=== PATIENT | male | born 1945 | race Two or more races ===

== ENCOUNTER 2024-10-05 16:01 | Inpatient (IN) | payer OTHER, MEDICARE, SELFPAY ==
[2024-10-05] VITALS (8 sets, daily range): BP systolic 101–111; BP diastolic 73–78; PULSE 9–90; RESP 15–97; TEMP 36.4–36.7; O2SAT 95–99; BMI 23.6; BMI 32.3; BMI 30.7
--- NOTE | 2024-10-05 16:42 | EKG_ITS ---
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
--- NOTE | 2024-10-05 16:42 | XR_ITS ---
Examination: AP chest single view Technique: AP portable semiupright chest single view Exam date and time: October 05, 2024 at 1658 hrs. Comparison: September 01, 2024 Indications: Shortness of breath chest pain today Findings: Moderate enlargement cardiac contour Mild vascular congestion Unipolar ventricular lead satisfactory position No pulmonary edema or pneumonia Impression: Mild vascular congestion
--- NOTE | 2024-10-05 16:43 | PD.EDWEAK ---
ED Weakness RME/HPI General Chief complaint: Weakness Stated complaint: FOOT PAIN Time Seen by Provider: 10/05/24 16:36 Arrival date/time: 10/05/24 16:01 RME / HPI RME / HPI Narrative: 79-year-old male patient with significant history of congestive heart failure, DVT, chronic A-fib was brought in by EMS for evaluation regarding generalized body weakness. According to the patient, he had physical therapy today, and the therapist noted that his blood pressure was low. They continue doing the physical therapy, and patient noted to be getting worse. Also complained of chronic left lower leg pain. And swelling. Currently on Eliquis for DVT bilateral lower extremity. Denies any chest pain. Denies any headache. Denies any vomiting denies any fever denies any other complaints. Patient is on Bumex 2 mg twice daily and spironolactone 25 mg twice daily for congestive heart failure. Related Data Home Medications ?Medication ?Instructions ?Recorded ?Confirmed potassium chloride 10 mEq 10 meq PO QDAY 04/04/20 09/01/24 tablet,extended release Previous Rx's ?Medication ?Instructions ?Recorded apixaban 5 mg tablet (Eliquis) 5 mg PO BID #46 tabs 09/06/24 bumetanide 2 mg tablet 2 mg PO BID #60 tabs 09/06/24 carvedilol 6.25 mg tablet (Coreg) 6.25 mg PO BID 1 month #60 tabs 09/06/24 spironolactone 25 mg tablet 25 mg PO BID #14 tabs 09/07/24 Allergies Allergy/AdvReac Type Severity Reaction Status Date / Time No Known Allergies Allergy Verified 03/31/24 17:43 Review of Systems Review of Systems Narrative Review of Systems: Review of system reviewed and within normal limits except mentioned in HPI ED Exam Narrative Physical exam: VITAL SIGNS: Reviewed. GENERAL APPEARANCE: Alert and interactive, follows commands, no acute distress, HEAD AND FACE: Non-traumatic. ENT: PERRL, pink conjunctivitis, eyelid no trauma, Mucous membrane moist. NECK: Supple, nontender, no nuchal rigidity. CHEST: No tenderness, no crepitus, no paradoxical movement, no retractions. LUNGS: Clear, well ventilated, symmetric, no rales, no wheezing, no ronchi, no stridor, good breath sounds bilaterally. HEART: Regular rate, regular rhythm, no murmur, no gallops. ABDOMEN: Soft, positive bowel sounds, nondistended, no guarding, nontender, no rebound, no masses, RECTAL: Deferred. GENITAL: Deferred. NEUROLOGICAL: Gross motor function intact sensory function intact, Appropriate for age. MUSCULOSKELETAL: low back nontender, full range of motion. EXTREMITIES: Bilateral lower extremity swelling +1, no cyanosis, dorsalis pedis and posterior tibialis pulses +1 bilateral, nontender, full range of motion. SKIN: Color pink, dry, no rash, no lacerations, no abrasions, no contusions. LYMPHATICS: Deferred. Course Quality Measures none Orders Category Date Time Status COVID-19 Screening Questionnaire NOW Care 10/05/24 19:45 Active Decision to Admit X1 Care 10/05/24 19:45 Active EKG (ED ONLY) *Do not use* NOW Care 10/05/24 16:42 Completed Consult to Nephrology Stat Cons 10/05/24 19:02 Ordered EKG (ED Only) Stat Exams 10/05/24 16:42 Draft XR chest 1V Stat Exams 10/05/24 16:42 Completed B-Type Natriuretic Peptide Stat Lab 10/05/24 17:18 Completed CBC Stat Lab 10/05/24 17:18 Completed Comprehensive Metabolic Panel Stat Lab 10/05/24 17:18 Completed Partial Thromboplastin Time Stat Lab 10/05/24 17:18 Completed Prothrombin Time with INR Stat Lab 10/05/24 17:18 Completed Troponin I Stat Lab 10/05/24 17:18 Completed Urinalysis, C/S if Indicated Stat Lab 10/05/24 17:29 Completed Sodium Chloride 0.9% 1000 ml [Ns] 1,000 ml Med 10/05/24 19:03 Active IV 999 mls/hr Vital Signs Vital signs: Vital Signs Temperature 97.6 F 10/05/24 16:18 Pulse Rate 78 10/05/24 16:18 Respiratory Rate 18 10/05/24 16:18 Blood Pressure 111/78 10/05/24 16:18 Pulse Oximetry (%) 95 10/05/24 16:18 Oxygen Delivery Method Room Air 10/05/24 16:18 Weakness MDM Narrative MDM Narrative:: 79-year-old male patient with significant history of congestive heart failure, DVT, chronic A-fib was brought in by EMS for evaluation regarding generalized body weakness. According to the patient, he had physical therapy today, and the therapist noted that his blood pressure was low. They continue doing the physical therapy, and patient noted to be getting worse. Also complained of chronic left lower leg pain. And swelling. Currently on Eliquis for DVT bilateral lower extremity. Denies any chest pain. Denies any headache. Denies any vomiting denies any fever denies any other complaints. Patient is on Bumex 2 mg twice daily and spironolactone 25 mg twice daily for congestive heart failure. Laboratory workup is significant for creatinine of 2.2 BUN of 46, patient's previous creatinine was noted to be 1.0 that was 3 weeks ago. BNP was noted to be 2117. Spoke with Dr. Torres, electrical instrument repairer on-call, told me to give patient 1 L of IV fluids hold Bumex and spironolactone, admit the patient Patient data External records reviewed:: None Clinical information provided by:: none Social determinants that could affect healthcare access:: none Patient has the following chronic illnesses:: Congestive heart failure history of DVT bilateral lower extremity How is presenting disease/condition affected by chronic disease/condition?: exacerbated by Evaluation data The following diagnostics were reviewed and interpreted by me:: lab results, radiology exam(s) and EKG tracing(s) Lab and/or radiology exams considered but not ordered:: None Interpretation Summary: Laboratory workup is significant for creatinine of 2.2 BUN of 46, patient's previous creatinine was noted to be 1.0 that was 3 weeks ago. BNP was noted to be 2117. EKG showed atrial fibrillation, ventricular rate of 84 bpm, QRS duration 136 MS, no ST segment elevation or depression noted. Medications / Prescriptions Medications or Prescriptions considered but not ordered:: None Medication administrations:: Medication Administration History Sodium Chloride (Ns) 1,000 mls @ 999 mls/hr IV .Q1H1M ONE Stop: 10/05/24 20:03 IV fluids for hydration Consultations Consultation(s) initiated? (list below): Yes Consultation #1 (Physician, Specialty, Details): Dr. Torres electrical instrument repairer, told me to admit the patient give a liter of fluid and stop Bumex and spironolactone for now Diagnosis Weakness Differential Diagnosis: anemia, dehydration and other (Acute kidney injury) Most likely diagnosis given after review of the tests above:: Acute kidney injury, history of congestive heart failure, history of chronic A-fib, Admission Indicated Admission indicated?: indicated Explain why admission is indicated or not indicated:: Patient is to be admitted for further management. Admission Request Was there a request for admission?: Yes Admission Attestation Admission request attestation: Discussed case with [Dr. Tate] from Hospitalist service regarding admission. Discussed patients ED course, exam findings, labs, and radiology results. The Hospitalist [agrees,] to accept the patient for admission. Disposition Plan Disposition Plan: Admit Discharge Plan Plan Patient Disposition: Admit Acute Care w/in Hospital Disposition Comment: Stable Prescriptions/Referrals Prescriptions/Med Rec: No Action potassium chloride 10 mEq Tablet Extended Release 10 meq PO QDAY Hold Instructions: Hold until seen by PCP and have done CMP. Eliquis 5 mg tablet 5 mg PO BID Qty: 46 0RF bumetanide 2 mg tablet 2 mg PO BID Qty: 60 0RF carvedilol [Coreg] 6.25 mg tablet 6.25 mg PO BID 30 Days Qty: 60 0RF Rx Instructions: must administer with a meal/food spironolactone 25 mg tablet 25 mg PO BID Qty: 14 0RF Referrals: Karen Wiley PA-C [Primary Care Provider] - In 1 week Problem List Clinical Impression: Acute kidney injury, Congestive heart failure Patient/Caregiver Discharge Instructions Print Language: Citizen Of [place] Stand Alone Forms: Valeria Award Info., Patient Portal Info Letter
[2024-10-05 17:31] LABS: Basophils # (Auto) 0.1 Thou/mm3 (0.0-0.2); Basophils % (Auto) 1 % (0-2.5); Eosinophils # (Auto) 0.2 Thou/mm3 (0.0-0.5); Eosinophils % (Auto) 3 % (0-10); Hematocrit 38.8 % (41.0-53.0); Hemoglobin 12.1 g/dL (13.5-16.0); Immature Granulocytes % (Auto) 0 % (0-0); Immature Granulocytes Auto 0.03 Thou/mm3 (0.00-0.00); Lymphocytes # (Auto) 1.9 Thou/mm3 (1.0-4.8); Lymphocytes % (Auto) 26 % (10-50); Mean Corpuscular HGB Conc 31.2 g/dl (31.0-37.0); Mean Corpuscular Hemoglobin 29.1 pg (25.0-35.0); Mean Corpuscular Volume 93 fL (80-100); Monocytes % (Auto) 14 % (0-12); Neutrophils # (Auto) 4.1 Thou/mm3 (1.8-7.7); Neutrophils % (Auto) 56 % (37-80); Nucleated Red Blood Cell # 0.07 Thou/mm3 (0.00-0.00); Nucleated Red Blood Cell % 1 /100 WBC (0); Platelet Count 180 Thou/mm3 (140-440); RDW Standard Deviation 51.3 fL (35.1-43.9); Red Blood Count 4.16 Miln/mm3 (4.50-5.90); White Blood Count 7.3 Thou/mm3 (3.8-10.6)
[2024-10-05 17:47] LABS: Collection Type, Urine Clean Catch
[2024-10-05 17:49] LABS: INR 1.6 (0.9-1.3); Partial Thromboplastin Time 37.3 Seconds (22.0-36.0); Prothrombin Time 17.2 Seconds (9.0-12.2)
[2024-10-05 17:52] LABS: Bilirubin,Urine Negative (Negative); Blood,Urine Negative (Negative); Clarity,Urine Clear (Clear/Hazy); Color,Urine Yellow (Lt Yel-Yel); Culture Indicated,Urine Not Indicated; Glucose, Urine Negative (Negative); Hyaline Casts,Urine 2 /hpf (0-1); Ketones,Urine Negative (Negative); Leukocyte Esterase,Urine Negative (Negative); Nitrite,Urine Negative (Negative); PH,Urine 5.5 (5.0-7.0); Protein,Urine Trace (Neg - Trace); RBC,Urine 2 /hpf (0-3); Specific Gravity,Urine 1.016 (1.001-1.035); Squamous Epithelial Cell,Urine < 1 /hpf (0-5); WBC,Urine 1 /hpf (0-5)
[2024-10-05 18:08] LABS: Alanine Aminotransferase 70 U/L (10-49); Albumin/Globulin Ratio 1.4 (1.2-2.2); Alkaline Phosphatase 106 U/L (46-116); Anion Gap 8 (7-16); Aspartate Amino Transferase 86 U/L (0-34); BUN/Creatinine Ratio 21 Ratio (12-20); Bilirubin,Total 1.6 mg/dL (0.3-1.2); Blood Urea Nitrogen 46 mg/dL (9-23); Calcium 9.4 mg/dL (8.3-10.6); Calcium (Corrected) 9.4 mg/dL (8.5-10.1); Carbon Dioxide 28.1 mMol/L (20.0-31.0); Chloride 97 mMol/L (98-107); Creatinine (Component) 2.2 mg/dL (0.6-1.3); Estimated Creatinine Clearance 26.3 mL/min (>60); Globulin 2.8 gm/dL (2.3-3.5); Glucose 111 mg/dL (74-106); Osmolality,Calculated 279 (275-295); Potassium 4.4 mMol/L (3.4-5.1); Sodium 133 mMol/L (136-145); Total Protein 6.8 gm/dL (5.7-8.2); Troponin I 0.026 ng/mL (0.0-0.045); eGFR 30 See Note
[2024-10-05 18:12] LABS: B-Type Natriuretic Peptide 2117 pg/mL (0-100)
--- NOTE | 2024-10-05 20:54 | ESHP_ITS ---
Documentation for date of: 10/05/24 HPI History of Present Illness History of present illness: 79-year-old male patient with significant medical history of HFrEF (35-40% on March 2024), s/p AICD, chronic Afib (rate controlled), DVT (on Eliquis), HTN, HLD and DM2 was broght to ED by EMS for generalized weakness and hypotension. Patient was recently admitted to [facility] on 09/01/24 where he was found to have DVT with CHF exacerbation and was discharged on Eliquis, Bumix and sprionolactone. Patient was to follow up with cardiology post hospital discharge but he never followed through due to transportation issues. While undergoing physical therapy at home this morning, patient was found to have BP in 80's / 40's on multiple readings thus patient was brought to ED. Patient denied chest pain / pressure, SOB, chills, fever, NVD or other associated symptoms. Patient states that for the last few days he has had decreased p.o. intake. ED labs were significant for Hgb 12.1, MCV 93, PT 17.2, INR 1.6, aPTT 37.3, BUN 46, Felt Finishing Supervisor 2.2 (baseline 1), eGFR 30, T. bili 1.6, AST 86, ALT 70, BNP 2117. Machine Biller Dr. Torres was consulted, and it was recommended to give patient bolous IVF and admit for further ERLIN management. Medical Hx: HFrEF, Afib, DVT, HTN, HLD, DM2 Surgical Hx: s/p AICD, anal fistula, knee arthroscopies Medications (need reconciliation): Eliquis, spironolactone, Bumix, Carvedilol, KCL, Lisinopril, Fluoxetine Social Hx: Former alcohol drinker, denied smoking or using other illicit drugs Allergies: NKDA Code Status: Full Code Review of Systems Review of Systems Systems Reviewed: All systems reviewed, normal except as documented Exam Vital Signs Temp Pulse Resp BP Pulse Ox O2 Del Method 98.0 F 85 18 102/78 96 Room Air 10/05/24 20:31 10/05/24 20:31 10/05/24 20:31 10/05/24 20:31 10/05/24 20:31 10/05/24 20:31 Narrative Exam Constitutional: well-developed, well-nourished, in no acute distress, lying in bed HEENT: NCAT, EOMI, reactive round pupils b/l, patent nares b/l, moist mucous membranes Lung: CTAB, no wheezing, no rhonchi Heart: Regular S1S2, no murmurs, gallops, or rubs Abdomen: Soft, non-distended, non-tender, bowel sounds present throughout Extremities: No cyanosis, clubbing, trace edema of LE, pulses of LE present b/l Neurologic: No focal sensory or motor deficits noted, AOx3, appropriate affect Skin: Warm, dry, no lesions or rashes noted Results: Labs 10/05/24 17:18 10/05/24 17:18 Labs: Short CBC 10/05/24 Range/Units 17:18 WBC 7.3 (3.8-10.6) Thou/mm3 Hgb 12.1 L (13.5-16.0) g/dL Hct 38.8 L (41.0-53.0) % Plt Count 180 (140-440) Thou/mm3 BMP 10/05/24 17:18 Sodium 133 L Potassium 4.4 Chloride 97 L Carbon Dioxide 28.1 BUN 46 H Creatinine 2.2 H Glucose 111 H Calcium 9.4 Cardiac Enzymes 10/05/24 Range/Units 17:18 Troponin I 0.026 (0.0-0.045) ng/mL Liver Function 10/05/24 Range/Units 17:18 Total Bilirubin 1.6 H (0.3-1.2) mg/dL AST 86 H (0-34) U/L ALT 70 H (10-49) U/L Alkaline Phosphatase 106 (46-116) U/L Albumin 4.0 (3.4-4.8) gm/dL Urine 10/05/24 Range/Units 17:29 Urine Color Yellow (Lt Yel-Yel) Urine Clarity Clear (Clear/Hazy) Urine pH 5.5 (5.0-7.0) Ur Specific [place] 1.016 (1.001-1.035) Urine Protein Trace (Neg - Trace) Urine Glucose (UA) Negative (Negative) Quality Measures Quality Measures none Advance care planning discussed with:: patient Medications Home Medications and Allergies Home Medications ?Medication ?Instructions ?Recorded ?Confirmed ?Type carvedilol 12.5 mg tablet 12.5 mg PO Q12H 10/06/24 10/06/24 History fluoxetine 20 mg capsule 20 mg PO QDAY 10/06/24 10/06/24 History Allergies Allergy/AdvReac Type Severity Reaction Status Date / Time No Known Allergies Allergy Verified 03/31/24 17:43 Visit Medications Acetaminophen (Acetaminophen 325 Mg Tablet) 650 mg PO Q6H PRN PRN Reason: Fever >101.5 Stop: 11/04/24 20:49 Heparin Sodium (Porcine) (Heparin Sod Inj 5000 Unit/Ml Vial) 5,000 unit SC Q8HR YASSINE Stop: 10/19/24 21:59 Ondansetron HCl (Ondansetron Inj 2 Mg/Ml Inj 2 Ml) 4 mg IV Q6H PRN; Protocol PRN Reason: NAUSEA OR VOMITING Stop: 11/04/24 20:49 Pantoprazole Sodium (Pantoprazole 40 Mg Tablet) 40 mg PO QDAY YASSINE Stop: 11/05/24 08:59 Discontinued Medications Sodium Chloride (Ns) 1,000 mls @ 999 mls/hr IV .Q1H1M ONE Stop: 10/05/24 20:03 Assessment & Plan Plan 79-year-old male patient with significant medical history of HFrEF (35-40% on March 2024), s/p AICD, chronic Afib (rate controlled), DVT (on Eliquis), HTN, HLD and DM2 was broght to ED by EMS for generalized weakness and hypotension. Patient was recently admitted to [facility] on 09/01/24 where he was found to have DVT with CHF exacerbation and was discharged on Eliquis, Bumix and sprionolactone. Today patient found to have ERLIN, Machine Biller Dr. Torres was consulted. #ERLIN most likely prerenal in setting of hypovolemia #Elevated BNP On admission patient with creatinine 2.2 (baseline 1) Patient recently discharged on Bumex and spironolactone Patient did not follow-up with shuttleless loom weaver post-discharge on August 2024 Patient with decreased p.o. intake for the last few days Plan: ? Admit to med telemetry ? Machine Biller Dr. Bingham consulted, recommendations are greatly appreciated ? Patient received 1 L of NS bolus ? Withhold Bumex and spironolactone ? Avoid nephrotoxins ? Renally dose medications ? Follow-up renal panel #Transaminitis #Elevated T bili Admission T bili 1.6, AST 86, ALT 70 Secondary to hypotention in setting of hypovolemia Plan: - Treat underlying illness - Trend liver panel #HFrEF (35 to 40%) #s/p AICD #Hypotension Patient recently discharged on spironolactone and Bumex Patient did not follow-up with cardiology secondary to transportation issues Per patient, decreased p.o. intake and generalized weakness Patient with BP 80's / 40's Patient received 1L bolous IVF per nephro recommendation Plan: ? Currently not in exacerbation ? Withhold home meds in setting of hypotension and ERLIN ? Consider consulting cardiology #DVT #A-fib rate controlled Patient recently admitted for b/l DVT Physical exam significant for mild edema of LE, L > R Plan: ? Restart Eliquis 5 mg twice daily #DM2 Most recent A1c of 5 Plan: - SSI + accuchecks Health Maintenance Dispo: Patient admitted for ERLIN, nephrology consulted Diet: cardiac diet DVT/PPx: Eliquis GI ppx: Protonix Lines: PIV Code Status: Full Code This patient care was discussed with my attending Dr. Vianney Sheth MD PGY-2 Disclaimer: Minor errors in bean picker may be present since this note was dictated by speech recognition software. Attending Provider Attestation/Addendum I reviewed labs, imaging, EKG, home medications and prior available records. Face to face evaluation was performed by me. I have personally examined the patient and discussed assessment and plan with the IM team. I reviewed the resident note and agree with the plan with exceptions as below. 79-year-old male with history of heart failure with reduced EF, atrial fibrillation, hypertension, and hyperlipidemia, who was recently admitted for CHF exacerbation and was discharged on oral diuretics, who presented with a chief complaint of generalized weakness and hypotension. Was found to have dehydration picture and ERLIN. ERLIN: Likely in the setting of diuretic use. Possibly on top of not eating and drinking well. Nephrology was contacted in the ED Dr. Bingham: Recommended to hold diuretics and give IV fluids. Monitor I's and O's. Avoid nephrotoxins. Renally dosed medications. Acute hypotension: Improved with IV fluids. Management as above. Monitor BP. CHF without exacerbation: In the setting of history of heart failure with reduced EF. Holding diuretics. Consult cardiology for further recommendations.
[2024-10-05] MEDS: SODIUM CHLORIDE 0.9% 1000 ML 1,000 ML 999 ML IV (21:17)
[2024-10-05] MEDS: APIXABAN 2.5 MG TABLET 5 MG PO (22:06)
--- NOTE | 2024-10-05 22:41 | PC.NURSE ---
Report called to OLIVERIO Navas. pt taken to onm monitor by OLIVERIO. Jose MAY.
[2024-10-06] VITALS (8 sets, daily range): BP systolic 98–110; BP diastolic 61–73; PULSE 75–90; RESP 16–95; TEMP 36.1–36.4; O2SAT 92–98
[2024-10-06 05:44] LABS: Basophils % (Auto) 1 % (0-2.5); Eosinophils # (Auto) 0.2 Thou/mm3 (0.0-0.5); Eosinophils % (Auto) 4 % (0-10); Hematocrit 36.8 % (41.0-53.0); Hemoglobin 11.7 g/dL (13.5-16.0); Immature Granulocytes % (Auto) 1 % (0-0); Immature Granulocytes Auto 0.03 Thou/mm3 (0.00-0.00); Lymphocytes # (Auto) 1.5 Thou/mm3 (1.0-4.8); Lymphocytes % (Auto) 23 % (10-50); Mean Corpuscular HGB Conc 31.8 g/dl (31.0-37.0); Mean Corpuscular Hemoglobin 29.6 pg (25.0-35.0); Mean Corpuscular Volume 93 fL (80-100); Monocytes # (Auto) 0.9 Thou/mm3 (0.0-0.8); Monocytes % (Auto) 14 % (0-12); Neutrophils # (Auto) 3.8 Thou/mm3 (1.8-7.7); Neutrophils % (Auto) 58 % (37-80); Nucleated Red Blood Cell # 0.04 Thou/mm3 (0.00-0.00); Nucleated Red Blood Cell % 1 /100 WBC (0); Platelet Count 162 Thou/mm3 (140-440); RDW Standard Deviation 51.4 fL (35.1-43.9); Red Blood Count 3.95 Miln/mm3 (4.50-5.90); White Blood Count 6.6 Thou/mm3 (3.8-10.6)
[2024-10-06 07:06] LABS: Alanine Aminotransferase 78 U/L (10-49); Albumin, Serum 3.5 gm/dL (3.4-4.8); Albumin/Globulin Ratio 1.3 (1.2-2.2); Alkaline Phosphatase 121 U/L (46-116); Aspartate Amino Transferase 90 U/L (0-34); BUN/Creatinine Ratio 22 Ratio (12-20); Blood Urea Nitrogen 43 mg/dL (9-23); Calcium 9.3 mg/dL (8.3-10.6); Calcium (Corrected) 9.7 mg/dL (8.5-10.1); Carbon Dioxide 23.3 mMol/L (20.0-31.0); Globulin 2.6 gm/dL (2.3-3.5); Glucose 88 mg/dL (74-106); Magnesium 2.4 mg/dL (1.6-2.6); Phosphorous 4.3 mg/dL (2.4-5.1); Total Protein 6.1 gm/dL (5.7-8.2); eGFR 33 See Note
[2024-10-06 07:34] LABS: Chloride 101 mMol/L (98-107); Sodium 134 mMol/L (136-145)
[2024-10-06 07:41] LABS: Anion Gap 10 (7-16); Osmolality,Calculated 278 (275-295)
[2024-10-06] MEDS: PANTOPRAZOLE 40 MG TABLET PO (08:06)
[2024-10-06] MEDS: APIXABAN 2.5 MG TABLET 5 MG PO ×2 (08:06→20:33)
--- NOTE | 2024-10-06 10:50 | PC.CM ---
Home health initiated in [facility], need referrals sent.
[2024-10-06 11:20] LABS: Bilirubin,Total 1.6 mg/dL (0.3-1.2)
--- NOTE | 2024-10-06 12:42 | XR_ITS ---
Examination: Duplex scan of the lower extremity, unilateral left complete Date and time of exam: October 06, 2024 1515 hrs. Indications: Left leg swelling beginning 2 days ago, positive for DVT September 01, 2024 study Technique: Duplex scan of the extremity veins using B-mode/grayscale imaging and Doppler spectral analysis and color flow Attention is directed to internal echogenicity, compression and augmentation involving these veins, color flow assessment, spectral analysis Findings: Positive for nonocclusive deep vein thrombus involving the distal left superficial femoral vein Remaining venous system is open Impression: Positive for nonocclusive acute deep vein thrombus in the distal left superficial femoral vein
--- NOTE | 2024-10-06 13:14 | ESPR_ITS ---
<Statement entered by Ruel Child DO - 10/06/24 15:44> Senior attestation: Patient was examined and case was reviewed with team including attending physician. Note reviewed, I agree with most of its contents and agree with the patient's care. LLE ultrasound ordered for DVT assessment, however patient already on therapeutic eliquis dose. Student Activities Director Dr. Torres consulted, pending recommendations. Stopped insulin sliding scale today due to controlled glucose levels, will reduce home spironolactone and bumex dose tomorrow. Anticipate discharge in 24-48 hours, pending nephrology recs. Ruel Child DO PGY-3 Documentation for date of: 10/06/24 Subjective Subjective Interval history: Patient seen at bedside Saturating well at room air. Renal function improved compared to yesterday. Holding diuretics as patient does not have signs of fluid overload Will obtain venous Doppler left leg has left leg is more swollen compared to right. Will continue to monitor patient Exam Vital Signs Temp Pulse Resp BP Pulse Ox O2 Del Method 97.3 F 84 16 103/67 92 L Room Air 10/06/24 08:00 10/06/24 08:30 10/06/24 08:30 10/06/24 08:00 10/06/24 08:00 10/06/24 08:00 Narrative Exam Constitutional: well-developed, well-nourished, in no acute distress, lying in bed HEENT: NCAT, EOMI, reactive round pupils b/l, patent nares b/l, moist mucous membranes Lung: CTAB, no wheezing, no rhonchi Heart: Regular S1S2, no murmurs, gallops, or rubs Abdomen: Soft, non-distended, non-tender, bowel sounds present throughout Extremities: No cyanosis, clubbing, trace edema of LE left more swollen than right, pulses of LE present b/l Neurologic: No focal sensory or motor deficits noted, AOx3, appropriate affect Skin: Warm, dry, no lesions or rashes noted Objective Labs 10/07/24 04:43 10/07/24 04:43 Labs: Laboratory Results - last 24 hr 10/05/24 10/05/24 10/06/24 17:18 17:29 04:43 WBC 7.3 6.6 RBC 4.16 L 3.95 L Hgb 12.1 L 11.7 L Hct 38.8 L 36.8 L MCV 93 93 MCH 29.1 29.6 MCHC 31.2 31.8 RDW Std Deviation 51.3 H 51.4 H Plt Count 180 162 Neut % (Auto) 56 58 Lymph % (Auto) 26 23 [place] % (Auto) 14 H 14 H Eos % (Auto) 3 4 Baso % (Auto) 1 1 Neut # (Auto) 4.1 3.8 Lymph # (Auto) 1.9 1.5 [place] # (Auto) 1.0 H 0.9 H Eos # (Auto) 0.2 0.2 Baso # (Auto) 0.1 0.0 Immature Gran # (Auto) 0.03 H 0.03 H Absolute Nucleated RBC 0.07 H 0.04 H Immature Gran % 0 1 H Nucleated RBC % 1 H 1 H PT 17.2 H D INR 1.6 H APTT 37.3 H Sodium 133 L 134 L Potassium 4.4 4.0 Chloride 97 L 101 Carbon Dioxide 28.1 23.3 Anion Gap 8 10 BUN 46 H 43 H Creatinine 2.2 H 2.0 H Estim Creat Clear Calc 26.3 L 35.0 L eGFR 30 L 33 L BUN/Creatinine Ratio 21 H 22 H Glucose 111 H 88 Calculated Osmolality 279 278 Calcium 9.4 9.3 Corrected Calcium 9.4 9.7 Phosphorus 4.3 Magnesium 2.4 Total Bilirubin 1.6 H 1.6 H AST 86 H 90 H ALT 70 H 78 H Alkaline Phosphatase 106 121 H Troponin I 0.026 B-Natriuretic Peptide 2117 H* Total Protein 6.8 6.1 Albumin 4.0 3.5 D Globulin 2.8 2.6 Albumin/Globulin Ratio 1.4 1.3 Ur Collection Type Clean Catch Urine Color Yellow Urine Clarity Clear Urine pH 5.5 Ur Specific [place] 1.016 Urine Protein Trace Urine Glucose (UA) Negative Urine Ketones Negative Urine Blood Negative Urine Nitrite Negative Urine Bilirubin Negative Urine Urobilinogen (Auto) 2.0 Ur Leukocyte Esterase Negative Urine RBC 2 Urine WBC 1 Ur Squamous Epith Cells < 1 Urine Bacteria None Hyaline Casts 2 H Ur Culture Indicated? Not Indicated Quality Measures Quality Measures none Advance care planning discussed with:: patient Assessment & Plan Assessment Current Active Medications: Generic Name Dose Route Start Last Admin Trade Name Freq PRN Reason Stop Dose Admin Acetaminophen 650 mg 10/05/24 20:50 Acetaminophen 325 Mg Tablet PO 12/22/24 20:49 Q6H PRN Fever >101.5 Apixaban 5 mg 10/05/24 21:15 10/06/24 08:06 Apixaban 2.5 Mg Tablet PO 10/26/24 21:14 5 mg BID YASSINE Administration Ondansetron HCl 4 mg 10/05/24 20:50 Ondansetron Inj 2 Mg/Ml Inj 2 Ml IV 11/04/24 20:49 Q6H PRN NAUSEA OR VOMITING Protocol Pantoprazole Sodium 40 mg 10/06/24 09:00 10/06/24 08:06 Pantoprazole 40 Mg Tablet PO 11/05/24 08:59 40 mg QDAY YASSINE Administration Plan Assessment and Plan: Summary: Mr. Rai is a 79-year-old male patient with significant medical history of HFrEF (35-40% on March 2024), s/p AICD, chronic Afib (rate controlled), DVT (on Eliquis), HTN, HLD and DM2 was broght to ED by EMS for generalized weakness and hypotension. Patient was recently admitted to [facility] on 09/01/24 where he was found to have DVT with CHF exacerbation and was discharged on Eliquis, Bumix and sprionolactone. Patient was admitted with ERLIN likely in setting of hypovolemia #ERLIN most likely prerenal in setting of hypovolemia #Elevated BNP On admission patient with creatinine 2.2 (baseline 1) Patient recently discharged on Bumex and spironolactone Patient did not follow-up with web production assistant post-discharge on August 2024 Patient with decreased p.o. intake for the last few days Patient was given 1 L bolus NS in ED Plan: ? Admit to [facility] telemetry - Started on normal saline 1 L at 80 cc/h ? Student Activities Director Dr. Torres consulted, recommendations are greatly appreciated - Hold Bumex and spironolactone ? Avoid nephrotoxic agents ? Renally dose medications ? Follow-up renal panel #Transaminitis #Elevated T bili Admission T bili 1.6, AST 86, ALT 70 Secondary to hypotention in setting of hypovolemia Plan: - Treat underlying illness -Monitor CMP in a.m. #HFrEF (35 to 40%) #s/p AICD #Hypotension Patient recently discharged on spironolactone twice daily and Bumex twice daily Patient did not follow-up with cardiology postdischarge secondary to transportation issues Per patient, decreased p.o. intake and generalized weakness Patient with BP 80's / 40's on admission Patient received 1L bolous IVF per nephro recommendation Plan: ? Currently not in exacerbation ? Withhold home meds in setting of hypotension and ERLIN ? Consider consulting cardiology # Bilateral deep venous thrombosis # Atrial fibrillation rate controlled Patient recently admitted for b/l DVT Physical exam significant for mild edema of LE, L > R Plan: ? Continue Eliquis 5 mg twice daily -Patient on Coreg 12.5 mg p.o. twice daily at home, holding as blood pressure is soft # Diabetes mellitus type 2 Most recent A1c of 5.0 in August Discontinued sliding scale insulin Monitor blood glucose level and CMP daily Health Maintenance Dispo: Patient admitted for ERLIN, nephrology consulted Diet: Cardiac diet, carb consistent low DVT/PPx: Eliquis GI ppx: Protonix Lines: PIV Code Status: Full Code Case discussed with Attending Dr. Bonilla and Dr. Child PGY3. Jordan Ahn PGY1 Attending Provider Attestation/Addendum Face to face evaluation was performed by me. I have personally seen and examined the patient. I discussed the assessment and plan with the entire medicine team. I reviewed available medical records, imaging studies, laboratory results. I agree with the above subjective data, objective findings, assessment and plan except as corrected by me or noted below ERLIN, suspect prerenal etiology due to heart failure, cannot rule out cardio renal syndrome. Obesity Nonischemic cardiomyopathy status post AICD placement bilateral DVT lower extremity history of atrial fibrillation, on Eliquis already -Continue to hold Lasix and spironolactone for now, plan to initiate with lower dose/frequency may be due to milligram Bumex daily instead of twice daily and 25 mg spironolactone daily instead of twice daily. He had echo done March 2024. Dr. Alexandra saw him during his previous admissions as well and also is his regular outpatient web production assistant. -No more IV fluids monitor heart rate, vitals, labs, clinical course closely -Therapy DVT prophylaxis with apixaban
[2024-10-06] MEDS: SODIUM CHLORIDE 0.9% 1000 ML 1,000 ML 80 ML IV (16:48)
[2024-10-07] VITALS (9 sets, daily range): BP systolic 103–124; BP diastolic 66–78; PULSE 76–92; RESP 16–95; TEMP 36.2–36.6; O2SAT 92–97
[2024-10-07] MEDS: ACETAMINOPHEN 325 MG TABLET 650 MG PO (02:01)
[2024-10-07 05:50] LABS: Basophils % (Auto) 1 % (0-2.5); Eosinophils # (Auto) 0.3 Thou/mm3 (0.0-0.5); Eosinophils % (Auto) 4 % (0-10); Hemoglobin 11.2 g/dL (13.5-16.0); Immature Granulocytes % (Auto) 0 % (0-0); Immature Granulocytes Auto 0.03 Thou/mm3 (0.00-0.00); Lymphocytes # (Auto) 1.6 Thou/mm3 (1.0-4.8); Lymphocytes % (Auto) 24 % (10-50); Mean Corpuscular HGB Conc 31.1 g/dl (31.0-37.0); Mean Corpuscular Hemoglobin 28.7 pg (25.0-35.0); Mean Corpuscular Volume 92 fL (80-100); Monocytes # (Auto) 0.9 Thou/mm3 (0.0-0.8); Monocytes % (Auto) 13 % (0-12); Neutrophils # (Auto) 3.9 Thou/mm3 (1.8-7.7); Neutrophils % (Auto) 58 % (37-80); Nucleated Red Blood Cell # 0.05 Thou/mm3 (0.00-0.00); Nucleated Red Blood Cell % 1 /100 WBC (0); Platelet Count 151 Thou/mm3 (140-440); RDW Standard Deviation 51.7 fL (35.1-43.9); White Blood Count 6.7 Thou/mm3 (3.8-10.6)
[2024-10-07] MEDS: SIMETHICONE 80 MG CHEW PO (06:14)
[2024-10-07 06:16] LABS: Alanine Aminotransferase 96 U/L (10-49); Albumin, Serum 3.5 gm/dL (3.4-4.8); Albumin/Globulin Ratio 1.5 (1.2-2.2); Alkaline Phosphatase 107 U/L (46-116); Anion Gap 9 (7-16); Aspartate Amino Transferase 99 U/L (0-34); BUN/Creatinine Ratio 21 Ratio (12-20); Bilirubin,Total 1.7 mg/dL (0.3-1.2); Blood Urea Nitrogen 41 mg/dL (9-23); Calcium (Corrected) 9.4 mg/dL (8.5-10.1); Carbon Dioxide 24.6 mMol/L (20.0-31.0); Chloride 100 mMol/L (98-107); Globulin 2.4 gm/dL (2.3-3.5); Glucose 97 mg/dL (74-106); Osmolality,Calculated 278 (275-295); Sodium 134 mMol/L (136-145); Total Protein 5.9 gm/dL (5.7-8.2); eGFR 33 See Note
[2024-10-07] MEDS: APIXABAN 2.5 MG TABLET 5 MG PO ×2 (09:50→20:19)
[2024-10-07] MEDS: PANTOPRAZOLE 40 MG TABLET PO (09:50)
--- NOTE | 2024-10-07 10:05 | CHAP ---
Patient was visited by the Spiritual Care Volunteer who prayed for them. (Volunteer was in the hospital from 09:24-10:05)
--- NOTE | 2024-10-07 12:42 | ESPR_ITS ---
<Statement entered by Ruel Child DO - 10/07/24 15:16> Senior attestation: Patient was examined and case was reviewed with team including attending physician. Note reviewed, I agree with most of its contents and agree with the patient's care. Discharge was initially planned today however patient preferred for SNF placement, will need an additional night for placement/insurance authorization purposes, will order PT evaluation. Spironolactone will be held upon discharge for 1 week with repeat BMP advised, bumex has been reduced to 2mg qday for discharge preparation. Ruel Child DO PGY-3 Documentation for date of: 10/07/24 Subjective Subjective Interval history: Patient seen at bedside. Renal function improving Patient stable from nephrology point of view Resumed Bumex 2 mg daily Will hold spironolactone until patient follows up with primary care physician. Pending physical therapy evaluation, patient requesting placement to custodial facility. Anticipate discharge in a.m. after physical therapy evaluation. Exam Vital Signs Temp Pulse Resp BP Pulse Ox O2 Del Method 97.8 F 85 20 124/72 96 Room Air 10/07/24 12:00 10/07/24 12:00 10/07/24 12:00 10/07/24 12:00 10/07/24 12:00 10/07/24 12:00 Narrative Exam Constitutional: well-developed, well-nourished, in no acute distress, lying in bed HEENT: NCAT, EOMI, reactive round pupils b/l, patent nares b/l, moist mucous membranes Lung: CTAB, no wheezing, no rhonchi Heart: Regular S1S2, no murmurs, gallops, or rubs Abdomen: Soft, non-distended, non-tender, bowel sounds present throughout Extremities: No cyanosis, clubbing, trace edema of LE left more swollen than right, pulses of LE present b/l Neurologic: No focal sensory or motor deficits noted, AOx3, appropriate affect Skin: Warm, dry, no lesions or rashes noted Objective Labs 10/07/24 04:43 10/07/24 04:43 Labs: Laboratory Results - last 24 hr 10/07/24 04:43 WBC 6.7 RBC 3.90 L Hgb 11.2 L Hct 36.0 L MCV 92 MCH 28.7 MCHC 31.1 RDW Std Deviation 51.7 H Plt Count 151 Neut % (Auto) 58 Lymph % (Auto) 24 [place] % (Auto) 13 H Eos % (Auto) 4 Baso % (Auto) 1 Neut # (Auto) 3.9 Lymph # (Auto) 1.6 [place] # (Auto) 0.9 H Eos # (Auto) 0.3 Baso # (Auto) 0.0 Immature Gran # (Auto) 0.03 H Absolute Nucleated RBC 0.05 H Immature Gran % 0 Nucleated RBC % 1 H Sodium 134 L Potassium 4.0 Chloride 100 Carbon Dioxide 24.6 Anion Gap 9 BUN 41 H Creatinine 2.0 H Estim Creat Clear Calc 35.0 L eGFR 33 L BUN/Creatinine Ratio 21 H Glucose 97 Calculated Osmolality 278 Calcium 9.0 Corrected Calcium 9.4 Total Bilirubin 1.7 H AST 99 H ALT 96 H Alkaline Phosphatase 107 Total Protein 5.9 Albumin 3.5 Globulin 2.4 Albumin/Globulin Ratio 1.5 Quality Measures Quality Measures none Advance care planning discussed with:: patient Assessment & Plan Assessment Current Active Medications: Generic Name Dose Route Start Last Admin Trade Name Freq PRN Reason Stop Dose Admin Acetaminophen 650 mg 10/05/24 20:50 10/07/24 02:01 Acetaminophen 325 Mg Tablet PO 11/04/24 20:49 650 mg Q6H PRN Administration Fever >101.5 Apixaban 5 mg 10/05/24 21:15 10/07/24 09:50 Apixaban 2.5 Mg Tablet PO 10/26/24 21:14 5 mg BID YASSINE Administration Ondansetron HCl 4 mg 10/05/24 20:50 Ondansetron Inj 2 Mg/Ml Inj 2 Ml IV 11/04/24 20:49 Q6H PRN NAUSEA OR VOMITING Protocol Pantoprazole Sodium 40 mg 10/06/24 09:00 10/07/24 09:50 Pantoprazole 40 Mg Tablet PO 11/05/24 08:59 40 mg QDAY YASSINE Administration Plan Assessment and Plan: Summary: Mr. Rai is a 79-year-old male patient with significant medical history of HFrEF (35-40% on March 2024), s/p AICD, chronic Afib (rate controlled), DVT (on Eliquis), HTN, HLD and DM2 was broght to ED by EMS for generalized weakness and hypotension. Patient was recently admitted to [facility] on 09/01/24 where he was found to have DVT with CHF exacerbation and was discharged on Eliquis, Bumix and sprionolactone. Patient was admitted with ERLIN likely in setting of hypovolemia #ERLIN most likely prerenal in setting of hypovolemia #Elevated BNP On admission patient with creatinine 2.2 (baseline 1) Patient recently discharged on Bumex and spironolactone Patient did not follow-up with head grease maker post-discharge on August 2024 Patient with decreased p.o. intake for the last few days Patient was given 1 L bolus NS in ED. Patient received 2 L of NS total throughout his hospitalization Plan: ? Admit to med telemetry - Resumed Bumex 2 mg daily -Pending physical therapy evaluation ? Parts Department Supervisor Dr. Torres consulted, recommendations are greatly appreciated - Hold spironolactone ? Avoid nephrotoxic agents ? Renally dose medications ? Follow-up renal panel #Transaminitis #Elevated T bili Admission T bili 1.6, AST 86, ALT 70 Secondary to hypotention in setting of hypovolemia Plan: - Treat underlying illness -Patient denies any right upper quadrant tenderness, asymptomatic. -Monitor CMP in a.m. #HFrEF (35 to 40%) #s/p AICD #Hypotension Patient recently discharged on spironolactone twice daily and Bumex twice daily Patient did not follow-up with cardiology postdischarge secondary to transportation issues Per patient, decreased p.o. intake and generalized weakness Patient with BP 80's / 40's on admission Patient received 1L bolous IVF per nephro recommendation Plan: ? Currently not in exacerbation -Resumed Bumex 2 mg, will consider starting patient on carvedilol in a.m. ? Will hold spironolactone until patient follows up with primary care physician ? Consider consulting cardiology # Bilateral deep venous thrombosis # Atrial fibrillation rate controlled Patient recently admitted for b/l DVT Physical exam significant for mild edema of LE, L > R Plan: ? Continue Eliquis 5 mg twice daily -Patient on Coreg 12.5 mg p.o. twice daily at home, holding as blood pressure is soft, will consider resuming in a.m. # Diabetes mellitus type 2 Most recent A1c of 5.0 in August Discontinued sliding scale insulin Monitor blood glucose level and CMP daily Health Maintenance Dispo: Patient admitted for ERLIN, nephrology consulted Diet: Cardiac diet, carb consistent low DVT/PPx: Eliquis GI ppx: Protonix Lines: PIV Code Status: Full Code Case discussed with Attending Dr. Bonilla and Dr. Child PGY3. Jordan Ahn PGY1
[2024-10-07] MEDS: BUMETANIDE 0.5 MG TABLET 2 MG PO (13:04)
--- NOTE | 2024-10-07 13:30 | PD.ADDPROG ---
Addendum Progress Note Addendum Date of report being addended: 10/07/24 Narrative: Face to face evaluation was performed by me. I have personally seen and examined the patient. I discussed the assessment and plan with the entire medicine team. I reviewed available medical records, imaging studies, laboratory results. I agree with the above subjective data, objective findings, assessment and plan except as corrected by me or noted below ERLIN, suspect prerenal etiology due to heart failure, cannot rule out cardio renal syndrome. Obesity Nonischemic cardiomyopathy status post AICD placement bilateral DVT lower extremity history of atrial fibrillation, on Eliquis already - plan to initiate Bumex 2 mg daily, hold spironolactone for now, if creatinine improving can be initiated daily dosage instead of twice daily. Continue apixaban. Can repeat echo, patient already has AICD. Patient-wanted to go to rehabilitation if possible, dialysis social worker informed us, pending physical therapy evaluation -Monitor labs and vitals replace electrolytes as needed avoid nephrotoxic agents -Therapy DVT prophylaxis with apixaban
--- NOTE | 2024-10-07 15:32 | PC.SS ---
This is 79-year-old, , male who presented to the ED due to suffering from weakness. Patient appeared alert and oriented to self, place and situation. Patient reported that he resides at home with his , Rosy. Patient reported that at this time, he is using a wheelchair for ambulation. Patient reported he has fallen at home 4 times. Patient assigned his son, Emil as his medical decision maker. Patient follows up with Karen Wiley. Patient is pending PT to determine a safe discharge plan. Patient is willing to go to SNF, if approved by [employer] and recommended by PT.
[2024-10-07] MEDS: FLUoxetine HCL 10 MG CAPSULE 20 MG PO (21:42)
[2024-10-08] VITALS (11 sets, daily range): BP systolic 103–128; BP diastolic 67–87; PULSE 59–96; RESP 18–99; TEMP 36.1–36.8; O2SAT 92–99; BMI 30.7; BMI 12.0
[2024-10-08] MEDS: ACETAMINOPHEN 325 MG TABLET 650 MG PO ×2 (02:07→19:32)
[2024-10-08 06:04] LABS: Basophils % (Auto) 1 % (0-2.5); Eosinophils # (Auto) 0.3 Thou/mm3 (0.0-0.5); Eosinophils % (Auto) 4 % (0-10); Hematocrit 37.2 % (41.0-53.0); Hemoglobin 11.7 g/dL (13.5-16.0); Immature Granulocytes % (Auto) 0 % (0-0); Immature Granulocytes Auto 0.03 Thou/mm3 (0.00-0.00); Lymphocytes # (Auto) 1.7 Thou/mm3 (1.0-4.8); Lymphocytes % (Auto) 22 % (10-50); Mean Corpuscular HGB Conc 31.5 g/dl (31.0-37.0); Mean Corpuscular Hemoglobin 29.3 pg (25.0-35.0); Mean Corpuscular Volume 93 fL (80-100); Monocytes % (Auto) 12 % (0-12); Neutrophils # (Auto) 4.8 Thou/mm3 (1.8-7.7); Neutrophils % (Auto) 61 % (37-80); Nucleated Red Blood Cell # 0.08 Thou/mm3 (0.00-0.00); Nucleated Red Blood Cell % 1 /100 WBC (0); Platelet Count 156 Thou/mm3 (140-440); RDW Standard Deviation 51.9 fL (35.1-43.9); Red Blood Count 3.99 Miln/mm3 (4.50-5.90); White Blood Count 7.9 Thou/mm3 (3.8-10.6)
[2024-10-08 06:47] LABS: Alanine Aminotransferase 125 U/L (10-49); Albumin, Serum 3.5 gm/dL (3.4-4.8); Albumin/Globulin Ratio 1.3 (1.2-2.2); Alkaline Phosphatase 113 U/L (46-116); Anion Gap 11 (7-16); Aspartate Amino Transferase 121 U/L (0-34); BUN/Creatinine Ratio 22 Ratio (12-20); Bilirubin,Total 2.2 mg/dL (0.3-1.2); Blood Urea Nitrogen 44 mg/dL (9-23); Calcium 9.1 mg/dL (8.3-10.6); Calcium (Corrected) 9.5 mg/dL (8.5-10.1); Carbon Dioxide 22.4 mMol/L (20.0-31.0); Chloride 99 mMol/L (98-107); Globulin 2.6 gm/dL (2.3-3.5); Glucose 92 mg/dL (74-106); Magnesium 2.2 mg/dL (1.6-2.6); Osmolality,Calculated 275 (275-295); Potassium 4.1 mMol/L (3.4-5.1); Sodium 132 mMol/L (136-145); Total Protein 6.1 gm/dL (5.7-8.2); eGFR 33 See Note
[2024-10-08] MEDS: BUMETANIDE 0.5 MG TABLET 2 MG PO (08:16)
[2024-10-08] MEDS: FLUoxetine HCL 10 MG CAPSULE 20 MG PO (08:17)
[2024-10-08] MEDS: PANTOPRAZOLE 40 MG TABLET PO (08:17)
--- NOTE | 2024-10-08 09:17 | PC.SS ---
Follow up note: Pt is possible dc if he is not having abdominal issues. PT recommendations are pending.
[2024-10-08] MEDS: APIXABAN 2.5 MG TABLET 5 MG PO ×2 (09:47→20:44)
--- NOTE | 2024-10-08 09:48 | XR_ITS ---
Examination: Abdomen sonogram, Limited Date and time of exam: October 08, 2024 1502 hours INDICATIONS: Generalized abdominal pain this week, elevated liver function tests including total bilirubin October 08, 2024 Technique: Real-time crane scale transabdominal sonographic images of the upper abdomen obtained. Findings: Normal gallbladder Normal common bile duct 0.2 cm Pancreas obscured by bowel gas Liver 18.3 cm no focal liver lesions Normal hepatopedal portal venous oh Patent IVC IMPRESSION: Normal gallbladder Normal common bile duct Mild hepatomegaly no focal liver lesions
--- NOTE | 2024-10-08 10:35 | PC.SS ---
SS met with pt who is agreeable to SNF. PASRR assessment Level II Mental Health Evaluation referral is required.
[2024-10-08] MEDS: SIMETHICONE 80 MG CHEW PO (11:54)
--- NOTE | 2024-10-08 12:21 | PD.NEPHCONS ---
History of Present Illness Data of Consult Requesting Physician: Gilmar Curran MD Primary Care Provider: Karen Wiley PA-C Consult Narrative History of present illness: 79-year-old male patient with significant medical history of HFrEF (35-40% on March 2024), s/p AICD, chronic Afib (rate controlled), DVT (on Eliquis), HTN, HLD and DM2 was broght to ED by EMS for generalized weakness and hypotension. Patient was recently admitted to [facility] on 09/01/24 where he was found to have DVT with CHF exacerbation and was discharged on Eliquis, Bumix and sprionolactone. Nephrology is consulted for ERLIN. Pt has poor oral intake. Pt denies any nausea or vomiting. Pt denies any diarrhea. cc:: cc: Gilmar Curran MD Review of Systems Review of Systems Systems Reviewed: All systems reviewed, normal except as documented Meds Home Medications and Allergies Home Medications ?Medication ?Instructions ?Recorded ?Confirmed ?Type carvedilol 12.5 mg tablet 12.5 mg PO Q12H 10/06/24 10/06/24 History fluoxetine 20 mg capsule 20 mg PO QDAY 10/06/24 10/06/24 History Allergies Allergy/AdvReac Type Severity Reaction Status Date / Time No Known Allergies Allergy Verified 03/31/24 17:43 Exam Vital Signs Temp Pulse Resp BP Pulse Ox O2 Del Method O2 Flow Rate 97.0 F 59 L 18 111/73 92 L Room Air 2 10/08/24 12:00 10/08/24 12:00 10/08/24 12:00 10/08/24 12:00 10/08/24 12:00 10/08/24 12:00 10/08/24 07:32 Narrative Exam No acute distress Heart s1,s2 chest bi basal crackles ext plus 1 edema Results Labs 10/10/24 04:05 10/10/24 04:05 Labs: Short CBC 10/08/24 Range/Units 04:15 WBC 7.9 (3.8-10.6) Thou/mm3 Hgb 11.7 L (13.5-16.0) g/dL Hct 37.2 L (41.0-53.0) % Plt Count 156 (140-440) Thou/mm3 BMP 10/08/24 04:15 Sodium 132 L Potassium 4.1 Chloride 99 Carbon Dioxide 22.4 BUN 44 H Creatinine 2.0 H Glucose 92 Calcium 9.1 Liver Function 10/08/24 Range/Units 04:15 Total Bilirubin 2.2 H D (0.3-1.2) mg/dL AST 121 H (0-34) U/L ALT 125 H (10-49) U/L Alkaline Phosphatase 113 (46-116) U/L Albumin 3.5 (3.4-4.8) gm/dL Assessment & Plan Assessment and plan (1) Acute kidney injury: Status: Acute Assessment and plan: Creat is stable decrease Bumex to 1 mg po bid avoid nephrotoxic medication need close out pt follow up (2) Congestive heart failure: Status: Acute
--- NOTE | 2024-10-08 14:20 | PC.NURSE ---
Pt. complaining of feeling anxious Dr. Child been updated . Per MD he will come and talk to pt.
--- NOTE | 2024-10-08 15:37 | PC.SS ---
Addendum entered by Maude Martinez 10/08/24 16:14: Blanca Randall pt has co pay of $100 starting on day 21. [place] from [facility]-pt will have co pay of $200 on day 21. SS has informed pt and [facility]. Co pay amount is still pending from [facility]. Original Note: SS has sent inquiry to the local SNF using [facility].
--- NOTE | 2024-10-08 15:46 | ESPR_ITS ---
Documentation for date of: 10/08/24 Subjective Subjective Interval history: Overnight events, lab/imaging results, and notes reviewed. Patient examined bedside, reports feeling abdominal discomfort generalized across epigastric region in the morning, continues to report weakness and wanting to work with physical therapy, states he prefers SNF placement but is concerned about the ability to pay. T bili noted to uptrend today to 2.2 from 1.7, will order RUQ ultrasound. Nephrology team following, recommendations pending. Physical therapy has been ordered, will follow up with PT recommendations. Exam Vital Signs Temp Pulse Resp BP Pulse Ox O2 Del Method O2 Flow Rate 97.0 F 59 L 18 111/73 92 L Room Air 2 10/08/24 12:00 10/08/24 12:00 10/08/24 12:00 10/08/24 12:00 10/08/24 12:00 10/08/24 12:00 10/08/24 07:32 Narrative Exam General: AOx3, cooperative, in no acute distress HEENT: Atraumatic/normocephalic, CHRISTIAN Heart: RRR, S1 and S2 without clicks or murmurs Lungs: Clear on auscultation bilaterally Abdomen: Soft, generalized tenderness in RUQ and epigastric region. Bowel sounds present Skin: Intact, no cyanosis or edema noted. Neuro: No focal neurological deficits noted Objective Labs 10/08/24 04:15 10/08/24 04:15 Labs: Laboratory Results - last 24 hr 10/08/24 04:15 WBC 7.9 RBC 3.99 L Hgb 11.7 L Hct 37.2 L MCV 93 MCH 29.3 MCHC 31.5 RDW Std Deviation 51.9 H Plt Count 156 Neut % (Auto) 61 Lymph % (Auto) 22 [place] % (Auto) 12 Eos % (Auto) 4 Baso % (Auto) 1 Neut # (Auto) 4.8 Lymph # (Auto) 1.7 [place] # (Auto) 1.0 H Eos # (Auto) 0.3 Baso # (Auto) 0.0 Immature Gran # (Auto) 0.03 H Absolute Nucleated RBC 0.08 H Immature Gran % 0 Nucleated RBC % 1 H Sodium 132 L Potassium 4.1 Chloride 99 Carbon Dioxide 22.4 Anion Gap 11 BUN 44 H Creatinine 2.0 H Estim Creat Clear Calc 35.0 L eGFR 33 L BUN/Creatinine Ratio 22 H Glucose 92 Calculated Osmolality 275 Calcium 9.1 Corrected Calcium 9.5 Magnesium 2.2 Total Bilirubin 2.2 H D AST 121 H ALT 125 H Alkaline Phosphatase 113 Total Protein 6.1 Albumin 3.5 Globulin 2.6 Albumin/Globulin Ratio 1.3 Quality Measures Quality Measures VTE prophylaxis (Eliquis) Advance care planning discussed with:: patient Assessment & Plan Assessment Current Active Medications: Generic Name Dose Route Start Last Admin Trade Name Freq PRN Reason Stop Dose Admin Acetaminophen 650 mg 10/05/24 20:50 10/08/24 02:07 Acetaminophen 325 Mg Tablet PO 11/04/24 20:49 650 mg Q6H PRN Administration Fever >101.5 Apixaban 5 mg 10/05/24 21:15 10/08/24 09:47 Apixaban 2.5 Mg Tablet PO 10/26/24 21:14 5 mg BID YASSINE Administration Bumetanide 2 mg 10/07/24 12:45 10/08/24 08:16 Bumetanide 0.5 Mg Tablet PO 11/06/24 12:44 2 mg QDAY YASSINE Administration Fluoxetine HCl 20 mg 10/07/24 21:35 10/08/24 08:17 Fluoxetine Hcl 10 Mg Capsule PO 11/06/24 21:34 20 mg QDAY YASSINE Administration Ondansetron HCl 4 mg 10/05/24 20:50 Ondansetron Inj 2 Mg/Ml Inj 2 Ml IV 11/04/24 20:49 Q6H PRN NAUSEA OR VOMITING Protocol Pantoprazole Sodium 40 mg 10/06/24 09:00 10/08/24 08:17 Pantoprazole 40 Mg Tablet PO 11/05/24 08:59 40 mg QDAY YASSINE Administration Simethicone 80 mg 10/08/24 11:36 10/08/24 11:54 Simethicone 80 Mg Chew PO 11/07/24 20:59 80 mg BID PRN Administration Gas Plan Mr. Rai is a 79-year-old male patient with significant medical history of HFrEF (35-40% on March 2024), s/p AICD, chronic Afib (rate controlled), DVT (on Eliquis), HTN, HLD and DM2 was broght to ED by EMS for generalized weakness and hypotension. Patient was recently admitted to [facility] on 09/01/24 where he was found to have DVT with CHF exacerbation and was discharged on Eliquis, Bumix and sprionolactone. Patient was admitted with ERLIN likely in setting of hypovolemia #ERLIN most likely prerenal in setting of hypovolemia #Elevated BNP On admission patient with creatinine 2.2 (baseline 1) Patient recently discharged on Bumex and spironolactone Patient did not follow-up with spanish medical interpreter post-discharge on August 2024 Patient with decreased p.o. intake for the last few days Patient was given 1 L bolus NS in ED. Patient received 2 L of NS total throughout his hospitalization Plan: ? Admit to med telemetry - Resumed Bumex 2 mg daily - Pending physical therapy evaluation ? Band Instrument Maker Dr. Torres consulted, recommendations are greatly appreciated - Hold spironolactone ? Avoid nephrotoxic agents ? Renally dose medications ? Follow-up renal panel #Transaminitis #Elevated T bili Admission T bili 1.6, AST 86, ALT 70 Secondary to hypotention in setting of hypovolemia Plan: - Treat underlying illness - T bili noted to uptrend to 2.2 - Will order RUQ ultrasound to investigate biliary obstruction or pathology #HFrEF (35 to 40%) #s/p AICD #Hypotension Patient recently discharged on spironolactone twice daily and Bumex twice daily Patient did not follow-up with cardiology postdischarge secondary to transportation issues Per patient, decreased p.o. intake and generalized weakness Patient with BP 80's / 40's on admission Patient received 1L bolus IVF per nephro recommendation Plan: ? Currently not in exacerbation -Resumed Bumex 2 mg, will consider starting patient on carvedilol in a.m. ? Will hold spironolactone until patient follows up with primary care physician # Bilateral deep venous thrombosis # Atrial fibrillation rate controlled Patient recently admitted for b/l DVT Physical exam significant for mild edema of LE, L > R Plan: ? Continue Eliquis 5 mg twice daily -Patient on Coreg 12.5 mg p.o. twice daily at home, holding as blood pressure is soft, will consider resuming in a.m. # History of Diabetes mellitus type 2 Most recent A1c of 5.0 in August Discontinued sliding scale insulin Monitor blood glucose level and CMP daily Health Maintenance Dispo: Nephrology and PT recommendations pending, possible SNF vs home health with PT Diet: Cardiac diet, carb consistent low DVT/PPx: Eliquis GI ppx: Protonix Lines: PIV Code Status: Full Code Patient case discussed with attending physician Dr. Win Child DO PGY-3 Attending Provider Attestation/Addendum I have discussed and was present for the essential components of the history, physical examination, diagnosis, and treatment plan with the resident. I agree with the patient's care as documented by the resident and amended herein by me. Armando Walden DO. Patient seen and evaluated this AM. Vital signs stable, patient afebrile overnight, I/oh 1500/250. Creatinine stable at 2. Will continue Bumex at 2 mg daily, Eliquis, Coreg and spironolactone, both of which been held secondary to low blood pressure, will restart as appropriate. I did notice that the patient was not on full GDMT, there is no BRIAN, ARB or Entresto however patient can restart 1 of those agents on an outpatient per cardiology recommendations. A right upper quadrant ultrasound has been ordered for uptrending T. bili ISO some right upper quadrant pain. Will continue to monitor closely while he is here Although this document has been carefully reviewed, there may still be some phonetic and other typographical errors. These errors are purely grammatical due to imperfections in the software program and should not be construed in any way to compromise the substance of the patient's medical care during this visit.
[2024-10-09] VITALS (9 sets, daily range): BP systolic 102–120; BP diastolic 74–84; PULSE 73–100; RESP 17–96; TEMP 36.1–36.7; O2SAT 94–98
--- NOTE | 2024-10-09 00:30 | PC.NURSE ---
Pt complaints of muscle spasm on his mid back, MD Khanh Durham made aware, new order made and will carried out.
[2024-10-09] MEDS: DIAZEPAM 2 MG TABLET PO (00:42)
[2024-10-09] MEDS: ACETAMINOPHEN 325 MG TABLET 650 MG PO ×2 (02:06→19:49)
[2024-10-09 05:39] LABS: Basophils # (Auto) 0.1 Thou/mm3 (0.0-0.2); Basophils % (Auto) 1 % (0-2.5); Eosinophils # (Auto) 0.3 Thou/mm3 (0.0-0.5); Eosinophils % (Auto) 4 % (0-10); Hematocrit 37.2 % (41.0-53.0); Hemoglobin 11.4 g/dL (13.5-16.0); Immature Granulocytes % (Auto) 0 % (0-0); Immature Granulocytes Auto 0.03 Thou/mm3 (0.00-0.00); Lymphocytes # (Auto) 1.7 Thou/mm3 (1.0-4.8); Lymphocytes % (Auto) 21 % (10-50); Mean Corpuscular HGB Conc 30.6 g/dl (31.0-37.0); Mean Corpuscular Hemoglobin 28.5 pg (25.0-35.0); Mean Corpuscular Volume 93 fL (80-100); Monocytes % (Auto) 13 % (0-12); Neutrophils # (Auto) 4.9 Thou/mm3 (1.8-7.7); Neutrophils % (Auto) 62 % (37-80); Nucleated Red Blood Cell % 1 /100 WBC (0); Platelet Count 141 Thou/mm3 (140-440); RDW Standard Deviation 52.1 fL (35.1-43.9); White Blood Count 7.9 Thou/mm3 (3.8-10.6)
[2024-10-09 06:21] LABS: Anion Gap 12 (7-16); BUN/Creatinine Ratio 22 Ratio (12-20); Blood Urea Nitrogen 50 mg/dL (9-23); Calcium 9.1 mg/dL (8.3-10.6); Chloride 96 mMol/L (98-107); Creatinine (Component) 2.3 mg/dL (0.6-1.3); Estimated Creatinine Clearance 30.4 mL/min (>60); Glucose 83 mg/dL (74-106); Osmolality,Calculated 273 (275-295); Potassium 4.6 mMol/L (3.4-5.1); Sodium 130 mMol/L (136-145); eGFR 28 See Note
--- NOTE | 2024-10-09 07:13 | XR_ITS ---
Examination: Retroperitoneal ultrasound, complete Technique: Multiple high resolution grayscale images of the retroperitoneum obtained, including kidneys and bladder. Exam date and time:October 09, 2024 1549 hours INDICATIONS: Acute renal insufficiency on laboratory examination today FINDINGS: Right kidney 9.8 x 5.3 x 5.3 cm cortex 1.4 cm Left kidney 10.4 x 5.9 x 5.3 cm cortex 1.7 cm Mild bilateral renal parenchymal scar formation No hydronephrosis Contracted urinary bladder 39 cc IMPRESSION: Bilateral renal cortical thinning Mild bilateral renal parenchymal scar formation
[2024-10-09] MEDS: APIXABAN 2.5 MG TABLET 5 MG PO ×2 (08:09→20:15)
[2024-10-09] MEDS: PANTOPRAZOLE 40 MG TABLET PO (08:09)
[2024-10-09] MEDS: FLUoxetine HCL 10 MG CAPSULE 20 MG PO (08:09)
[2024-10-09] MEDS: BUMETANIDE 0.5 MG TABLET 2 MG PO (08:10)
[2024-10-09] MEDS: ONDANSETRON INJ 2 MG/ML INJ 2 ML 4 MG IV (09:23)
--- NOTE | 2024-10-09 10:38 | CHAP ---
Visited briefly with patient and had prayer.
--- NOTE | 2024-10-09 10:49 | PC.SS ---
Addendum entered by Slime Nicholas 10/09/24 11:35: Per Dr. Brooks, patient will not discharge today. SW notified [employer] [facility]ee, and [facility]-Admission Coordinator, Liset. Original Note: C4 Planner (ISAAC) Slime met with patient [id number] to discuss discharge plan. Patient appeared alert and oriented to self. Patient reported that he decided for [facility]. ISAAC explained that [facility] covers 100% of SNF days until day 21. Patient is agreeable with information. ISAAC contacted [facility] Call Person-Vee. SW notified of patient's choice for SNF. SW notified Admission Coordinator, Liset. SW is pending discharge orders.
[2024-10-09] MEDS: HYDROcodone/APAP 5/325 TABLET 1 TAB PO (11:20)
[2024-10-09 11:45] LABS: Alanine Aminotransferase 267 U/L (10-49); Albumin, Serum 3.7 gm/dL (3.4-4.8); Albumin/Globulin Ratio 1.4 (1.2-2.2); Alkaline Phosphatase 106 U/L (46-116); Anion Gap 11 (7-16); Aspartate Amino Transferase 315 U/L (0-34); BUN/Creatinine Ratio 21 Ratio (12-20); Bilirubin,Total 3.3 mg/dL (0.3-1.2); Blood Urea Nitrogen 51 mg/dL (9-23); Calcium 9.2 mg/dL (8.3-10.6); Calcium (Corrected) 9.4 mg/dL (8.5-10.1); Carbon Dioxide 22.3 mMol/L (20.0-31.0); Chloride 96 mMol/L (98-107); Creatinine (Component) 2.4 mg/dL (0.6-1.3); Estimated Creatinine Clearance 29.2 mL/min (>60); Globulin 2.6 gm/dL (2.3-3.5); Glucose 99 mg/dL (74-106); Osmolality,Calculated 272 (275-295); Potassium 4.4 mMol/L (3.4-5.1); Sodium 129 mMol/L (136-145); Total Protein 6.3 gm/dL (5.7-8.2); eGFR 27 See Note
--- NOTE | 2024-10-09 12:29 | PD.RESDS ---
Planned Discharge Date 10/09/24 DS: Providers Provider Date of admission: 10/05/24 20:50 Primary care physician: Karen Wiley PA-C Admitting Provider: Mert Faith MD Attending Provider on Admission: Gigi Brooks MD Consults: 10/05/24 19:02 Consult to Nephrology Stat Comment: Acute kidney injury Consulting Provider: Kushal Torres 10/05/24 23:44 Referral [place] Routine Comment: Referral Physical Therapy Routine Comment: Physician Instructions: Referral Respiratory Therapy Routine Comment: [facility] Referral - Transportation Routine Comment: Positive screening for transportation needs. Attending Provider on DC: Laura Rome MD Discharging Provider: Laura Rome MD Hospital Course Hospital Course Hospital course: Overnight events, lab/imaging results, and notes reviewed. Patient examined bedside, reports feeling abdominal discomfort generalized across epigastric region in the morning, continues to report weakness and wanting to work with physical therapy, states he prefers SNF placement but is concerned about the ability to pay. T bili noted to uptrend today to 2.2 from 1.7, will order RUQ ultrasound. Nephrology team following, recommendations pending. Physical therapy has been ordered, will follow up with PT recommendations. Time Spent with Patient Time attestation: Total time spent providing and/or coordinating discharge services: Exam Vital Signs Temp Pulse Resp BP Pulse Ox O2 Del Method O2 Flow Rate 96.9 F 85 17 119/84 97 Room Air 2 10/09/24 11:50 10/09/24 12:00 10/09/24 11:50 10/09/24 11:50 10/09/24 11:50 10/09/24 11:50 10/09/24 08:00 Discharge Plan Plan Patient Disposition: Home w/HOME HEALTH Disposition Comment: Stable Prescriptions/Referrals Prescriptions/Med Rec: New bumetanide 2 mg tablet 2 mg PO QDAY 14 Days Qty: 14 0RF Continued Eliquis 5 mg tablet 5 mg PO BID Qty: 46 0RF carvedilol 12.5 mg tablet 12.5 mg PO Q12H Rx Instructions: must administer with a meal or food fluoxetine 20 mg capsule 20 mg PO QDAY Patient Comments: TAKE 1 CAPSULE BY MOUTH ONCE DAILY Discontinued bumetanide 2 mg tablet 2 mg PO BID Qty: 60 0RF spironolactone 25 mg tablet 25 mg PO BID Qty: 14 0RF Referrals: Karen Wiley PA-C [Primary Care Provider] - Patient/Caregiver Discharge Instructions Other Discharge Activity Instructions:: Follow up with PCP within 1 week Hold spironolactone, follow up with PCP with BMP labs in 1 week, may resume spironolactone with PCP consultation at that time Bumex dose reduced to 2mg QD, if swelling occurs can increase to 2mg BID Home Health Physical Therapy ordered Return to ED for any new or worsening symptoms Education Materials: Acute Kidney Failure Dc Print Language: Eritrean Stand Alone Forms: Valeria Award Info., Patient Portal Info Letter
--- NOTE | 2024-10-09 12:31 | ESPR_ITS ---
<Statement entered by Ruel Child DO - 10/09/24 19:50> Senior attestation: Patient was examined and case was reviewed with team including attending physician. Note reviewed, I agree with most of its contents and agree with the patient's care. Transaminases noted to uptrend today, RUQ ultrasound yesterday was unremarkable. Will continue trending transaminases, nephrology team following and advises fluid restriction and IV albumin. Ruel Child DO PGY-3 Documentation for date of: 10/09/24 Subjective Subjective Interval history: No known overnight events. Labs reviewed. Patient examined at bedside. He endorses nausea/vomiting that started overnight. Patient denies headache, fever, chills, chest pain, palpitation, shortness of breath. AST up trended significantly. Liver ultrasound resulted negative. Nephrology team recommends 1500cc fluid restriction and IV albumin. Exam Vital Signs Temp Pulse Resp BP Pulse Ox O2 Del Method O2 Flow Rate 96.9 F 85 17 119/84 97 Room Air 2 10/09/24 11:50 10/09/24 12:00 10/09/24 11:50 10/09/24 11:50 10/09/24 11:50 10/09/24 11:50 10/09/24 08:00 Narrative Exam General:ccooperative, in no acute distress HEENT: Atraumatic/normocephalic, CHRISTIAN Heart: RRR, S1 and S2 without clicks or murmurs Lungs: Clear on auscultation bilaterally; saturating 97% room air. Abdomen: Soft, tender RUQ. ++Bowel sounds. Skin: Intact, no cyanosis or edema noted. Neuro: No focal neurological deficits noted Objective Labs 10/14/24 04:48 10/14/24 04:48 Labs: Laboratory Results - last 24 hr 10/09/24 10/09/24 04:30 10:49 WBC 7.9 RBC 4.00 L Hgb 11.4 L Hct 37.2 L MCV 93 MCH 28.5 MCHC 30.6 L RDW Std Deviation 52.1 H Plt Count 141 Neut % (Auto) 62 Lymph % (Auto) 21 [place] % (Auto) 13 H Eos % (Auto) 4 Baso % (Auto) 1 Neut # (Auto) 4.9 Lymph # (Auto) 1.7 [place] # (Auto) 1.0 H Eos # (Auto) 0.3 Baso # (Auto) 0.1 Immature Gran # (Auto) 0.03 H Absolute Nucleated RBC 0.10 H Immature Gran % 0 Nucleated RBC % 1 H Sodium 130 L 129 L Potassium 4.6 D 4.4 Chloride 96 L 96 L Carbon Dioxide 22.0 22.3 Anion Gap 12 11 BUN 50 H 51 H Creatinine 2.3 H 2.4 H Estim Creat Clear Calc 30.4 L 29.2 L eGFR 28 L 27 L BUN/Creatinine Ratio 22 H 21 H Glucose 83 99 Calculated Osmolality 273 L 272 L Calcium 9.1 9.2 Corrected Calcium 9.4 Total Bilirubin 3.3 H D AST 315 H ALT 267 H Alkaline Phosphatase 106 Total Protein 6.3 Albumin 3.7 Globulin 2.6 Albumin/Globulin Ratio 1.4 Quality Measures Quality Measures VTE prophylaxis (Eliquis) Advance care planning discussed with:: patient Assessment & Plan Assessment Current Active Medications: Generic Name Dose Route Start Last Admin Trade Name Freq PRN Reason Stop Dose Admin Acetaminophen 650 mg 10/05/24 20:50 10/09/24 02:06 Acetaminophen 325 Mg Tablet PO 11/04/24 20:49 650 mg Q6H PRN Administration Fever >101.5 Apixaban 5 mg 10/05/24 21:15 10/09/24 08:09 Apixaban 2.5 Mg Tablet PO 10/26/24 21:14 5 mg BID YASSINE Administration Bumetanide 2 mg 10/07/24 12:45 10/09/24 08:10 Bumetanide 0.5 Mg Tablet PO 11/06/24 12:44 2 mg QDAY YASSINE Administration Fluoxetine HCl 20 mg 10/07/24 21:35 10/09/24 08:09 Fluoxetine Hcl 10 Mg Capsule PO 11/06/24 21:34 20 mg QDAY YASSINE Administration Ondansetron HCl 4 mg 10/05/24 20:50 10/09/24 09:23 Ondansetron Inj 2 Mg/Ml Inj 2 Ml IV 11/04/24 20:49 4 mg Q6H PRN Administration NAUSEA OR VOMITING Protocol Pantoprazole Sodium 40 mg 10/06/24 09:00 10/09/24 08:09 Pantoprazole 40 Mg Tablet PO 11/05/24 08:59 40 mg QDAY YASSINE Administration Simethicone 80 mg 10/08/24 11:36 10/08/24 11:54 Simethicone 80 Mg Chew PO 11/07/24 20:59 80 mg BID PRN Administration Gas Plan A 79-year-old male patient with significant medical history of HFrEF (35-40% on March 2024), s/p AICD, chronic Afib (rate controlled), DVT (on Eliquis), HTN, HLD and DM2 was broght to ED by EMS for generalized weakness and hypotension. Patient was recently admitted to [facility] on 09/01/24 where he was found to have DVT with CHF exacerbation and was discharged on Eliquis, Bumix and sprionolactone. BNP elevated, cr at 2.2 (Baseline 1.0). Patient was given 1 L bolus NS in ED. Patient was admitted with ERLIN secondary to hypovolemia. #ERLIN most likely #prerenal in setting of hypovolemia On admission patient was dehydrated with creatinine 2.2 (baseline 1). Patient recently discharged on Bumex and spironolactone with instructions to follow-up with [facility] [place] post-discharge on August 2024. Patient with decreased p.o. intake for the last few days. Per physical therapy, patient will need rehab for skilled therapy services to be able to maximize his rehab potential and maximize functional mobility. Creatinine uptrended from 2.3 to 2.4. Patient appears clinically compensated with renal function worsening. Plan: ? Professor Of Counseling Dr. Torres consulted, recommendations are greatly appreciated ? Hold spironolactone ? will consider Bumex 2gm twice daily ? Bumex 2 mg daily ? Avoid nephrotoxic agents ? Renally dose medications ? Follow-up renal panel #Transaminitis #Elevated T bili Secondary to hypotention in setting of hypovolemia Admission T bili 1.6, AST 86, ALT 70. - Will order RUQ ultrasound to investigate biliary obstruction or pathology T bili noted to uptrend to 2.2AST >100. Plan: - Treat underlying illness ? CMP stat #HFrEF (35 to 40%) #s/p AICD #Hypotension Patient recently discharged on spironolactone twice daily and Bumex twice daily, and endorses compliance on medication. He presented hypotensive at 80/40s. He had to follow-up with cardiology but failed as he does not have transportation. Patient endorses decreased oral intake and general body weakness. Patient received 1L bolus IVF as nephro recommended. He appears clinically euvolemic with compensated HFrEF Plan: -Bumex 2 mg -consider starting patient on carvedilol in a.m. -hold spironolactone as it may worsen patient's presenation. # Bilateral deep venous thrombosis # Atrial fibrillation rate controlled Patient recently admitted for b/l DVT Physical exam significant for mild edema of LE, L > R Plan: ? Continue Eliquis 5 mg twice daily -Patient on Coreg 12.5 mg p.o. twice daily at home, holding as blood pressure is soft, will consider resuming in a.m. #Diabetes mellitus type 2 (A1c of 5.0 in August 2024) Patient has a history of diabetes mellitus, however is no longer diabetic. A1c is within nondiabetic range. Plan: Monitor blood glucose level and CMP daily Health Maintenance Dispo: Nephrology recommendation; rehab for skilled therapy placement recommended. Diet: Cardiac diet, carb consistent low DVT/PPx: Eliquis GI ppx: Protonix Lines: PIV Code Status: Full Code Discussed case with my attending Dr. Brooks and senior Mateusz, PGY-3. Thank you, Laura Rome, PGY-2 Attending Provider Attestation/Addendum 79-year-old male with multiple comorbidities including hypertension, hyperlipidemia, type 2 diabetes mellitus with subsequent nonischemic cardiomyopathy status post ICD implantation with EF 35-40% A-fib and DVT on Eliquis who presented to the ER on 10/05/2024 with chief complaint of shortness of breath and found to have acute kidney injury and transaminitis with no evidence of any gallbladder etiology and thus admitted pending nephrology input. In addition, patient also noted to have acute CHF exacerbation but is likely contributing to the ERLIN and transaminitis and plan to continue IV diuretic therapy. Appreciate cardiology input. I reviewed above note and agree with findings and plans. I have also personally examined the patient with medicine team and went over assessment and plan with medical team including geotechnical intern and resident physician.
[2024-10-10] VITALS (12 sets, daily range): BP systolic 99–119; BP diastolic 71–76; PULSE 63–96; RESP 17–22; TEMP 35.8–36.3; O2SAT 97–99; BMI 12.0
[2024-10-10] MEDS: DIAZEPAM 2 MG TABLET PO (00:39)
[2024-10-10] MEDS: ACETAMINOPHEN 325 MG TABLET 650 MG PO ×2 (01:48→22:12)
[2024-10-10 05:47] LABS: Basophils % (Auto) 0 % (0-2.5); Eosinophils # (Auto) 0.4 Thou/mm3 (0.0-0.5); Eosinophils % (Auto) 6 % (0-10); Hematocrit 38.3 % (41.0-53.0); Hemoglobin 11.7 g/dL (13.5-16.0); Immature Granulocytes % (Auto) 0 % (0-0); Immature Granulocytes Auto 0.03 Thou/mm3 (0.00-0.00); Lymphocytes # (Auto) 1.6 Thou/mm3 (1.0-4.8); Lymphocytes % (Auto) 21 % (10-50); Mean Corpuscular HGB Conc 30.5 g/dl (31.0-37.0); Mean Corpuscular Hemoglobin 28.7 pg (25.0-35.0); Mean Corpuscular Volume 94 fL (80-100); Monocytes % (Auto) 13 % (0-12); Neutrophils # (Auto) 4.5 Thou/mm3 (1.8-7.7); Neutrophils % (Auto) 60 % (37-80); Nucleated Red Blood Cell % 1 /100 WBC (0); Platelet Count 153 Thou/mm3 (140-440); RDW Standard Deviation 52.4 fL (35.1-43.9); Red Blood Count 4.07 Miln/mm3 (4.50-5.90); White Blood Count 7.6 Thou/mm3 (3.8-10.6)
[2024-10-10 06:22] LABS: Anion Gap 9 (7-16); BUN/Creatinine Ratio 21 Ratio (12-20); Blood Urea Nitrogen 54 mg/dL (9-23); Carbon Dioxide 23.7 mMol/L (20.0-31.0); Chloride 96 mMol/L (98-107); Creatinine (Component) 2.6 mg/dL (0.6-1.3); Estimated Creatinine Clearance 26.9 mL/min (>60); Glucose 100 mg/dL (74-106); Osmolality,Calculated 273 (275-295); Potassium 4.4 mMol/L (3.4-5.1); Sodium 129 mMol/L (136-145); eGFR 24 See Note
[2024-10-10 07:45] LABS: Hepatitis A Antibody IgM Non Reactive (Non React); Hepatitis B Core Antibody IgM Non Reactive (Non React); Hepatitis B Surface Antigen Non Reactive (Non React); Hepatitis C Antibody Non Reactive (Non React)
[2024-10-10] MEDS: APIXABAN 2.5 MG TABLET 5 MG PO ×2 (09:45→20:04)
[2024-10-10] MEDS: BUMETANIDE 0.5 MG TABLET 2 MG PO (09:46)
[2024-10-10] MEDS: FLUoxetine HCL 10 MG CAPSULE 20 MG PO (09:47)
[2024-10-10] MEDS: PANTOPRAZOLE 40 MG TABLET PO (09:48)
[2024-10-10 10:01] LABS: Alanine Aminotransferase 285 U/L (10-49); Albumin, Serum 3.5 gm/dL (3.4-4.8); Alkaline Phosphatase 101 U/L (46-116); Aspartate Amino Transferase 274 U/L (0-34); Bilirubin,Direct 1.2 mg/dL (0.0-0.3); Bilirubin,Total 2.8 mg/dL (0.3-1.2); Total Protein 5.9 gm/dL (5.7-8.2)
--- NOTE | 2024-10-10 15:41 | PC.SS ---
Rounding note: pending nephrology and liver enzyme.
--- NOTE | 2024-10-10 15:48 | ESPR_ITS ---
Documentation for date of: 10/10/24 Subjective Subjective Interval history: 79-year-old male patient with significant medical history of HFrEF (35-40% on March 2024), s/p AICD, chronic Afib (rate controlled), DVT (on Eliquis), HTN, HLD and DM2 was broght to ED by EMS for generalized weakness and hypotension. Patient was recently admitted to [facility] on 09/01/24 where he was found to have DVT with CHF exacerbation and was discharged on Eliquis, Bumix and sprionolactone. Nephrology is consulted for ERLIN. Pt has poor oral intake. Pt denies any nausea or vomiting. Pt denies any diarrhea. Exam Vital Signs Temp Pulse Resp BP Pulse Ox O2 Del Method O2 Flow Rate 96.4 F L 87 22 H 119/71 99 Nasal Cannula 2 10/10/24 11:41 10/10/24 12:08 10/10/24 11:41 10/10/24 11:41 10/10/24 11:41 10/10/24 11:41 10/10/24 04:00 Narrative Exam Heart s1, s2 chest bilateral crackles ext plus edema Objective Labs 10/14/24 04:48 10/14/24 17:11 Labs: Laboratory Results - last 24 hr 10/10/24 10/10/24 04:05 09:15 WBC 7.6 RBC 4.07 L Hgb 11.7 L Hct 38.3 L MCV 94 MCH 28.7 MCHC 30.5 L RDW Std Deviation 52.4 H Plt Count 153 Neut % (Auto) 60 Lymph % (Auto) 21 [place] % (Auto) 13 H Eos % (Auto) 6 Baso % (Auto) 0 Neut # (Auto) 4.5 Lymph # (Auto) 1.6 [place] # (Auto) 1.0 H Eos # (Auto) 0.4 Baso # (Auto) 0.0 Immature Gran # (Auto) 0.03 H Absolute Nucleated RBC 0.10 H Immature Gran % 0 Nucleated RBC % 1 H Sodium 129 L Potassium 4.4 Chloride 96 L Carbon Dioxide 23.7 Anion Gap 9 BUN 54 H Creatinine 2.6 H Estim Creat Clear Calc 26.9 L eGFR 24 L BUN/Creatinine Ratio 21 H Glucose 100 Calculated Osmolality 273 L Calcium 9.0 Total Bilirubin Cancelled 2.8 H D Direct Bilirubin Cancelled 1.2 H AST Cancelled 274 H ALT Cancelled 285 H Alkaline Phosphatase Cancelled 101 Total Protein Cancelled 5.9 Albumin Cancelled 3.5 Hepatitis A IgM Ab Non Reactive Hep Bs Antigen Non Reactive Hep B Core IgM Ab Non Reactive Hepatitis C Antibody Non Reactive Assessment & Plan Assessment and plan (1) Acute kidney injury: Status: Acute Assessment and plan: Creat is stable c/w supportive care avoid nephrotoxic meds (2) Congestive heart failure: Status: Acute
--- NOTE | 2024-10-10 15:57 | ESPR_ITS ---
<Statement entered by Ruel Child DO - 10/10/24 19:41> Senior attestation: Patient was examined and case was reviewed with team including attending physician. Note reviewed, I agree with most of its contents and agree with the patient's care. Creatinine noted to worsen today to 2.6, nephrology team following. Patient appears clinically dehydrated given dry mucosal membranes, will hold bumex today and begin gentle fluid hydration with 1L NS at 50 cc/hr, will re-evalate hydration status and kidney function in the AM. Patient's inspector wreath Dr. Alexandra has been consulted, we appreciate recommendations. Ruel Child DO PGY-3 Documentation for date of: 10/10/24 Subjective Subjective Interval history: No acute overnight events. Patient seen laying in bed and examined. Labs reviewed. Patient has poor oral intake and endorses dry heaving. He states that he also felt nauseous. However, denies diarrhea or vomiting. Minimal abdominal pain. Endorses spasms in his lower back. 1 L NS given to patient for worsening renal function. Exam Vital Signs Temp Pulse Resp BP Pulse Ox O2 Del Method O2 Flow Rate 96.4 F L 87 22 H 119/71 99 Nasal Cannula 2 10/10/24 11:41 10/10/24 12:08 10/10/24 11:41 10/10/24 11:41 10/10/24 11:41 10/10/24 11:41 10/10/24 04:00 Narrative Exam General: Conversational, cooperative, in no acute distress laying in bed. HEENT: Atraumatic/normocephalic, CHRISTIAN, dry mucous membranes. Heart: RRR, S1 and S2 without clicks or murmurs Lungs: Clear on auscultation bilaterally; saturating 99% on 2 L nasal cannula. Abdomen: Soft, nontender. ++Bowel sounds. Skin: Intact, no cyanosis or edema noted. Neuro: No focal neurological deficits noted, AAO x 3 Objective Labs 10/14/24 04:48 10/14/24 04:48 Labs: Laboratory Results - last 24 hr 10/10/24 10/10/24 04:05 09:15 WBC 7.6 RBC 4.07 L Hgb 11.7 L Hct 38.3 L MCV 94 MCH 28.7 MCHC 30.5 L RDW Std Deviation 52.4 H Plt Count 153 Neut % (Auto) 60 Lymph % (Auto) 21 [place] % (Auto) 13 H Eos % (Auto) 6 Baso % (Auto) 0 Neut # (Auto) 4.5 Lymph # (Auto) 1.6 [place] # (Auto) 1.0 H Eos # (Auto) 0.4 Baso # (Auto) 0.0 Immature Gran # (Auto) 0.03 H Absolute Nucleated RBC 0.10 H Immature Gran % 0 Nucleated RBC % 1 H Sodium 129 L Potassium 4.4 Chloride 96 L Carbon Dioxide 23.7 Anion Gap 9 BUN 54 H Creatinine 2.6 H Estim Creat Clear Calc 26.9 L eGFR 24 L BUN/Creatinine Ratio 21 H Glucose 100 Calculated Osmolality 273 L Calcium 9.0 Total Bilirubin Cancelled 2.8 H D Direct Bilirubin Cancelled 1.2 H AST Cancelled 274 H ALT Cancelled 285 H Alkaline Phosphatase Cancelled 101 Total Protein Cancelled 5.9 Albumin Cancelled 3.5 Hepatitis A IgM Ab Non Reactive Hep Bs Antigen Non Reactive Hep B Core IgM Ab Non Reactive Hepatitis C Antibody Non Reactive Quality Measures Quality Measures VTE prophylaxis (Eliquis) Advance care planning discussed with:: patient Assessment & Plan Assessment Current Active Medications: Generic Name Dose Route Start Last Admin Trade Name Freq PRN Reason Stop Dose Admin Acetaminophen 650 mg 10/05/24 20:50 10/10/24 01:48 Acetaminophen 325 Mg Tablet PO 11/04/24 20:49 650 mg Q6H PRN Administration Fever >101.5 Apixaban 5 mg 10/05/24 21:15 10/10/24 09:45 Apixaban 2.5 Mg Tablet PO 10/26/24 21:14 5 mg BID YASSINE Administration Bumetanide 1 mg 10/10/24 21:00 Bumetanide 0.5 Mg Tablet PO 11/09/24 20:59 BID YASSINE Fluoxetine HCl 20 mg 10/07/24 21:35 10/10/24 09:47 Fluoxetine Hcl 10 Mg Capsule PO 11/06/24 21:34 20 mg QDAY YASSINE Administration Ondansetron HCl 4 mg 10/05/24 20:50 10/09/24 09:23 Ondansetron Inj 2 Mg/Ml Inj 2 Ml IV 11/04/24 20:49 4 mg Q6H PRN Administration NAUSEA OR VOMITING Protocol Pantoprazole Sodium 40 mg 10/06/24 09:00 10/10/24 09:48 Pantoprazole 40 Mg Tablet PO 11/05/24 08:59 40 mg QDAY YASSINE Administration Simethicone 80 mg 10/08/24 11:36 10/08/24 11:54 Simethicone 80 Mg Chew PO 11/07/24 20:59 80 mg BID PRN Administration Gas Plan A 79-year-old male patient with significant medical history of HFrEF (35-40% on March 2024), s/p AICD, chronic Afib (rate controlled), DVT (on Eliquis), HTN, HLD and DM2 was broght to ED by EMS for generalized weakness and hypotension. Patient was recently admitted to [facility] on 09/01/24 where he was found to have DVT with CHF exacerbation and was discharged on Eliquis, Bumix and sprionolactone. BNP elevated, creatinine at 2.2 (Baseline 1.0). Patient was given 1 L bolus NS in ED. Patient was admitted with ERLIN secondary to hypovolemia. Patient has poor oral intake and endorses dry heaving. #ERLIN most likely #prerenal in setting of hypovolemia On admission patient was dehydrated with creatinine 2.2 (baseline 1). Patient recently discharged on Bumex and spironolactone with instructions to follow-up with inspector [employer] post-discharge on August 2024, but patient does not have transportation to see inspector wreath. Patient with decreased p.o. intake, noted to be lethargic and dehydrated with dry mucous membranes. No crackles heard on auscultation of bilateral lung lobes. 1+ edema lower extremities. Per physical therapy, patient will need rehab for skilled therapy services to be able to maximize his rehab potential and maximize functional mobility. Creatinine uptrended from 2.3 to 2.4 to 2.6 indicative of renal function worsening. Plan: ? Cardiac Surgeon Dr. Torres consulted, recommends Bumex 1mg po 2 times daily. ?Bumex 2gm on hold in setting of poor oral intake/dehydration -encourage increased oral fluid intake -1 L NS given to patient; nephrology agreed with this recommendation. ? Hold spironolactone ? Avoid nephrotoxic agents ? Renally dose medications ? Follow-up renal panel #Transaminitis #Elevated T bili Likely secondary to #Fluid overloaded state, improving Secondary to hypotention in setting of hypovolemia Possible component of fluid overload leading to elevated liver enzymes,though patient appears clinically dry at this moment. Patient denies IV drug use, but endorses daily tylenol intake once daily that may contribute to the high liver enzymes. However, considering the acute nature of elevated LFT's, tylenol use is less likely the underlying cause. Cannot rule out bud chiari considering patient's recent hypercoagulabilty seen with DVT. Admission T bili 1.6, AST 86, ALT 70. AST peaked at 315, now 274. ALT uptrended to 285. Liver ultrasound negative except for hepatosplenomegdaly. T bili noted to uptrend to 2.8. Hepatitis negative. Plan: -identify the etiology and treat underlying illness -strict I & O -F/up liver enzymes -CMP in am #HFrEF (35 to 40%), improving #s/p AICD #Hypotension Patient recently discharged on spironolactone twice daily and Bumex twice daily, and endorses compliance on medication. He presented severly hypotensive in the ED. He had to follow-up with cardiology but failed as he does not have transportation. Patient endorses decreased oral intake and general body weakness. He received 1L bolus IVF as nephro recommended. Heart failure improved with bumex during this visit. Plan: -Bumex on hold -hold spironolactone as it may worsen patient's presentation. # Bilateral deep venous thrombosis # Atrial fibrillation rate controlled Patient recently admitted for b/l DVT on eliquis. Physical exam significant for mild edema of LE, L > R Plan: -Continue Eliquis 5 mg twice daily -Patient on Coreg 12.5 mg p.o. twice daily at home, holding as blood pressure is soft -continue to monitor closely #Diabetes mellitus type 2 (A1c of 5.0 in August 2024) Patient has a history of diabetes mellitus, however is no longer diabetic. A1c is within nondiabetic range. Plan: Monitor blood glucose level and CMP daily Health Maintenance Dispo: Nephrology recommendation; rehab for skilled therapy placement recommended. Diet: Cardiac diet, carb consistent low DVT/PPx: Eliquis GI ppx: Protonix Lines: PIV Code Status: Full Code Discussed case with my attending Dr. Brooks and senior Mateuzs, PGY-3. Thank you, Laura Rome, PGY-2 Attending Provider Attestation/Addendum 79-year-old male with multiple comorbidities including hypertension, hyperlipidemia, type 2 diabetes mellitus with subsequent nonischemic cardiomyopathy status post ICD implantation with EF 35-40% A-fib and DVT on Eliquis who presented to the ER on 10/05/2024 with chief complaint of shortness of breath and found to have acute kidney injury and transaminitis with no evidence of any gallbladder etiology and thus admitted pending nephrology input. In addition, patient also noted to have acute CHF exacerbation but is likely contributing to the ERLIN and transaminitis and initially thought was due to CHF subsequently started on IV diuretic therapy. However, patient appears to be dry and dehydrated for which we will start gentle IV hydration. Appreciate nephrology and cardiology input. I reviewed above note and agree with findings and plans. I have also personally examined the patient with medicine team and went over assessment and plan with medical team including technology intern and resident physician.
[2024-10-10] MEDS: SODIUM CHLORIDE 0.9% 1000 ML 1,000 ML 50 ML IV (16:19)
[2024-10-10] MEDS: BUMETANIDE 0.5 MG TABLET 1 MG PO (20:02)
[2024-10-10] MEDS: SIMETHICONE 80 MG CHEW PO (21:13)
[2024-10-11] VITALS (14 sets, daily range): BP systolic 91–120; BP diastolic 64–80; PULSE 72–101; RESP 9–99; TEMP 36.1–36.6; O2SAT 93–98; BMI 12.0
[2024-10-11 05:52] LABS: Basophils % (Auto) 0 % (0-2.5); Eosinophils # (Auto) 0.4 Thou/mm3 (0.0-0.5); Eosinophils % (Auto) 5 % (0-10); Hematocrit 38.1 % (41.0-53.0); Hemoglobin 11.6 g/dL (13.5-16.0); Immature Granulocytes % (Auto) 0 % (0-0); Immature Granulocytes Auto 0.03 Thou/mm3 (0.00-0.00); Lymphocytes # (Auto) 1.6 Thou/mm3 (1.0-4.8); Lymphocytes % (Auto) 20 % (10-50); Mean Corpuscular HGB Conc 30.4 g/dl (31.0-37.0); Mean Corpuscular Hemoglobin 28.7 pg (25.0-35.0); Mean Corpuscular Volume 94 fL (80-100); Monocytes # (Auto) 1.1 Thou/mm3 (0.0-0.8); Monocytes % (Auto) 14 % (0-12); Neutrophils # (Auto) 4.8 Thou/mm3 (1.8-7.7); Neutrophils % (Auto) 60 % (37-80); Nucleated Red Blood Cell # 0.16 Thou/mm3 (0.00-0.00); Nucleated Red Blood Cell % 2 /100 WBC (0); Platelet Count 160 Thou/mm3 (140-440); RDW Standard Deviation 52.2 fL (35.1-43.9); Red Blood Count 4.04 Miln/mm3 (4.50-5.90); White Blood Count 7.9 Thou/mm3 (3.8-10.6)
[2024-10-11 06:55] LABS: Alanine Aminotransferase 374 U/L (10-49); Albumin, Serum 3.6 gm/dL (3.4-4.8); Albumin/Globulin Ratio 1.3 (1.2-2.2); Alkaline Phosphatase 97 U/L (46-116); Anion Gap 10 (7-16); Aspartate Amino Transferase 402 U/L (0-34); BUN/Creatinine Ratio 21 Ratio (12-20); Blood Urea Nitrogen 54 mg/dL (9-23); Calcium 8.9 mg/dL (8.3-10.6); Calcium (Corrected) 9.2 mg/dL (8.5-10.1); Carbon Dioxide 22.4 mMol/L (20.0-31.0); Chloride 96 mMol/L (98-107); Creatinine (Component) 2.6 mg/dL (0.6-1.3); Estimated Creatinine Clearance 26.9 mL/min (>60); Globulin 2.7 gm/dL (2.3-3.5); Glucose 101 mg/dL (74-106); Osmolality,Calculated 271 (275-295); Potassium 4.6 mMol/L (3.4-5.1); Sodium 128 mMol/L (136-145); Total Protein 6.3 gm/dL (5.7-8.2); eGFR 24 See Note
[2024-10-11] MEDS: PANTOPRAZOLE 40 MG TABLET PO (08:38)
[2024-10-11] MEDS: APIXABAN 2.5 MG TABLET 5 MG PO ×2 (08:38→21:06)
[2024-10-11] MEDS: FLUoxetine HCL 10 MG CAPSULE 20 MG PO (08:38)
--- NOTE | 2024-10-11 09:48 | EKG_ITS ---
[facility] Test Date: 2024-10-11 Pat Name: ANGELES JOHNSON [facility] Gender[facility] Male Proposal Development Manager: MARY : 1945 Requested By: Jordan Ahn Order Number: [id number] Reading MD: Jordan Ahn Measurements Intervals [place] Rate: 91 P: AK: QRS: -50 QRSD: 138 T: 125 QT: 388 QTc: 480 Interpretive Statements ATRIAL FIBRILLATION MARKED LEFT AXIS DEVIATION [QRS AXIS < -30] LEFT BUNDLE BRANCH BLOCK [120+ ms QRS DURATION, 80+ ms Q/S IN V1/V2, 85+ ms R IN I/aVL/V5/V6] Compared to ECG 10/05/2024 17:29:21 No significant changes /store/S0/[id number].pdf
--- NOTE | 2024-10-11 11:11 | ESPR_ITS ---
<Statement entered by Ruel Child DO - 10/11/24 14:28> Senior attestation: Patient was examined and case was reviewed with team including attending physician. Note reviewed, I agree with most of its contents and agree with the patient's care. Bumex held today, will increase rate of maintenance fluids to 75 cc/hr. Will order ultrasound to assess for Budd-Chiari syndrome. Ruel Child DO PGY-3 Documentation for date of: 10/11/24 Subjective Subjective Interval history: Patient seen at bedside. No acute overnight events. Patient got Bumex 1 mg p.o. yesterday evening. Renal function still not at baseline Started maintenance fluid normal saline 75 cc/h. Will continue to monitor patient. Exam Vital Signs Temp Pulse Resp BP Pulse Ox O2 Del Method O2 Flow Rate 96.9 F 89 29 H 110/76 96 Room Air 2 10/11/24 08:00 10/11/24 11:03 10/11/24 08:25 10/11/24 08:00 10/11/24 08:00 10/11/24 08:00 10/11/24 08:25 Narrative Exam Constitutional: well-developed, well-nourished, in no acute distress, lying in bed HEENT: NCAT, EOMI, reactive round pupils b/l, patent nares b/l, moist mucous membranes Lung: CTAB, no wheezing, no rhonchi Heart: Regular S1S2, no murmurs, gallops, or rubs Abdomen: Soft, non-distended, non-tender, bowel sounds present throughout Extremities: No cyanosis, clubbing, trace edema of LE left more swollen than right, pulses of LE present b/l Neurologic: No focal sensory or motor deficits noted, AOx3, appropriate affect Skin: Warm, dry, no lesions or rashes noted Objective Labs 10/14/24 04:48 10/14/24 04:48 Labs: Laboratory Results - last 24 hr 10/11/24 10/11/24 04:40 05:00 WBC 7.9 RBC 4.04 L Hgb 11.6 L Hct 38.1 L MCV 94 MCH 28.7 MCHC 30.4 L RDW Std Deviation 52.2 H Plt Count 160 Neut % (Auto) 60 Lymph % (Auto) 20 [place] % (Auto) 14 H Eos % (Auto) 5 Baso % (Auto) 0 Neut # (Auto) 4.8 Lymph # (Auto) 1.6 [place] # (Auto) 1.1 H Eos # (Auto) 0.4 Baso # (Auto) 0.0 Immature Gran # (Auto) 0.03 H Absolute Nucleated RBC 0.16 H Immature Gran % 0 Nucleated RBC % 2 H Sodium 128 L Potassium 4.6 Chloride 96 L Carbon Dioxide 22.4 Anion Gap 10 BUN 54 H Creatinine 2.6 H Estim Creat Clear Calc 26.9 L eGFR 24 L BUN/Creatinine Ratio 21 H Glucose 101 Calculated Osmolality 271 L Calcium 8.9 Corrected Calcium 9.2 Total Bilirubin 3.0 H AST 402 H ALT 374 H Alkaline Phosphatase 97 Total Protein 6.3 Albumin 3.6 Globulin 2.7 Albumin/Globulin Ratio 1.3 Quality Measures Quality Measures VTE prophylaxis (Eliquis) Advance care planning discussed with:: patient Assessment & Plan Assessment Current Active Medications: Generic Name Dose Route Start Last Admin Trade Name Freq PRN Reason Stop Dose Admin Acetaminophen 650 mg 10/05/24 20:50 10/10/24 22:12 Acetaminophen 325 Mg Tablet PO 11/04/24 20:49 650 mg Q6H PRN Administration Fever >101.5 Apixaban 5 mg 10/05/24 21:15 10/11/24 08:38 Apixaban 2.5 Mg Tablet PO 10/26/24 21:14 5 mg BID YASSINE Administration Bumetanide 1 mg 10/10/24 21:00 10/10/24 20:02 Bumetanide 0.5 Mg Tablet PO 11/09/24 20:59 1 mg BID YASSINE Administration Carvedilol 12.5 mg 10/11/24 10:00 Carvedilol 12.5 Mg Tablet PO 11/10/24 09:59 Q12H YASSINE Fluoxetine HCl 20 mg 10/07/24 21:35 10/11/24 08:38 Fluoxetine Hcl 10 Mg Capsule PO 11/06/24 21:34 20 mg QDAY YASSINE Administration Ondansetron HCl 4 mg 10/05/24 20:50 10/09/24 09:23 Ondansetron Inj 2 Mg/Ml Inj 2 Ml IV 11/04/24 20:49 4 mg Q6H PRN Administration NAUSEA OR VOMITING Protocol Pantoprazole Sodium 40 mg 10/06/24 09:00 10/11/24 08:38 Pantoprazole 40 Mg Tablet PO 11/05/24 08:59 40 mg QDAY YASSINE Administration Simethicone 80 mg 10/08/24 11:36 10/10/24 21:13 Simethicone 80 Mg Chew PO 11/07/24 20:59 80 mg BID PRN Administration Gas Plan A 79-year-old male patient with significant medical history of HFrEF (35-40% on March 2024), s/p AICD, chronic Afib (rate controlled), DVT (on Eliquis), HTN, HLD and DM2 was broght to ED by EMS for generalized weakness and hypotension. Patient was recently admitted to [facility] on 09/01/24 where he was found to have DVT with CHF exacerbation and was discharged on Eliquis, Bumix and sprionolactone. BNP elevated, creatinine at 2.2 (Baseline 1.0). Patient was given 1 L bolus NS in ED. Patient was admitted with ERLIN secondary to hypovolemia. Patient has poor oral intake and endorses dry heaving. #ERLIN most likely #prerenal in setting of hypovolemia On admission patient was dehydrated with creatinine 2.2 (baseline 1). Patient recently discharged on Bumex and spironolactone with instructions to follow-up with [facility] post-discharge on August 2024, but patient does not have transportation to see [facility]. Patient with decreased p.o. intake, noted to be lethargic and dehydrated with dry mucous membranes. No crackles heard on auscultation of bilateral lung lobes. 1+ edema lower extremities. Per physical therapy, patient will need rehab for skilled therapy services to be able to maximize his rehab potential and maximize functional mobility. Creatinine uptrended from 2.3 to 2.4 to 2.6 indicative of renal function worsening. Plan: ?Started on NS maintenance fluids 75 cc/h -Encourage increased oral fluid intake -Hold Bumex ?Hold spironolactone ?Avoid nephrotoxic agents ?Renally dose medications ?Follow-up renal panel #Transaminitis #Elevated T bili Possibly secondary to hypotention in setting of hypovolemia Patient denies IV drug use, but endorses daily tylenol intake once daily that may contribute to the high liver enzymes. However, considering the acute nature of elevated LFT's, tylenol use is less likely the underlying cause. Cannot rule out bud chiari considering patient's recent hypercoagulabilty seen with DVT. Admission T bili 1.6, AST 86, ALT 70. Hepatitis panel negative Liver ultrasound previously negative except for hepatosplenomegaly Reports direct & indirect bilirubin elevated Plan: -Ordered ultrasound liver, will rule out Budd-Chiari Syndrome. -Monitor CMP in a.m. # HFrEF (35 to 40%), stable # s/p AICD # Hypotension Patient recently discharged on spironolactone twice daily and Bumex twice daily, and endorses compliance on medication. He presented severly hypotensive in the ED. He had to follow-up with cardiology but failed as he does not have transportation. Patient endorses decreased oral intake and general body weakness. He received 1L bolus IVF as nephro recommended. Heart failure improved with bumex during this visit. Plan: -Bumex on hold -hold spironolactone as it may worsen patient's presentation. -Monitor intake and output -Will monitor for signs of fluid overload -Consulted cardiology, appreciate recommendations # Bilateral deep venous thrombosis # Atrial fibrillation rate controlled Patient recently admitted for b/l DVT on eliquis. Physical exam significant for mild edema of LE, L > R Plan: -Continue Eliquis 5 mg twice daily -Resumed Coreg home dose 12.5 twice daily -continue to monitor closely -Consulted cardiology, appreciate recommendations # Diabetes mellitus type 2 (A1c of 5.0 in August 2024) Patient has a history of diabetes mellitus, however is no longer diabetic. A1c is within non-diabetic range. Plan: Monitor blood glucose level and CMP daily DVT prophylaxis: Eliquis GI prophylaxis: Protonix Diet: Cardiac diet Lines: Peripheral IV Code status: Full code Physical therapy: PT evaluation complete, recommended assisted facility. Case discussed with Attending Dr. Brooks and Dr. Child PGY3. Jordan Ahn PGY1 Attending Provider Attestation/Addendum 79-year-old male with multiple comorbidities including hypertension, hyperlipidemia, type 2 diabetes mellitus with subsequent nonischemic cardiomyopathy status post ICD implantation with EF 35-40% A-fib and DVT on Eliquis who presented to the ER on 10/05/2024 with chief complaint of shortness of breath and found to have acute kidney injury and transaminitis with no evidence of any gallbladder etiology and thus admitted pending nephrology input. In addition, patient also noted to have acute CHF exacerbation but is likely contributing to the ERLIN and transaminitis and initially thought was due to CHF subsequently started on IV diuretic therapy. However, patient appears to be dry and dehydrated for which we will start gentle IV hydration. Appreciate nephrology and cardiology input. I reviewed above note and agree with findings and plans. I have also personally examined the patient with medicine team and went over assessment and plan with medical team including hr intern and resident physician.
[2024-10-11] MEDS: carVEDILOL 12.5 MG TABLET PO ×2 (11:29→21:06)
[2024-10-11] MEDS: SODIUM CHLORIDE 0.9% 1000 ML 1,000 ML 75 ML IV (12:28)
--- NOTE | 2024-10-11 12:34 | XR_ITS ---
Examination: Abdomen sonogram, Limited Date and time of exam: October 03, 2024 1356 hrs. 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 Findings: Negative for gallstones Gallbladder wall 0.3 cm with free fluid adjacent to the gallbladder Common bile duct 0.3 cm no stones Pancreatic head 3.0 cm Liver 17.5 cm irregular contour fatty infiltration Minimal flow in right middle and left hepatic veins demonstrated Portal venous flow is noted no thrombus patent IVC Impression: No convincing evidence of thrombus in the portal vein or hepatic veins Negative for cholelithiasis There is fluid adjacent to the gallbladder, which may be ascitic fluid, clinical correlation advised
[2024-10-11] MEDS: ACETAMINOPHEN 325 MG TABLET 650 MG PO (19:58)
--- NOTE | 2024-10-11 20:33 | ESCONSULT_ITS ---
ELIZABETHALEYDAANGELES : 1945 DATE OF CONSULTATION: 10/10/2024 CONSULTING PHYSICIANS: Hospitalist. REASON FOR CONSULTATION: Evaluation of patient with acute kidney injury, renal insufficiency. HISTORY OF PRESENT ILLNESS: The patient is very well known to me. He is a 79-year-old male who has a longstanding history of nonischemic cardiomyopathy, chronic atrial fibrillation, obesity, type 2 diabetes mellitus, history of DVT, baseline ejection fraction of 25%, status post ICD implantation. He was recently discharged in August when he had an episode of DVT, massive swelling of both lower extremities, aggressively diuresed with good weight loss and fluid loss. He came to the hospital with generalized weakness, not hydrating himself well. He has been taking Bumex and spironolactone and generalized weakness and tiredness with low output symptoms as well as shortness of breath, but leg swelling completely improved, but renal function panel was abnormal, showed that the patient developed acute kidney injury with known history of congestive heart failure. His baseline creatinine is usually around 1.0, but on 10/05/2024, he presented to the hospital with a creatinine of 2.2. The creatinine continued to worsen up to 2.6 now and creatinine clearance also dropped to 26. Baseline BUN, he normally runs around 30, but went up to 46, 54, now around 54. The patient still complains of general weakness and fatigue. He does not have any chest pain or shortness of breath. Leg swelling completely improved. MEDICATIONS AT HOME: The patient is on carvedilol 12.5 mg twice daily, bumetanide 2 mg daily and fluoxetine 20 mg daily. He is also on Eliquis 5 mg twice daily because of DVT and atrial fibrillation. PAST MEDICAL HISTORY: Chronic systolic heart failure, nonischemic cardiomyopathy, type 2 diabetes mellitus, hypertension, atrial fibrillation, chronic, status post ICD implantation for prevention of sudden cardiac . REVIEW OF SYSTEMS: CARDIOVASCULAR: No chest pain. No orthopnea or PND. Mild shortness of breath on exertion. GASTROINTESTINAL: No nausea or vomiting. GENITOURINARY: No history of frequency or dysuria. CORE DRILLER: No neurological symptoms. PHYSICAL EXAMINATION: GENERAL: Well nourished, chronically ill, acutely ill male, alert and awake, not in any acute distress. VITAL SIGNS: Blood pressure is 110/68. Pulse rate is 80. Respirations 16. Temperature is normal. Saturating _97__ % on room air. HEENT: Atraumatic and normocephalic. Eyes normal. ENT normal. NECK: Supple, no JVD. Carotid pulses felt with no bruit. CHEST: Symmetrical. LUNGS: . No rales or rhonchi. HEART: S1, S2 regular. No gallop. ABDOMEN: Thin and soft. Slightly distant. EXTREMITIES: No edema. Complete resolved. /RECTAL: Not performed. CORE DRILLER: Normal. DIAGNOSTIC DATA: Electrocardiogram shows evidence of atrial fibrillation, underlying rhythm and nonspecific IVCD, left axis deviation. LABORATORY DATA: Showed elevated BUN and creatinine. ASSESSMENT: 1. Acute kidney injury, acute renal failure, possibly worsened by diuretics as well as dehydration. 2. Chronic systolic heart failure based on ejection fraction of 25% to 30%, HFrEF, well compensated. 3. Chronic atrial fibrillation, rate controlled. 4. Status post ICD implantation. 5. Diabetes mellitus. 6. Obesity. RECOMMENDATIONS: I agree with the hydration carefully _ fluids as well as lower the dose of diuretic. Continue carvedilol 12.5 twice daily, apixaban 5 mg twice daily because of history of DVT. We will continue to monitor the status closely and carefully hydrate. Watch for any volume overload. I would like to thank for referring this patient for cardiovascular evaluation. We will be glad to follow the patient. DT: 17:41:26 TT: 20:22:00 Ref: [id number] - TID: [id number] MTD
--- NOTE | 2024-10-11 20:50 | ESPR_ITS ---
RE: ANGELES JOHNSON : 1945 DATE OF SERVICE: 10/11/2024 SUBJECTIVE: The patient is a 79-year-old with history of nonischemic cardiomyopathy, chronic systolic heart failure, was admitted to the hospital with acute kidney injury and renal failure, dehydration, clinically he is not with heart failure or volume overload. Tolerating the IV fluids well so far. Diuretics are held, which is okay since he does not have any edema. OBJECTIVE: General: He is alert, awake, in no acute distress. Vital Signs: His blood pressure 110/76, pulse rate is 89, respirations 29, temperature normal at 98.9, pulse ox 96% on room air. Neck: Supple. No significant JVD. Chest: Symmetrical. Lungs: Mostly clear. No rales. No wheezes. Heart: S1, S2 distant. Irregular. Abdomen: Obese. Soft. Extremities: No edema. Genitourinary: Not performed. Rectal: Not performed. LABORATORY DATA: Showed the BUN and creatinine is still elevated, BUN is 54, creatinine 2.6, creatinine clearance 26.9. IMPRESSION: 1. Acute kidney injury due to dehydration. 2. Chronic systolic heart failure, well compensated on the dry side. 3. Status post ICD implantation. 4. Atrial fibrillation. 5. Deep venous thrombosis, recent diagnosis. RECOMMENDATIONS: Continue Eliquis and diuretics to be held for a while. Continue careful hydration. Watch for signs of volume overload. DT: 17:50:57 TT: 20:18:00 Ref: [id number] - TID: [id number]
[2024-10-12] VITALS (14 sets, daily range): BP systolic 100–140; BP diastolic 62–77; PULSE 45–844; RESP 17–98; TEMP 36.4–36.6; O2SAT 94–98; BMI 12.0; BMI 30.6
[2024-10-12] MEDS: SODIUM CHLORIDE 0.9% 1000 ML 1,000 ML 75 ML IV (01:58)
[2024-10-12] MEDS: ACETAMINOPHEN 325 MG TABLET 650 MG PO (05:02)
[2024-10-12 05:59] LABS: Basophils % (Auto) 0 % (0-2.5); Eosinophils # (Auto) 0.2 Thou/mm3 (0.0-0.5); Eosinophils % (Auto) 3 % (0-10); Hematocrit 36.9 % (41.0-53.0); Hemoglobin 11.2 g/dL (13.5-16.0); Immature Granulocytes % (Auto) 0 % (0-0); Immature Granulocytes Auto 0.02 Thou/mm3 (0.00-0.00); Lymphocytes # (Auto) 1.2 Thou/mm3 (1.0-4.8); Lymphocytes % (Auto) 16 % (10-50); Mean Corpuscular HGB Conc 30.4 g/dl (31.0-37.0); Mean Corpuscular Hemoglobin 28.6 pg (25.0-35.0); Mean Corpuscular Volume 94 fL (80-100); Monocytes # (Auto) 0.9 Thou/mm3 (0.0-0.8); Monocytes % (Auto) 12 % (0-12); Neutrophils # (Auto) 4.8 Thou/mm3 (1.8-7.7); Neutrophils % (Auto) 67 % (37-80); Nucleated Red Blood Cell # 0.08 Thou/mm3 (0.00-0.00); Nucleated Red Blood Cell % 1 /100 WBC (0); Platelet Count 116 Thou/mm3 (140-440); RDW Standard Deviation 52.6 fL (35.1-43.9); Red Blood Count 3.92 Miln/mm3 (4.50-5.90); White Blood Count 7.1 Thou/mm3 (3.8-10.6)
[2024-10-12 06:40] LABS: Alanine Aminotransferase 389 U/L (10-49); Albumin, Serum 3.5 gm/dL (3.4-4.8); Albumin/Globulin Ratio 1.5 (1.2-2.2); Alkaline Phosphatase 92 U/L (46-116); Anion Gap 10 (7-16); Aspartate Amino Transferase 376 U/L (0-34); BUN/Creatinine Ratio 22 Ratio (12-20); Blood Urea Nitrogen 53 mg/dL (9-23); Calcium 8.9 mg/dL (8.3-10.6); Calcium (Corrected) 9.3 mg/dL (8.5-10.1); Carbon Dioxide 22.4 mMol/L (20.0-31.0); Chloride 98 mMol/L (98-107); Creatinine (Component) 2.4 mg/dL (0.6-1.3); Estimated Creatinine Clearance 29.2 mL/min (>60); Globulin 2.4 gm/dL (2.3-3.5); Glucose 93 mg/dL (74-106); Osmolality,Calculated 275 (275-295); Potassium 4.6 mMol/L (3.4-5.1); Sodium 130 mMol/L (136-145); Total Protein 5.9 gm/dL (5.7-8.2); eGFR 27 See Note
[2024-10-12] MEDS: PANTOPRAZOLE 40 MG TABLET PO (09:15)
[2024-10-12] MEDS: APIXABAN 2.5 MG TABLET 5 MG PO ×2 (09:15→20:59)
[2024-10-12] MEDS: FLUoxetine HCL 10 MG CAPSULE 20 MG PO (09:15)
--- NOTE | 2024-10-12 11:00 | PC.SS ---
Follow up note: Liver enzymes are high. Pt will go to [facility] upon dc.
--- NOTE | 2024-10-12 11:29 | ESPR_ITS ---
<Statement entered by Ruel Child DO - 10/12/24 16:45> Senior attestation: Patient was examined and case was reviewed with team including attending physician. Note reviewed, I agree with most of its contents and agree with the patient's care. Holding acetaminophen due to transaminitis concern, creatinine slowly improving. Will hold coreg in setting of bradycardia. Ruel Child DO PGY-3 Documentation for date of: 10/12/24 Subjective Subjective Interval history: Patient seen at bedside. No acute overnight events. Patient endorses lethargic. He appears with eyes closed laying in bed. Lungs clear on auscultation bilaterally. Left lower extremity 1+ edema. No edema on right lower extremity. Continue to hold Bumex in the setting of dehydration. Renal function still not at baseline, creatinine improved from 2.6 to 2.4. Will continue to monitor patient, anticipate improvement in ERLIN with maintenance fluid normal saline 75 cc/h. Exam Vital Signs Temp Pulse Resp BP Pulse Ox O2 Del Method O2 Flow Rate 97.8 F 45 L 17 106/77 95 Room Air 2 10/12/24 07:34 10/12/24 10:05 10/12/24 07:34 10/12/24 09:16 10/12/24 07:34 10/12/24 07:34 10/12/24 07:10 Narrative Exam Constitutional: Obese, well-developed, in no acute distress, lying in bed HEENT: NCAT, EOMI, reactive round pupils b/l, patent nares b/l, dry mucous membranes Lung: CTAB, no wheezing, no rhonchi. Diminished breath sounds in lower lung lobes per obese body habitus. Heart: Regular S1S2, no murmurs, gallops, or rubs Abdomen: Soft, non-distended, non-tender. Extremities: No cyanosis, clubbing, trace edema of LE left more swollen than right, 1 dorsalis pulses present b/l Neurologic: No focal sensory or motor deficits noted. Generally alert and oriented to person and place. Skin: Warm, dry, no lesions or rashes noted Objective Labs 10/14/24 04:48 10/14/24 04:48 Labs: Laboratory Results - last 24 hr 10/12/24 04:35 WBC 7.1 RBC 3.92 L Hgb 11.2 L Hct 36.9 L MCV 94 MCH 28.6 MCHC 30.4 L RDW Std Deviation 52.6 H Plt Count 116 L D Neut % (Auto) 67 Lymph % (Auto) 16 [place] % (Auto) 12 Eos % (Auto) 3 Baso % (Auto) 0 Neut # (Auto) 4.8 Lymph # (Auto) 1.2 [place] # (Auto) 0.9 H Eos # (Auto) 0.2 Baso # (Auto) 0.0 Immature Gran # (Auto) 0.02 H Absolute Nucleated RBC 0.08 H Immature Gran % 0 Nucleated RBC % 1 H Sodium 130 L Potassium 4.6 Chloride 98 Carbon Dioxide 22.4 Anion Gap 10 BUN 53 H Creatinine 2.4 H Estim Creat Clear Calc 29.2 L eGFR 27 L BUN/Creatinine Ratio 22 H Glucose 93 Calculated Osmolality 275 Calcium 8.9 Corrected Calcium 9.3 Total Bilirubin 3.0 H AST 376 H ALT 389 H Alkaline Phosphatase 92 Total Protein 5.9 Albumin 3.5 Globulin 2.4 Albumin/Globulin Ratio 1.5 Quality Measures Quality Measures VTE prophylaxis (Eliquis) Advance care planning discussed with:: patient Assessment & Plan Assessment Current Active Medications: Generic Name Dose Route Start Last Admin Trade Name Freq PRN Reason Stop Dose Admin Apixaban 5 mg 10/05/24 21:15 10/12/24 09:15 Apixaban 2.5 Mg Tablet PO 10/26/24 21:14 5 mg BID YASSINE Administration Bumetanide 1 mg 10/10/24 21:00 10/10/24 20:02 Bumetanide 0.5 Mg Tablet PO 11/09/24 20:59 1 mg BID YASSINE Administration Fluoxetine HCl 20 mg 10/07/24 21:35 10/12/24 09:15 Fluoxetine Hcl 10 Mg Capsule PO 11/06/24 21:34 20 mg QDAY YASSINE Administration Sodium Chloride 1,000 mls @ 75 mls/hr 10/11/24 12:00 10/12/24 01:58 Ns IV 10/12/24 11:59 75 mls/hr .[id number] YASSINE Administration Ondansetron HCl 4 mg 10/05/24 20:50 10/09/24 09:23 Ondansetron Inj 2 Mg/Ml Inj 2 Ml IV 11/04/24 20:49 4 mg Q6H PRN Administration NAUSEA OR VOMITING Protocol Pantoprazole Sodium 40 mg 10/06/24 09:00 10/12/24 09:15 Pantoprazole 40 Mg Tablet PO 11/05/24 08:59 40 mg QDAY YASSINE Administration Simethicone 80 mg 10/08/24 11:36 10/10/24 21:13 Simethicone 80 Mg Chew PO 11/07/24 20:59 80 mg BID PRN Administration Gas Plan A 79-year-old male patient with significant medical history of HFrEF (35-40% on March 2024), s/p AICD, chronic Afib (rate controlled), DVT (on Eliquis), HTN, HLD and DM2 was broght to ED by EMS for generalized weakness and hypotension. Patient was recently admitted to [facility] on 09/01/24 where he was found to have DVT with CHF exacerbation and was discharged on Eliquis, Bumix and sprionolactone. BNP elevated, creatinine at 2.2 (Baseline 1.0). Patient was given 1 L bolus NS in ED. Patient was admitted with ERLIN secondary to hypovolemia. Patient has poor oral intake and is on IVF. #ERLIN most likely #prerenal in setting of hypovolemia-improving On admission patient was dehydrated with creatinine 2.2 (baseline 1). Patient recently discharged on Bumex and spironolactone with instructions to follow-up with [facility] post-discharge on August 2024, but patient does not have transportation to see [facility]. Patient with decreased p.o. intake, noted to be lethargic and dehydrated with dry mucous membranes. No crackles heard on auscultation of bilateral lung lobes. 1+ edema lower extremities. Per physical therapy, patient will need rehab for skilled therapy services to be able to maximize his rehab potential and maximize functional mobility. Creatinine is downtrending from 2.6 to 2.4. Plan: ?NS maintenance fluids 75 cc/h -Encourage increased oral fluid intake -Hold Bumex ?Hold spironolactone ?Avoid nephrotoxic agents ?Renally dose medications ?Follow-up renal panel #Transaminitis #Elevated T bili #[place] chiari ruled out Possibly secondary to hypotention in setting of hypovolemia Patient has taken a few times a day of Tylenol during this admission that may contribute to the high liver enzymes. Patient denies IV drug use. Liver ultrasound did not show any thrombus in the portal vein or hepatic vein; f luid adjacent to the gallbladder, which may be ascitic fluid, clinical correlation advised. Liver ultrasound previously negative except for hepatosplenomegaly Admission T bili 1.6, AST 86, ALT 70. Hepatitis panel negative. AST and ALT>300. Total bilirubin elevated AST's resolved more quickly than bilirubin. Considering this, we anticipate AST is to improve and exacerbate the bilirubin. Must consider acute liver injury causing patient's transaminitis, likely from overuse of Tylenol. Anticipate improvement upon discontinuation to tylenol. Plan: -Discontinued Tylenol -lidocaine patch x 1 -Monitor CMP in a.m. #Bradycardia Likely secondary to medication induced bradycardia Patient takes Coreg regularly. Patient's blood pressure has been treated with Coreg during hospital course. Plan: -Stop Coreg home dose -Consider restarting Coreg tomorrow if blood pressure increases greater than 140/80 and she becomes tachycardic. # HFrEF (35 to 40%), stable # s/p AICD # Hypotension Patient recently discharged on spironolactone twice daily and Bumex twice daily, and endorses compliance on medication. He presented severly hypotensive in the ED. He had to follow-up with cardiology but failed as he does not have transportation. Patient endorses decreased oral intake and general body weakness. He received 1L bolus IVF as nephro recommended. Heart failure improved with bumex during this visit. Currently patient appears clinically dry, he appears to be compensated. Plan: -Bumex on hold -hold spironolactone as it may worsen patient's presentation. -Monitor intake and output -Will monitor for signs of fluid overload -Consulted cardiology, appreciate recommendations # Bilateral deep venous thrombosis # Atrial fibrillation rate controlled Patient recently admitted for b/l DVT on eliquis. Physical exam significant for mild edema of LE, L > R Plan: -Continue Eliquis 5 mg twice daily -Discoontinued Coreg home dose 12.5 twice daily -continue to monitor closely -Consulted cardiology, appreciate recommendations # Diabetes mellitus type 2 (A1c of 5.0 in August 2024) Patient has a history of diabetes mellitus, however is no longer diabetic. A1c is within non-diabetic range. Plan: -Monitor blood glucose level and CMP daily DVT prophylaxis: Eliquis GI prophylaxis: Protonix Diet: Cardiac diet Lines: Peripheral IV Code status: Full code Physical therapy: PT evaluation complete, recommended assisted facility. Dispo: Pending improvement in erlin. Case discussed with Attending Dr. Brooks and Dr. Child PGY3. Laura Rome, PGY-2 Attending Provider Attestation/Addendum 79-year-old male with multiple comorbidities including hypertension, hyperlipidemia, type 2 diabetes mellitus with subsequent nonischemic cardiomyopathy status post ICD implantation with EF 35-40% A-fib and DVT on Eliquis who presented to the ER on 10/05/2024 with chief complaint of shortness of breath and found to have acute kidney injury and transaminitis with no evidence of any gallbladder etiology and thus admitted pending nephrology input. In addition, patient also noted to have acute CHF exacerbation but is likely contributing to the ERLIN and transaminitis and initially thought was due to CHF subsequently started on IV diuretic therapy. However, patient appears to be dry and dehydrated for which we will start gentle IV hydration. Appreciate nephrology and cardiology input. Overnight, slight improvement in transaminitis and ERLIN with IV fluid resuscitation however starting to develop lower extremity edema. Will continue to monitor closely. I reviewed above note and agree with findings and plans. I have also personally examined the patient with medicine team and went over assessment and plan with medical team including product marketing intern and resident physician.
[2024-10-12] MEDS: LIDOCAINE 5% 1 PATCH TOP (12:34)
--- NOTE | 2024-10-12 16:40 | PC.NURSE ---
IV insertion attempted by 3 RN's, George PEARL PELLER called for possible ultrasound IV insertion.
--- NOTE | 2024-10-12 20:00 | PD.IMPROG ---
Documentation for date of: 10/12/24 Subjective Subjective Interval history: Covering for Dr. Robert Alexandra Patient seen and examined at the bedside. During my examination patient appears to be significantly volume overloaded and is at least 1+ peripheral edema along with sacral edema. Reviewed the labs from admission and the BUN continues to increase from 40 -56 and the creatinine continued to stay stable between 2.0 and 2.6. Patient did receive significant IV fluids for possible prerenal ERLIN. Patient LFTs continue to worsen with AST increasing from 70-389 and ALT from 86-315. Bilirubin also increased from 1.6 to a peak of 3.0 today alk phos Admission BNP is 2117 which was elevated from his previous BNP of total of 46. All his previous BNP's earlier in the year are less than thousand. Both Bumex as well as spironolactone were stopped on admission and then patient was started only on 1 mg p.o. twice daily of Bumex with a max dose of 2 mg in a day. Patient was then started on IV fluids. Reviewed the previous echo from March 2024 which showed dilated cardiomyopathy. LV is mild to moderately dilated, moderate RV enlargement, there is severely dilated LA and RA. LV function is moderate to severely reduced with an EF of around 35% - 40%. Diastolic dysfunction present but cannot be assessed because of the paced rhythm RV function normal. RV systolic pressure is 56 mmHg, including RAP of 15mmHg. At least moderate PAH There is moderate MR which is eccentric and could be underestimated and could be moderate to severe. Moderate TR with pacer wire noted on the right side. Dilated IVC As the patient has not been improving since admission, cardiorenal syndrome should be considered along with hepatic congestion secondary to volume overload given the presentation. Recommend to stop IV fluids completely and start the patient on trial of Bumex 2 mg IV every 8 hours. Goal diuresis to be net negative at 1.5 to 2 L/day. Strict input output, daily weights and 2 g within diet. Fluid restriction to 1500 mL/day. Continue to monitor renal function as well as hepatic function closely. No spironolactone or other blood pressure medications at the present point of time. Depression greater than 4 in addition greater than 2.0 at all times to avoid any arrhythmias. Exam Vital Signs Temp Pulse Resp BP Pulse Ox O2 Del Method O2 Flow Rate 98.1 F 67 17 112/68 95 Room Air 1 10/13/24 07:36 10/13/24 07:36 10/13/24 07:36 10/13/24 07:36 10/13/24 07:36 10/13/24 07:36 10/13/24 06:44 Narrative Exam General: Alert and oriented x3. In mild respiratory distress but overall doing well Eyes: Pupils are equal and reactive to light bilaterally. HEENT: Atraumatic, normocephalic. Difficult to assess mucosa moist. Cardiovascular: Normal S1 and S2. Normal rate and regular rhythm. 3/6 systolic murmur heard at the apex, 1+ peripheral pitting edema noted. Significant sacral edema noted Respiratory: Lungs appear clear to auscultation with no wheezing or crackles heard. Abdomen: Soft, nontender, nondistended. Skin: No rash. Warm to touch. Musculoskeletal: No gross injuries. Able to move all 4 extremities. Neuro: Alert and oriented x3. No focal neuro deficits. Psych: Normal affect and mood Objective Labs 10/13/24 04:43 10/13/24 04:43 Labs: Laboratory Results - last 24 hr 10/13/24 04:43 WBC 6.0 RBC 3.91 L Hgb 11.3 L Hct 36.5 L MCV 93 MCH 28.9 MCHC 31.0 RDW Std Deviation 52.9 H Plt Count 122 L Neut % (Auto) 69 Lymph % (Auto) 15 [place] % (Auto) 11 Eos % (Auto) 5 Baso % (Auto) 0 Neut # (Auto) 4.2 Lymph # (Auto) 0.9 L [place] # (Auto) 0.7 Eos # (Auto) 0.3 Baso # (Auto) 0.0 Immature Gran # (Auto) 0.02 H Absolute Nucleated RBC 0.12 H Immature Gran % 0 Nucleated RBC % 2 H Sodium 132 L Potassium 4.5 Chloride 99 Carbon Dioxide 23.7 Anion Gap 9 BUN 54 H Creatinine 2.1 H Estim Creat Clear Calc 33.3 L eGFR 31 L BUN/Creatinine Ratio 26 H Glucose 96 Calculated Osmolality 279 Calcium 8.8 Corrected Calcium 9.2 Total Bilirubin 2.6 H AST 249 H ALT 329 H Alkaline Phosphatase 95 Total Protein 5.9 Albumin 3.5 Globulin 2.4 Albumin/Globulin Ratio 1.5 Assessment & Plan A&P Narrative A 79-year-old male with a past medical history of nonischemic cardiomyopathy status post ICD implantation with a baseline ejection fraction of 25%, last echocardiogram in March 2024 showed an EF of around 35% - 40%, chronic atrial fibrillation, type 2 diabetes mellitus, recent acute DVT on Eliquis, essential hypertension, hyperlipidemia, obesity, presented to the emergency department for further evaluation of generalized weakness and hypotension. Patient was noted to have acute kidney injury on admission. Review of the chart shows that the patient was discharged in August 2024 after an episode of acute on chronic systolic CHF exacerbation along with a DVT. Patient was discharged on Bumex Eliquis and spironolactone at that point of time. Patient did have massive swelling of both lower extremity and was diuresed adequately. Patient complained of only generalized weakness but denies there is cardiac in place. Patient baseline creatinine is around 1.0 but was elevated 2.6 during this admission. Cardiology was consulted for further evaluation of the same. 1. Acute kidney injury 2. Acute on chronic systolic congestive heart failure with a baseline EF of around 25 and 35% with possible cardiorenal syndrome 3. Abnormal and worsening LFTs-etiology unclear 4. Chronic atrial fibrillation-rate controlled and paced rhythm now 5. Status post reimplantation given nonischemic cardiomyopathy 6. Recent acute bilateral lower leg DVT on Eliquis 7. Diabetes mellitus type 2 8. Essential hypertension 9. Hyperlipidemia 10. Obesity During my examination patient appears to be significantly volume overloaded and is at least 1+ peripheral edema along with sacral edema. Reviewed the labs from admission and the BUN continues to increase from 40 -56 and the creatinine continued to stay stable between 2.0 and 2.6. Patient did receive significant IV fluids for possible prerenal ERLIN. Patient LFTs continue to worsen with AST increasing from 70-389 and ALT from 86-315. Bilirubin also increased from 1.6 to a peak of 3.0 today alk phos Admission BNP is 2117 which was elevated from his previous BNP of total of 46. All his previous BNP's earlier in the year are less than thousand. Both Bumex as well as spironolactone were stopped on admission and then patient was started only on 1 mg p.o. twice daily of Bumex with a max dose of 2 mg in a day. Patient was then started on IV fluids. Reviewed the previous echo from March 2024 which showed dilated cardiomyopathy. LV is mild to moderately dilated, moderate RV enlargement, there is severely dilated LA and RA. LV function is moderate to severely reduced with an EF of around 35% - 40%. Diastolic dysfunction present but cannot be assessed because of the paced rhythm RV function normal. RV systolic pressure is 56 mmHg, including RAP of 15mmHg. At least moderate PAH There is moderate MR which is eccentric and could be underestimated and could be moderate to severe. Moderate TR with pacer wire noted on the right side. Dilated IVC\ As the patient has not been improving since admission, cardiorenal syndrome should be considered along with hepatic congestion secondary to volume overload given the presentation. Recommend to stop IV fluids completely and start the patient on trial of Bumex 2 mg IV every 8 hours. Goal diuresis to be net negative at 1.5 to 2 L/day. Strict input output, daily weights and 2 g within diet. Fluid restriction to 1500 mL/day. Continue to monitor renal function as well as hepatic function closely. No spironolactone or other blood pressure medications at the present point of time. Depression greater than 4 in addition greater than 2.0 at all times to avoid any arrhythmias. Management of rest of the medical conditions as per primary team and other consultants. Thank you for the consult and allowing me to participate in the care of the patient. Cardiology will continue to follow. Markos De Paz M.D. Interventional Cardiology Time Spent With Patient Time: Total time spent is greater than 50% in coordination of care (as documented) at patient's floor/unit and/or counseling patient:
[2024-10-13] VITALS (9 sets, daily range): BP systolic 89–120; BP diastolic 54–73; PULSE 50–106; RESP 16–23; TEMP 36.1–36.9; O2SAT 95–99
[2024-10-13] MEDS: SODIUM CHLORIDE 0.9% 1000 ML 1,000 ML 75 ML IV ×2 (01:48→08:26)
[2024-10-13] MEDS: SENNA TABLET 1 TAB PO (02:17)
[2024-10-13 06:51] LABS: Alanine Aminotransferase 329 U/L (10-49); Albumin, Serum 3.5 gm/dL (3.4-4.8); Albumin/Globulin Ratio 1.5 (1.2-2.2); Alkaline Phosphatase 95 U/L (46-116); Anion Gap 9 (7-16); Aspartate Amino Transferase 249 U/L (0-34); BUN/Creatinine Ratio 26 Ratio (12-20); Bilirubin,Total 2.6 mg/dL (0.3-1.2); Blood Urea Nitrogen 54 mg/dL (9-23); Calcium 8.8 mg/dL (8.3-10.6); Calcium (Corrected) 9.2 mg/dL (8.5-10.1); Carbon Dioxide 23.7 mMol/L (20.0-31.0); Chloride 99 mMol/L (98-107); Creatinine (Component) 2.1 mg/dL (0.6-1.3); Estimated Creatinine Clearance 33.3 mL/min (>60); Globulin 2.4 gm/dL (2.3-3.5); Glucose 96 mg/dL (74-106); Osmolality,Calculated 279 (275-295); Potassium 4.5 mMol/L (3.4-5.1); Sodium 132 mMol/L (136-145); Total Protein 5.9 gm/dL (5.7-8.2); eGFR 31 See Note
[2024-10-13] MEDS: PANTOPRAZOLE 40 MG TABLET PO (08:18)
[2024-10-13] MEDS: APIXABAN 2.5 MG TABLET 5 MG PO ×2 (08:18→21:06)
[2024-10-13] MEDS: FLUoxetine HCL 10 MG CAPSULE 20 MG PO (08:19)
[2024-10-13] MEDS: POLYETHYLENE GLYCOL 17 GM PACKET PO (08:19)
[2024-10-13 08:24] LABS: Basophils % (Auto) 0 % (0-2.5); Eosinophils # (Auto) 0.3 Thou/mm3 (0.0-0.5); Eosinophils % (Auto) 5 % (0-10); Hematocrit 36.5 % (41.0-53.0); Hemoglobin 11.3 g/dL (13.5-16.0); Immature Granulocytes % (Auto) 0 % (0-0); Immature Granulocytes Auto 0.02 Thou/mm3 (0.00-0.00); Lymphocytes # (Auto) 0.9 Thou/mm3 (1.0-4.8); Lymphocytes % (Auto) 15 % (10-50); Mean Corpuscular Hemoglobin 28.9 pg (25.0-35.0); Mean Corpuscular Volume 93 fL (80-100); Monocytes # (Auto) 0.7 Thou/mm3 (0.0-0.8); Monocytes % (Auto) 11 % (0-12); Neutrophils # (Auto) 4.2 Thou/mm3 (1.8-7.7); Neutrophils % (Auto) 69 % (37-80); Nucleated Red Blood Cell # 0.12 Thou/mm3 (0.00-0.00); Nucleated Red Blood Cell % 2 /100 WBC (0); Platelet Count 122 Thou/mm3 (140-440); RDW Standard Deviation 52.9 fL (35.1-43.9); Red Blood Count 3.91 Miln/mm3 (4.50-5.90)
--- NOTE | 2024-10-13 09:19 | ESPR_ITS ---
<Statement entered by Ruel Child DO - 10/13/24 20:52> Senior attestation: Patient was examined and case was reviewed with team including attending physician. Note reviewed, I agree with most of its contents and agree with the patient's care. Transaminitis showing mild improvement today, may have been due to acetaminophen and/or congestive hepatopathy. Cardiology team advises diuresis with bumex 2mg q8hr with goal of net balance - 1.5-2.0 L daily. Creatinine function slowly improving from 2.4 to 2.1 today, has been on gentle IV fluid hydration, fluids stopped today. Anticipate discharge to SNF once creatinine function and transaminitis improves. Ruel Child DO PGY-3 Documentation for date of: 10/13/24 Subjective Subjective Interval history: Absence of acute overnight events. Patient seen at bedside. Labs reviewed. Patient complains of lower back pain, improving with lidocaine patch. Lungs with mild crackles on auscultation bilaterally. Lower extremity 2+ edema bilaterally. Will evaluate the role of Bumex in the setting of clinical fluid overloaded state and renal worsening. Renal function still not at baseline, creatinine improved from 2.4 to 2.1. Will continue to monitor patient, discontinued IVFs. Consulted nephrology for further recommendations. Exam Vital Signs Temp Pulse Resp BP Pulse Ox O2 Del Method O2 Flow Rate 98.1 F 67 17 112/68 95 Room Air 1 10/13/24 07:36 10/13/24 07:36 10/13/24 07:36 10/13/24 07:36 10/13/24 07:36 10/13/24 07:36 10/13/24 06:44 Narrative Exam Constitutional: Obese, well-developed, in no acute distress, lying in bed HEENT: NCAT, EOMI, reactive round pupils b/l, moist mucous membranes Lung: CTAB, no wheezing, no rhonchi. Diminished breath sounds in lower lung lobes per obese body habitus. Heart: Regular S1S2, no murmurs. Abdomen: Soft, non-distended, non-tender. Extremities: No cyanosis, clubbing, 2+ lower extremity edema bilateral. Neurologic: No motor deficits noted. Generally alert and oriented to person and place. Skin: Warm, dry, no lesions or rashes noted Objective Labs 10/14/24 04:48 10/14/24 04:48 Labs: Laboratory Results - last 24 hr 10/13/24 04:43 WBC 6.0 RBC 3.91 L Hgb 11.3 L Hct 36.5 L MCV 93 MCH 28.9 MCHC 31.0 RDW Std Deviation 52.9 H Plt Count 122 L Neut % (Auto) 69 Lymph % (Auto) 15 [place] % (Auto) 11 Eos % (Auto) 5 Baso % (Auto) 0 Neut # (Auto) 4.2 Lymph # (Auto) 0.9 L [place] # (Auto) 0.7 Eos # (Auto) 0.3 Baso # (Auto) 0.0 Immature Gran # (Auto) 0.02 H Absolute Nucleated RBC 0.12 H Immature Gran % 0 Nucleated RBC % 2 H Sodium 132 L Potassium 4.5 Chloride 99 Carbon Dioxide 23.7 Anion Gap 9 BUN 54 H Creatinine 2.1 H Estim Creat Clear Calc 33.3 L eGFR 31 L BUN/Creatinine Ratio 26 H Glucose 96 Calculated Osmolality 279 Calcium 8.8 Corrected Calcium 9.2 Total Bilirubin 2.6 H AST 249 H ALT 329 H Alkaline Phosphatase 95 Total Protein 5.9 Albumin 3.5 Globulin 2.4 Albumin/Globulin Ratio 1.5 Quality Measures Quality Measures VTE prophylaxis (Eliquis) Advance care planning discussed with:: patient Assessment & Plan Assessment Current Active Medications: Generic Name Dose Route Start Last Admin Trade Name Dwainq PRN Reason Stop Dose Admin Apixaban 5 mg 10/05/24 21:15 10/13/24 08:18 Apixaban 2.5 Mg Tablet PO 10/26/24 21:14 5 mg BID YASSINE Administration Bumetanide 1 mg 10/10/24 21:00 10/10/24 20:02 Bumetanide 0.5 Mg Tablet PO 11/09/24 20:59 1 mg BID YASSINE Administration Fluoxetine HCl 20 mg 10/07/24 21:35 10/13/24 08:19 Fluoxetine Hcl 10 Mg Capsule PO 11/06/24 21:34 20 mg QDAY YASSINE Administration Sodium Chloride 1,000 mls @ 75 mls/hr 10/13/24 08:15 10/13/24 08:26 Ns IV 10/14/24 08:14 75 mls/hr .[id number] YASSINE Administration Ondansetron HCl 4 mg 10/05/24 20:50 10/09/24 09:23 Ondansetron Inj 2 Mg/Ml Inj 2 Ml IV 11/04/24 20:49 4 mg Q6H PRN Administration NAUSEA OR VOMITING Protocol Pantoprazole Sodium 40 mg 10/06/24 09:00 10/13/24 08:18 Pantoprazole 40 Mg Tablet PO 11/05/24 08:59 40 mg QDAY YASSINE Administration Polyethylene Glycol 17 gm 10/13/24 09:00 10/13/24 08:19 Polyethylene Glycol 17 Gm Packet PO 11/12/24 08:59 17 gm QDAY YSASINE Administration Sennosides 1 tab 10/13/24 02:00 10/13/24 02:17 Senna Tablet PO 11/12/24 01:59 1 tab QDAY PRN Administration CONSTIPATION Protocol Simethicone 80 mg 10/08/24 11:36 10/10/24 21:13 Simethicone 80 Mg Chew PO 11/07/24 20:59 80 mg BID PRN Administration Gas Plan A 79-year-old male patient with significant medical history of HFrEF (35-40% on March 2024), s/p AICD, chronic Afib (rate controlled), DVT (on Eliquis), HTN, HLD and DM2 was broght to ED by EMS for generalized weakness and hypotension. Patient was recently admitted to [facility] on 09/01/24 where he was found to have DVT with CHF exacerbation and was discharged on Eliquis, Bumix and sprionolactone but unable to follow up due to transportation issues. BNP elevated, creatinine at 2.2 (Baseline 1.0). Patient was given 1 L bolus NS in ED. Patient was admitted with ERLIN secondary to hypovolemia. #ERLIN, improving most likely #prerenal ERLIN Patient initially with decreased p.o. intake, noted to be lethargic and dehydrated with dry mucous membranes. No crackles heard on auscultation of bilateral lung lobes. 1+ edema lower extremities. Creatinine is downtrending from 2.4 to 2.1, (baseline 1). Plan: ?Discontinued NS maintenance fluids -Hold Bumex; will evluate whether patient needs Bumex to be resumed ?Hold spironolactone ?Avoid nephrotoxic agents ?Renally dose medications ?Follow-up renal panel #Transaminitis, improving #Elevated T bili, improving #[place] chiari ruled out Secondary to Tylenol use during this hospitalization. Patient has taken a few times a day of Tylenol during this admission, which upon discontinuation resulted in decresed liver enzymes and T. bili Patient denies IV drug use. Hepatitis negative. Liver ultrasound did not show any thrombus in the portal vein or hepatic vein; f luid adjacent to the gallbladder, which may be ascitic fluid, clinical correlation advised. Hepatosplenomegaly on imaging. Admission T bili 1.6, AST 86, ALT 70. AST downtrended from 376 to 249.and ALT decreased from 389 to 329.. Plan: -Avoid Tylenol -Monitor CMP in a.m. # HFrEF (35 to 40%), stable # s/p AICD # Hypotension, resolved Patient initially endorsed decreased oral intake and general body weakness. Heart failure improved with bumex during this visit. Currently patient appears clinically mildly fluid overloaded. On exam, 2+ lower extremity edema bilaterally. Mild crackles lower lung lobes bilaterally. Plan: -Bumex on hold for the moment; will reevaluate the role of Bumex in this acute fluid overload setting. -hold spironolactone as it may worsen patient's presentation. -Monitor intake and output -strict I & O's -Consulted cardiology, recommends start Bumex 1 mg every 8 hours. # Bilateral deep venous thrombosis # Atrial fibrillation rate controlled Patient recently admitted for b/l DVT on eliquis. Physical exam significant for mild edema of loweer extremities. Plan: -Continue Eliquis 5 mg twice daily -continue to monitor closely -Consulted cardiology, appreciate recommendations # Diabetes mellitus type 2 (A1c of 5.0 in August 2024) Patient has a history of diabetes mellitus, however is no longer diabetic. A1c is within non-diabetic range. Plan: -Monitor blood glucose level and CMP daily -goal range inpatient glc : 140-180 #Bradycardia, resolved Resolved upon discontinuation of coreg on 10/12/24. DVT prophylaxis: Eliquis GI prophylaxis: Protonix Diet: Cardiac diet Lines: Peripheral IV Code status: Full code Physical therapy: PT evaluation complete, recommended [facility] facility. Dispo: Pending improvement in erlin. Case discussed with Attending Dr. Brooks and Dr. Child PGY3. Laura Rome, PGY-2 Attending Provider Attestation/Addendum 79-year-old male with multiple comorbidities including hypertension, hyperlipidemia, type 2 diabetes mellitus with subsequent nonischemic cardiomyopathy status post ICD implantation with EF 35-40% A-fib and DVT on Eliquis who presented to the ER on 10/05/2024 with chief complaint of shortness of breath and found to have acute kidney injury and transaminitis with no evidence of any gallbladder etiology and thus admitted pending nephrology input. In addition, patient also noted to have acute CHF exacerbation but is likely contributing to the ERLIN and transaminitis and initially thought was due to CHF subsequently started on IV diuretic therapy. However, patient appears to be dry and dehydrated for which we will start gentle IV hydration. Appreciate nephrology and cardiology input. Overnight, patient lower extremity edema appears to be getting worse for which plan to initiate Bumex 2 mg every 8 hours. Will continue to monitor the patient closely. I reviewed above note and agree with findings and plans. I have also personally examined the patient with medicine team and went over assessment and plan with medical team including sourcing internship and resident physician.
--- NOTE | 2024-10-13 11:16 | ESPR_ITS ---
Documentation for date of: 10/13/24 Subjective Subjective Interval history: 79-year-old male patient with significant medical history of HFrEF (35-40% on March 2024), s/p AICD, chronic Afib (rate controlled), DVT (on Eliquis), HTN, HLD and DM2 was broght to ED by EMS for generalized weakness and hypotension. Patient was recently admitted to [facility] on 09/01/24 where he was found to have DVT with CHF exacerbation and was discharged on Eliquis, Bumix and sprionolactone. Nephrology is consulted for ERLIN. Pt has poor oral intake. Pt denies any nausea or vomiting. Pt denies any diarrhea. Pt is seen and examined. pt c/o shortness of breath Exam Vital Signs Temp Pulse Resp BP Pulse Ox O2 Del Method O2 Flow Rate 98.1 F 67 17 112/68 95 Room Air 1 10/13/24 07:36 10/13/24 07:36 10/13/24 07:36 10/13/24 07:36 10/13/24 07:36 10/13/24 07:36 10/13/24 06:44 Narrative Exam Heart s1, s2 chest alexander basal crackles s1,s2 ext plus 2 edema Objective Labs 10/14/24 04:48 10/14/24 17:11 Labs: Laboratory Results - last 24 hr 10/13/24 04:43 WBC 6.0 RBC 3.91 L Hgb 11.3 L Hct 36.5 L MCV 93 MCH 28.9 MCHC 31.0 RDW Std Deviation 52.9 H Plt Count 122 L Neut % (Auto) 69 Lymph % (Auto) 15 [place] % (Auto) 11 Eos % (Auto) 5 Baso % (Auto) 0 Neut # (Auto) 4.2 Lymph # (Auto) 0.9 L [place] # (Auto) 0.7 Eos # (Auto) 0.3 Baso # (Auto) 0.0 Immature Gran # (Auto) 0.02 H Absolute Nucleated RBC 0.12 H Immature Gran % 0 Nucleated RBC % 2 H Sodium 132 L Potassium 4.5 Chloride 99 Carbon Dioxide 23.7 Anion Gap 9 BUN 54 H Creatinine 2.1 H Estim Creat Clear Calc 33.3 L eGFR 31 L BUN/Creatinine Ratio 26 H Glucose 96 Calculated Osmolality 279 Calcium 8.8 Corrected Calcium 9.2 Total Bilirubin 2.6 H AST 249 H ALT 329 H Alkaline Phosphatase 95 Total Protein 5.9 Albumin 3.5 Globulin 2.4 Albumin/Globulin Ratio 1.5 Assessment & Plan Assessment and plan (1) Acute kidney injury: Status: Acute Assessment and plan: Creat stable Pt has volume overload Agree with cardiology for diuresis monitor closely (2) Congestive heart failure: Status: Acute
--- NOTE | 2024-10-13 14:42 | PC.SS ---
Rounding: Monitor liver enzymes one more day
--- NOTE | 2024-10-13 16:05 | PC.NURSE ---
Notified Dr. Ahn BP of 89/59. Took blood pressure again while doctor was on the phone BP 110/65 will continue to monitor patient.
--- NOTE | 2024-10-13 18:09 | PC.NURSE ---
Notified Dr. Ahn patient has a swollen red upper arm and patient is in pain. Dr. Ahn is going to come and assess patient when he is available.
[2024-10-13] MEDS: HYDROcodone/APAP 5/325 TABLET 1 TAB PO (20:52)
[2024-10-13] MEDS: BUMETANIDE INJ 0.25 MG/ML VIAL 4 ML 2 MG IVP (21:05)
--- NOTE | 2024-10-13 21:05 | PC.NURSE ---
Pt. blood pressure was 89/54 with a pulse of 89 bpm at this time. The order for Bumetanide 2 mg IVP q8hr was reviewed, and Markos Zhang was notified of the patient?s current vital signs. approved the administration of the medication, will reassess vital signs and follow up with any abnormal findings.
[2024-10-13] MEDS: DOXYCYCLINE 100 MG TABLET PO (21:06)
--- NOTE | 2024-10-13 22:41 | ESPR_ITS ---
Documentation for date of: 10/13/24 Subjective Subjective Interval history: Covering for Dr. Robert Alexandra. Patient seen and examined at this bedside. Discussed with primary team regarding starting Bumex 2 mg IV every 8 hours trial for now considering the possibility cardiorenal syndrome with hepatic congestion given his presentation. Patient has not been started on any Bumex but IV fluids have been stopped. Kidney function shows BUN of 54 and creatinine of 2.1 with slight improvement with BUN of 53 and a creatinine of 2.4 yesterday. Liver functions improved slightly with bili decreasing from 3.0-2.6 and as well as the AST ALT decreased slightly at 249 and 329. Discussed with costume shop coordinator Dr. Torres and he agreed for the trial for the Bumex 2 mg IV every 8 hours for now. Will continue to monitor patient's kidney function closely over the next 1 to 2 days along with hepatic function Goal diuresis to be net negative at 1.5 to 2 L/day. Strict input output, daily weights and 2 g within diet. Recommended [place]/condom catheter for now Fluid restriction to 1500 mL/day. No spironolactone or other blood pressure medications at the present point of time. Keep potassium greater than 4 in addition greater than 2.0 at all times to avoid any arrhythmias. Exam Vital Signs Temp Pulse Resp BP Pulse Ox O2 Del Method O2 Flow Rate 97.6 F 89 20 89/54 L 96 Room Air 1 10/13/24 20:00 10/13/24 21:05 10/13/24 20:00 10/13/24 21:05 10/13/24 20:00 10/13/24 20:00 10/13/24 20:00 Narrative Exam General: Alert and oriented x3. In mild respiratory distress but overall doing well Eyes: Pupils are equal and reactive to light bilaterally. HEENT: Atraumatic, normocephalic. Difficult to assess mucosa moist. Cardiovascular: Normal S1 and S2. Normal rate and regular rhythm. 3/6 systolic murmur heard at the apex, 1+ peripheral pitting edema noted. Significant sacral edema noted Respiratory: Lungs appear clear to auscultation with no wheezing or crackles heard. Abdomen: Soft, nontender, nondistended. Skin: No rash. Warm to touch. Musculoskeletal: No gross injuries. Able to move all 4 extremities. Neuro: Alert and oriented x3. No focal neuro deficits. Psych: Normal affect and mood Objective Labs 10/13/24 04:43 10/13/24 04:43 Labs: Laboratory Results - last 24 hr 10/13/24 04:43 WBC 6.0 RBC 3.91 L Hgb 11.3 L Hct 36.5 L MCV 93 MCH 28.9 MCHC 31.0 RDW Std Deviation 52.9 H Plt Count 122 L Neut % (Auto) 69 Lymph % (Auto) 15 [place] % (Auto) 11 Eos % (Auto) 5 Baso % (Auto) 0 Neut # (Auto) 4.2 Lymph # (Auto) 0.9 L [place] # (Auto) 0.7 Eos # (Auto) 0.3 Baso # (Auto) 0.0 Immature Gran # (Auto) 0.02 H Absolute Nucleated RBC 0.12 H Immature Gran % 0 Nucleated RBC % 2 H Sodium 132 L Potassium 4.5 Chloride 99 Carbon Dioxide 23.7 Anion Gap 9 BUN 54 H Creatinine 2.1 H Estim Creat Clear Calc 33.3 L eGFR 31 L BUN/Creatinine Ratio 26 H Glucose 96 Calculated Osmolality 279 Calcium 8.8 Corrected Calcium 9.2 Total Bilirubin 2.6 H AST 249 H ALT 329 H Alkaline Phosphatase 95 Total Protein 5.9 Albumin 3.5 Globulin 2.4 Albumin/Globulin Ratio 1.5 Assessment & Plan A&P Narrative A 79-year-old male with a past medical history of nonischemic cardiomyopathy status post ICD implantation with a baseline ejection fraction of 25%, last echocardiogram in March 2024 showed an EF of around 35% - 40%, chronic atrial fibrillation, type 2 diabetes mellitus, recent acute DVT on Eliquis, essential hypertension, hyperlipidemia, obesity, presented to the emergency department for further evaluation of generalized weakness and hypotension. Patient was noted to have acute kidney injury on admission. Review of the chart shows that the patient was discharged in August 2024 after an episode of acute on chronic systolic CHF exacerbation along with a DVT. Patient was discharged on Bumex Eliquis and spironolactone at that point of time. Patient did have massive swelling of both lower extremity and was diuresed adequately. Patient complained of only generalized weakness but denies there is cardiac in place. Patient baseline creatinine is around 1.0 but was elevated 2.6 during this admission. Cardiology was consulted for further evaluation of the same. 1. Acute kidney injury 2. Acute on chronic systolic congestive heart failure with a baseline EF of around 25 and 35% with possible cardiorenal syndrome 3. Abnormal and worsening LFTs-etiology unclear 4. Chronic atrial fibrillation-rate controlled and paced rhythm now 5. Status post reimplantation given nonischemic cardiomyopathy 6. Recent acute bilateral lower leg DVT on Eliquis 7. Diabetes mellitus type 2 8. Essential hypertension 9. Hyperlipidemia 10. Obesity During my examination patient appears to be significantly volume overloaded and is at least 1+ peripheral edema along with sacral edema. Reviewed the labs from admission and the BUN continues to increase from 40 -56 and the creatinine continued to stay stable between 2.0 and 2.6. Patient did receive significant IV fluids for possible prerenal ERLIN. Patient LFTs continue to worsen with AST increasing from 70-389 and ALT from 86- 315. Bilirubin also increased from 1.6 to a peak of 3.0 today alk phos Admission BNP is 2117 which was elevated from his previous BNP of total of 46. All his previous BNP's earlier in the year are less than thousand. Both Bumex as well as spironolactone were stopped on admission and then patient was started only on 1 mg p.o. twice daily of Bumex with a max dose of 2 mg in a day. Patient was then started on IV fluids. Reviewed the previous echo from March 2024 which showed dilated cardiomyopathy. LV is mild to moderately dilated, moderate RV enlargement, there is severely dilated LA and RA. LV function is moderate to severely reduced with an EF of around 35% - 40%. Diastolic dysfunction present but cannot be assessed because of the paced rhythm RV function normal. RV systolic pressure is 56 mmHg, including RAP of 15mmHg. At least moderate PAH There is moderate MR which is eccentric and could be underestimated and could be moderate to severe. Moderate TR with pacer wire noted on the right side. Dilated IVC As the patient has not been improving since admission, cardiorenal syndrome could be considered along with hepatic congestion secondary to volume overload given the presentation. 10/13/2024: Discussed with primary team regarding starting Bumex 2 mg IV every 8 hours trial for now considering the possibility cardiorenal syndrome with hepatic congestion given his presentation. Patient has not been started on any Bumex but IV fluids have been stopped. Kidney function shows BUN of 54 and creatinine of 2.1 with slight improvement with BUN of 53 and a creatinine of 2.4 yesterday. Liver functions improved slightly with bili decreasing from 3.0-2.6 and as well as the AST ALT decreased slightly at 249 and 329. Discussed with costume shop coordinator Dr. Torres and agreed for the trial for the Bumex 2 mg IV every 8 hours for now. Will continue to monitor patient's kidney function closely over the next 1 to 2 days along with hepatic function. Goal diuresis to be net negative at 1.5 to 2 L/day. Strict input output, daily weights and 2 g within diet. Recommended [place]/condom catheter for now Fluid restriction to 1500 mL/day. No spironolactone or other blood pressure medications at the present point of time. Keep potassium greater than 4 in addition greater than 2.0 at all times to avoid any arrhythmias. Management of rest of the medical conditions as per primary team and other consultants. Thank you for the consult and allowing me to participate in the care of the patient. Cardiology will continue to follow. Markos De Paz M.D. Interventional Cardiology Time Spent With Patient Time: Total time spent is greater than 50% in coordination of care (as documented) at patient's floor/unit and/or counseling patient:
[2024-10-14] VITALS (13 sets, daily range): BP systolic 92–102; BP diastolic 60–64; PULSE 62–81; RESP 16–20; TEMP 36.1–36.6; O2SAT 95–99
--- NOTE | 2024-10-14 | XR_ITS ---
Examination: Duplex scan of the upper extremity, unilateral right complete Date and time of exam: October 13, 2024 1149 hrs. Indications: Right arm swelling and pain this week Technique: Duplex scan of the extremity veins using B-mode/grayscale imaging and Doppler spectral analysis and color flow Attention is directed to internal echogenicity, compression and augmentation involving these veins, color flow assessment, spectral analysis Findings: Major deep venous structures in the extremity demonstrate normal course and caliber. There is no evidence of deep vein thrombosis. Normal color flow and spectral analysis Impression: Negative for DVT..
--- NOTE | 2024-10-14 02:44 | PRELIM_ITS ---
Right upper extremity venous Doppler ultrasound. October 13, 2024 2349 hours Clinical history: Right Elbow Swelling, DVT r/o Technique: Duplex scan of the right arm performed utilizing, 2D grayscale im aging, Doppler spectral analysis and color flow Doppler with compression.Findings:The internal jugula r vein is patent and compressible. The brachiocephalic vein is patent. The subclavian vein is patent. The axillary and brachial veins are patent and demonstrate good compression and augmentation. The ce phalic, basilic, radial, ulnar veins are patent and demonstrate good compression. No evidence of thro mbosis.Impression:No evidence of venous thrombosis in the right upper extremity. Report Electronicall y Signed By: Gely Roldan 10/14/2024 2:44:36 AM [EST]
--- NOTE | 2024-10-14 03:35 | PC.NURSE ---
At 0334, the surveillance monitor notified this nurse of a six-beat run of ventricular tachycardia (VTach) on telemetry. The patient was immediately assessed and found to be asymptomatic, with stable vital signs, warm and dry skin, and no pain, chest discomfort, shortness of breath, or dizziness reported. The attending physician, [Name], was notified at 0340 and informed of the event. The patient remains under close telemetry monitoring, and any further arrhythmias or changes in condition will be reported to the physician as necessary.
--- NOTE | 2024-10-14 03:35 | PC.NURSE ---
At 033, the technical report writer notified this nurse of a six run of VTach. The patient was immediately assessed and found to be asymptomatic, with stable vital signs, warm and dry skin, and no pain, chest discomfort, shortness of breath, or dizziness reported. The Dr. Smith was notified at 334 and informed of the event. The patient remains under close tele box monitoring, and any further arrhythmias or changes in condition will be reported as needed.
[2024-10-14] MEDS: SENNA TABLET 1 TAB PO ×2 (03:45→13:43)
[2024-10-14] MEDS: HYDROcodone/APAP 5/325 TABLET 1 TAB PO (03:46)
[2024-10-14] MEDS: BUMETANIDE INJ 0.25 MG/ML VIAL 4 ML 2 MG IVP ×3 (05:02→21:14)
[2024-10-14 06:12] LABS: Basophils % (Auto) 0 % (0-2.5); Eosinophils # (Auto) 0.1 Thou/mm3 (0.0-0.5); Eosinophils % (Auto) 1 % (0-10); Hematocrit 34.8 % (41.0-53.0); Hemoglobin 10.7 g/dL (13.5-16.0); Immature Granulocytes % (Auto) 1 % (0-0); Immature Granulocytes Auto 0.05 Thou/mm3 (0.00-0.00); Lymphocytes % (Auto) 10 % (10-50); Mean Corpuscular HGB Conc 30.7 g/dl (31.0-37.0); Mean Corpuscular Hemoglobin 28.6 pg (25.0-35.0); Mean Corpuscular Volume 93 fL (80-100); Monocytes % (Auto) 10 % (0-12); Neutrophils # (Auto) 8.1 Thou/mm3 (1.8-7.7); Neutrophils % (Auto) 79 % (37-80); Nucleated Red Blood Cell # 0.23 Thou/mm3 (0.00-0.00); Nucleated Red Blood Cell % 2 /100 WBC (0); Platelet Count 110 Thou/mm3 (140-440); RDW Standard Deviation 53.1 fL (35.1-43.9); Red Blood Count 3.74 Miln/mm3 (4.50-5.90); White Blood Count 10.2 Thou/mm3 (3.8-10.6)
[2024-10-14 07:00] LABS: Alanine Aminotransferase 267 U/L (10-49); Albumin, Serum 3.4 gm/dL (3.4-4.8); Albumin/Globulin Ratio 1.5 (1.2-2.2); Alkaline Phosphatase 91 U/L (46-116); Anion Gap 8 (7-16); Aspartate Amino Transferase 157 U/L (0-34); BUN/Creatinine Ratio 24 Ratio (12-20); Bilirubin,Total 2.6 mg/dL (0.3-1.2); Blood Urea Nitrogen 58 mg/dL (9-23); Calcium 8.8 mg/dL (8.3-10.6); Calcium (Corrected) 9.3 mg/dL (8.5-10.1); Carbon Dioxide 24.1 mMol/L (20.0-31.0); Chloride 98 mMol/L (98-107); Creatinine (Component) 2.4 mg/dL (0.6-1.3); Estimated Creatinine Clearance 29.6 mL/min (>60); Globulin 2.3 gm/dL (2.3-3.5); Glucose 123 mg/dL (74-106); Magnesium 2.2 mg/dL (1.6-2.6); Osmolality,Calculated 278 (275-295); Potassium 4.6 mMol/L (3.4-5.1); Sodium 130 mMol/L (136-145); Total Protein 5.7 gm/dL (5.7-8.2); eGFR 27 See Note
[2024-10-14 07:34] LABS: B-Type Natriuretic Peptide 2377 pg/mL (0-100)
[2024-10-14] MEDS: POLYETHYLENE GLYCOL 17 GM PACKET PO (08:47)
[2024-10-14] MEDS: FLUoxetine HCL 10 MG CAPSULE 20 MG PO (08:47)
[2024-10-14] MEDS: PANTOPRAZOLE 40 MG TABLET PO (08:47)
[2024-10-14] MEDS: DOXYCYCLINE 100 MG TABLET PO ×2 (08:47→20:34)
[2024-10-14] MEDS: APIXABAN 2.5 MG TABLET 5 MG PO ×2 (08:47→20:34)
--- NOTE | 2024-10-14 13:08 | ESPR_ITS ---
Documentation for date of: 10/14/24 Subjective Subjective Interval history: Patient examined at bedside today. Reports that he is a little sleepy today otherwise no other complaints. He is complaining of right-sided elbow pain, denies having any trauma to it, and has never happened before. No other complaints at this time Exam Vital Signs Temp Pulse Resp BP Pulse Ox O2 Del Method O2 Flow Rate 97.3 F 72 16 99/62 98 Nasal Cannula 1 10/14/24 12:00 10/14/24 12:00 10/14/24 12:00 10/14/24 12:00 10/14/24 12:00 10/14/24 08:00 10/14/24 08:00 Narrative Exam General: AAOx3, in some distress, obese male HEENT: Conjunctiva clear, EOMI, PERRLA, Cardiovascular: S1, S2, radial pulses +2 bilat, RRR, possible murmur heard on LIZBET border Pulmonary: CTAB bilat no cough, no wheezing GI: No tenderness to light or deep palpitation, no guarding, rigidity, rebound tenderness or distension Extremities: +1 pitting edema in lower extremities bilaterally, dorsalis pedis pulses +2 bilaterally, R elbow TTP Skin: Some purpura through UE bilat Neuro: AAOx3, no focal motor or sensory deficits in the UE or LE bilat Psych: Good judgement, thought and behavior Objective Labs 10/14/24 04:48 10/14/24 04:48 Labs: Laboratory Results - last 24 hr 10/14/24 04:48 WBC 10.2 D RBC 3.74 L Hgb 10.7 L Hct 34.8 L MCV 93 MCH 28.6 MCHC 30.7 L RDW Std Deviation 53.1 H Plt Count 110 L Neut % (Auto) 79 Lymph % (Auto) 10 [place] % (Auto) 10 Eos % (Auto) 1 Baso % (Auto) 0 Neut # (Auto) 8.1 H Lymph # (Auto) 1.0 [place] # (Auto) 1.0 H Eos # (Auto) 0.1 Baso # (Auto) 0.0 Immature Gran # (Auto) 0.05 H Absolute Nucleated RBC 0.23 H Immature Gran % 1 H Nucleated RBC % 2 H Sodium 130 L Potassium 4.6 Chloride 98 Carbon Dioxide 24.1 Anion Gap 8 BUN 58 H Creatinine 2.4 H Estim Creat Clear Calc 29.6 L eGFR 27 L BUN/Creatinine Ratio 24 H Glucose 123 H Calculated Osmolality 278 Calcium 8.8 Corrected Calcium 9.3 Magnesium 2.2 Total Bilirubin 2.6 H AST 157 H ALT 267 H Alkaline Phosphatase 91 B-Natriuretic Peptide 2377 H* Total Protein 5.7 Albumin 3.4 Globulin 2.3 Albumin/Globulin Ratio 1.5 Quality Measures Quality Measures VTE prophylaxis (Eliquis) Advance care planning discussed with:: patient Assessment & Plan Assessment Current Active Medications: Generic Name Dose Route Start Last Admin Trade Name Freq PRN Reason Stop Dose Admin Hydrocodone Bitart/Acetaminophen 1 tab 10/13/24 19:54 10/14/24 03:46 Hydrocodone/Apap 5/325 Tablet PO 10/18/24 19:53 1 tab Q4HR PRN Administration Pain 4-10 Apixaban 5 mg 10/05/24 21:15 10/14/24 08:47 Apixaban 2.5 Mg Tablet PO 10/26/24 21:14 5 mg BID YASSINE Administration Bumetanide 2 mg 10/14/24 06:00 10/14/24 05:02 Bumetanide Inj 0.25 Mg/Ml Vial 4 Ml IVP 11/13/24 05:59 2 mg Q8HR YASSINE Administration Doxycycline Hyclate 100 mg 10/13/24 21:00 10/14/24 08:47 Doxycycline 100 Mg Tablet PO 10/20/24 20:59 100 mg BID YASSINE Administration Fluoxetine HCl 20 mg 10/07/24 21:35 10/14/24 08:47 Fluoxetine Hcl 10 Mg Capsule PO 11/06/24 21:34 20 mg QDAY YASSINE Administration Ondansetron HCl 4 mg 10/05/24 20:50 10/09/24 09:23 Ondansetron Inj 2 Mg/Ml Inj 2 Ml IV 11/04/24 20:49 4 mg Q6H PRN Administration NAUSEA OR VOMITING Protocol Pantoprazole Sodium 40 mg 10/06/24 09:00 10/14/24 08:47 Pantoprazole 40 Mg Tablet PO 11/05/24 08:59 40 mg QDAY YASSINE Administration Polyethylene Glycol 17 gm 10/13/24 09:00 10/14/24 08:47 Polyethylene Glycol 17 Gm Packet PO 11/12/24 08:59 17 gm QDAY YASSINE Administration Sennosides 1 tab 10/13/24 02:00 10/14/24 03:45 Senna Tablet PO 11/12/24 01:59 1 tab QDAY PRN Administration CONSTIPATION Protocol Simethicone 80 mg 10/08/24 11:36 10/10/24 21:13 Simethicone 80 Mg Chew PO 11/07/24 20:59 80 mg BID PRN Administration Gas Plan A 79-year-old male patient with significant medical history of HFrEF (35-40% on March 2024), s/p AICD, chronic Afib (rate controlled), DVT (on Eliquis), HTN, HLD and DM2 was broght to ED by EMS for generalized weakness and hypotension. Patient was recently admitted to [facility] on 09/01/24 where he was found to have DVT with CHF exacerbation and was discharged on Eliquis, Bumix and sprionolactone but unable to follow up due to transportation issues. BNP elevated, creatinine at 2.2 (Baseline 1.0). Patient was given 1 L bolus NS in ED. Patient was admitted with ERLIN secondary to hypovolemia. #Prerenal ERLIN, improving #Prerenal azotemia #? Cardiorenal syndrome Patient initially with decreased p.o. intake, noted to be lethargic and dehydrated with dry mucous membranes. No crackles heard on auscultation of bilateral lung lobes. Patient still has 1+ edema lower extremities. Creatinine 2.4 today We will continue to diurese patient, per recommendations of Dr. Torres, watch crystal grinder Repeat CMP, BNP, mag later this evening Plan: ?Discontinued NS maintenance fluids -Continue Bumex 2 mg every 8 hours ?Hold spironolactone ?Avoid nephrotoxic agents ?Renally dose medications ?Trend creatinine ?Strict LISA's ?[place] #Right elbow swelling Due to nature of being tender to palpation, and is not red or warm to touch, unlikely cellulitis Could be gout, patient is being diuresed with Bumex which can increase serum uric acid Will further workup Plan: ?*Ultrasound of right elbow #Transaminitis, improving #Elevated T bili, improving #[place] chiari ruled out Secondary to Tylenol use during this hospitalization. Patient has taken a few times a day of Tylenol during this admission, which upon discontinuation resulted in decresed liver enzymes and T. bili Patient denies IV drug use. Hepatitis negative. Liver ultrasound did not show any thrombus in the portal vein or hepatic vein; f luid adjacent to the gallbladder, which may be ascitic fluid, clinical correlation advised. Hepatosplenomegaly on imaging. Downtrending AST ALT T. bili staying the same AST ALT could be due to hepatic congestion Plan: -Avoid Tylenol -Monitor CMP in a.m. ?As above # HFrEF (35 to 40%), stable # s/p AICD # Hypotension, resolved Patient initially endorsed decreased oral intake and general body weakness. Heart failure improved with bumex during this visit. Currently patient appears clinically mildly fluid overloaded. On exam, +1 lower extremity edema bilaterally. Plan: -Bumex on hold for the moment; will reevaluate the role of Bumex in this acute fluid overload setting. -hold spironolactone as it may worsen patient's presentation. -Monitor intake and output -strict I & O's -Consulted cardiology, recommends start Bumex 1 mg every 8 hours. # Bilateral deep venous thrombosis # Atrial fibrillation rate controlled Patient recently admitted for b/l DVT on eliquis. Physical exam significant for mild edema of loweer extremities. Plan: -Continue Eliquis 5 mg twice daily -Continue to monitor closely -Consulted cardiology, appreciate recommendations # Diabetes mellitus type 2 (A1c of 5.0 in August 2024) Patient has a history of diabetes mellitus, however is no longer diabetic. A1c is within non-diabetic range. Plan: -Monitor blood glucose level and CMP daily -goal range inpatient glc : 140-180 #Bradycardia, resolved Resolved upon discontinuation of coreg on 10/12/24. #Health Maintenance Disposition: Med telemetry DVT prophylaxis: Eliquis GI prophylaxis: Protonix Diet: Dysphagia 2 CODE STATUS: Full Patient seen and care discussed with my senior resident, Dr. Lopez, and my attending physician, Dr. Cecilia Fay, PGY-1 Attending Provider Attestation/Addendum 79-year-old male with multiple comorbidities including hypertension, hyperlipidemia, type 2 diabetes mellitus with subsequent nonischemic cardiomyopathy status post ICD implantation with EF 35-40% A-fib and DVT on Eliquis who presented to the ER on 10/05/2024 with chief complaint of shortness of breath and found to have acute kidney injury and transaminitis with no evidence of any gallbladder etiology and thus admitted pending nephrology input. In addition, patient also noted to have acute CHF exacerbation but is likely contributing to the ERLIN and transaminitis and initially thought was due to CHF subsequently started on IV diuretic therapy. However, patient appears to be dry and dehydrated for which we will start gentle IV hydration. Appreciate nephrology and cardiology input. Overnight, patient lower extremity edema appears to be getting worse for which plan to initiate Bumex 2 mg every 8 hours. Will continue to monitor the patient closely. I reviewed above note and agree with findings and plans. I have also personally examined the patient with medicine team and went over assessment and plan with medical team including tax intern and resident physician.
--- NOTE | 2024-10-14 13:28 | XR_ITS ---
Examination: Ultrasound soft tissue extremity right elbow Technique: Multiple high resolution grayscale sonographic images soft tissue right elbow Exam date and time: October 14, 2024 1453 hrs. Indications: Elbow redness swelling and pain beginning one week ago Findings: Fluid likely in the olecranon bursa 4.6 x 1.2 x 4.4 cm Severe generalized edema Impression: Recommend MRI elbow without contrast follow-up to confirm olecranon bursitis versus abscess
--- NOTE | 2024-10-14 13:45 | PC.NURSE ---
Notified Dr. Lopez about patients BP 94/60 he is ok with bumex administration
--- NOTE | 2024-10-14 16:15 | PC.SS ---
Rounding: Liver enzymes still elevated, pending cardio clearance
[2024-10-14 18:01] LABS: B-Type Natriuretic Peptide 2174 pg/mL (0-100)
[2024-10-14 18:03] LABS: Alanine Aminotransferase 233 U/L (10-49); Albumin, Serum 3.3 gm/dL (3.4-4.8); Albumin/Globulin Ratio 1.4 (1.2-2.2); Alkaline Phosphatase 90 U/L (46-116); Anion Gap 8 (7-16); Aspartate Amino Transferase 118 U/L (0-34); BUN/Creatinine Ratio 20 Ratio (12-20); Bilirubin,Total 2.6 mg/dL (0.3-1.2); Blood Urea Nitrogen 51 mg/dL (9-23); Calcium 8.6 mg/dL (8.3-10.6); Calcium (Corrected) 9.2 mg/dL (8.5-10.1); Carbon Dioxide 21.7 mMol/L (20.0-31.0); Chloride 99 mMol/L (98-107); Creatinine (Component) 2.5 mg/dL (0.6-1.3); Estimated Creatinine Clearance 28.4 mL/min (>60); Globulin 2.4 gm/dL (2.3-3.5); Glucose 125 mg/dL (74-106); Magnesium 2.3 mg/dL (1.6-2.6); Osmolality,Calculated 273 (275-295); Potassium 4.7 mMol/L (3.4-5.1); Sodium 129 mMol/L (136-145); Total Protein 5.7 gm/dL (5.7-8.2); eGFR 25 See Note
[2024-10-14] MEDS: MIDODRINE 5 MG TABLET PO (21:13)
[2024-10-15] VITALS (14 sets, daily range): BP systolic 88–100; BP diastolic 59–70; PULSE 72–95; RESP 16–20; TEMP 36.2–36.7; O2SAT 94–99
--- NOTE | 2024-10-15 00:57 | ESPR_ITS ---
RE: ANGELES JOHNSON : 1945 DATE OF SERVICE: 10/14/2024 SUBJECTIVE: Angeles is a 79-year-old man admitted to the hospital with initially what appeared to be acute kidney injury, . The patient received IV fluid and appears to be developing a volume overload, but no renal function improvement. There also appears to have some abdominal wall edema and lower extremity edema, which is definitely worse. Creatinine clearance did not improve with hydration. Suggestion is that the patient may be still in heart failure, hence Dr. De Paz saw the patient and recommended _aggressive_ diuretic therapy, which I agree, 2 mg of Bumex every 8 hours was started. The patient probably had increased renal vein pressure, right heart failure causing worsening of renal function and also liver enzymes were elevated with hepatic congestion and BNP continued to be quite high more than 2000. OBJECTIVE: General: Shows acutely ill, chronically ill male, alert, awake, in no acute distress. Vital Signs: Blood pressure is 116/70, pulse 79, respirations 16, and temperature normal. HEENT: Head is atraumatic and normocephalic. Eyes normal. ENT normal. Neck: Supple. Mild JVD. Chest: Symmetrical. Lungs: Decreased breath sounds. Heart: S1 and S2 regular. No gallops. Abdomen: Obese and soft. There is evidence of abdominal wall edema. Extremities: Showed 2+ edema of both feet. Genitourinary and Rectal: Not performed. Neurologic: The patient is alert and oriented x3. LABORATORY DATA: Showed elevated creatinine 2.5 and creatinine clearance is still around 25. BNP is significantly elevated. Sodium 129. IMPRESSION: 1. Acute on chronic systolic heart failure. 2. Acute kidney injury, renal insufficiency, possibly worsened by cardiorenal syndrome and elevated renal vein pressure due to right heart failure, hence aggressive diuretic is pursued. 3. Chronic atrial fibrillation. 4. Status post ICD implant. RECOMMENDATIONS: We will aggressive diurese him to see if there is any clinical response. Renal function continues to deteriorate after _ 48 hours and might require dialysis, but currently I feel like patient may have improvement in renal function with aggressive diuretic strategy for now. DT: 22:08:36 TT: 23:55:00 Ref: [id number] - TID: [id number] [facility]
[2024-10-15] MEDS: MIDODRINE 5 MG TABLET PO ×3 (05:08→21:08)
[2024-10-15] MEDS: traMADol HCL 50 MG TABLET 25 MG PO ×2 (05:08→11:58)
[2024-10-15] MEDS: BUMETANIDE INJ 0.25 MG/ML VIAL 4 ML 2 MG IVP ×3 (05:10→21:09)
[2024-10-15 05:45] LABS: Basophils % (Auto) 0 % (0-2.5); Eosinophils # (Auto) 0.1 Thou/mm3 (0.0-0.5); Eosinophils % (Auto) 1 % (0-10); Hematocrit 37.5 % (41.0-53.0); Hemoglobin 11.3 g/dL (13.5-16.0); Immature Granulocytes % (Auto) 1 % (0-0); Immature Granulocytes Auto 0.06 Thou/mm3 (0.00-0.00); Lymphocytes # (Auto) 0.9 Thou/mm3 (1.0-4.8); Lymphocytes % (Auto) 10 % (10-50); Mean Corpuscular HGB Conc 30.1 g/dl (31.0-37.0); Mean Corpuscular Hemoglobin 28.3 pg (25.0-35.0); Mean Corpuscular Volume 94 fL (80-100); Monocytes # (Auto) 0.9 Thou/mm3 (0.0-0.8); Monocytes % (Auto) 11 % (0-12); Neutrophils # (Auto) 6.7 Thou/mm3 (1.8-7.7); Neutrophils % (Auto) 77 % (37-80); Nucleated Red Blood Cell # 0.29 Thou/mm3 (0.00-0.00); Nucleated Red Blood Cell % 3 /100 WBC (0); Platelet Count 110 Thou/mm3 (140-440); RDW Standard Deviation 53.6 fL (35.1-43.9); Red Blood Count 3.99 Miln/mm3 (4.50-5.90); White Blood Count 8.6 Thou/mm3 (3.8-10.6)
[2024-10-15 06:24] LABS: Alanine Aminotransferase 223 U/L (10-49); Albumin, Serum 3.6 gm/dL (3.4-4.8); Albumin/Globulin Ratio 1.4 (1.2-2.2); Alkaline Phosphatase 112 U/L (46-116); Anion Gap 9 (7-16); Aspartate Amino Transferase 101 U/L (0-34); BUN/Creatinine Ratio 24 Ratio (12-20); Bilirubin,Total 2.7 mg/dL (0.3-1.2); Blood Urea Nitrogen 59 mg/dL (9-23); C-Reactive Protein 11.9 mg/dL (0.0-0.9); Calcium (Corrected) 9.3 mg/dL (8.5-10.1); Carbon Dioxide 22.9 mMol/L (20.0-31.0); Chloride 98 mMol/L (98-107); Creatinine (Component) 2.5 mg/dL (0.6-1.3); Estimated Creatinine Clearance 28.1 mL/min (>60); Globulin 2.5 gm/dL (2.3-3.5); Glucose 115 mg/dL (74-106); Osmolality,Calculated 278 (275-295); Potassium 4.9 mMol/L (3.4-5.1); Sodium 130 mMol/L (136-145); Total Protein 6.1 gm/dL (5.7-8.2); eGFR 25 See Note
[2024-10-15 06:27] LABS: Sed Rate (ESR) 45 mm/hr (0-20)
--- NOTE | 2024-10-15 08:00 | ESPR_ITS ---
<Statement entered by Gigi Brooks MD - 10/21/24 12:43> I reviewed above note and agree with findings and plans. I have also personally examined the patient with medicine team and went over assessment and plan with medical team including electrical intern and resident physician. <Statement entered by Checo Lopez MD - 10/15/24 15:55> Patient was seen and examined at bedside. We noticed that his blood pressure still on the soft side for that reason we increase his midodrine to 10 mg 3 times daily, we also noticed that his AST and ALT downtrending however T. bili Da mildly uptrending to 2.7. His elbow swelling acute worsening today for that reason we added ceftriaxone to the doxycycline and he ordered for him an MRI as the ultrasound showed possible abscess accumulation at the bursal region. His urine output today is 900 mL over the past 24 hours, thick nephrology team recommended that we give the patient a single dose of metolazone 5 mg in addition to the Bumex. His BUN increased from 53-59, serum creatinine is at 2.5. Will keep monitoring. - Patient's plan and care discussed with my attending, Dr. Cecilia Lopez MD Internal Medicine PGY-2 Documentation for date of: 10/15/24 Subjective Subjective Interval history: Patient examined at bedside today. Says he is doing okay. He says he is a bit tired, his elbow still hurts, but no other complaints at this time. Exam Vital Signs Temp Pulse Resp BP Pulse Ox O2 Del Method O2 Flow Rate 98.1 F 75 18 92/59 L 98 Nasal Cannula 1 10/15/24 07:29 10/15/24 07:29 10/15/24 07:29 10/15/24 07:29 10/15/24 07:29 10/15/24 07:29 10/15/24 07:29 Narrative Exam General: AAOx3, in some distress, obese male HEENT: Conjunctiva clear, EOMI, PERRLA, Cardiovascular: S1, S2, radial pulses +2 bilat, RRR, possible murmur heard on LIZBET border Pulmonary: CTAB bilat no cough, no wheezing GI: No tenderness to light or deep palpitation, no guarding, rigidity, rebound tenderness or distension Extremities: +1 pitting edema in lower extremities bilaterally, dorsalis pedis pulses +2 bilaterally, R elbow TTP with presence of one bullae and weeping Skin: Some purpura through UE bilat Neuro: AAOx3, no focal motor or sensory deficits in the UE or LE bilat Psych: Good judgement, thought and behavior Objective Labs 10/15/24 04:29 10/15/24 04:29 Labs: Laboratory Results - last 24 hr 10/14/24 10/15/24 17:11 04:29 WBC 8.6 RBC 3.99 L Hgb 11.3 L Hct 37.5 L MCV 94 MCH 28.3 MCHC 30.1 L RDW Std Deviation 53.6 H Plt Count 110 L Neut % (Auto) 77 Lymph % (Auto) 10 [place] % (Auto) 11 Eos % (Auto) 1 Baso % (Auto) 0 Neut # (Auto) 6.7 Lymph # (Auto) 0.9 L [place] # (Auto) 0.9 H Eos # (Auto) 0.1 Baso # (Auto) 0.0 Immature Gran # (Auto) 0.06 H Absolute Nucleated RBC 0.29 H Immature Gran % 1 H Nucleated RBC % 3 H ESR 45 H Sodium 129 L 130 L Potassium 4.7 4.9 Chloride 99 98 Carbon Dioxide 21.7 22.9 Anion Gap 8 9 BUN 51 H 59 H Creatinine 2.5 H 2.5 H Estim Creat Clear Calc 28.4 L 28.1 L eGFR 25 L 25 L BUN/Creatinine Ratio 20 24 H Glucose 125 H 115 H Calculated Osmolality 273 L 278 Calcium 8.6 9.0 Corrected Calcium 9.2 9.3 Magnesium 2.3 Total Bilirubin 2.6 H 2.7 H AST 118 H 101 H ALT 233 H 223 H Alkaline Phosphatase 90 112 D C-Reactive Prot, Quant 11.9 H B-Natriuretic Peptide 2174 H* Total Protein 5.7 6.1 Albumin 3.3 L 3.6 Globulin 2.4 2.5 Albumin/Globulin Ratio 1.4 1.4 Quality Measures Quality Measures VTE prophylaxis (Eliquis) Advance care planning discussed with:: patient Assessment & Plan Assessment Current Active Medications: Generic Name Dose Route Start Last Admin Trade Name Freq PRN Reason Stop Dose Admin Apixaban 5 mg 10/05/24 21:15 10/14/24 20:34 Apixaban 2.5 Mg Tablet PO 10/26/24 21:14 5 mg BID YASSINE Administration Bumetanide 2 mg 10/14/24 06:00 10/15/24 05:10 Bumetanide Inj 0.25 Mg/Ml Vial 4 Ml IVP 11/13/24 05:59 2 mg Q8HR YASSINE Administration Doxycycline Hyclate 100 mg 10/13/24 21:00 10/14/24 20:34 Doxycycline 100 Mg Tablet PO 10/20/24 20:59 100 mg BID YASSINE Administration Fluoxetine HCl 20 mg 10/07/24 21:35 10/14/24 08:47 Fluoxetine Hcl 10 Mg Capsule PO 11/06/24 21:34 20 mg QDAY YASSINE Administration Midodrine 5 mg 10/14/24 22:00 10/15/24 05:08 Midodrine 5 Mg Tablet PO 11/13/24 21:59 5 mg TID YASSINE Administration Ondansetron HCl 4 mg 10/05/24 20:50 10/09/24 09:23 Ondansetron Inj 2 Mg/Ml Inj 2 Ml IV 11/04/24 20:49 4 mg Q6H PRN Administration NAUSEA OR VOMITING Protocol Pantoprazole Sodium 40 mg 10/06/24 09:00 10/14/24 08:47 Pantoprazole 40 Mg Tablet PO 11/05/24 08:59 40 mg QDAY YASSINE Administration Polyethylene Glycol 17 gm 10/13/24 09:00 10/14/24 08:47 Polyethylene Glycol 17 Gm Packet PO 11/12/24 08:59 17 gm QDAY YASSINE Administration Sennosides 1 tab 10/14/24 13:30 10/14/24 13:43 Senna Tablet PO 11/13/24 13:29 1 tab QDAY YASSINE Administration Protocol Simethicone 80 mg 10/08/24 11:36 10/10/24 21:13 Simethicone 80 Mg Chew PO 11/07/24 20:59 80 mg BID PRN Administration Gas Tramadol HCl 25 mg 10/14/24 13:36 10/15/24 05:08 Tramadol Hcl 50 Mg Tablet PO 10/19/24 13:35 25 mg Q6HR PRN Administration Pain 3-6 Plan A 79-year-old male patient with significant medical history of HFrEF (35-40% on March 2024), s/p AICD, chronic Afib (rate controlled), DVT (on Eliquis), HTN, HLD and DM2 was broght to ED by EMS for generalized weakness and hypotension. Patient was recently admitted to [facility] on 09/01/24 where he was found to have DVT with CHF exacerbation and was discharged on Eliquis, Bumix and sprionolactone but unable to follow up due to transportation issues. BNP elevated, creatinine at 2.2 (Baseline 1.0). Patient was given 1 L bolus NS in ED. Patient was admitted with ERLIN secondary to hypovolemia. #Prerenal ERLIN, improving #Prerenal azotemia #? Cardiorenal syndrome Patient initially with decreased p.o. intake, noted to be lethargic and dehydrated with dry mucous membranes. No crackles heard on auscultation of bilateral lung lobes. Patient still has 1+ edema lower extremities. Creatinine 2.5 today We will continue to diurese patient, per recommendations of Dr. Torres, track manager Continue to monitor kidney function, expect to improve tomorrow as creatinine has been hovering around 2.5 for the past couple days Plan: -Continue Bumex 2 mg every 8 hours ?*Metolazone 5 mg x 1 ?Avoid nephrotoxic agents ?Renally dose medications ?Trend creatinine ?Strict LISA's ?[place] # HFrEF (35 to 40%), stable # s/p AICD # Hypotension, resolved Patient initially endorsed decreased oral intake and general body weakness. Heart failure improved with bumex during this visit. Currently patient appears clinically mildly fluid overloaded. On exam, +3 lower extremity edema bilaterally. Plan: -Bumex 2 mg every 8 H ?Metolazone 5 mg x 1 ?As above -Monitor intake and output -strict I & O's #Right elbow swelling #Right elbow erythema DDx: Olcre[place] bursitis versus cellulitis versus abscess vs gout On physical exam tender to palpation, and is red Could be gout, patient is being diuresed with Bumex which can increase serum uric acid Ultrasound shows fluid in all draining bursa, 4.6 x 1.2 x 4.4, severe generalized edema, will olceranon bursitis versus abscess Will need to further workup with MRI Patient does have hardware, need to follow-up with cardiology to make sure patient is able to get MRI Plan: ?*MRI without contrast -Doxy (10/14-) and Rocephin (10/15-) #Transaminitis, improving #Elevated T bili, improving #[place] chiari ruled out Secondary to Tylenol use during this hospitalization. Patient has taken a few times a day of Tylenol during this admission, which upon discontinuation resulted in decresed liver enzymes and T. bili Patient denies IV drug use. Hepatitis negative. Liver ultrasound did not show any thrombus in the portal vein or hepatic vein; f luid adjacent to the gallbladder, which may be ascitic fluid, clinical correlation advised. Hepatosplenomegaly on imaging. Downtrending AST ALT T. bili staying the same AST ALT could be due to hepatic congestion Plan: -Avoid Tylenol -Monitor CMP in a.m. ?As above # Bilateral deep venous thrombosis # Atrial fibrillation rate controlled Patient recently admitted for b/l DVT on eliquis. Physical exam significant for mild edema of loweer extremities. Plan: -Continue Eliquis 5 mg twice daily -Continue to monitor closely -Consulted cardiology, appreciate recommendations # Diabetes mellitus type 2 (A1c of 5.0 in August 2024) Patient has a history of diabetes mellitus, however is no longer diabetic. A1c is within non-diabetic range. Plan: -Monitor blood glucose level and CMP daily -goal range inpatient glc : 140-180 #Bradycardia, resolved Resolved upon discontinuation of coreg on 10/12/24. #Health Maintenance Disposition: Med telemetry DVT prophylaxis: Eliquis GI prophylaxis: Protonix Diet: Dysphagia 2 CODE STATUS: Full Patient seen and care discussed with my senior resident, Dr. Lopez, and my attending physician, Dr. Cecilia Fay, PGY-1 Attending Provider Attestation/Addendum
[2024-10-15] MEDS: FLUoxetine HCL 10 MG CAPSULE 20 MG PO (08:22)
[2024-10-15] MEDS: APIXABAN 2.5 MG TABLET 5 MG PO ×2 (08:22→21:09)
[2024-10-15] MEDS: DOXYCYCLINE 100 MG TABLET PO ×2 (08:22→21:08)
[2024-10-15] MEDS: PANTOPRAZOLE 40 MG TABLET PO (08:22)
[2024-10-15] MEDS: POLYETHYLENE GLYCOL 17 GM PACKET PO (08:22)
[2024-10-15] MEDS: SENNA TABLET 1 TAB PO (08:23)
--- NOTE | 2024-10-15 08:33 | PC.NURSE ---
Notified Dr. Lopez about patient having a pacemaker. I asked the family who his chargeback specialist is and if they have the cards for the pacemaker. Dr. Lopez will come and talk to family. I will continue to monitor patient.
[2024-10-15 08:58] LABS: Magnesium 2.4 mg/dL (1.6-2.6); Phosphorous 3.7 mg/dL (2.4-5.1)
--- NOTE | 2024-10-15 10:23 | PD.RESPRO ---
Documentation for date of: 10/15/24 Subjective Subjective Interval history: Patient seen and examined. No acute events overnight. Patient complains of swollen legs. Exam Vital Signs Temp Pulse Resp BP Pulse Ox O2 Del Method O2 Flow Rate 98.1 F 75 18 92/59 L 98 Nasal Cannula 1 10/15/24 07:29 10/15/24 07:29 10/15/24 07:29 10/15/24 07:29 10/15/24 07:29 10/15/24 07:29 10/15/24 07:29 Narrative Exam General: AAOx3, in some distress, obese male HEENT: Conjunctiva clear, EOMI, PERRLA, Cardiovascular: S1, S2, radial pulses +2 bilat, RRR, possible murmur heard on LIZBET border Pulmonary: CTAB bilat no cough, no wheezing GI: No tenderness to light or deep palpitation, no guarding, rigidity, rebound tenderness or distension Extremities: +2 pitting edema in lower extremities bilaterally, dorsalis pedis pulses +2 bilaterally, R elbow TTP Skin: Some purpura through UE bilat Neuro: AAOx3, no focal motor or sensory deficits in the UE or LE bilat Psych: Good judgement, thought and behavior Objective Labs 10/17/24 04:43 10/17/24 04:43 Labs: Laboratory Results - last 24 hr 10/14/24 10/15/24 17:11 04:29 WBC 8.6 RBC 3.99 L Hgb 11.3 L Hct 37.5 L MCV 94 MCH 28.3 MCHC 30.1 L RDW Std Deviation 53.6 H Plt Count 110 L Neut % (Auto) 77 Lymph % (Auto) 10 [place] % (Auto) 11 Eos % (Auto) 1 Baso % (Auto) 0 Neut # (Auto) 6.7 Lymph # (Auto) 0.9 L [place]eller # (Auto) 0.9 H Eos # (Auto) 0.1 Baso # (Auto) 0.0 Immature Gran # (Auto) 0.06 H Absolute Nucleated RBC 0.29 H Immature Gran % 1 H Nucleated RBC % 3 H ESR 45 H Sodium 129 L 130 L Potassium 4.7 4.9 Chloride 99 98 Carbon Dioxide 21.7 22.9 Anion Gap 8 9 BUN 51 H 59 H Creatinine 2.5 H 2.5 H Estim Creat Clear Calc 28.4 L 28.1 L eGFR 25 L 25 L BUN/Creatinine Ratio 20 24 H Glucose 125 H 115 H Calculated Osmolality 273 L 278 Calcium 8.6 9.0 Corrected Calcium 9.2 9.3 Phosphorus 3.7 Magnesium 2.3 2.4 Total Bilirubin 2.6 H 2.7 H AST 118 H 101 H ALT 233 H 223 H Alkaline Phosphatase 90 112 D C-Reactive Prot, Quant 11.9 H B-Natriuretic Peptide 2174 H* Total Protein 5.7 6.1 Albumin 3.3 L 3.6 Globulin 2.4 2.5 Albumin/Globulin Ratio 1.4 1.4 Quality Measures Quality Measures VTE prophylaxis (Eliquis) Advance care planning discussed with:: other Assessment & Plan Assessment Current Active Medications: Generic Name Dose Route Start Last Admin Trade Name Freq PRN Reason Stop Dose Admin Apixaban 5 mg 10/05/24 21:15 10/15/24 08:22 Apixaban 2.5 Mg Tablet PO 10/26/24 21:14 5 mg BID YASSINE Administration Bumetanide 2 mg 10/14/24 06:00 10/15/24 05:10 Bumetanide Inj 0.25 Mg/Ml Vial 4 Ml IVP 11/13/24 05:59 2 mg Q8HR YASSINE Administration Doxycycline Hyclate 100 mg 10/13/24 21:00 10/15/24 08:22 Doxycycline 100 Mg Tablet PO 10/20/24 20:59 100 mg BID YASSINE Administration Fluoxetine HCl 20 mg 10/07/24 21:35 10/15/24 08:22 Fluoxetine Hcl 10 Mg Capsule PO 11/06/24 21:34 20 mg QDAY YASSINE Administration Midodrine 5 mg 10/14/24 22:00 10/15/24 05:08 Midodrine 5 Mg Tablet PO 11/13/24 21:59 5 mg TID YASSINE Administration Ondansetron HCl 4 mg 10/05/24 20:50 10/09/24 09:23 Ondansetron Inj 2 Mg/Ml Inj 2 Ml IV 11/04/24 20:49 4 mg Q6H PRN Administration NAUSEA OR VOMITING Protocol Pantoprazole Sodium 40 mg 10/06/24 09:00 10/15/24 08:22 Pantoprazole 40 Mg Tablet PO 11/05/24 08:59 40 mg QDAY YASSINE Administration Polyethylene Glycol 17 gm 10/13/24 09:00 10/15/24 08:22 Polyethylene Glycol 17 Gm Packet PO 11/12/24 08:59 17 gm QDAY YASSINE Administration Sennosides 1 tab 10/14/24 13:30 10/15/24 08:23 Senna Tablet PO 11/13/24 13:29 1 tab QDAY YASSINE Administration Protocol Simethicone 80 mg 10/08/24 11:36 10/10/24 21:13 Simethicone 80 Mg Chew PO 11/07/24 20:59 80 mg BID PRN Administration Gas Tramadol HCl 25 mg 10/14/24 13:36 10/15/24 05:08 Tramadol Hcl 50 Mg Tablet PO 10/19/24 13:35 25 mg Q6HR PRN Administration Pain 3-6 Plan #Acute kidney injury #?Cardiorenal syndrome type 1 #HFrEF, acute exacerbation Etiology dena likely 2/2 to worsening cardiac function in the setting of HFrEF causing decreased renal perfusion from increased venous congestion Cr has been stable around 2.5 UOP 0.3 cc/kg/hr in the last 24hrs -> oliguric range despite aggressive diuresis Plan: -cont diuresis with bumex 2mg IV TID -if refractory edema: consider additional diuretic agent (SGLT2i, thiazide) -monitor UOP - Patient's care was discussed with my attending physician, Dr. Brian Flores MD Internal Medicine PGY-3 Attending Provider Attestation/Addendum Agree with assessment and plan and findings. Seen and examined. labs reviewed. Plan discussed with resident. Kushal Torres MD
--- NOTE | 2024-10-15 12:04 | PC.NURSE ---
Notified Dr. Mcmahon I called Dr. Ibrahima jones and talked to [facility] office staff. They have a form from January that MRI had sent to them. They will take a copy and have Dr to the MRI clearance. Once he fills out the form he will fax it to me and I will make sure MRI receives the form. Will continue to monitor patient.
[2024-10-15] MEDS: cefTRIAXone/D5w 1gm IV premix 50 ML IV (12:40)
[2024-10-15] MEDS: metOLazone 2.5 MG TABLET 5 MG PO (13:28)
--- NOTE | 2024-10-15 14:30 | PC.SS ---
Rounding note: patient is pending MRI. Patient experiencing swelling and possible infection.
--- NOTE | 2024-10-15 17:24 | ESPR_ITS ---
<Statement entered by Zac Alexandra MD - 10/18/24 22:40> I personally evaluated the patient in telemetry patient continues to make slow but steady progress he still has a lot of swelling edema requiring high-dose diuretic therapy I evaluated the patient with Dr. Johnson all essential complaints are reviewed agree with the treatment plan recommendation continue diuretic therapy aggressively monitor renal function closely. Documentation for date of: 10/15/24 Subjective Subjective Interval history: 79-year-old male patient admitted to the hospital with initially what appeared to be acute kidney injury, . The patient received IV fluid and appears to be developing a volume overload, but no renal function improvement. There also appears to have some abdominal wall edema and lower extremity edema, which is definitely worse. Creatinine clearance did not improve with hydration. Suggestion is that the patient may be still in heart failure, hence Dr. De Paz saw the patient and recommended aggressive diuretic therapy, 2 mg of Bumex every 8 hours was started. The patient probably had increased renal vein pressure, right heart failure causing worsening of renal function and also liver enzymes were elevated with hepatic congestion and BNP continued to be quite high more than 2000. 10/15/24: Patient was seen and examined at bedside. Primary team increased midodrine to 10mg TID as he was found to have continued soft BP. AST and ALT downtrending, T bili continue to be elevated at 2.7. Right arm bursal region mildly erythematous, MRI ordered, patient on doxy and rocephin. Patient had close to 1L urine output over last 24 hrs. Patient continues to have 2+ pitting edema of LE, was given metolazone 5 mg p.o X1 in addition to Bumex 2mg Q8H. BUN 59 and creatinine mildly increased from 2.4 to 2.5. Exam Vital Signs Temp Pulse Resp BP Pulse Ox O2 Del Method O2 Flow Rate 97.8 F 78 19 92/65 98 Nasal Cannula 1 10/15/24 16:00 10/15/24 16:10/15/24 16:10/15/24 16:00 10/15/24 16:00 10/15/24 16:10/15/24 16:00 Narrative Exam Constitutional: well-developed, well-nourished, in no acute distress, lying in bed HEENT: NCAT, EOMI, reactive round pupils b/l, patent nares b/l, moist mucous membranes Lung: CTAB, no wheezing, no rhonchi Heart: Regular S1S2, no murmurs, gallops, or rubs Abdomen: Soft, non-distended, non-tender, bowel sounds present throughout Extremities: No cyanosis, no clubbing, +2 pitting edema of LE with L > R, LE pulses present b/l, Neurologic: No focal sensory or motor deficits noted, AOx3, appropriate affect Skin: Medial aspect of right upper arm erythematous with bursal weeping discharge Objective Labs 10/15/24 04:29 10/15/24 04:29 Labs: Laboratory Results - last 24 hr 10/14/24 10/15/24 17:11 04:29 WBC 8.6 RBC 3.99 L Hgb 11.3 L Hct 37.5 L MCV 94 MCH 28.3 MCHC 30.1 L RDW Std Deviation 53.6 H Plt Count 110 L Neut % (Auto) 77 Lymph % (Auto) 10 [place] % (Auto) 11 Eos % (Auto) 1 Baso % (Auto) 0 Neut # (Auto) 6.7 Lymph # (Auto) 0.9 L [place] # (Auto) 0.9 H Eos # (Auto) 0.1 Baso # (Auto) 0.0 Immature Gran # (Auto) 0.06 H Absolute Nucleated RBC 0.29 H Immature Gran % 1 H Nucleated RBC % 3 H ESR 45 H Sodium 129 L 130 L Potassium 4.7 4.9 Chloride 99 98 Carbon Dioxide 21.7 22.9 Anion Gap 8 9 BUN 51 H 59 H Creatinine 2.5 H 2.5 H Estim Creat Clear Calc 28.4 L 28.1 L eGFR 25 L 25 L BUN/Creatinine Ratio 20 24 H Glucose 125 H 115 H Calculated Osmolality 273 L 278 Calcium 8.6 9.0 Corrected Calcium 9.2 9.3 Phosphorus 3.7 Magnesium 2.3 2.4 Total Bilirubin 2.6 H 2.7 H AST 118 H 101 H ALT 233 H 223 H Alkaline Phosphatase 90 112 D C-Reactive Prot, Quant 11.9 H B-Natriuretic Peptide 2174 H* Total Protein 5.7 6.1 Albumin 3.3 L 3.6 Globulin 2.4 2.5 Albumin/Globulin Ratio 1.4 1.4 Quality Measures Quality Measures VTE prophylaxis (Eliquis) Advance care planning discussed with:: other Assessment & Plan Assessment Current Active Medications: Generic Name Dose Route Start Last Admin Trade Name Freq PRN Reason Stop Dose Admin Apixaban 5 mg 10/05/24 21:15 10/15/24 08:22 Apixaban 2.5 Mg Tablet PO 10/26/24 21:14 5 mg BID YASSINE Administration Bumetanide 2 mg 10/14/24 06:00 10/15/24 13:57 Bumetanide Inj 0.25 Mg/Ml Vial 4 Ml IVP 11/13/24 05:59 2 mg Q8HR YASSINE Administration Doxycycline Hyclate 100 mg 10/13/24 21:00 10/15/24 08:22 Doxycycline 100 Mg Tablet PO 10/20/24 20:59 100 mg BID YASSINE Administration Fluoxetine HCl 20 mg 10/07/24 21:35 10/15/24 08:22 Fluoxetine Hcl 10 Mg Capsule PO 11/06/24 21:34 20 mg QDAY YASSINE Administration Ceftriaxone Sodium/Dextrose 50 mls @ 100 mls/hr 10/15/24 12:17 10/15/24 12:40 Rocephin/D5w 1gm Iv Premix IV 10/22/24 12:16 100 mls/hr QDAY YASSINE Administration Midodrine 5 mg 10/14/24 22:00 10/15/24 13:57 Midodrine 5 Mg Tablet PO 11/13/24 21:59 5 mg TID YASSINE Administration Ondansetron HCl 4 mg 10/05/24 20:50 10/09/24 09:23 Ondansetron Inj 2 Mg/Ml Inj 2 Ml IV 11/04/24 20:49 4 mg Q6H PRN Administration NAUSEA OR VOMITING Protocol Pantoprazole Sodium 40 mg 10/06/24 09:00 10/15/24 08:22 Pantoprazole 40 Mg Tablet PO 11/05/24 08:59 40 mg QDAY YASSINE Administration Polyethylene Glycol 17 gm 10/13/24 09:00 10/15/24 08:22 Polyethylene Glycol 17 Gm Packet PO 11/12/24 08:59 17 gm QDAY YASSINE Administration Sennosides 1 tab 10/14/24 13:30 10/15/24 08:23 Senna Tablet PO 11/13/24 13:29 1 tab QDAY YASSINE Administration Protocol Simethicone 80 mg 10/08/24 11:36 10/10/24 21:13 Simethicone 80 Mg Chew PO 11/07/24 20:59 80 mg BID PRN Administration Gas Tramadol HCl 25 mg 10/14/24 13:36 10/15/24 11:58 Tramadol Hcl 50 Mg Tablet PO 10/19/24 13:35 25 mg Q6HR PRN Administration Pain 3-6 Plan 79-year-old male patient with significant medical history of HFrEF (35-40% on March 2024), s/p AICD, chronic Afib (rate controlled), DVT (on Eliquis), HTN, HLD and DM2 was broght to ED by EMS for generalized weakness and hypotension. Patient was recently admitted to [facility] on 09/01/24 where he was found to have DVT with CHF exacerbation and was discharged on Eliquis, Bumix and sprionolactone but unable to follow up due to transportation issues. BNP elevated, creatinine at 2.2 (Baseline 1.0). Patient was given 1 L bolus NS in ED. Patient was admitted with ERLIN secondary to hypovolemia. #Acute on chronic HFrEF (35-40%) #s/p AICD #Right heart failure Plan: -Continue Bumex 2 mg Q8H ?Metolazone 5 mg x 1 given today -Monitor intake and output -Strict I & O's #ERLIN, secondary to right side heart failure causing #Increased renal vein pressure Patient initially with decreased p.o. intake, noted to be lethargic and dehydrated with dry mucous membranes. Nephrology Dr. Torres onboard,recommendations are greatly appreciated BUN 59 and creatinine increased from 2.4 to 2.5 Plan: -Continue aggressive diuresis with Bumex 2 mg Q8H -Avoid nephrotoxic agents ?Renally dose medications ?Trend creatinine ?Strict I's & O's ?[place] #Hx of b/l DVT #Afib rate controlled Patient recently admitted for b/l DVT on eliquis. Physical exam significant for mild edema of loweer extremities. Plan: -Continue Eliquis p.o. 5 mg BID #Right elbow swelling #Right elbow erythema #Transaminitis #Elevated T bili # Diabetes mellitus type 2 -Management per primary team This patient care was discussed with my attending Dr. Ibrahima Sheth MD PGY-2 Disclaimer: Minor errors in bill of lading clerk may be present since this note was dictated by speech recognition software.
[2024-10-16] VITALS (14 sets, daily range): BP systolic 98–118; BP diastolic 65–79; PULSE 60–91; RESP 16–20; TEMP 36.1–36.8; O2SAT 97–99; BMI 12.0
--- NOTE | 2024-10-16 | XR_ITS ---
Examination: MRI right elbow, without contrast Date and time of exam: October 16, 2024 0900 hours Technique: Multiple axial sagittal and coronal images of the right elbow have been obtained with the Siemens high-resolution 1.5 [facility] [employer] MRI scanner. Images obtained include T2-weighted fat-suppressed sagittal sections, TR 3500, TE 46, T2 weighted coronal fat suppressed images, TR 3050, TE 84, T2-weighted transverse fat suppressed images, TR 3260, TE 63, proton density transverse images, TR 4720 TE 46, and T1 weighted coronal images, TR 560, TE 13. Findings: There is continual patient motion which severely degrades scan image quality There is diffuse edema surrounding the elbow There is no significant elbow detail The triceps tendon is intact The long head of the biceps insertion into the radial tuberosity is noted There is no diagnostic visualization of the lateral elbow ligaments No significant fluid in the olecranon bursa IMPRESSION: The entire study is severely degraded by patient motion Triceps tendon intact as well as biceps insertion into the radial tuberosity
[2024-10-16] MEDS: BUMETANIDE INJ 0.25 MG/ML VIAL 4 ML 2 MG IVP ×3 (05:18→21:01)
[2024-10-16] MEDS: MIDODRINE 5 MG TABLET PO (05:19)
[2024-10-16 06:11] LABS: Basophils % (Auto) 0 % (0-2.5); Eosinophils # (Auto) 0.2 Thou/mm3 (0.0-0.5); Eosinophils % (Auto) 3 % (0-10); Hemoglobin 11.5 g/dL (13.5-16.0); Immature Granulocytes % (Auto) 0 % (0-0); Immature Granulocytes Auto 0.02 Thou/mm3 (0.00-0.00); Lymphocytes # (Auto) 1.1 Thou/mm3 (1.0-4.8); Lymphocytes % (Auto) 15 % (10-50); Mean Corpuscular HGB Conc 31.1 g/dl (31.0-37.0); Mean Corpuscular Hemoglobin 28.5 pg (25.0-35.0); Mean Corpuscular Volume 92 fL (80-100); Monocytes # (Auto) 0.9 Thou/mm3 (0.0-0.8); Monocytes % (Auto) 13 % (0-12); Neutrophils % (Auto) 69 % (37-80); Nucleated Red Blood Cell # 0.46 Thou/mm3 (0.00-0.00); Nucleated Red Blood Cell % 6 /100 WBC (0); Platelet Count 121 Thou/mm3 (140-440); RDW Standard Deviation 52.4 fL (35.1-43.9); Red Blood Count 4.04 Miln/mm3 (4.50-5.90); White Blood Count 7.3 Thou/mm3 (3.8-10.6)
[2024-10-16 06:51] LABS: Alanine Aminotransferase 169 U/L (10-49); Albumin, Serum 3.5 gm/dL (3.4-4.8); Albumin/Globulin Ratio 1.3 (1.2-2.2); Alkaline Phosphatase 132 U/L (46-116); Anion Gap 8 (7-16); Aspartate Amino Transferase 65 U/L (0-34); BUN/Creatinine Ratio 28 Ratio (12-20); Bilirubin,Total 2.4 mg/dL (0.3-1.2); Blood Urea Nitrogen 61 mg/dL (9-23); Calcium 8.9 mg/dL (8.3-10.6); Calcium (Corrected) 9.3 mg/dL (8.5-10.1); Carbon Dioxide 26.9 mMol/L (20.0-31.0); Chloride 94 mMol/L (98-107); Creatinine (Component) 2.2 mg/dL (0.6-1.3); Globulin 2.6 gm/dL (2.3-3.5); Glucose 102 mg/dL (74-106); Osmolality,Calculated 276 (275-295); Potassium 4.3 mMol/L (3.4-5.1); Sodium 129 mMol/L (136-145); Total Protein 6.1 gm/dL (5.7-8.2); eGFR 30 See Note
--- NOTE | 2024-10-16 09:10 | PC.NURSE ---
Patient down in MRI, pacemaker was switched to MRI mode by Pacemaker rep Bill from [employer]. Patient is being monitored by this RN through out MRI study.
--- NOTE | 2024-10-16 10:16 | ESPR_ITS ---
Documentation for date of: 10/16/24 Subjective Subjective Interval history: Patient seen and examined. No acute events overnight. Patient complains of swollen legs and elbow pain. Just returned from MRI. Exam Vital Signs Temp Pulse Resp BP Pulse Ox O2 Del Method O2 Flow Rate 97.7 F 74 16 98/65 99 Nasal Cannula 1 10/16/24 08:00 10/16/24 08:00 10/16/24 08:00 10/16/24 08:00 10/16/24 08:00 10/16/24 08:00 10/16/24 08:00 Narrative Exam General: AAOx3, in some distress, obese male HEENT: Conjunctiva clear, EOMI, PERRLA, Cardiovascular: S1, S2, radial pulses +2 bilat, RRR, possible murmur heard on LIZBET border Pulmonary: CTAB bilat no cough, no wheezing GI: No tenderness to light or deep palpitation, no guarding, rigidity, rebound tenderness or distension Extremities: +2 pitting edema in lower extremities bilaterally, dorsalis pedis pulses +2 bilaterally, R elbow TTP Skin: Some purpura through UE bilat Neuro: AAOx3, no focal motor or sensory deficits in the UE or LE bilat Psych: Good judgement, thought and behavior Objective Labs 10/17/24 04:43 10/17/24 04:43 Labs: Laboratory Results - last 24 hr 10/16/24 04:55 WBC 7.3 RBC 4.04 L Hgb 11.5 L Hct 37.0 L MCV 92 MCH 28.5 MCHC 31.1 RDW Std Deviation 52.4 H Plt Count 121 L Neut % (Auto) 69 Lymph % (Auto) 15 Saline % (Auto) 13 H Eos % (Auto) 3 Baso % (Auto) 0 Neut # (Auto) 5.0 Lymph # (Auto) 1.1 Saline # (Auto) 0.9 H Eos # (Auto) 0.2 Baso # (Auto) 0.0 Immature Gran # (Auto) 0.02 H Absolute Nucleated RBC 0.46 H Immature Gran % 0 Nucleated RBC % 6 H Sodium 129 L Potassium 4.3 D Chloride 94 L Carbon Dioxide 26.9 Anion Gap 8 BUN 61 H Creatinine 2.2 H Estim Creat Clear Calc 32.0 L eGFR 30 L BUN/Creatinine Ratio 28 H Glucose 102 Calculated Osmolality 276 Calcium 8.9 Corrected Calcium 9.3 Total Bilirubin 2.4 H AST 65 H ALT 169 H Alkaline Phosphatase 132 H D Total Protein 6.1 Albumin 3.5 Globulin 2.6 Albumin/Globulin Ratio 1.3 Quality Measures Quality Measures VTE prophylaxis (Eliquis) Advance care planning discussed with:: patient Assessment & Plan Assessment Current Active Medications: Generic Name Dose Route Start Last Admin Trade Name Freq PRN Reason Stop Dose Admin Apixaban 5 mg 10/05/24 21:15 10/15/24 21:09 Apixaban 2.5 Mg Tablet PO 10/26/24 21:14 5 mg BID YASSINE Administration Bumetanide 2 mg 10/14/24 06:00 10/16/24 05:18 Bumetanide Inj 0.25 Mg/Ml Vial 4 Ml IVP 11/13/24 05:59 2 mg Q8HR YASSINE Administration Doxycycline Hyclate 100 mg 10/13/24 21:00 10/15/24 21:08 Doxycycline 100 Mg Tablet PO 10/20/24 20:59 100 mg BID YASSINE Administration Fluoxetine HCl 20 mg 10/07/24 21:35 10/15/24 08:22 Fluoxetine Hcl 10 Mg Capsule PO 11/06/24 21:34 20 mg QDAY YASSINE Administration Ceftriaxone Sodium/Dextrose 50 mls @ 100 mls/hr 10/15/24 12:17 10/15/24 12:40 Rocephin/D5w 1gm Iv Premix IV 10/22/24 12:16 100 mls/hr QDAY YASSINE Administration Midodrine 5 mg 10/14/24 22:00 10/16/24 05:19 Midodrine 5 Mg Tablet PO 11/13/24 21:59 5 mg TID YASSINE Administration Ondansetron HCl 4 mg 10/05/24 20:50 10/09/24 09:23 Ondansetron Inj 2 Mg/Ml Inj 2 Ml IV 11/04/24 20:49 4 mg Q6H PRN Administration NAUSEA OR VOMITING Protocol Pantoprazole Sodium 40 mg 10/06/24 09:00 10/15/24 08:22 Pantoprazole 40 Mg Tablet PO 11/05/24 08:59 40 mg QDAY YASSINE Administration Polyethylene Glycol 17 gm 10/13/24 09:00 10/15/24 08:22 Polyethylene Glycol 17 Gm Packet PO 11/12/24 08:59 17 gm QDAY YASSINE Administration Sennosides 1 tab 10/14/24 13:30 10/15/24 08:23 Senna Tablet PO 11/13/24 13:29 1 tab QDAY YASSINE Administration Protocol Simethicone 80 mg 10/08/24 11:36 10/10/24 21:13 Simethicone 80 Mg Chew PO 11/07/24 20:59 80 mg BID PRN Administration Gas Tramadol HCl 25 mg 10/14/24 13:36 10/15/24 11:58 Tramadol Hcl 50 Mg Tablet PO 10/19/24 13:35 25 mg Q6HR PRN Administration Pain 3-6 Plan #Acute kidney injury, improving #?Cardiorenal syndrome type 1 #HFrEF, acute exacerbation Etiology dena likely 2/2 to worsening cardiac function in the setting of HFrEF causing decreased renal perfusion from increased venous congestion Cr has been stable around 2.5 -> 2.2 UOP 1.6 cc/kg/hr in the last 24hrs improved Cr and urine output Plan: -cont diuresis with bumex 2mg IV TID -given metolazone 5mg x1 -monitor UOP - Patient's care was discussed with my attending physician, Dr. Brian Flores MD Internal Medicine PGY-3 Attending Provider Attestation/Addendum Agree with assessment and plan and findings. Seen and examined. labs reviewed. Plan discussed with resident. Kushal Torres MD
[2024-10-16] MEDS: cefTRIAXone/D5w 1gm IV premix 50 ML IV (10:20)
[2024-10-16] MEDS: PANTOPRAZOLE 40 MG TABLET PO (10:21)
[2024-10-16] MEDS: FLUoxetine HCL 10 MG CAPSULE 20 MG PO (10:21)
[2024-10-16] MEDS: POLYETHYLENE GLYCOL 17 GM PACKET PO (10:21)
[2024-10-16] MEDS: traMADol HCL 50 MG TABLET 25 MG PO (10:21)
[2024-10-16] MEDS: APIXABAN 2.5 MG TABLET 5 MG PO ×2 (10:22→21:01)
[2024-10-16] MEDS: DOXYCYCLINE 100 MG TABLET PO ×2 (10:22→21:01)
[2024-10-16] MEDS: SENNA TABLET 1 TAB PO (10:22)
[2024-10-16 10:37] LABS: Magnesium 2.3 mg/dL (1.6-2.6)
[2024-10-16] MEDS: MIDODRINE 5 MG TABLET 10 MG PO ×3 (10:38→21:01)
--- NOTE | 2024-10-16 11:35 | ESPR_ITS ---
<Statement entered by Gigi Brooks MD - 10/21/24 12:44> I reviewed above note and agree with findings and plans. I have also personally examined the patient with medicine team and went over assessment and plan with medical team including healthcare administration internship and resident physician. <Statement entered by Checo Lopez MD - 10/16/24 18:41> Patient was seen and examined at bedside. And agree on the assessment and plan of this patient. - Patient's plan and care discussed with my attending, Dr. Cecilia Lopez MD Internal Medicine PGY-2 Documentation for date of: 10/16/24 Subjective Subjective Interval history: Patient examined at bedside today. No acute overnight events. Patient reports he is doing well visible pain has improved, but still feels a little sore. Had a bowel movement. No other complaints at this time Exam Vital Signs Temp Pulse Resp BP Pulse Ox O2 Del Method O2 Flow Rate 97.7 F 84 16 98/65 99 Nasal Cannula 1 10/16/24 08:00 10/16/24 10:38 10/16/24 08:00 10/16/24 10:38 10/16/24 08:00 10/16/24 08:00 10/16/24 08:00 Narrative Exam General: AAOx3, in some distress, obese male HEENT: Conjunctiva clear, EOMI, PERRLA, Cardiovascular: S1, S2, radial pulses +2 bilat, RRR, possible murmur heard on LIZBET border Pulmonary: CTAB bilat no cough, no wheezing GI: No tenderness to light or deep palpitation, no guarding, rigidity, rebound tenderness or distension Extremities: +1 pitting edema in lower extremities bilaterally, dorsalis pedis pulses +2 bilaterally, R elbow TTP with presence, weeping, however, erythema improving with reduction in swelling Skin: Some purpura through UE bilat Neuro: AAOx3, no focal motor or sensory deficits in the UE or LE bilat Psych: Good judgement, thought and behavior Objective Labs 10/16/24 04:55 10/16/24 04:55 Labs: Laboratory Results - last 24 hr 10/16/24 04:55 WBC 7.3 RBC 4.04 L Hgb 11.5 L Hct 37.0 L MCV 92 MCH 28.5 MCHC 31.1 RDW Std Deviation 52.4 H Plt Count 121 L Neut % (Auto) 69 Lymph % (Auto) 15 [place] % (Auto) 13 H Eos % (Auto) 3 Baso % (Auto) 0 Neut # (Auto) 5.0 Lymph # (Auto) 1.1 [place] # (Auto) 0.9 H Eos # (Auto) 0.2 Baso # (Auto) 0.0 Immature Gran # (Auto) 0.02 H Absolute Nucleated RBC 0.46 H Immature Gran % 0 Nucleated RBC % 6 H Sodium 129 L Potassium 4.3 D Chloride 94 L Carbon Dioxide 26.9 Anion Gap 8 BUN 61 H Creatinine 2.2 H Estim Creat Clear Calc 32.0 L eGFR 30 L BUN/Creatinine Ratio 28 H Glucose 102 Calculated Osmolality 276 Calcium 8.9 Corrected Calcium 9.3 Magnesium 2.3 Total Bilirubin 2.4 H AST 65 H ALT 169 H Alkaline Phosphatase 132 H D Total Protein 6.1 Albumin 3.5 Globulin 2.6 Albumin/Globulin Ratio 1.3 Quality Measures Quality Measures VTE prophylaxis (Eliquis) Advance care planning discussed with:: patient Assessment & Plan Assessment Current Active Medications: Generic Name Dose Route Start Last Admin Trade Name Freq PRN Reason Stop Dose Admin Apixaban 5 mg 10/05/24 21:15 10/16/24 10:22 Apixaban 2.5 Mg Tablet PO 10/26/24 21:14 5 mg BID YASSINE Administration Bumetanide 2 mg 10/14/24 06:00 10/16/24 05:18 Bumetanide Inj 0.25 Mg/Ml Vial 4 Ml IVP 11/13/24 05:59 2 mg Q8HR YASSINE Administration Doxycycline Hyclate 100 mg 10/13/24 21:00 10/16/24 10:22 Doxycycline 100 Mg Tablet PO 10/20/24 20:59 100 mg BID YASSINE Administration Fluoxetine HCl 20 mg 10/07/24 21:35 10/16/24 10:21 Fluoxetine Hcl 10 Mg Capsule PO 11/06/24 21:34 20 mg QDAY YASSINE Administration Ceftriaxone Sodium/Dextrose 50 mls @ 100 mls/hr 10/15/24 12:17 10/16/24 10:20 Rocephin/D5w 1gm Iv Premix IV 10/22/24 12:16 100 mls/hr QDAY YASSINE Administration Midodrine 10 mg 10/16/24 10:30 10/16/24 10:38 Midodrine 5 Mg Tablet PO 11/15/24 10:29 10 mg TID YASSINE Administration Ondansetron HCl 4 mg 10/05/24 20:50 10/09/24 09:23 Ondansetron Inj 2 Mg/Ml Inj 2 Ml IV 11/04/24 20:49 4 mg Q6H PRN Administration NAUSEA OR VOMITING Protocol Pantoprazole Sodium 40 mg 10/06/24 09:00 10/16/24 10:21 Pantoprazole 40 Mg Tablet PO 11/05/24 08:59 40 mg QDAY YASSINE Administration Polyethylene Glycol 17 gm 10/13/24 09:00 10/16/24 10:21 Polyethylene Glycol 17 Gm Packet PO 11/12/24 08:59 17 gm QDAY YASSINE Administration Sennosides 1 tab 10/14/24 13:30 10/16/24 10:22 Senna Tablet PO 11/13/24 13:29 1 tab QDAY YASSINE Administration Protocol Simethicone 80 mg 10/08/24 11:36 10/10/24 21:13 Simethicone 80 Mg Chew PO 11/07/24 20:59 80 mg BID PRN Administration Gas Tramadol HCl 25 mg 10/14/24 13:36 10/16/24 10:21 Tramadol Hcl 50 Mg Tablet PO 10/19/24 13:35 25 mg Q6HR PRN Administration Pain 3-6 Plan A 79-year-old male patient with significant medical history of HFrEF (35-40% on March 2024), s/p AICD, chronic Afib (rate controlled), DVT (on Eliquis), HTN, HLD and DM2 was broght to ED by EMS for generalized weakness and hypotension. Patient was recently admitted to [facility] on 09/01/24 where he was found to have DVT with CHF exacerbation and was discharged on Eliquis, Bumix and sprionolactone but unable to follow up due to transportation issues. BNP elevated, creatinine at 2.2 (Baseline 1.0). Patient was given 1 L bolus NS in ED. Patient was admitted with ERLIN secondary to hypovolemia. #Prerenal ERLIN, improving #Prerenal azotemia #? Cardiorenal syndrome Patient initially with decreased p.o. intake, noted to be lethargic and dehydrated with dry mucous membranes. No crackles heard on auscultation of bilateral lung lobes. Patient still has 1+ edema lower extremities. Creatinine 2.2 today, from 2.5 yesterday Metolazone given yesterday improved with patient's output, 4 L in the past 24 hours Patient is still pitting with lower extremities, will continue to aggressively diurese Plan: -Continue Bumex 2 mg every 8 hours ?*Metolazone 5 mg x 1 to be given with Bumex ?Avoid nephrotoxic agents ?Renally dose medications ?Trend creatinine ?Strict LISA's ?[place] # HFrEF (35 to 40%), stable # s/p AICD # Hypotension, resolved Patient initially endorsed decreased oral intake and general body weakness. Heart failure improved with bumex during this visit. Currently patient appears clinically mildly fluid overloaded. On exam, +3 lower extremity edema bilaterally. Patient's output 4 L past 24 hours Plan: -Bumex 2 mg every 8 H ?*Metolazone 5 mg x 1 ?As above -Monitor intake and output -strict I & O's ?As above #Right elbow swelling #Right elbow erythema DDx: Olcre[place] bursitis versus cellulitis versus abscess vs gout On physical exam tender to palpation, and is red Ultrasound shows fluid in all draining bursa, 4.6 x 1.2 x 4.4, severe generalized edema, will olceranon bursitis versus abscess Patient's swelling has gone down and erythema is decreased, this occurred after an additional coverage Rocephin, most likely infectious cause at this point Patient had MRI done Plan: ?Follow-up with MRI read -Doxy (10/14-) and Rocephin (10/15-) #Transaminitis, improving #Elevated T bili, improving #Radisson chiari ruled out Secondary to Tylenol use during this hospitalization. Patient has taken a few times a day of Tylenol during this admission, which upon discontinuation resulted in decresed liver enzymes and T. bili Patient denies IV drug use. Hepatitis negative. Liver ultrasound did not show any thrombus in the portal vein or hepatic vein; f luid adjacent to the gallbladder, which may be ascitic fluid, clinical correlation advised. Hepatosplenomegaly on imaging. Downtrending AST ALT T. bili staying the same AST ALT could be due to hepatic congestion Plan: -Avoid Tylenol -Monitor CMP in a.m. ?As above # Bilateral deep venous thrombosis # Atrial fibrillation rate controlled Patient recently admitted for b/l DVT on eliquis. Physical exam significant for mild edema of loweer extremities. Plan: -Continue Eliquis 5 mg twice daily -Continue to monitor closely -Consulted cardiology, appreciate recommendations # Diabetes mellitus type 2 (A1c of 5.0 in August 2024) Patient has a history of diabetes mellitus, however is no longer diabetic. A1c is within non-diabetic range. Plan: -Monitor blood glucose level and CMP daily -goal range inpatient glc : 140-180 #Bradycardia, resolved Resolved upon discontinuation of coreg on 10/12/24. #Health Maintenance Disposition: Med telemetry DVT prophylaxis: Eliquis GI prophylaxis: Protonix Diet: Dysphagia 2 CODE STATUS: Full Patient seen and care discussed with my senior resident, Dr. Lopez, and my attending physician, Dr. Cecilia Fay, PGY-1 Attending Provider Attestation/Addendum
--- NOTE | 2024-10-16 13:28 | CHAP ---
09:30 AM Visited by spiritual care volunteer Provided prayer for Patient.
--- NOTE | 2024-10-16 13:56 | PC.SS ---
Addendum entered by CECI Candelaria 10/16/24 14:22: Spoke with Liset at [facility] to provide an update on patient's status. Spoke with Ilir from PT to inform, of request for PT note for the patient's insurance for SNF. Original Note: SS has sent updated inquiry to [facility] using [employer]. Nisha ORNELAS is aware.
[2024-10-16] MEDS: metOLazone 2.5 MG TABLET 5 MG PO (13:58)
--- NOTE | 2024-10-16 15:06 | PC.SS ---
SS has sent updated PT notes to [facility] using [employer].
--- NOTE | 2024-10-16 17:34 | ESPR_ITS ---
<Statement entered by Zac Alexandra MD - 10/18/24 22:37> I personally evaluated the patient again with PGY 2 Dr. Johnson patient making slow but steady progress creatinine is slowly improving though BUN is not responding clinically with diuresis aggressively 2 mg every 8 hours will continue this for now monitor renal function closely. Documentation for date of: 10/16/24 Subjective Subjective Interval history: 79-year-old male patient admitted to the hospital with initially what appeared to be acute kidney injury, . The patient received IV fluid and appears to be developing a volume overload, but no renal function improvement. There also appears to have some abdominal wall edema and lower extremity edema, which is definitely worse. Creatinine clearance did not improve with hydration. Suggestion is that the patient may be still in heart failure, hence Dr. De Paz saw the patient and recommended aggressive diuretic therapy, 2 mg of Bumex every 8 hours was started. The patient probably had increased renal vein pressure, right heart failure causing worsening of renal function and also liver enzymes were elevated with hepatic congestion and BNP continued to be quite high more than 2000. 10/15/24: Patient was seen and examined at bedside. Primary team increased midodrine to 10mg TID as he was found to have continued soft BP. AST and ALT downtrending, T bili continue to be elevated at 2.7. Right arm bursal region mildly erythematous, MRI ordered, patient on doxy and rocephin. Patient had close to 1L urine output over last 24 hrs. Patient continues to have 2+ pitting edema of LE, was given metolazone 5 mg p.o X1 in addition to Bumex 2mg Q8H. BUN 59 and creatinine mildly increased from 2.4 to 2.5. 10/16/24: Patient with 3.8L urine output over last 24 hours.While creatinine downtrended from 2.5 to 2.2, BUN went up from 59 to 61. We will continue Bumex 2g Q8H for another day. MRI of elbow was degraded by patient's motion, while it did indicate diffuse edema srurrounding the right elbow with no significant fluid in the olecranon bursa. Exam Vital Signs Temp Pulse Resp BP Pulse Ox O2 Del Method O2 Flow Rate 97.0 F 65 17 118/70 99 Nasal Cannula 1 10/16/24 12:00 10/16/24 15:00 10/16/24 12:00 10/16/24 15:00 10/16/24 12:00 10/16/24 12:00 10/16/24 12:00 Narrative Exam Constitutional: well-developed, well-nourished, in no acute distress, lying in bed HEENT: NCAT, EOMI, reactive round pupils b/l, patent nares b/l, moist mucous membranes Lung: CTAB, no wheezing, no rhonchi Heart: Regular S1S2, no murmurs, gallops, or rubs Abdomen: Soft, non-distended, non-tender, bowel sounds present throughout Extremities: No cyanosis, no clubbing, +2 pitting edema of LE with L > R, LE pulses present b/l, Neurologic: No focal sensory or motor deficits noted, AOx3, appropriate affect Skin: Medial aspect of right upper arm erythematous with bursal weeping discharge Objective Labs 10/17/24 04:43 10/17/24 04:43 Labs: Laboratory Results - last 24 hr 10/16/24 04:55 WBC 7.3 RBC 4.04 L Hgb 11.5 L Hct 37.0 L MCV 92 MCH 28.5 MCHC 31.1 RDW Std Deviation 52.4 H Plt Count 121 L Neut % (Auto) 69 Lymph % (Auto) 15 [place] % (Auto) 13 H Eos % (Auto) 3 Baso % (Auto) 0 Neut # (Auto) 5.0 Lymph # (Auto) 1.1 [place] # (Auto) 0.9 H Eos # (Auto) 0.2 Baso # (Auto) 0.0 Immature Gran # (Auto) 0.02 H Absolute Nucleated RBC 0.46 H Immature Gran % 0 Nucleated RBC % 6 H Sodium 129 L Potassium 4.3 D Chloride 94 L Carbon Dioxide 26.9 Anion Gap 8 BUN 61 H Creatinine 2.2 H Estim Creat Clear Calc 32.0 L eGFR 30 L BUN/Creatinine Ratio 28 H Glucose 102 Calculated Osmolality 276 Calcium 8.9 Corrected Calcium 9.3 Magnesium 2.3 Total Bilirubin 2.4 H AST 65 H ALT 169 H Alkaline Phosphatase 132 H D Total Protein 6.1 Albumin 3.5 Globulin 2.6 Albumin/Globulin Ratio 1.3 Quality Measures Quality Measures VTE prophylaxis (Eliquis) Advance care planning discussed with:: other Assessment & Plan Assessment Current Active Medications: Generic Name Dose Route Start Last Admin Trade Name Matt PRN Reason Stop Dose Admin Apixaban 5 mg 10/05/24 21:15 10/16/24 10:22 Apixaban 2.5 Mg Tablet PO 10/26/24 21:14 5 mg BID YASSINE Administration Bumetanide 2 mg 10/14/24 06:00 10/16/24 15:00 Bumetanide Inj 0.25 Mg/Ml Vial 4 Ml IVP 11/13/24 05:59 2 mg Q8HR YASSINE Administration Doxycycline Hyclate 100 mg 10/13/24 21:00 10/16/24 10:22 Doxycycline 100 Mg Tablet PO 10/20/24 20:59 100 mg BID YASSINE Administration Fluoxetine HCl 20 mg 10/07/24 21:35 10/16/24 10:21 Fluoxetine Hcl 10 Mg Capsule PO 11/06/24 21:34 20 mg QDAY YASSINE Administration Ceftriaxone Sodium/Dextrose 50 mls @ 100 mls/hr 10/15/24 12:17 10/16/24 10:20 Rocephin/D5w 1gm Iv Premix IV 10/22/24 12:16 100 mls/hr QDAY YASSINE Administration Midodrine 10 mg 10/16/24 10:30 10/16/24 14:01 Midodrine 5 Mg Tablet PO 11/15/24 10:29 10 mg TID YASSINE Administration Ondansetron HCl 4 mg 10/05/24 20:50 10/09/24 09:23 Ondansetron Inj 2 Mg/Ml Inj 2 Ml IV 11/04/24 20:49 4 mg Q6H PRN Administration NAUSEA OR VOMITING Protocol Pantoprazole Sodium 40 mg 10/06/24 09:00 10/16/24 10:21 Pantoprazole 40 Mg Tablet PO 11/05/24 08:59 40 mg QDAY YASSINE Administration Polyethylene Glycol 17 gm 10/13/24 09:00 10/16/24 10:21 Polyethylene Glycol 17 Gm Packet PO 11/12/24 08:59 17 gm QDAY YASSINE Administration Sennosides 1 tab 10/14/24 13:30 10/16/24 10:22 Senna Tablet PO 11/13/24 13:29 1 tab QDAY YASSINE Administration Protocol Simethicone 80 mg 10/08/24 11:36 10/10/24 21:13 Simethicone 80 Mg Chew PO 11/07/24 20:59 80 mg BID PRN Administration Gas Tramadol HCl 25 mg 10/14/24 13:36 10/16/24 10:21 Tramadol Hcl 50 Mg Tablet PO 10/19/24 13:35 25 mg Q6HR PRN Administration Pain 3-6 Plan 79-year-old male patient with significant medical history of HFrEF (35-40% on March 2024), s/p AICD, chronic Afib (rate controlled), DVT (on Eliquis), HTN, HLD and DM2 was broght to ED by EMS for generalized weakness and hypotension. Patient was recently admitted to [facility] on 09/01/24 where he was found to have DVT with CHF exacerbation and was discharged on Eliquis, Bumix and sprionolactone but unable to follow up due to transportation issues. BNP elevated, creatinine at 2.2 (Baseline 1.0). Patient was given 1 L bolus NS in ED. Patient was admitted with ERLIN secondary to hypovolemia. #Acute on chronic HFrEF (35-40%) #s/p AICD #Right heart failure Plan: -Continue Bumex 2 mg Q8H ?Metolazone 5 mg x 1 given today -Monitor intake and output -Strict I & O's #[place], secondary to right side heart failure causing, improving #Increased renal vein pressure Patient initially with decreased p.o. intake, noted to be lethargic and dehydrated with dry mucous membranes. Nephrology Dr. Torres onboard,recommendations are greatly appreciated BUN 61 and creatinine downtrended from 2.5 to 2.2 Plan: -Continue aggressive diuresis with Bumex 2 mg Q8H -Avoid nephrotoxic agents ?Renally dose medications ?Trend creatinine ?Strict I's & O's ?[place] #Hx of b/l DVT #Afib rate controlled Patient recently admitted for b/l DVT on eliquis. Physical exam significant for mild edema of loweer extremities. Plan: -Continue Eliquis p.o. 5 mg BID #Right elbow swelling #Right elbow erythema #Transaminitis #Elevated T bili # Diabetes mellitus type 2 -Management per primary team This patient care was discussed with my attending Dr. Ibrahima Sheth MD PGY-2 Disclaimer: Minor errors in animal treatment investigator may be present since this note was dictated by speech recognition software.
[2024-10-17] VITALS (16 sets, daily range): BP systolic 99–111; BP diastolic 59–80; PULSE 63–89; RESP 14–89; TEMP 35.6–36.8; O2SAT 90–100; BMI 31.1
[2024-10-17] MEDS: MIDODRINE 5 MG TABLET 10 MG PO ×3 (05:13→21:04)
[2024-10-17] MEDS: BUMETANIDE INJ 0.25 MG/ML VIAL 4 ML 2 MG IVP ×3 (05:13→20:56)
[2024-10-17 06:15] LABS: Basophils % (Auto) 1 % (0-2.5); Eosinophils # (Auto) 0.2 Thou/mm3 (0.0-0.5); Eosinophils % (Auto) 2 % (0-10); Hemoglobin 11.8 g/dL (13.5-16.0); Immature Granulocytes % (Auto) 1 % (0-0); Immature Granulocytes Auto 0.04 Thou/mm3 (0.00-0.00); Lymphocytes # (Auto) 1.9 Thou/mm3 (1.0-4.8); Lymphocytes % (Auto) 25 % (10-50); Mean Corpuscular HGB Conc 31.1 g/dl (31.0-37.0); Mean Corpuscular Volume 90 fL (80-100); Monocytes # (Auto) 0.8 Thou/mm3 (0.0-0.8); Monocytes % (Auto) 11 % (0-12); Neutrophils # (Auto) 4.6 Thou/mm3 (1.8-7.7); Neutrophils % (Auto) 61 % (37-80); Nucleated Red Blood Cell # 0.04 Thou/mm3 (0.00-0.00); Nucleated Red Blood Cell % 1 /100 WBC (0); Platelet Count 123 Thou/mm3 (140-440); RDW Standard Deviation 52.8 fL (35.1-43.9); Red Blood Count 4.21 Miln/mm3 (4.50-5.90); White Blood Count 7.6 Thou/mm3 (3.8-10.6)
[2024-10-17 06:58] LABS: Alanine Aminotransferase 129 U/L (10-49); Albumin, Serum 3.6 gm/dL (3.4-4.8); Albumin/Globulin Ratio 1.3 (1.2-2.2); Alkaline Phosphatase 143 U/L (46-116); Anion Gap 11 (7-16); Aspartate Amino Transferase 57 U/L (0-34); BUN/Creatinine Ratio 30 Ratio (12-20); Bilirubin,Total 2.9 mg/dL (0.3-1.2); Blood Urea Nitrogen 57 mg/dL (9-23); Calcium 9.3 mg/dL (8.3-10.6); Calcium (Corrected) 9.6 mg/dL (8.5-10.1); Carbon Dioxide 29.7 mMol/L (20.0-31.0); Chloride 90 mMol/L (98-107); Creatinine (Component) 1.9 mg/dL (0.6-1.3); Globulin 2.7 gm/dL (2.3-3.5); Glucose 97 mg/dL (74-106); Magnesium 2.2 mg/dL (1.6-2.6); Osmolality,Calculated 278 (275-295); Potassium 3.9 mMol/L (3.4-5.1); Sodium 131 mMol/L (136-145); Total Protein 6.3 gm/dL (5.7-8.2); eGFR 35 See Note
[2024-10-17] MEDS: FLUoxetine HCL 10 MG CAPSULE 20 MG PO (10:01)
[2024-10-17] MEDS: PANTOPRAZOLE 40 MG TABLET PO (10:01)
[2024-10-17] MEDS: DOXYCYCLINE 100 MG TABLET PO ×2 (10:01→20:57)
[2024-10-17] MEDS: POLYETHYLENE GLYCOL 17 GM PACKET PO (10:02)
[2024-10-17] MEDS: SENNA TABLET 1 TAB PO (10:02)
[2024-10-17] MEDS: APIXABAN 2.5 MG TABLET 5 MG PO ×2 (10:02→20:57)
[2024-10-17] MEDS: cefTRIAXone/D5w 1gm IV premix 50 ML IV (10:19)
--- NOTE | 2024-10-17 10:56 | ESPR_ITS ---
Documentation for date of: 10/17/24 Subjective Subjective Interval history: Patient seen and examined. No acute events overnight. Exam Vital Signs Temp Pulse Resp BP Pulse Ox O2 Del Method O2 Flow Rate 96.1 F L 90 14 111/70 1 L Nasal Cannula 1 10/17/24 08:00 10/17/24 08:00 10/17/24 08:00 10/17/24 08:00 10/17/24 08:00 10/17/24 08:00 10/17/24 06:12 Narrative Exam Constitutional: well-developed, well-nourished, in no acute distress, lying in bed HEENT: NCAT, EOMI, reactive round pupils b/l, patent nares b/l, moist mucous membranes Lung: CTAB, no wheezing, no rhonchi Heart: Regular S1S2, no murmurs, gallops, or rubs Abdomen: Soft, non-distended, non-tender, bowel sounds present throughout Extremities: No cyanosis, no clubbing, +1 pitting edema of LE with L > R, LE pulses present b/l, Neurologic: No focal sensory or motor deficits noted, AOx3, appropriate affect Skin: Medial aspect of right upper arm erythematous with bursal weeping discharge Objective Labs 10/17/24 04:43 10/17/24 04:43 Labs: Laboratory Results - last 24 hr 10/17/24 04:43 WBC 7.6 RBC 4.21 L Hgb 11.8 L Hct 38.0 L MCV 90 MCH 28.0 MCHC 31.1 RDW Std Deviation 52.8 H Plt Count 123 L Neut % (Auto) 61 Lymph % (Auto) 25 [place] % (Auto) 11 Eos % (Auto) 2 Baso % (Auto) 1 Neut # (Auto) 4.6 Lymph # (Auto) 1.9 [place] # (Auto) 0.8 Eos # (Auto) 0.2 Baso # (Auto) 0.0 Immature Gran # (Auto) 0.04 H Absolute Nucleated RBC 0.04 H Immature Gran % 1 H Nucleated RBC % 1 H Sodium 131 L Potassium 3.9 Chloride 90 L Carbon Dioxide 29.7 Anion Gap 11 BUN 57 H Creatinine 1.9 H Estim Creat Clear Calc 37.0 L eGFR 35 L BUN/Creatinine Ratio 30 H Glucose 97 Calculated Osmolality 278 Calcium 9.3 Corrected Calcium 9.6 Magnesium 2.2 Total Bilirubin 2.9 H D AST 57 H ALT 129 H Alkaline Phosphatase 143 H Total Protein 6.3 Albumin 3.6 Globulin 2.7 Albumin/Globulin Ratio 1.3 Quality Measures Quality Measures VTE prophylaxis (Eliquis) Advance care planning discussed with:: other Assessment & Plan Assessment Current Active Medications: Generic Name Dose Route Start Last Admin Trade Name Freq PRN Reason Stop Dose Admin Apixaban 5 mg 10/05/24 21:15 10/17/24 10:02 Apixaban 2.5 Mg Tablet PO 10/26/24 21:14 5 mg BID YASSINE Administration Bumetanide 2 mg 10/14/24 06:00 10/17/24 05:13 Bumetanide Inj 0.25 Mg/Ml Vial 4 Ml IVP 11/13/24 05:59 2 mg Q8HR YASSINE Administration Doxycycline Hyclate 100 mg 10/13/24 21:00 10/17/24 10:01 Doxycycline 100 Mg Tablet PO 10/20/24 20:59 100 mg BID YASSINE Administration Fluoxetine HCl 20 mg 10/07/24 21:35 10/17/24 10:01 Fluoxetine Hcl 10 Mg Capsule PO 11/06/24 21:34 20 mg QDAY YASSINE Administration Ceftriaxone Sodium/Dextrose 50 mls @ 100 mls/hr 10/15/24 12:17 10/17/24 10:19 Rocephin/D5w 1gm Iv Premix IV 10/22/24 12:16 100 mls/hr QDAY YASSINE Administration Midodrine 10 mg 10/16/24 10:30 10/17/24 05:13 Midodrine 5 Mg Tablet PO 11/15/24 10:29 10 mg TID YASSINE Administration Ondansetron HCl 4 mg 10/05/24 20:50 10/09/24 09:23 Ondansetron Inj 2 Mg/Ml Inj 2 Ml IV 11/04/24 20:49 4 mg Q6H PRN Administration NAUSEA OR VOMITING Protocol Pantoprazole Sodium 40 mg 10/06/24 09:00 10/17/24 10:01 Pantoprazole 40 Mg Tablet PO 11/05/24 08:59 40 mg QDAY YASSINE Administration Polyethylene Glycol 17 gm 10/13/24 09:00 10/17/24 10:02 Polyethylene Glycol 17 Gm Packet PO 11/12/24 08:59 17 gm QDAY YASSINE Administration Sennosides 1 tab 12/01/24 13:30 10/17/24 10:02 Senna Tablet PO 11/13/24 13:29 1 tab QDAY YASSINE Administration Protocol Simethicone 80 mg 10/08/24 11:36 10/10/24 21:13 Simethicone 80 Mg Chew PO 11/07/24 20:59 80 mg BID PRN Administration Gas Tramadol HCl 25 mg 10/14/24 13:36 10/16/24 10:21 Tramadol Hcl 50 Mg Tablet PO 10/19/24 13:35 25 mg Q6HR PRN Administration Pain 3-6 Plan #Acute kidney injury, improving #?Cardiorenal syndrome type 1 #HFrEF, acute exacerbation Etiology dena likely 2/2 to worsening cardiac function in the setting of HFrEF causing decreased renal perfusion from increased venous congestion Cr has been stable around 2.5 -> 2.2 -> 1.9 UOP net negative improved Cr and urine output Plan: -cont diuresis with bumex 2mg IV TID -monitor UOP - Patient's care was discussed with my attending physician, Dr. Brian Flores MD Internal Medicine PGY-3 Attending Provider Attestation/Addendum Agree with assessment and plan and findings. Seen and examined. labs reviewed. Plan discussed with resident. Kushal Torres MD
[2024-10-17] MEDS: metOLazone 2.5 MG TABLET 5 MG PO (14:10)
[2024-10-17] MEDS: SUCRALFATE SUSP 1 GM/10 ML UDC PO (14:10)
--- NOTE | 2024-10-17 15:02 | PC.SS ---
Rounding note: patient's kidneys are improving. Pending cardiology and nephrology recommendations.
--- NOTE | 2024-10-17 15:03 | ESPR_ITS ---
<Statement entered by Checo Lopez MD - 10/17/24 17:00> Patient is seen and examined at bedside. Denied any overnight incidents. Today he was found to have serum creatinine of 1.9 improving from 2.2 yesterday. His balance is -1011 mL over the past 24 hours. Potassium 3.9, blood pressures stable with midodrine at 108/80. His right elbow cellulitis has improved completely will continue on the same antibiotics. We are waiting for the cardiology and nephrology recommendations for discharge. Will continue same treatment. - Patient's plan and care discussed with my attending, Dr. Win Lopez MD Internal Medicine PGY-2 Documentation for date of: 10/17/24 Subjective Subjective Interval history: Patient examined at bedside today. No acute overnight events. He is doing well. His elbow pain has improved. No other complaints at this time. Wondering when he is going to go home Exam Vital Signs Temp Pulse Resp BP Pulse Ox O2 Del Method O2 Flow Rate 97 F 71 14 108/80 100 Nasal Cannula 1 10/17/24 11:39 10/17/24 14:10 10/17/24 11:39 10/17/24 14:10 10/17/24 11:39 10/17/24 11:39 10/17/24 11:39 Narrative Exam General: AAOx3, in some distress, obese male HEENT: Conjunctiva clear, EOMI, PERRLA, Cardiovascular: S1, S2, radial pulses +2 bilat, RRR, possible murmur heard on LIZBET border Pulmonary: CTAB bilat no cough, no wheezing GI: No tenderness to light or deep palpitation, no guarding, rigidity, rebound tenderness or distension Extremities: +3 pitting edema in lower extremities bilaterally, dorsalis pedis pulses +2 bilaterally, R elbow TTP with presence, weeping, however, erythema improving with reduction in swelling Skin: Some purpura through UE bilat Neuro: AAOx3, no focal motor or sensory deficits in the UE or LE bilat Psych: Good judgement, thought and behavior Objective Labs 10/18/24 04:30 10/18/24 14:10 Labs: Laboratory Results - last 24 hr 10/17/24 04:43 WBC 7.6 RBC 4.21 L Hgb 11.8 L Hct 38.0 L MCV 90 MCH 28.0 MCHC 31.1 RDW Std Deviation 52.8 H Plt Count 123 L Neut % (Auto) 61 Lymph % (Auto) 25 Wise % (Auto) 11 Eos % (Auto) 2 Baso % (Auto) 1 Neut # (Auto) 4.6 Lymph # (Auto) 1.9 Wise # (Auto) 0.8 Eos # (Auto) 0.2 Baso # (Auto) 0.0 Immature Gran # (Auto) 0.04 H Absolute Nucleated RBC 0.04 H Immature Gran % 1 H Nucleated RBC % 1 H Sodium 131 L Potassium 3.9 Chloride 90 L Carbon Dioxide 29.7 Anion Gap 11 BUN 57 H Creatinine 1.9 H Estim Creat Clear Calc 37.0 L eGFR 35 L BUN/Creatinine Ratio 30 H Glucose 97 Calculated Osmolality 278 Calcium 9.3 Corrected Calcium 9.6 Magnesium 2.2 Total Bilirubin 2.9 H D AST 57 H ALT 129 H Alkaline Phosphatase 143 H Total Protein 6.3 Albumin 3.6 Globulin 2.7 Albumin/Globulin Ratio 1.3 Quality Measures Quality Measures VTE prophylaxis (Eliquis) Advance care planning discussed with:: patient Assessment & Plan Assessment Current Active Medications: Generic Name Dose Route Start Last Admin Trade Name Freq PRN Reason Stop Dose Admin Apixaban 5 mg 10/05/24 21:15 10/17/24 10:02 Apixaban 2.5 Mg Tablet PO 10/26/24 21:14 5 mg BID YASSINE Administration Bumetanide 2 mg 10/14/24 06:00 10/17/24 05:13 Bumetanide Inj 0.25 Mg/Ml Vial 4 Ml IVP 11/13/24 05:59 2 mg Q8HR YASSINE Administration Doxycycline Hyclate 100 mg 10/13/24 21:00 10/17/24 10:01 Doxycycline 100 Mg Tablet PO 10/20/24 20:59 100 mg BID YASSINE Administration Fluoxetine HCl 20 mg 10/07/24 21:35 10/17/24 10:01 Fluoxetine Hcl 10 Mg Capsule PO 11/06/24 21:34 20 mg QDAY YASSINE Administration Ceftriaxone Sodium/Dextrose 50 mls @ 100 mls/hr 10/15/24 12:17 10/17/24 10:19 Rocephin/D5w 1gm Iv Premix IV 10/22/24 12:16 100 mls/hr QDAY YASSINE Administration Midodrine 10 mg 12/03/24 10:30 10/17/24 05:13 Midodrine 5 Mg Tablet PO 11/15/24 10:29 10 mg TID YASSINE Administration Ondansetron HCl 4 mg 10/05/24 20:50 10/09/24 09:23 Ondansetron Inj 2 Mg/Ml Inj 2 Ml IV 11/04/24 20:49 4 mg Q6H PRN Administration NAUSEA OR VOMITING Protocol Pantoprazole Sodium 40 mg 10/06/24 09:00 10/17/24 10:01 Pantoprazole 40 Mg Tablet PO 11/05/24 08:59 40 mg QDAY YASSINE Administration Polyethylene Glycol 17 gm 10/13/24 09:00 10/17/24 10:02 Polyethylene Glycol 17 Gm Packet PO 11/12/24 08:59 17 gm QDAY YASSINE Administration Sennosides 1 tab 10/14/24 13:30 10/17/24 10:02 Senna Tablet PO 11/13/24 13:29 1 tab QDAY YASSINE Administration Protocol Simethicone 80 mg 10/08/24 11:36 10/10/24 21:13 Simethicone 80 Mg Chew PO 11/07/24 20:59 80 mg BID PRN Administration Gas Tramadol HCl 25 mg 10/14/24 13:36 10/16/24 10:21 Tramadol Hcl 50 Mg Tablet PO 10/19/24 13:35 25 mg Q6HR PRN Administration Pain 3-6 Plan A 79-year-old male patient with significant medical history of HFrEF (35-40% on March 2024), s/p AICD, chronic Afib (rate controlled), DVT (on Eliquis), HTN, HLD and DM2 was broght to ED by EMS for generalized weakness and hypotension. Patient was recently admitted to [facility] on 09/01/24 where he was found to have DVT with CHF exacerbation and was discharged on Eliquis, Bumix and sprionolactone but unable to follow up due to transportation issues. BNP elevated, creatinine at 2.2 (Baseline 1.0). Patient was given 1 L bolus NS in ED. Patient was admitted with ERLIN secondary to hypovolemia. #Prerenal ERLIN, improving #Prerenal azotemia #? Cardiorenal syndrome Creatinine 1.9 today, from 2.2 yesterday Metolazone given yesterday improved with patient's output, 4 L in the past 24 hours Patient is still pitting +3 with lower extremities, will continue to aggressively diurese We will continue giving Metolazone some with Bumex ~2L Output past 24 hours Plan: -Continue Bumex 2 mg every 8 hours ?*Metolazone 5 mg x 1 to be given with Bumex ?Avoid nephrotoxic agents ?Renally dose medications ?Trend creatinine ?Strict LISA's ?[place] # HFrEF (35 to 40%), stable # s/p AICD # Hypotension, resolved Patient initially endorsed decreased oral intake and general body weakness. Heart failure improved with bumex during this visit. Currently patient appears clinically mildly fluid overloaded. On exam, +3 lower extremity edema bilaterally. Patient's output 4 L past 24 hours Plan: -Bumex 2 mg every 8 H ?*Metolazone 5 mg x 1 ?As above -Monitor intake and output -strict I & O's ?As above ?Cardiology on consult, appreciate recs #Right elbow swelling #Right elbow erythema DDx: [place] bursitis versus cellulitis versus abscess vs gout On physical exam tender to palpation, and is red Ultrasound shows fluid in all draining bursa, 4.6 x 1.2 x 4.4, severe generalized edema, will olceranon bursitis versus abscess Patient's swelling has gone down and erythema is decreased, this occurred after an additional coverage Rocephin, most likely infectious cause at this point Patient had MRI done MRI reading affected by patient moving arm during MRI Considering patient's elbow has improving swelling and tenderness with antibiotics especially Rocephin, ideology is most likely infectious, will continue to treat with antibiotics Plan: -Doxy (10/14-) and Rocephin (10/15-) #Transaminitis, improving #Elevated T bili, improving #[place] chiari ruled out Secondary to Tylenol use during this hospitalization. Patient has taken a few times a day of Tylenol during this admission, which upon discontinuation resulted in decresed liver enzymes and T. bili Patient denies IV drug use. Hepatitis negative. Liver ultrasound did not show any thrombus in the portal vein or hepatic vein; f luid adjacent to the gallbladder, which may be ascitic fluid, clinical correlation advised. Hepatosplenomegaly on imaging. Downtrending AST ALT AST ALT could be due to hepatic congestion Plan: -Avoid Tylenol -Monitor CMP in a.m. ?As above # Bilateral deep venous thrombosis # Atrial fibrillation rate controlled Patient recently admitted for b/l DVT on eliquis. Physical exam significant for mild edema of loweer extremities. Plan: -Continue Eliquis 5 mg twice daily -Continue to monitor closely -Consulted cardiology, appreciate recommendations # Diabetes mellitus type 2 (A1c of 5.0 in August 2024) Patient has a history of diabetes mellitus, however is no longer diabetic. A1c is within non-diabetic range. Plan: -Monitor blood glucose level and CMP daily -goal range inpatient glc : 140-180 #Bradycardia, resolved Resolved upon discontinuation of coreg on 10/12/24. #Health Maintenance Disposition: Med telemetry DVT prophylaxis: Eliquis GI prophylaxis: Protonix Diet: Dysphagia 2 CODE STATUS: Full Patient seen and care discussed with my senior resident, Dr. Lopez, and my attending physician, Dr. Win Fay, PGY-1 Attending Provider Attestation/Addendum I have discussed and was present for the essential components of the history, physical examination, diagnosis, and treatment plan with the resident. I agree with the patient's care as documented by the resident and amended herein by me. Armando Walden DO. Although this document has been carefully reviewed, there may still be some phonetic and other typographical errors. These errors are purely grammatical due to imperfections in the software program and should not be construed in any way to compromise the substance of the patient's medical care during this visit.
--- NOTE | 2024-10-17 17:57 | ESPR_ITS ---
<Statement entered by Zac Alexandra MD - 10/18/24 22:30> I personally examined the patient in the telemetry MedSurg floor continues to improve renal function continues to slowly improve we will reduce her Bumex down to 2 mg twice daily I evaluated the patient with PGY 2 Dr. Johnson agree with the treatment plan recommendation as documented patient making slow but steady progress will continue to monitor electrolytes and correct hypokalemia if it develops. Documentation for date of: 10/17/24 Subjective Subjective Interval history: 79-year-old male patient admitted to the hospital with initially what appeared to be acute kidney injury, . The patient received IV fluid and appears to be developing a volume overload, but no renal function improvement. There also appears to have some abdominal wall edema and lower extremity edema, which is definitely worse. Creatinine clearance did not improve with hydration. Suggestion is that the patient may be still in heart failure, hence Dr. De Paz saw the patient and recommended aggressive diuretic therapy, 2 mg of Bumex every 8 hours was started. The patient probably had increased renal vein pressure, right heart failure causing worsening of renal function and also liver enzymes were elevated with hepatic congestion and BNP continued to be quite high more than 2000. 10/15/24: Patient was seen and examined at bedside. Primary team increased midodrine to 10mg TID as he was found to have continued soft BP. AST and ALT downtrending, T bili continue to be elevated at 2.7. Right arm bursal region mildly erythematous, MRI ordered, patient on doxy and rocephin. Patient had close to 1L urine output over last 24 hrs. Patient continues to have 2+ pitting edema of LE, was given metolazone 5 mg p.o X1 in addition to Bumex 2mg Q8H. BUN 59 and creatinine mildly increased from 2.4 to 2.5. 10/16/24: Patient with 3.8L urine output over last 24 hours.While creatinine downtrended from 2.5 to 2.2, BUN went up from 59 to 61. We will continue Bumex 2g Q8H for another day. MRI of elbow was degraded by patient's motion, while it did indicate diffuse edema surrounding the right elbow with no significant fluid in the olecranon bursa. 10/17/24: No significant overnight events. Although patient is hemodynamically stable, he does seem more lethargic today. Patient had 2.1 L urine output. BUN and Service Coordinator improving. We recommend discontinuing metolazone and decrease Bumex to BID. Exam Vital Signs Temp Pulse Resp BP Pulse Ox O2 Del Method O2 Flow Rate 97.6 F 81 16 103/75 96 Room Air 1 10/17/24 16:00 10/17/24 16:00 10/17/24 16:00 10/17/24 16:00 10/17/24 16:00 10/17/24 16:00 10/17/24 11:39 Narrative Exam Constitutional: well-developed, well-nourished, in mild distress, lying in bed, more lethargic than yesterday HEENT: NCAT, EOMI, reactive round pupils b/l, patent nares b/l, moist mucous membranes Lung: CTAB, no wheezing, no rhonchi Heart: Regular S1S2, no murmurs, gallops, or rubs Abdomen: Soft, non-distended, non-tender, bowel sounds present throughout Extremities: No cyanosis, no clubbing, +2 pitting edema of LE with L > R, LE pulses present b/l, Neurologic: No focal sensory or motor deficits noted, AOx3, appropriate affect Skin: Medial aspect of right upper arm erythematous with bursal weeping discharge (much improved from previous day) Objective Labs 10/17/24 04:43 10/17/24 04:43 Labs: Laboratory Results - last 24 hr 10/17/24 04:43 WBC 7.6 RBC 4.21 L Hgb 11.8 L Hct 38.0 L MCV 90 MCH 28.0 MCHC 31.1 RDW Std Deviation 52.8 H Plt Count 123 L Neut % (Auto) 61 Lymph % (Auto) 25 [place] % (Auto) 11 Eos % (Auto) 2 Baso % (Auto) 1 Neut # (Auto) 4.6 Lymph # (Auto) 1.9 [place] # (Auto) 0.8 Eos # (Auto) 0.2 Baso # (Auto) 0.0 Immature Gran # (Auto) 0.04 H Absolute Nucleated RBC 0.04 H Immature Gran % 1 H Nucleated RBC % 1 H Sodium 131 L Potassium 3.9 Chloride 90 L Carbon Dioxide 29.7 Anion Gap 11 BUN 57 H Creatinine 1.9 H Estim Creat Clear Calc 37.0 L eGFR 35 L BUN/Creatinine Ratio 30 H Glucose 97 Calculated Osmolality 278 Calcium 9.3 Corrected Calcium 9.6 Magnesium 2.2 Total Bilirubin 2.9 H D AST 57 H ALT 129 H Alkaline Phosphatase 143 H Total Protein 6.3 Albumin 3.6 Globulin 2.7 Albumin/Globulin Ratio 1.3 Quality Measures Quality Measures VTE prophylaxis (Eliquis) Advance care planning discussed with:: other Assessment & Plan Assessment Current Active Medications: Generic Name Dose Route Start Last Admin Trade Name Freq PRN Reason Stop Dose Admin Apixaban 5 mg 10/05/24 21:15 10/17/24 10:02 Apixaban 2.5 Mg Tablet PO 10/26/24 21:14 5 mg BID YASSINE Administration Bumetanide 2 mg 10/17/24 21:00 Bumetanide Inj 0.25 Mg/Ml Vial 4 Ml IVP 11/16/24 20:59 Q12HR YASSINE Doxycycline Hyclate 100 mg 10/13/24 21:00 10/17/24 10:01 Doxycycline 100 Mg Tablet PO 10/20/24 20:59 100 mg BID YASSINE Administration Fluoxetine HCl 20 mg 10/07/24 21:35 10/17/24 10:01 Fluoxetine Hcl 10 Mg Capsule PO 11/06/24 21:34 20 mg QDAY YASSINE Administration Ceftriaxone Sodium/Dextrose 50 mls @ 100 mls/hr 10/15/24 12:17 10/17/24 10:19 Rocephin/D5w 1gm Iv Premix IV 10/22/24 12:16 100 mls/hr QDAY YASSINE Administration Midodrine 10 mg 10/16/24 10:30 10/17/24 15:02 Midodrine 5 Mg Tablet PO 11/15/24 10:29 10 mg TID YASSINE Administration Ondansetron HCl 4 mg 10/05/24 20:50 10/09/24 09:23 Ondansetron Inj 2 Mg/Ml Inj 2 Ml IV 11/04/24 20:49 4 mg Q6H PRN Administration NAUSEA OR VOMITING Protocol Pantoprazole Sodium 40 mg 10/06/24 09:00 10/17/24 10:01 Pantoprazole 40 Mg Tablet PO 11/05/24 08:59 40 mg QDAY YASSINE Administration Polyethylene Glycol 17 gm 10/13/24 09:00 10/17/24 10:02 Polyethylene Glycol 17 Gm Packet PO 11/12/24 08:59 17 gm QDAY YASSINE Administration Sennosides 1 tab 10/14/24 13:30 10/17/24 10:02 Senna Tablet PO 11/13/24 13:29 1 tab QDAY YASSINE Administration Protocol Simethicone 80 mg 10/08/24 11:36 10/10/24 21:13 Simethicone 80 Mg Chew PO 11/07/24 20:59 80 mg BID PRN Administration Gas Tramadol HCl 25 mg 10/14/24 13:36 10/16/24 10:21 Tramadol Hcl 50 Mg Tablet PO 10/19/24 13:35 25 mg Q6HR PRN Administration Pain 3-6 Plan 79-year-old male patient with significant medical history of HFrEF (35-40% on March 2024), s/p AICD, chronic Afib (rate controlled), DVT (on Eliquis), HTN, HLD and DM2 was broght to ED by EMS for generalized weakness and hypotension. Patient was recently admitted to [facility] on 09/01/24 where he was found to have DVT with CHF exacerbation and was discharged on Eliquis, Bumix and sprionolactone but unable to follow up due to transportation issues. BNP elevated, creatinine at 2.2 (Baseline 1.0). Patient was given 1 L bolus NS in ED. Patient was admitted with ERLIN secondary to hypovolemia. #Acute on chronic HFrEF (35-40%) #s/p AICD #Right heart failure Plan: -Decreased Bumex 2 mg from TID to BID ?Discontinue Metolazone 5 mg -Monitor intake and output -Strict I & O's #[place], secondary to right side heart failure causing, improving #Increased renal vein pressure Patient initially with decreased p.o. intake, noted to be lethargic and dehydrated with dry mucous membranes. Nephrology Dr. Torres onboard,recommendations are greatly appreciated BUN 61>57 and creatinine downtrended from 2.5>2.2>1.9 Plan: -Continue Bumex 2 mg BID -Avoid nephrotoxic agents ?Renally dose medications ?Trend creatinine ?Strict I's & O's ?[place] #Hx of b/l DVT #Afib rate controlled Patient recently admitted for b/l DVT on eliquis. Physical exam significant for mild edema of loweer extremities. Plan: -Continue Eliquis p.o. 5 mg BID #Right elbow swelling #Right elbow erythema #Transaminitis #Elevated T bili # Diabetes mellitus type 2 -Management per primary team This patient care was discussed with my attending Dr. Ibrahima Sheth MD PGY-2 Disclaimer: Minor errors in 21 dealer may be present since this note was dictated by speech recognition software.
[2024-10-18] VITALS (16 sets, daily range): BP systolic 107–122; BP diastolic 65–85; PULSE 49–100; RESP 16–21; TEMP 36.1–36.4; O2SAT 86–97
[2024-10-18] MEDS: traMADol HCL 50 MG TABLET 25 MG PO ×2 (03:44→17:53)
[2024-10-18] MEDS: MIDODRINE 5 MG TABLET 10 MG PO ×3 (05:16→21:09)
[2024-10-18 06:06] LABS: Basophils # (Auto) 0.1 Thou/mm3 (0.0-0.2); Basophils % (Auto) 1 % (0-2.5); Eosinophils # (Auto) 0.2 Thou/mm3 (0.0-0.5); Eosinophils % (Auto) 2 % (0-10); Hematocrit 38.3 % (41.0-53.0); Hemoglobin 12.1 g/dL (13.5-16.0); Immature Granulocytes % (Auto) 0 % (0-0); Immature Granulocytes Auto 0.02 Thou/mm3 (0.00-0.00); Lymphocytes # (Auto) 1.5 Thou/mm3 (1.0-4.8); Lymphocytes % (Auto) 20 % (10-50); Mean Corpuscular HGB Conc 31.6 g/dl (31.0-37.0); Mean Corpuscular Hemoglobin 27.8 pg (25.0-35.0); Mean Corpuscular Volume 88 fL (80-100); Monocytes % (Auto) 13 % (0-12); Neutrophils # (Auto) 4.8 Thou/mm3 (1.8-7.7); Neutrophils % (Auto) 64 % (37-80); Nucleated Red Blood Cell # 0.42 Thou/mm3 (0.00-0.00); Nucleated Red Blood Cell % 6 /100 WBC (0); Platelet Count 189 Thou/mm3 (140-440); RDW Standard Deviation 51.6 fL (35.1-43.9); Red Blood Count 4.35 Miln/mm3 (4.50-5.90); White Blood Count 7.5 Thou/mm3 (3.8-10.6)
[2024-10-18 06:35] LABS: Alanine Aminotransferase 94 U/L (10-49); Albumin, Serum 3.6 gm/dL (3.4-4.8); Albumin/Globulin Ratio 1.3 (1.2-2.2); Alkaline Phosphatase 145 U/L (46-116); Anion Gap 10 (7-16); Aspartate Amino Transferase 41 U/L (0-34); BUN/Creatinine Ratio 32 Ratio (12-20); Bilirubin,Total 2.7 mg/dL (0.3-1.2); Blood Urea Nitrogen 58 mg/dL (9-23); Calcium 9.4 mg/dL (8.3-10.6); Calcium (Corrected) 9.7 mg/dL (8.5-10.1); Carbon Dioxide 35.8 mMol/L (20.0-31.0); Chloride 87 mMol/L (98-107); Creatinine (Component) 1.8 mg/dL (0.6-1.3); Estimated Creatinine Clearance 39.2 mL/min (>60); Globulin 2.8 gm/dL (2.3-3.5); Glucose 105 mg/dL (74-106); Magnesium 2.3 mg/dL (1.6-2.6); Osmolality,Calculated 282 (275-295); Potassium 2.9 mMol/L (3.4-5.1); Sodium 133 mMol/L (136-145); Total Protein 6.4 gm/dL (5.7-8.2); eGFR 38 See Note
[2024-10-18] MEDS: DOXYCYCLINE 100 MG TABLET PO ×2 (08:57→20:38)
[2024-10-18] MEDS: POLYETHYLENE GLYCOL 17 GM PACKET PO (08:57)
[2024-10-18] MEDS: cefTRIAXone/D5w 1gm IV premix 50 ML IV (08:57)
[2024-10-18] MEDS: FLUoxetine HCL 10 MG CAPSULE 20 MG PO (08:57)
[2024-10-18] MEDS: BUMETANIDE INJ 0.25 MG/ML VIAL 4 ML 2 MG IVP ×2 (08:57→21:09)
[2024-10-18] MEDS: PANTOPRAZOLE 40 MG TABLET PO (08:57)
[2024-10-18] MEDS: SENNA TABLET 1 TAB PO (08:57)
[2024-10-18] MEDS: POTASSIUM CHLORIDE 20 mEq TABCR 40 MEQ PO ×2 (08:57→14:29)
[2024-10-18] MEDS: APIXABAN 2.5 MG TABLET 5 MG PO ×2 (08:57→20:39)
[2024-10-18 09:49] LABS: Eosinophils (Manual) 1 % (0-4); Lymphocytes (Manual) 18 % (20-44); Monocytes (Manual) 10 % (2-9); Neutrophils (Manual) 71 % (50-70)
--- NOTE | 2024-10-18 10:03 | ESPR_ITS ---
Documentation for date of: 10/18/24 Subjective Subjective Interval history: Patient seen and examined. No acute events overnight. Exam Vital Signs Temp Pulse Resp BP Pulse Ox O2 Del Method O2 Flow Rate 96.9 F 77 16 116/67 97 Room Air 1 10/18/24 07:21 10/18/24 08:57 10/18/24 07:21 10/18/24 08:57 10/18/24 07:21 10/18/24 07:21 10/17/24 11:39 Narrative Exam Constitutional: well-developed, well-nourished, in no acute distress, lying in bed HEENT: NCAT, EOMI, reactive round pupils b/l, patent nares b/l, moist mucous membranes Lung: CTAB, no wheezing, no rhonchi Heart: Regular S1S2, no murmurs, gallops, or rubs Abdomen: Soft, non-distended, non-tender, bowel sounds present throughout Extremities: No cyanosis, no clubbing, +1 pitting edema of LE with L > R, LE pulses present b/l, Neurologic: No focal sensory or motor deficits noted, AOx3, appropriate affect Skin: Medial aspect of right upper arm erythematous with bursal weeping discharge Objective Labs 10/20/24 04:35 10/20/24 04:35 Labs: Laboratory Results - last 24 hr 10/18/24 04:30 WBC 7.5 RBC 4.35 L Hgb 12.1 L Hct 38.3 L MCV 88 MCH 27.8 MCHC 31.6 RDW Std Deviation 51.6 H Plt Count 189 D Neut % (Auto) 64 Lymph % (Auto) 20 [place] % (Auto) 13 H Eos % (Auto) 2 Baso % (Auto) 1 Neut # (Auto) 4.8 Lymph # (Auto) 1.5 Nicholas # (Auto) 1.0 H Eos # (Auto) 0.2 Baso # (Auto) 0.1 Immature Gran # (Auto) 0.02 H Absolute Nucleated RBC 0.42 H Immature Gran % 0 Neutrophils % (Manual) 71 H Monocytes % (Manual) 10 H Eosinophils % (Manual) 1 Nucleated RBC % 6 H Lymphocytes (Manual) 18 L Sodium 133 L Potassium 2.9 L D Chloride 87 L Carbon Dioxide 35.8 H Anion Gap 10 BUN 58 H Creatinine 1.8 H Estim Creat Clear Calc 39.2 L eGFR 38 L BUN/Creatinine Ratio 32 H Glucose 105 Calculated Osmolality 282 Calcium 9.4 Corrected Calcium 9.7 Magnesium 2.3 Total Bilirubin 2.7 H AST 41 H ALT 94 H Alkaline Phosphatase 145 H Total Protein 6.4 Albumin 3.6 Globulin 2.8 Albumin/Globulin Ratio 1.3 Quality Measures Quality Measures VTE prophylaxis (Eliquis) Advance care planning discussed with:: other Assessment & Plan Assessment Current Active Medications: Generic Name Dose Route Start Last Admin Trade Name Freq PRN Reason Stop Dose Admin Apixaban 5 mg 10/05/24 21:15 10/18/24 08:57 Apixaban 2.5 Mg Tablet PO 10/26/24 21:14 5 mg BID YASSINE Administration Bumetanide 2 mg 10/17/24 21:00 10/18/24 08:57 Bumetanide Inj 0.25 Mg/Ml Vial 4 Ml IVP 11/16/24 20:59 2 mg Q12HR YASSINE Administration Doxycycline Hyclate 100 mg 10/13/24 21:00 10/18/24 08:57 Doxycycline 100 Mg Tablet PO 10/20/24 20:59 100 mg BID YASSINE Administration Fluoxetine HCl 20 mg 10/07/24 21:35 10/18/24 08:57 Fluoxetine Hcl 10 Mg Capsule PO 11/06/24 21:34 20 mg QDAY YASSINE Administration Ceftriaxone Sodium/Dextrose 50 mls @ 100 mls/hr 10/15/24 12:17 10/18/24 08:57 Rocephin/D5w 1gm Iv Premix IV 10/22/24 12:16 100 mls/hr QDAY YASSINE Administration Midodrine 10 mg 10/16/24 10:30 10/18/24 05:16 Midodrine 5 Mg Tablet PO 11/15/24 10:29 10 mg TID YASSINE Administration Ondansetron HCl 4 mg 10/05/24 20:50 10/09/24 09:23 Ondansetron Inj 2 Mg/Ml Inj 2 Ml IV 11/04/24 20:49 4 mg Q6H PRN Administration NAUSEA OR VOMITING Protocol Pantoprazole Sodium 40 mg 10/06/24 09:00 10/18/24 08:57 Pantoprazole 40 Mg Tablet PO 11/05/24 08:59 40 mg QDAY YASSINE Administration Polyethylene Glycol 17 gm 10/13/24 09:00 10/18/24 08:57 Polyethylene Glycol 17 Gm Packet PO 11/12/24 08:59 17 gm QDAY YASSINE Administration Sennosides 1 tab 10/14/24 13:30 10/18/24 08:57 Senna Tablet PO 11/13/24 13:29 1 tab QDAY YASSINE Administration Protocol Simethicone 80 mg 10/08/24 11:36 10/10/24 21:13 Simethicone 80 Mg Chew PO 11/07/24 20:59 80 mg BID PRN Administration Gas Tramadol HCl 25 mg 10/14/24 13:36 10/18/24 03:44 Tramadol Hcl 50 Mg Tablet PO 10/19/24 13:35 25 mg Q6HR PRN Administration Pain 3-6 Plan #Acute kidney injury, improving #Metabolic alkalosis #?Cardiorenal syndrome type 1 #HFrEF, acute exacerbation #Hyponatramia #Hypokalemia #Hypochloremia Etiology dena likely 2/2 to worsening cardiac function in the setting of HFrEF causing decreased renal perfusion from increased venous congestion Contraction alkalosis and electrolyte derrangement notable today likey due to increased diuresis Cr has been stable around 2.5 -> 2.2 -> 1.9 -> 1.8 UOP net negative improved Cr and urine output Plan: -decrease diuresis with bumex 2mg IV BID or daily based on clinical fluid status -monitor UOP -can add diamox 250mg x1 - Patient's care was discussed with my attending physician, Dr. Brain Flores MD Internal Medicine PGY-3 Attending Provider Attestation/Addendum Agree with assessment and plan and findings. Seen and examined. labs reviewed. Plan discussed with resident. Kushal Torres MD
--- NOTE | 2024-10-18 10:08 | PC.SS ---
SS update: Liset at [facility] confirms authorization for SNF is still effective. Patient able to d/c today to their facility. Pending d/c orders.
[2024-10-18 12:04] LABS: Path Review Blood Smear Sent to Pathologist
[2024-10-18] MEDS: POTASSIUM CHL 10 mEq IVPB 10 MEQ/100 ML BAG 100 MEQ IV ×2 (14:35→16:05)
[2024-10-18 14:50] LABS: Albumin, Serum 3.7 gm/dL (3.4-4.8); Anion Gap 8 (7-16); BUN/Creatinine Ratio 34 Ratio (12-20); Blood Urea Nitrogen 61 mg/dL (9-23); Calcium 9.4 mg/dL (8.3-10.6); Calcium (Corrected) 9.6 mg/dL (8.5-10.1); Carbon Dioxide 39.7 mMol/L (20.0-31.0); Chloride 86 mMol/L (98-107); Creatinine (Component) 1.8 mg/dL (0.6-1.3); Estimated Creatinine Clearance 38.2 mL/min (>60); Glucose 127 mg/dL (74-106); Osmolality,Calculated 287 (275-295); Phosphorous 2.6 mg/dL (2.4-5.1); Potassium 2.9 mMol/L (3.4-5.1); Sodium 134 mMol/L (136-145); eGFR 38 See Note
--- NOTE | 2024-10-18 15:07 | PC.SS ---
Addendum entered by CECI Candelaria 10/18/24 15:57: Spoke with Dr. Mcmahon, plan is to d/c patient tomorrow to SNF. Patient going to [facility]. Updated Liset at [facility]. Original Note: Rounding note: patient pending repeat labs for potassium level.
--- NOTE | 2024-10-18 16:16 | ESPR_ITS ---
<Statement entered by Checo Lopez MD - 10/18/24 16:27> Patient was seen and examined at [facility] #HFrEF 35 to 40% #Cardiorenal syndrome #Hypotension #Contraction alkalosis #A-fib on Eliquis Today patient was noticed to have potassium level of 2.9, sodium bicarb of 35.1. Balance negative 2100 mL patient Bumex was decreased to 2 mg twice daily, and will give the patient 1 dose of Diamox to 50 mg as per nephrology recommendations. We started the patient on potassium 40 x 2 p.o. 40 IV. Patient most likely has contraction alkalosis from the aggressive duration. Serum creatinine today is 1.8. Will continue to monitor. #Right elbow cellulitis, has significantly proved we will discharge no ulcer no erythema. Will continue doxycycline and Rocephin and will discharge patient on oral antibiotics possibly tomorrow. #Transaminitis, resolved - Patient's plan and care discussed with my attending, Dr. Win Lopez MD Internal Medicine PGY-2 Documentation for date of: 10/18/24 Subjective Subjective Interval history: Patient examined at bedside today. No acute overnight events. Reports he is doing well. No complaints at this time, however is wondering when he can get discharge. Exam Vital Signs Temp Pulse Resp BP Pulse Ox O2 Del Method O2 Flow Rate 97.2 F 86 17 109/77 93 L Room Air 1 10/18/24 15:57 10/18/24 15:57 10/18/24 15:57 10/18/24 15:57 10/18/24 15:57 10/18/24 15:57 10/17/24 11:39 Narrative Exam General: AAOx3, in some distress, obese male HEENT: Conjunctiva clear, EOMI, PERRLA, Cardiovascular: S1, S2, radial pulses +2 bilat, RRR, possible murmur heard on LIZBET border Pulmonary: CTAB bilat no cough, no wheezing GI: No tenderness to light or deep palpitation, no guarding, rigidity, rebound tenderness or distension Extremities: +3 pitting edema in lower extremities bilaterally, dorsalis pedis pulses +2 bilaterally, R elbow TTP with presence, weeping, however, erythema improving with reduction in swelling Skin: Some purpura through UE bilat Neuro: AAOx3, no focal motor or sensory deficits in the UE or LE bilat Psych: Good judgement, thought and behavior Objective Labs 10/18/24 04:30 10/18/24 14:10 Labs: Laboratory Results - last 24 hr 10/18/24 10/18/24 04:30 14:10 WBC 7.5 RBC 4.35 L Hgb 12.1 L Hct 38.3 L MCV 88 MCH 27.8 MCHC 31.6 RDW Std Deviation 51.6 H Plt Count 189 D Neut % (Auto) 64 Lymph % (Auto) 20 [place] % (Auto) 13 H Eos % (Auto) 2 Baso % (Auto) 1 Neut # (Auto) 4.8 Lymph # (Auto) 1.5 [place] # (Auto) 1.0 H Eos # (Auto) 0.2 Baso # (Auto) 0.1 Immature Gran # (Auto) 0.02 H Absolute Nucleated RBC 0.42 H Immature Gran % 0 Neutrophils % (Manual) 71 H Monocytes % (Manual) 10 H Eosinophils % (Manual) 1 Nucleated RBC % 6 H Lymphocytes (Manual) 18 L Smear Path Review Sent to Pathologist Sodium 133 L 134 L Potassium 2.9 L D 2.9 L Chloride 87 L 86 L Carbon Dioxide 35.8 H 39.7 H Anion Gap 10 8 BUN 58 H 61 H Creatinine 1.8 H 1.8 H Estim Creat Clear Calc 39.2 L 38.2 L eGFR 38 L 38 L BUN/Creatinine Ratio 32 H 34 H Glucose 105 127 H Calculated Osmolality 282 287 Calcium 9.4 9.4 Corrected Calcium 9.7 9.6 Phosphorus 2.6 Magnesium 2.3 Total Bilirubin 2.7 H AST 41 H ALT 94 H Alkaline Phosphatase 145 H Total Protein 6.4 Albumin 3.6 3.7 Globulin 2.8 Albumin/Globulin Ratio 1.3 Quality Measures Quality Measures VTE prophylaxis (Eliquis) Advance care planning discussed with:: patient Assessment & Plan Assessment Current Active Medications: Generic Name Dose Route Start Last Admin Trade Name Freq PRN Reason Stop Dose Admin Apixaban 5 mg 10/05/24 21:15 10/18/24 08:57 Apixaban 2.5 Mg Tablet PO 10/26/24 21:14 5 mg BID YASSINE Administration Bumetanide 2 mg 10/17/24 21:00 10/18/24 08:57 Bumetanide Inj 0.25 Mg/Ml Vial 4 Ml IVP 11/16/24 20:59 2 mg Q12HR YASSINE Administration Doxycycline Hyclate 100 mg 10/13/24 21:00 10/18/24 08:57 Doxycycline 100 Mg Tablet PO 10/20/24 20:59 100 mg BID YASSINE Administration Fluoxetine HCl 20 mg 10/07/24 21:35 10/18/24 08:57 Fluoxetine Hcl 10 Mg Capsule PO 11/06/24 21:34 20 mg QDAY YASSINE Administration Ceftriaxone Sodium/Dextrose 50 mls @ 100 mls/hr 10/15/24 12:17 10/18/24 08:57 Rocephin/D5w 1gm Iv Premix IV 10/22/24 12:16 100 mls/hr QDAY YASSINE Administration Potassium Chloride 10 meq in 100 mls @ 100 mls/hr 10/18/24 14:06 10/18/24 16:05 Kcl Ivpb IV 10/18/24 18:05 100 mls/hr Q1H YASSINE Administration Midodrine 10 mg 10/16/24 10:30 10/18/24 14:29 Midodrine 5 Mg Tablet PO 11/15/24 10:29 10 mg TID YASSINE Administration Ondansetron HCl 4 mg 10/05/24 20:50 10/09/24 09:23 Ondansetron Inj 2 Mg/Ml Inj 2 Ml IV 11/04/24 20:49 4 mg Q6H PRN Administration NAUSEA OR VOMITING Protocol Pantoprazole Sodium 40 mg 10/06/24 09:00 10/18/24 08:57 Pantoprazole 40 Mg Tablet PO 11/05/24 08:59 40 mg QDAY YASSINE Administration Polyethylene Glycol 17 gm 10/13/24 09:00 10/18/24 08:57 Polyethylene Glycol 17 Gm Packet PO 11/12/24 08:59 17 gm QDAY YASSINE Administration Sennosides 1 tab 10/14/24 13:30 10/18/24 08:57 Senna Tablet PO 11/13/24 13:29 1 tab QDAY YASSINE Administration Protocol Simethicone 80 mg 10/08/24 11:36 10/10/24 21:13 Simethicone 80 Mg Chew PO 11/07/24 20:59 80 mg BID PRN Administration Gas Tramadol HCl 25 mg 10/14/24 13:36 10/18/24 03:44 Tramadol Hcl 50 Mg Tablet PO 10/19/24 13:35 25 mg Q6HR PRN Administration Pain 3-6 Plan A 79-year-old male patient with significant medical history of HFrEF (35-40% on March 2024), s/p AICD, chronic Afib (rate controlled), DVT (on Eliquis), HTN, HLD and DM2 was broght to ED by EMS for generalized weakness and hypotension. Patient was recently admitted to [facility] on 09/01/24 where he was found to have DVT with CHF exacerbation and was discharged on Eliquis, Bumix and sprionolactone but unable to follow up due to transportation issues. BNP elevated, creatinine at 2.2 (Baseline 1.0). Patient was given 1 L bolus NS in ED. Patient was admitted with ERLIN secondary to hypovolemia. #Prerenal ERLIN, improving #Prerenal azotemia #? Cardiorenal syndrome Creatinine 1.8 today, from 1.9 yesterday Metolazone given yesterday improved with patient's output, 4 L in the past 24 hours Patient is still pitting +3 with lower extremities, despite aggressive diuresis Changing Bumex twice daily for concerns of ERLIN coming back ~4L Output past 24 hours Concern for bicarb elevating, likely related to diuresis, however will treat Plan: -Continue Bumex 2 mg every 12h ?*Diamox 250 x1 ?Avoid nephrotoxic agents ?Renally dose medications ?Trend creatinine ?Strict LISA's ?[place] # HFrEF (35 to 40%), stable # s/p AICD # Hypotension, resolved Patient initially endorsed decreased oral intake and general body weakness. Heart failure improved with bumex during this visit. Currently patient appears clinically mildly fluid overloaded. On exam, +3 lower extremity edema bilaterally. Patient's output ~4L past 24 hours Plan: -Bumex 2 mg every 12h ?As above -Monitor intake and output -strict I & O's ?As above ?Cardiology on consult, appreciate recs #Right elbow swelling #Right elbow erythema DDx: Olcreanon bursitis versus cellulitis versus abscess vs gout On physical exam tender to palpation, and is red Ultrasound shows fluid in all draining bursa, 4.6 x 1.2 x 4.4, severe generalized edema, will olceranon bursitis versus abscess Patient's swelling has gone down and erythema is decreased, this occurred after an additional coverage Rocephin, most likely infectious cause at this point Patient had MRI done MRI reading affected by patient moving arm during MRI Considering patient's elbow has improving swelling and tenderness with antibiotics especially Rocephin, ideology is most likely infectious, will continue to treat with antibiotics Plan: -Doxy (10/14-) and Rocephin (10/15-) #Transaminitis, improving #Elevated T bili, improving #[place] chiari ruled out Secondary to Tylenol use during this hospitalization. Patient has taken a few times a day of Tylenol during this admission, which upon discontinuation resulted in decresed liver enzymes and T. bili Patient denies IV drug use. Hepatitis negative. Liver ultrasound did not show any thrombus in the portal vein or hepatic vein; f luid adjacent to the gallbladder, which may be ascitic fluid, clinical correlation advised. Hepatosplenomegaly on imaging. Downtrending AST ALT AST ALT could be due to hepatic congestion Plan: -Avoid Tylenol -Monitor CMP in a.m. ?As above # Bilateral deep venous thrombosis # Atrial fibrillation rate controlled Patient recently admitted for b/l DVT on eliquis. Physical exam significant for mild edema of loweer extremities. Plan: -Continue Eliquis 5 mg twice daily -Continue to monitor closely -Consulted cardiology, appreciate recommendations # Diabetes mellitus type 2 (A1c of 5.0 in August 2024) Patient has a history of diabetes mellitus, however is no longer diabetic. A1c is within non-diabetic range. Plan: -Monitor blood glucose level and CMP daily -goal range inpatient glc : 140-180 #Bradycardia, resolved Resolved upon discontinuation of coreg on 10/12/24. #Health Maintenance Disposition: Med telemetry DVT prophylaxis: Eliquis GI prophylaxis: Protonix Diet: Dysphagia 2 CODE STATUS: Full Patient seen and care discussed with my senior resident, Dr. Lopez, and my attending physician, Dr. Win Fay, PGY-1 Attending Provider Attestation/Addendum I have discussed and was present for the essential components of the history, physical examination, diagnosis, and treatment plan with the resident. I agree with the patient's care as documented by the resident and amended herein by me. Armando Walden DO. Although this document has been carefully reviewed, there may still be some phonetic and other typographical errors. These errors are purely grammatical due to imperfections in the software program and should not be construed in any way to compromise the substance of the patient's medical care during this visit.
[2024-10-18] MEDS: ACETAzolaMIDE SOD 250 MG in SODIUM CHLORIDE 0.9% 50 ML 100 MG IV (17:41)
[2024-10-18] MEDS: POTASSIUM CHL 10 mEq IVPB 10 MEQ/100 ML BAG 75 MEQ IV (20:39)
[2024-10-18] MEDS: POTASSIUM CHL 10 mEq IVPB 10 MEQ/100 ML BAG 50 MEQ IV (22:32)
[2024-10-19] VITALS (15 sets, daily range): BP systolic 93–128; BP diastolic 66–84; PULSE 67–92; RESP 17–19; TEMP 36.1–36.9; O2SAT 93–98
--- NOTE | 2024-10-19 00:22 | ESPR_ITS ---
RE: ANGELES RAI : 1945 DATE OF SERVICE: 10/18/2024 SUBJECTIVE: Mr. Rai is doing a little better today. He wants to go home, feeling a lot better than yesterday. He does not complain of any chest pain. His shortness of breath improved significantly with diuretics. Renal function also improved somewhat, but still has abnormal renal function test. Creatinine is improved to 1.8 and BUN is 61. He still has hypokalemia being corrected. OBJECTIVE: General: Shows well-nourished male, _ Vital Signs: bp 118/78_, respiratory rate 16, and temperature normal. HEENT: Head is atraumatic and normocephalic. Eyes normal. ENT normal. Neck: Supple. No JVD. Carotid pulses felt with no bruits. Chest: Symmetrical. Lungs: Decreased breath sounds. No rales or rhonchi. Heart: S1 and S2 regular. Abdomen: Thin and soft. Extremities: No edema. Genitourinary and Rectal: Not performed. Central Nervous System: Normal. DIAGNOSTIC DATA: Electrocardiogram shows atrial fibrillation. IMPRESSION: 1. Acutely decompensated congestive heart failure, improving. 2. Renal insufficiency, but renal function improved. Creatinine improved 1.8. RECOMMENDATIONS: Continue with diuretic therapy. We will replace _ potassium chloride. DT: 22:21:56 TT: 23:49:00 Ref: [id number] - TID: [id number] MTDD
[2024-10-19 01:19] LABS: Albumin, Serum 3.6 gm/dL (3.4-4.8); Anion Gap 9 (7-16); BUN/Creatinine Ratio 30 Ratio (12-20); Blood Urea Nitrogen 57 mg/dL (9-23); Calcium 8.9 mg/dL (8.3-10.6); Calcium (Corrected) 9.2 mg/dL (8.5-10.1); Carbon Dioxide 33.5 mMol/L (20.0-31.0); Chloride 88 mMol/L (98-107); Creatinine (Component) 1.9 mg/dL (0.6-1.3); Estimated Creatinine Clearance 36.2 mL/min (>60); Glucose 126 mg/dL (74-106); Magnesium 2.3 mg/dL (1.6-2.6); Osmolality,Calculated 278 (275-295); Phosphorous 2.9 mg/dL (2.4-5.1); Sodium 130 mMol/L (136-145); eGFR 35 See Note
[2024-10-19] MEDS: MIDODRINE 5 MG TABLET 10 MG PO ×3 (05:04→21:56)
[2024-10-19 05:46] LABS: Basophils % (Auto) 0 % (0-2.5); Eosinophils # (Auto) 0.1 Thou/mm3 (0.0-0.5); Eosinophils % (Auto) 1 % (0-10); Hematocrit 38.7 % (41.0-53.0); Immature Granulocytes % (Auto) 0 % (0-0); Immature Granulocytes Auto 0.03 Thou/mm3 (0.00-0.00); Lymphocytes # (Auto) 1.3 Thou/mm3 (1.0-4.8); Lymphocytes % (Auto) 19 % (10-50); Mean Corpuscular Hemoglobin 27.8 pg (25.0-35.0); Mean Corpuscular Volume 90 fL (80-100); Monocytes # (Auto) 0.9 Thou/mm3 (0.0-0.8); Monocytes % (Auto) 12 % (0-12); Neutrophils # (Auto) 4.7 Thou/mm3 (1.8-7.7); Neutrophils % (Auto) 67 % (37-80); Nucleated Red Blood Cell # 0.25 Thou/mm3 (0.00-0.00); Nucleated Red Blood Cell % 4 /100 WBC (0); Platelet Count 156 Thou/mm3 (140-440); Red Blood Count 4.31 Miln/mm3 (4.50-5.90); White Blood Count 7.1 Thou/mm3 (3.8-10.6)
[2024-10-19] MEDS: traMADol HCL 50 MG TABLET 25 MG PO (06:03)
[2024-10-19 06:22] LABS: Alanine Aminotransferase 68 U/L (10-49); Albumin, Serum 3.4 gm/dL (3.4-4.8); Albumin/Globulin Ratio 1.3 (1.2-2.2); Alkaline Phosphatase 120 U/L (46-116); Anion Gap 8 (7-16); Aspartate Amino Transferase 31 U/L (0-34); BUN/Creatinine Ratio 29 Ratio (12-20); Bilirubin,Total 3.3 mg/dL (0.3-1.2); Blood Urea Nitrogen 56 mg/dL (9-23); Calcium 9.3 mg/dL (8.3-10.6); Calcium (Corrected) 9.8 mg/dL (8.5-10.1); Carbon Dioxide 37.8 mMol/L (20.0-31.0); Chloride 86 mMol/L (98-107); Creatinine (Component) 1.9 mg/dL (0.6-1.3); Estimated Creatinine Clearance 36.2 mL/min (>60); Globulin 2.7 gm/dL (2.3-3.5); Glucose 104 mg/dL (74-106); Magnesium 2.4 mg/dL (1.6-2.6); Osmolality,Calculated 280 (275-295); Phosphorous 3.1 mg/dL (2.4-5.1); Potassium 3.5 mMol/L (3.4-5.1); Sodium 132 mMol/L (136-145); Total Protein 6.1 gm/dL (5.7-8.2); eGFR 35 See Note
[2024-10-19] MEDS: FLUoxetine HCL 10 MG CAPSULE 20 MG PO (08:32)
[2024-10-19] MEDS: DOXYCYCLINE 100 MG TABLET PO ×2 (08:32→21:50)
[2024-10-19] MEDS: SENNA TABLET 1 TAB PO (08:32)
[2024-10-19] MEDS: PANTOPRAZOLE 40 MG TABLET PO (08:32)
[2024-10-19] MEDS: APIXABAN 2.5 MG TABLET 5 MG PO ×2 (08:32→21:50)
[2024-10-19] MEDS: POTASSIUM CHLORIDE 20 mEq TABCR PO ×2 (08:32→17:28)
[2024-10-19] MEDS: POLYETHYLENE GLYCOL 17 GM PACKET PO (08:33)
[2024-10-19] MEDS: cefTRIAXone/D5w 1gm IV premix 50 ML IV (08:33)
[2024-10-19] MEDS: BUMETANIDE INJ 0.25 MG/ML VIAL 4 ML 2 MG IVP ×2 (08:33→21:50)
--- NOTE | 2024-10-19 10:28 | PC.SS ---
Follow up note: SS has confirmed with pt will d/c to [facility]. Potassium levels are stable.
--- NOTE | 2024-10-19 10:50 | PC.SS ---
Follow up note: SS spoke to Vee from [employer] patient's health insurance who explained insurance authorization has been provided to [facility] and will be ok over the weekend. SS has spoken to Liset at [facility] they will accept pt over the weekend.
[2024-10-19] MEDS: ONDANSETRON INJ 2 MG/ML INJ 2 ML 4 MG IV (10:59)
--- NOTE | 2024-10-19 14:46 | ESPR_ITS ---
<Statement entered by Checo Lopez MD - 10/19/24 15:46> Patient was seen and examined at bedside. Today patient balance is -1500. However his pH status continued to become alkalotic. For that reason we will start the patient on Diamox x 1 500 mg IV. On evaluation we noticed that the patient still has lower extremity edema for that reason will continue diuresing the patient at this time. His potassium stable at 3.5, serum creatinine however at 1.9 we will keep monitoring closely. We noticed that the patient to bilirubin increased to 3.3 we will keep close monitoring although his AST and ALT has normalized. - Patient's plan and care discussed with my attending, Dr. Win Lopez MD Internal Medicine PGY-2 Documentation for date of: 10/19/24 Subjective Subjective Interval history: Patient examined at bedside today. No acute overnight events. Wondering when he has been to go home. Says that he is doing okay. Noticed that his elbow is getting better. Exam Vital Signs Temp Pulse Resp BP Pulse Ox O2 Del Method O2 Flow Rate 97.3 F 78 17 105/67 98 Nasal Cannula 1 10/19/24 11:53 10/19/24 12:00 10/19/24 11:53 10/19/24 11:53 10/19/24 11:53 10/19/24 11:53 10/19/24 11:53 Narrative Exam General: AAOx3, in some distress, obese male HEENT: Conjunctiva clear, EOMI, PERRLA, Cardiovascular: S1, S2, radial pulses +2 bilat, RRR, possible murmur heard on LIZBET border Pulmonary: CTAB bilat no cough, no wheezing GI: No tenderness to light or deep palpitation, no guarding, rigidity, rebound tenderness or distension Extremities: +3 pitting edema in lower extremities bilaterally, dorsalis pedis pulses +2 bilaterally, R elbow TTP with presence, weeping, however, erythema improving with reduction in swelling Skin: Some purpura through UE bilat Neuro: AAOx3, no focal motor or sensory deficits in the UE or LE bilat Psych: Good judgement, thought and behavior Objective Labs 10/20/24 04:35 10/20/24 04:35 Labs: Laboratory Results - last 24 hr 10/18/24 10/19/24 10/19/24 14:10 00:52 04:48 WBC 7.1 RBC 4.31 L Hgb 12.0 L Hct 38.7 L MCV 90 MCH 27.8 MCHC 31.0 RDW Std Deviation 54.0 H Plt Count 156 D Neut % (Auto) 67 Lymph % (Auto) 19 [place] % (Auto) 12 Eos % (Auto) 1 Baso % (Auto) 0 Neut # (Auto) 4.7 Lymph # (Auto) 1.3 [place] # (Auto) 0.9 H Eos # (Auto) 0.1 Baso # (Auto) 0.0 Immature Gran # (Auto) 0.03 H Absolute Nucleated RBC 0.25 H Immature Gran % 0 Nucleated RBC % 4 H Sodium 134 L 130 L 132 L Potassium 2.9 L 4.0 D 3.5 D Chloride 86 L 88 L 86 L Carbon Dioxide 39.7 H 33.5 H 37.8 H Anion Gap 8 9 8 BUN 61 H 57 H 56 H Creatinine 1.8 H 1.9 H 1.9 H Estim Creat Clear Calc 38.2 L 36.2 L 36.2 L eGFR 38 L 35 L 35 L BUN/Creatinine Ratio 34 H 30 H 29 H Glucose 127 H 126 H 104 Calculated Osmolality 287 278 280 Calcium 9.4 8.9 9.3 Corrected Calcium 9.6 9.2 9.8 Phosphorus 2.6 2.9 3.1 Magnesium 2.3 2.4 Total Bilirubin 3.3 H D AST 31 ALT 68 H Alkaline Phosphatase 120 H D Total Protein 6.1 Albumin 3.7 3.6 3.4 Globulin 2.7 Albumin/Globulin Ratio 1.3 Quality Measures Quality Measures VTE prophylaxis (Eliquis) Advance care planning discussed with:: patient Assessment & Plan Assessment Current Active Medications: Generic Name Dose Route Start Last Admin Trade Name Freq PRN Reason Stop Dose Admin Apixaban 5 mg 10/05/24 21:15 10/19/24 08:32 Apixaban 2.5 Mg Tablet PO 10/26/24 21:14 5 mg BID YASSINE Administration Bumetanide 2 mg 10/17/24 21:00 10/19/24 08:33 Bumetanide Inj 0.25 Mg/Ml Vial 4 Ml IVP 11/16/24 20:59 2 mg Q12HR YASSINE Administration Doxycycline Hyclate 100 mg 10/13/24 21:00 10/19/24 08:32 Doxycycline 100 Mg Tablet PO 10/20/24 20:59 100 mg BID YASSINE Administration Fluoxetine HCl 20 mg 10/07/24 21:35 10/19/24 08:32 Fluoxetine Hcl 10 Mg Capsule PO 11/06/24 21:34 20 mg QDAY YASSINE Administration Ceftriaxone Sodium/Dextrose 50 mls @ 100 mls/hr 10/15/24 12:17 10/19/24 08:33 Rocephin/D5w 1gm Iv Premix IV 10/22/24 12:16 100 mls/hr QDAY YASSINE Administration Midodrine 10 mg 10/16/24 10:30 10/19/24 05:04 Midodrine 5 Mg Tablet PO 11/15/24 10:29 10 mg TID YASSINE Administration Ondansetron HCl 4 mg 10/05/24 20:50 10/19/24 10:59 Ondansetron Inj 2 Mg/Ml Inj 2 Ml IV 11/04/24 20:49 4 mg Q6H PRN Administration NAUSEA OR VOMITING Protocol Pantoprazole Sodium 40 mg 10/06/24 09:00 10/19/24 08:32 Pantoprazole 40 Mg Tablet PO 11/05/24 08:59 40 mg QDAY YASSINE Administration Polyethylene Glycol 17 gm 10/13/24 09:00 10/19/24 08:33 Polyethylene Glycol 17 Gm Packet PO 11/12/24 08:59 17 gm QDAY YASSINE Administration Potassium Chloride 20 meq 10/19/24 08:00 10/19/24 08:32 Potassium Chloride 20 Meq Tabcr PO 11/18/24 07:59 20 meq BIDWM YASSINE Administration Sennosides 1 tab 10/14/24 13:30 10/19/24 08:32 Senna Tablet PO 11/13/24 13:29 1 tab QDAY YASISNE Administration Protocol Simethicone 80 mg 10/08/24 11:36 10/10/24 21:13 Simethicone 80 Mg Chew PO 11/07/24 20:59 80 mg BID PRN Administration Gas Plan A 79-year-old male patient with significant medical history of HFrEF (35-40% on March 2024), s/p AICD, chronic Afib (rate controlled), DVT (on Eliquis), HTN, HLD and DM2 was broght to ED by EMS for generalized weakness and hypotension. Patient was recently admitted to [facility] on 09/01/24 where he was found to have DVT with CHF exacerbation and was discharged on Eliquis, Bumix and sprionolactone but unable to follow up due to transportation issues. BNP elevated, creatinine at 2.2 (Baseline 1.0). Patient was given 1 L bolus NS in ED. Patient was admitted with ERLIN secondary to hypovolemia. #Prerenal ERLIN, improving #Prerenal azotemia #? Cardiorenal syndrome #Contraction alkalosis Creatinine 1.9 today, from 1.9 yesterday, this may be pt's new baseline Patient is still pitting +3 with lower extremities, despite aggressive diuresis Changing Bumex twice daily for concerns of ERLIN coming back ~3L Output past 24 hours Concern for bicarb elevating, secondary to contraction alkalosis Plan: -Continue Bumex 2 mg every 12h ?*Diamox 500 x1 ?Avoid nephrotoxic agents ?Renally dose medications ?Trend creatinine ?Strict LISA's ?[place] ?Nephrology on consult, appreciate recs # HFrEF (35 to 40%), stable # s/p AICD # Hypotension, resolved Patient initially endorsed decreased oral intake and general body weakness. Heart failure improved with bumex during this visit. Currently patient appears clinically mildly fluid overloaded. On exam, +3 lower extremity edema bilaterally. Patient's output ~3L past 24 hours Plan: -Bumex 2 mg every 12h ?As above -Monitor intake and output -strict I & O's ?As above ?Cardiology on consult, appreciate recs #Right elbow swelling #Right elbow erythema DDx: Olcreanon bursitis versus cellulitis versus abscess vs gout On physical exam tender to palpation, and is red Ultrasound shows fluid in all draining bursa, 4.6 x 1.2 x 4.4, severe generalized edema, will olceranon bursitis versus abscess Patient's swelling has gone down and erythema is decreased, this occurred after an additional coverage Rocephin, most likely infectious cause at this point Patient had MRI done MRI reading affected by patient moving arm during MRI Considering patient's elbow has improving swelling and tenderness with antibiotics especially Rocephin, ideology is most likely infectious, will continue to treat with antibiotics Plan: -Doxy (10/14-) and Rocephin (12/2-) #Transaminitis, improving #Elevated T bili, improving #[place] chiari ruled out Secondary to Tylenol use during this hospitalization. Patient has taken a few times a day of Tylenol during this admission, which upon discontinuation resulted in decresed liver enzymes and T. bili Patient denies IV drug use. Hepatitis negative. Liver ultrasound did not show any thrombus in the portal vein or hepatic vein; f luid adjacent to the gallbladder, which may be ascitic fluid, clinical correlation advised. Hepatosplenomegaly on imaging. Downtrending AST ALT AST ALT could be due to hepatic congestion Plan: -Avoid Tylenol -Monitor CMP in a.m. ?As above # Bilateral deep venous thrombosis # Atrial fibrillation rate controlled Patient recently admitted for b/l DVT on eliquis. Physical exam significant for mild edema of loweer extremities. Plan: -Continue Eliquis 5 mg twice daily -Continue to monitor closely -Consulted cardiology, appreciate recommendations # Diabetes mellitus type 2 (A1c of 5.0 in August 2024) Patient has a history of diabetes mellitus, however is no longer diabetic. A1c is within non-diabetic range. Plan: -Monitor blood glucose level and CMP daily -goal range inpatient glc : 140-180 #Bradycardia, resolved Resolved upon discontinuation of coreg on 10/12/24. #Health Maintenance Disposition: Med telemetry DVT prophylaxis: Eliquis GI prophylaxis: Protonix Diet: Dysphagia 2 CODE STATUS: Full Patient seen and care discussed with my senior resident, Dr. Lopez, and my attending physician, Dr. Win Fay, PGY-1 Attending Provider Attestation/Addendum I have discussed and was present for the essential components of the history, physical examination, diagnosis, and treatment plan with the resident. I agree with the patient's care as documented by the resident and amended herein by me. Armando Walden DO. Although this document has been carefully reviewed, there may still be some phonetic and other typographical errors. These errors are purely grammatical due to imperfections in the software program and should not be construed in any way to compromise the substance of the patient's medical care during this visit.
[2024-10-19] MEDS: PROMETHAZINE INJ 12.5 MG in SODIUM CHLORIDE 0.9% 50 ML 2.5 MG IV (15:01)
[2024-10-19] MEDS: ACETAzolaMIDE SOD 500 MG in SODIUM CHLORIDE 0.9% 50 ML 100 MG IV (16:22)
--- NOTE | 2024-10-19 19:42 | ESPR_ITS ---
RE: ANGELES JOHNSON : 1945 DATE OF SERVICE: 10/19/2024 SUBJECTIVE: The patient is a 79-year-old male with no history of nonischemic cardiomyopathy, chronic systolic heart failure, atrial fibrillation, chronic ICD implantation. Admitted to the hospital for multiple problems including initially ERLIN, but subsequently volume over load, aggressive diuresis, now developed contraction alkalosis as well as hypokalemia which is corrected, but also has hyponatremia, hypochloremia, chloride 86, sodium 132, potassium 3.5 today, but his BUN and creatinine are stable. Creatinine is slightly elevated now at 1.9. Creatinine clearance is 36. BUN remains 50 to 56. Clinically, he is feeling a lot better. In fact, he wants to go home, feeling a lot better now. Clinical improvement, but electrolyte imbalance is significant. OBJECTIVE: Vital Signs: His heart rate is in 90s, blood pressure 128/ , oxygen saturation 93% on room air. Head: Atraumatic. Neck: Supple. No JVD. Chest: Symmetric. Lungs: Decreased breath sounds. Heart: S1 and S2, regular, distant. Abdomen: Obese . No organomegaly. Extremities: Edema is mostly resolved. Left upper extremity still has mild swelling, but mostly resolved. IMPRESSION: 1. Acute decompensated chronic systolic heart failure. 2. Cardiorenal syndrome, mostly right heart failure causing renal vein pressure and decreased GFR. Appears to be also developing contraction and prerenal azotemia. RECOMMENDATIONS: I agree with treatment with one dose of Diamox, correction of contraction metabolic alkalosis, and continue the Bumex for his deep vein thrombosis, and we will reduce the Bumex dose to 2 mg once a day starting tomorrow and probably switch to oral 2 mg dose as an outpatient. The patient has also blood pressure on the lowed side. We started on midodrine. He appears to be holding his blood pressure quite well now. Normally, he is hypertensive, but the patient is not hypertensive anymore and the most of the other medications have been held. I recommended to see me for followup in a week or two following discharge; however, the patient had difficulty coming to my office lately, but we will do a telephone visit also if necessary once the patient is discharged home. DT: 18:47:13 TT: 19:41:00 Ref: [id number] - TID: [id number]
[2024-10-20] VITALS (10 sets, daily range): BP systolic 93–122; BP diastolic 64–74; PULSE 76–97; RESP 17–19; TEMP 36.2–36.5; O2SAT 93–98
[2024-10-20 05:46] LABS: Basophils # (Auto) 0.1 Thou/mm3 (0.0-0.2); Basophils % (Auto) 1 % (0-2.5); Eosinophils # (Auto) 0.2 Thou/mm3 (0.0-0.5); Eosinophils % (Auto) 2 % (0-10); Hematocrit 39.6 % (41.0-53.0); Hemoglobin 12.1 g/dL (13.5-16.0); Immature Granulocytes % (Auto) 1 % (0-0); Immature Granulocytes Auto 0.04 Thou/mm3 (0.00-0.00); Lymphocytes # (Auto) 1.4 Thou/mm3 (1.0-4.8); Lymphocytes % (Auto) 17 % (10-50); Mean Corpuscular HGB Conc 30.6 g/dl (31.0-37.0); Mean Corpuscular Hemoglobin 27.8 pg (25.0-35.0); Mean Corpuscular Volume 91 fL (80-100); Monocytes # (Auto) 1.1 Thou/mm3 (0.0-0.8); Monocytes % (Auto) 13 % (0-12); Neutrophils # (Auto) 5.5 Thou/mm3 (1.8-7.7); Neutrophils % (Auto) 67 % (37-80); Nucleated Red Blood Cell # 0.11 Thou/mm3 (0.00-0.00); Nucleated Red Blood Cell % 1 /100 WBC (0); Platelet Count 159 Thou/mm3 (140-440); RDW Standard Deviation 55.2 fL (35.1-43.9); Red Blood Count 4.36 Miln/mm3 (4.50-5.90); White Blood Count 8.1 Thou/mm3 (3.8-10.6)
[2024-10-20] MEDS: MIDODRINE 5 MG TABLET 10 MG PO (06:07)
[2024-10-20 06:24] LABS: Alanine Aminotransferase 58 U/L (10-49); Albumin, Serum 3.4 gm/dL (3.4-4.8); Albumin/Globulin Ratio 1.3 (1.2-2.2); Alkaline Phosphatase 109 U/L (46-116); Anion Gap 10 (7-16); Aspartate Amino Transferase 25 U/L (0-34); BUN/Creatinine Ratio 28 Ratio (12-20); Bilirubin,Total 3.4 mg/dL (0.3-1.2); Blood Urea Nitrogen 62 mg/dL (9-23); Calcium 9.5 mg/dL (8.3-10.6); Carbon Dioxide 38.8 mMol/L (20.0-31.0); Chloride 84 mMol/L (98-107); Creatinine (Component) 2.2 mg/dL (0.6-1.3); Estimated Creatinine Clearance 31.5 mL/min (>60); Globulin 2.7 gm/dL (2.3-3.5); Glucose 93 mg/dL (74-106); Magnesium 2.2 mg/dL (1.6-2.6); Osmolality,Calculated 283 (275-295); Phosphorous 3.5 mg/dL (2.4-5.1); Potassium 3.3 mMol/L (3.4-5.1); Sodium 133 mMol/L (136-145); Total Protein 6.1 gm/dL (5.7-8.2); eGFR 30 See Note
[2024-10-20] MEDS: BUMETANIDE INJ 0.25 MG/ML VIAL 4 ML 2 MG IVP (08:41)
[2024-10-20] MEDS: cefTRIAXone/D5w 1gm IV premix 50 ML IV (08:41)
[2024-10-20] MEDS: FLUoxetine HCL 10 MG CAPSULE 20 MG PO (08:42)
[2024-10-20] MEDS: PANTOPRAZOLE 40 MG TABLET PO (08:42)
[2024-10-20] MEDS: DOXYCYCLINE 100 MG TABLET PO (08:42)
[2024-10-20] MEDS: SENNA TABLET 1 TAB PO (08:42)
[2024-10-20] MEDS: POTASSIUM CHLORIDE 20 mEq TABCR PO (08:42)
[2024-10-20] MEDS: APIXABAN 2.5 MG TABLET 5 MG PO (08:42)
--- NOTE | 2024-10-20 12:45 | PC.SS ---
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
--- NOTE | 2024-10-20 13:04 | PC.NURSE ---
pt helm catheter clamped at this time for voiding trial.
--- NOTE | 2024-10-20 13:08 | ESDS_ITS ---
<Statement entered by Gigi Brooks MD - 10/29/24 16:11> I reviewed above note and agree with findings and plans. I have also personally examined the patient with medicine team and went over assessment and plan with medical team including financial internship and resident physician. Planned Discharge Date 10/20/24 DS: Providers Provider Date of admission: 10/05/24 20:50 Primary care physician: Karen Wiley PA-C Admitting Provider: Mert Faith MD Attending Provider on Admission: Vladimir Walden DO Consults: 10/05/24 19:02 Consult to Nephrology Stat Comment: Acute kidney injury Consulting Provider: Kushal Torres 10/05/24 23:44 Referral Sourav Routine Comment: Referral Physical Therapy Routine Comment: Physician Instructions: Referral Respiratory Therapy Routine Comment: Health [facility] Referral - Transportation Routine Comment: Positive screening for transportation needs. 10/10/24 16:45 Consult to Cardiology Urgent Comment: CHF hx Consulting Provider: Zac Alexandra Attending Provider on DC: Daniel Olivas MD Discharging Provider: Daniel Olivas MD DS: Diagnosis Problem List Completed Was Problem List Reviewed/Reconciled?: Yes Hospital Course Hospital Course Hospital course: 79-year-old male with past medical history of heart failure with reduced ejection fraction 35 to 40%, status post AICD, chronic atrial fibrillation rate controlled, DVT on Eliquis, hypertension, hyperlipidemia, diabetes mellitus and recent hospitalization for DVT and CHF exacerbation was brought to the ED due to complaints of generalized weakness and hypotension while undergoing physical therapy. Previous admission he was found to have DVT and CHF exacerbation started on Eliquis, Bumex and spironolactone. Patient was unable to follow-up with cardiology. Admitted for acute kidney injury likely secondary to dehydration. During hospital stay patient had aggressive diuresis with Bumex, metolazone and Diamox. For his low blood pressure patient was started on midodrine 10 mg 3 times daily. Patient also developed some right elbow swelling with erythema patient was started on doxycycline and Rocephin with adequate response. Patient also had elevated liver enzymes likely due to hepatic congestion which improved with diuresis. Patient has history of DVT week resume patient's Eliquis 5 mg twice daily. Patient also developed some contraction alkalosis likely due to diuresis, frequency of diuretic medications was adjusted. Patient had some episodes of bradycardia patient's beta-ebony was discontinued and bradycardia resolved. Diabetes was managed with sliding scale insulin. Patient at this time is medically stable for discharge. Follow-up with your primary care physician within 1 week, please follow-up with your primary care within 1 week with labs, basic metabolic panel, recommend to hold spironolactone until your appointment evaluation with your primary care physician and labs in 1 week. Remove helm's catheter prior to discharge, but if did not pass voiding trial , helm to be removed at the SNF. Please follow-up with your court magistrate Dr. Chelsea Alexandra in 1 to 2 weeks after discharge. We have decreased your water pill/Bumex to 2 mg/day, if swelling worsens you can increase it to 2 mg twice daily. Home health physical therapy is ordered. Patient instructed to return to the emergency room in case of worsening symptoms. Problem list: #Prerenal ERLIN, improving #Prerenal azotemia #?Cardiorenal syndrome #Contraction alkalosis #HFrEF (35 to 40%), stable #s/p AICD #Hypotension, resolved #Right elbow swelling #Right elbow erythema #Transaminitis, improving #Elevated T bili, improving #[place] chiari ruled out #Bilateral deep venous thrombosis #Atrial fibrillation rate controlled #Diabetes mellitus type 2 #Bradycardia, resolved Case discussed with my senior Dr. Mcmahon PGY-[address] Cecilia Olivas MD PGY-1 Senior resident attestation: Patient evaluated and examined at the bedside, plan of care discussed with rest of the team including my attending physician, except as noted. Follow-up with your primary care physician within 1 week, please follow-up with your primary care within 1 week with labs, basic metabolic panel, recommend to hold spironolactone until your appointment evaluation with your primary care physician and labs in 1 week. Remove helm's catheter prior to discharge, but if did not pass voiding trial , helm to be removed at the SNF. Please follow-up with your court magistrate Dr. Chelsea Alexandra in 1 to 2 weeks after di scharge. We have decreased your water pill/Bumex to 2 mg/day, if swelling worsens you can increase it to 2 mg twice daily. Continue doxycycline for 3 more days. Return to the emergency room in case of worsening symptoms. Quresh PGY2 Status at Discharge Overall status at discharge: patient is back to baseline Time Spent with Patient Time attestation: Total time spent providing and/or coordinating discharge services: Time spent: Greater than 30 minutes Exam Vital Signs Temp Pulse Resp BP Pulse Ox O2 Del Method O2 Flow Rate 97.1 F 85 18 111/74 93 L Room Air 2 10/20/24 12:10/20/24 12:10/20/24 12:10/20/24 12:10/20/24 12:10/20/24 12:10/20/24 11:53 Narrative Exam Physical exam: General: AAOx3, no acute distress, resting comfortably, obese male HEENT: Conjunctiva clear, EOMI, PERRLA, Cardiovascular: S1, S2, regular rate and rhythm, left upper sternal border murmur Pulmonary: CTA bilaterally no cough, no wheezing GI: No tenderness to light or deep palpitation, no guarding, rigidity, rebound tenderness or distension Extremities: +1 pitting edema in lower extremities bilaterally, dorsalis pedis pulses +2 bilaterally, right elbow with some erythema although remarkably improved Skin: Some purpura through UE bilat Neuro: AAOx3, no focal motor or sensory deficits in the UE or LE bilat Psych: Good judgement, thought and behavior Discharge Plan Plan Patient Disposition: Xfer Skilled Nsg Fac (SNF) Disposition Comment: Stable Care Plan Goals: Follow-up with your primary care physician within 1 week, please follow-up with your primary care within 1 week with labs, basic metabolic panel, recommend to hold spironolactone until your appointment evaluation with your primary care physician and labs in 1 week. Remove helm's catheter prior to discharge, but if did not pass voiding trial , helm to be removed at the SNF. Please follow-up with your court magistrate Dr. Chelsea Alexandra in 1 to 2 weeks after discharge. We have decreased your water pill/Bumex to 2 mg/day, if swelling worsens you can increase it to 2 mg twice daily. Home health physical therapy is ordered. Return to the emergency room in case of worsening symptoms. Prescriptions/Referrals Prescriptions/Med Rec: New bumetanide 2 mg tablet 2 mg PO QDAY 14 Days Qty: 14 0RF doxycycline hyclate 100 mg capsule 100 mg PO BID 3 Days Qty: 6 0RF midodrine 5 mg Tablet 10 mg PO TID 30 Days Qty: 180 0RF senna 8.6 mg capsule 8.6 mg PO QDAY PRN (Reason: constipation) Qty: 30 0RF Continued Eliquis 5 mg tablet 5 mg PO BID Qty: 46 0RF carvedilol 12.5 mg tablet 12.5 mg PO Q12H Rx Instructions: must administer with a meal or food fluoxetine 20 mg capsule 20 mg PO QDAY Patient Comments: TAKE 1 CAPSULE BY MOUTH ONCE DAILY Discontinued bumetanide 2 mg tablet 2 mg PO BID Qty: 60 0RF spironolactone 25 mg tablet 25 mg PO BID Qty: 14 0RF Referrals: Karen Wiley PA-C [Primary Care Provider] - Patient/Caregiver Discharge Instructions Other Discharge Activity Instructions:: Follow-up with your primary care physi belén within 1 week, please follow-up with your primary care within 1 week with labs, basic metabolic panel, recommend to hold spironolactone until your appointment evaluation with your primary care physician and labs in 1 week.. Please follow-up with your court magistrate Dr. Chelsea Alexandra in 1 to 2 weeks after discharge. We have decreased your water pill/Bumex to 2 mg/day, if swelling worsens you can increase it to 2 mg twice daily. Home health physical therapy is ordered. Return to the emergency room in case of worsening symptom Education Materials: Acute Kidney Failure Dc Print Language: Azeri Stand Alone Forms: Valeria Award Info., Patient Portal Info Letter Discharge Order Discharge Orders: Discharge (Routine); Ordered 10/20/24 Ordered By: Daniel Olivas Quality Discharge Quality Measures VTE prophylaxis
--- NOTE | 2024-10-20 13:12 | PC.SS ---
CERTIFIED REGISTERED NURSE PRACTITIONER followed up with [facility] regarding quote for pt, CERTIFIED REGISTERED NURSE PRACTITIONER to follow up with [facility] regarding ETA
--- NOTE | 2024-10-20 13:57 | PC.SS ---
BRIDGE OPERATOR followed up with [facility] regarding transportation and Toribio from [facility] stated that they won't have anyone avilable till tmrw, BRIDGE OPERATOR to follow up with family to discuss discharge plans.
--- NOTE | 2024-10-20 14:32 | PC.SS ---
LACE PINNER spoke to pt and pt's regarding transporation options and family agreed to bring pt's wheelchair and use dial a ride option, legal nurse consultant consulted with nurse to set up discharge preparation for pt.
--- NOTE | 2024-10-20 16:20 | PC.SS ---
CRANE LADLE PERSON spoke to Liset at [facility] and stated that she found transportation for pt and will be picking up pt @4:30 pm, CRANE LADLE PERSON followed up with Nurse.
== END 2024-10-20 17:27 | disposition skilled nursing facility (03) | DRG 682 ==
LOC: SERX 19:51 → SERHOLD 20:59 → S3NX 22:47
PROVIDERS: Internal Medicine; Nurse Practitioner Family; Student in an Organized Health Care Education/Training Program; Admitting Provider Student in an Organized Health Care Education/Training Program; Emergency Provider Emergency Medicine; PCP Physician Assistant; Visit Provider Student in an Organized Health Care Education/Training Program
DX: N17.9 Acute kidney failure, unspecified (principal); I50.23 Acute on chronic systolic (congestive) heart failure; E87.1 Hypo-osmolality and hyponatremia; E87.3 Alkalosis; I13.0 Hypertensive heart and chronic kidney disease with heart failure and stage 1 through stage 4 chronic kidney disease, or unspecified chronic kidney disease; I42.0 Dilated cardiomyopathy; L03.113 Cellulitis of right upper limb; I48.20 Chronic atrial fibrillation, unspecified; I82.412 Acute embolism and thrombosis of left femoral vein; I82.401 Acute embolism and thrombosis of unspecified deep veins of right lower extremity; I95.9 Hypotension, unspecified; E86.1 Hypovolemia; E78.5 Hyperlipidemia, unspecified; E86.0 Dehydration; E66.9 Obesity, unspecified; E87.8 Other disorders of electrolyte and fluid balance, not elsewhere classified; Z68.30 Body mass index [BMI] 30.0-30.9, adult; N18.9 Chronic kidney disease, unspecified; I50.82 Biventricular heart failure; E11.22 Type 2 diabetes mellitus with diabetic chronic kidney disease; R16.2 Hepatomegaly with splenomegaly, not elsewhere classified; R00.1 Bradycardia, unspecified; E87.6 Hypokalemia; T50.2X5A Adverse effect of carbonic-anhydrase inhibitors, benzothiadiazides and other diuretics, initial encounter; Z95.810 Presence of automatic (implantable) cardiac defibrillator; Z59.82 Transportation insecurity; Z79.01 Long term (current) use of anticoagulants; Z79.899 Other long term (current) drug therapy; Y92.230 Patient room in hospital as the place of occurrence of the external cause
CPT/HCPCS: 36415; 71045; 73221; 76705; 76770; 76882; 80048; 80053; 80069; 80074; 80076; 81001; 83735; 83880; 84100; 84484; 85025; 85610; 85652; 85730; 86140; 87081; 93005; 93225; 93971; 97162; 99285; J0696; J1120; J2405; J2550; J3480; J3490; J7030; A9270

== ENCOUNTER 2024-11-06 20:11 | Inpatient (IN) | payer OTHER, MEDICAID, MEDICARE, SELFPAY ==
[2024-11-06] VITALS (7 sets, daily range): BP systolic 95–113; BP diastolic 66–77; PULSE 62–72; RESP 16–25; TEMP 36.4; O2SAT 87–100; BMI 25.7; BMI 28.7
--- NOTE | 2024-11-06 20:21 | EDNOTE_ITS ---
ED General RME/HPI General Chief complaint: Chest Pain Stated complaint: CHEST PAIN Time Seen by Provider: 11/06/24 20:20 Arrival date/time: 11/06/24 20:11 Related Data Home Medications ?Medication ?Instructions ?Recorded ?Confirmed carvedilol 12.5 mg tablet 12.5 mg PO Q12H 10/06/24 11/07/24 fluoxetine 20 mg capsule 20 mg PO QDAY 10/06/24 11/07/24 bisacodyl 10 mg rectal suppository 10 mg SD Q72H PRN Constipation 11/07/24 11/07/24 (Dulcolax (bisacodyl)) levothyroxine 25 mcg tablet 25 mcg PO QDAY 11/07/24 11/07/24 (Synthroid) magnesium hydroxide 400 mg/5 mL 30 ml PO Q72H PRN Constipation 11/07/24 11/07/24 oral suspension (Milk of Magnesia) melatonin 3 mg tablet 6 mg PO HS 11/07/24 11/07/24 sodium phosphates 19 gram-7 118 ml SD Q72H PRN Constipation 11/07/24 11/07/24 gram/118 mL enema (Fleet Enema) Previous Rx's ?Medication ?Instructions ?Recorded apixaban 5 mg tablet (Eliquis) 5 mg PO BID #46 tabs 09/06/24 midodrine 5 mg tablet 10 mg (2 x 5 mg) PO TID 30 days 10/20/24 #180 tabs sennosides 8.6 mg capsule (senna) 8.6 mg PO QDAY PRN constipation 10/20/24 #30 caps Allergies Allergy/AdvReac Type Severity Reaction Status Date / Time No Known Allergies Allergy Verified 11/06/24 21:49 Past Medical History Past Medical History NEUROLOGIC: Positive Head Trauma; Negative Neurological Disorders, Transient Ischemic Attacks (TIA), Alzheimer's Disease, Parkinson's Disease, Brain Tumor, Meningitis, Seizures, Multiple Sclerosis, Amyotrophic Lateral Sclerosis (ALS/Keyla Gehrig's), Spina Bifida, Paralysis, Peripheral Neuropathy, Welch's Palsy, Subdural Hematoma, Migraine, Spinal Cord Injury or Traumatic Brain Injury CARDIAC: Positive Cardiac Disorders, Atrial Fibrillation, Congestive Heart Failure and Hypertension; Negative Myocardial Infarction, Cardiac Arrhythmia, Angina, Heart Murmur, Coronary Artery Disease, Atherosclerotic Heart Disease, Peripheral Vascular Disease, Hypercholesterolemia, Aneurysm, Congenital Heart Disease, Valvular Heart Disease, Rheumatic Fever, Cardiomyopathy, Edema, Pericarditis, Cellulitis, Deep Vein Thrombosis, Hypotension or Varicose Veins RESPIRATORY: Positive Sleep Apnea; Negative Chronic Obstructive Pulmonary Disease (COPD), Asthma, Bronchitis, Emphysema, Pneumonia, Pulmonary Fibrosis, Cystic Fibrosis, Tuberculosis, Pulmonary Embolism or Pulmonary Edema GASTROINTESTINAL: Positive Obesity; Negative Gastrointestinal Disorders, Hepatitis, Cirrhosis, Pancreatitis, Celiac Disease, Gall Bladder Disease, Gastrointestinal Bleed, Esophageal Varices, Michael's Esophagus, Colitis, Ulcerative Colitis, Diverticulitis, Diverticulosis, Ulcer, Colorectal Cancer, Irritable Bowel, Crohn's Disease, Obstructive Bowel, Hiatal Hernia, Hemorrhoids or Gastroesophageal Reflux Disease GENITOURINARY: Negative Genitourinary Disorders, Renal Disease, Kidney Stones, Polycystic Kidney Disease, Neurogenic Bladder, Inguinal Hernia, Dialysis, Prostate Cancer or Benign Prostatic Hyperplasia REPRODUCTIVE: Negative Breast Cancer, Fibroids, Genital Herpes, Gonorrhea, Syphilis or Testicular Cancer MUSCULOSKELETAL: Positive Musculoskeletal Disorders and Arthritis; Negative Muscular Dystrophy, Myasthenia Gravis, Marfan's Syndrome, Bone Cancer, Rheumatoid Arthritis, Osteoporosis, Degenerative Disk Disease, Gout, Scoliosis, Carpal Tunnel Syndrome, Fibromyalgia, Fractures, Degenerative Joint Disease, Osteomyelitis or Poliovirus ENT: Positive Head Trauma; Negative Cataracts, Glaucoma, Blind, Retinal Detachment, Macular Degeneration, Ear Infection, Deafness or Eye Prosthesis ENDOCRINE: Negative Endocrine Disorders, Diabetes Mellitus Type 1, Diabetes Mellitus Type 2, Hypoglycemia, Eleonora's Syndrome, Du's Disease, Hyperthyroidism, Hypothyroidism, Parathyroid Disease, Pituitary Disease, Systemic Lupus Erythematosus, Syndrome of Inappropriate Antidiuretic Hormone (SIADH), Adrenal Disease or Graves' Disease HEMATOLOGIC: Negative Blood Disorders, Anemia, Leukemia, Hemophilia, Thalassemia, Sickle Cell Disease or Clotting Problems PSYCHO/SOCIAL: Negative Psychiatric Problems, Schizophrenia, Recreational Drug Use, Bipolar Disorder, Depression, Anxiety, Behavior Problems, Self-Mutilation, Attention Deficit Disorder, Attention Deficit Hyperactivity Disorder, Depression, Post Traumatic Stress Disorder or Eating Disorder OTHER HISTORY: Positive Hospitalization, Shingles, Chicken Pox, Measles and Mumps; Negative Autoimmune Disease, Down Syndrome, Autism, Developmental Delay, Falls, Blood Transfusions, Blood Transfusion Reaction, Anesthesia Reactions, Organ Transplant, Chemotherapy, Radiation Therapy, Hyperbaric Therapy, MRSA, VRSA, Vancomycin-Resistant Enterococci, Human Immunodeficiency Virus (HIV), Rubella ([place]ov[place] Measles), Pertussis, Cancer, Breast Cancer, Cervical Cancer, Colorectal Cancer, Lung Cancer, Ovarian Cancer, Prostate Cancer or Testicular Cancer Family History FAMILY HISTORY: Positive Family Psychiatric Problems, Family Cardiac Disorders and Family Surgery; Negative Family Respiratory Disorders, Family Gastrointestinal Problems, Family Cancer or Family Anesthesia Reaction Surgical History SURGICAL: Positive Cardiac Surgery, Pacemaker, Angiogram and Arthroscopy (alexander knee sx); Negative Open Heart Surgery, Coronary Artery Bypass Graft, Valve Replacement, Vascular Surgery, Coronary Stent, Cardiac Catheterization, Auto Implanted Cardiovert Defib, Carotid Endarterectomy, Endocrine Surgery, Thyroidectomy, Ear Surgery, Tympanostomy Tube, Eye Surgery, Nose Surgery, Oral Surgery, Tonsillectomy, Adenoidectomy, Cochlear Implant, Corneal Transplant, Throat Surgery, Abdominal Surgery, Tracheostomy, Gastric Bypass Surgery, Gastrostomy, Bowel Surgery, Nephrectomy, Transurethral Resection, Joint Replacement, Amputation, Open Reduction Internal Fixation, Neurologic Surgery, Brain Shunt, Mastectomy, Lumpectomy, Hysterectomy, Tubal Ligation, Section, Vasectomy or Organ Transplant Social History SMOKING STATUS: Unknown if ever smoked SECOND HAND EXPOSURE: No Course Quality Measures none Orders Category Date Time Status Bedside COVID-19 Antigen Test NOW Care 11/06/24 20:32 Active Bedside Influenza A&B Antigen Test NOW Care 11/06/24 20:32 Completed COVID-19 Screening Questionnaire NOW Care 11/06/24 22:49 Active Decision to Admit X1 Care 11/06/24 22:49 Completed EKG (ED ONLY) *Do not use* NOW Care 11/06/24 20:21 Completed Saline [Insert IV] NOW Care 11/06/24 20:[address] chest abdomen pelvis wo Stat Exams 11/06/24 20:33 Completed EKG (ED Only) Stat Exams 11/06/24 20:21 Draft XR chest 1V Stat Exams 11/06/24 20:21 Completed B-Type Natriuretic Peptide Stat Lab 11/06/24 20:47 Completed CBC Stat Lab 11/06/24 20:47 Completed Comprehensive Metabolic Panel Stat Lab 11/06/24 20:47 Completed LDH (Lactate Dehydrogenase) Stat Lab 11/06/24 20:47 Completed Magnesium Stat Lab 11/06/24 20:47 Completed Partial Thromboplastin Time Stat Lab 11/06/24 20:47 Completed Prothrombin Time with INR Stat Lab 11/06/24 20:47 Completed Troponin I Stat Lab 11/06/24 20:47 Completed ACETAMINOPHEN w/COD 300-30 [Tylenol w/Cod #3] Med 11/06/24 21:37 Discontinued 2 tab PO X1 ONE KCL 10% Liq UDC 15 ML Med 11/06/24 22:30 Discontinued 40 meq PO X1 ONE Vital Signs Vital signs: Vital Signs Temperature 97.6 F 11/06/24 20:37 Pulse Rate 64 11/06/24 20:37 Respiratory Rate 18 11/06/24 20:37 Blood Pressure 95/67 11/06/24 20:37 Pulse Oximetry (%) 98 11/06/24 20:37 Oxygen Delivery Method Nasal Cannula 11/06/24 20:37 Oxygen Flow Rate 6 11/06/24 20:37 [facility] Patient data External records reviewed:: [facility] previous records and EMS form Clinical information provided by:: patient and EMS Social determinants that could affect healthcare access:: none Patient has the following chronic illnesses:: . How is presenting disease/condition affected by chronic disease/condition?: u neffected by Evaluation data The following diagnostics were reviewed and interpreted by me:: lab results and radiology exam(s) Lab and/or radiology exams considered but not ordered:: See [facility] Interpretation Summary: Hypoxia Medications Medications considered but not ordered:: None Medication administrations:: Medication Administration History Acetaminophen (Acetaminophen 325 Mg Tablet) 650 mg PO Q6H PRN PRN Reason: Pain 1-3 and/or Fever >100.1 Stop: 12/06/24 23:11 Apixaban (Apixaban 2.5 Mg Tablet) 5 mg PO BID [facility] Stop: 12/07/24 08:59 Last Admin: 11/07/24 08:58 Dose: 5 mg Documented By: NIEVES Bumetanide (Bumetanide Inj 0.25 Mg/Ml Vial 4 Ml) 2 mg IVP BID [facility] Stop: 12/07/24 08:59 Carvedilol (Carvedilol 3.125 Mg Tablet) 6.25 mg PO BIDWM [facility] Stop: 12/07/24 07:59 Doxycycline Hyclate (Doxycycline 100 Mg Tablet) 100 mg PO BID [facility] Stop: 11/14/24 10:14 Last Admin: 11/07/24 10:41 Dose: 100 mg Documented By: NIEVES Hydromorphone HCl (Hydromorphone Inj 2 Mg/Ml Vial) 0.25 mg IVP Q4HR PRN PRN Reason: Pain 4-7 Stop: 12/30/24 10:19 Ceftriaxone Sodium/Dextrose (Rocephin/D5w 1gm Iv Premix) 50 mls @ 100 mls/hr IV QDAY [facility] Stop: 11/14/24 10:10 Last Admin: 11/07/24 10:41 Dose: 100 mls/hr Documented By: NIEVES Midodrine (Midodrine 5 Mg Tablet) 10 mg PO TID [facility] Stop: 12/06/24 23:29 Last Admin: 11/07/24 13:06 Dose: 10 mg Documented By: NIEVES Nitroglycerin (Nitroglycerin 0.4 Mg Subl Btl #25) 0.4 mg SL Q5MIN PRN PRN Reason: CHEST PAIN Potassium Chloride (Potassium Chloride 20 Meq Tabcr) 40 meq PO X1 ONE Stop: 11/07/24 14:01 Last Admin: 11/07/24 13:07 Dose: 40 meq Documented By: NIEVES Sennosides (Senna Tablet) 1 tab PO QDAY [facility]; Protocol Stop: 12/08/24 08:59 Discontinued Medications Acetaminophen/Codeine Phosphate (Acetaminophen W/Cod 300-30 Tablet) 2 tab PO X1 ONE Stop: 11/06/24 21:38 Last Admin: 11/06/24 21:47 Dose: 2 tab Documented By: STEF Bumetanide (Bumetanide Inj 0.25 Mg/Ml Vial 4 Ml) 2 mg IVP BID [facility] Stop: 12/06/24 23:29 Last Admin: 11/07/24 00:57 Dose: Not Given Documented By: STEF Non-Admin Reason: Cancelled by Provider Bumetanide (Bumetanide Inj 0.25 Mg/Ml Vial 4 Ml) 2 mg IVP X1 ONE Stop: 11/07/24 00:53 Last Admin: 11/07/24 01:10 Dose: 2 mg Documented By: STEF Comments: Med not scanning Bumetanide (Bumetanide Inj 0.25 Mg/Ml Vial 4 Ml) 2 mg IVP BID [facility] Stop: 12/07/24 08:59 Last Admin: 11/07/24 09:04 Dose: 2 mg Documented By: NIEVES Bumetanide (Bumetanide Inj 0.25 Mg/Ml Vial 10 Ml) Confirm Administered Dose 2.5 mg .ROUTE .STK-MED ONE Stop: 11/07/24 01:02 Last Admin: 11/07/24 01:10 Dose: Not Given Documented By: STEF Non-Admin Reason: Duplicate Medication on eMAR Carvedilol (Carvedilol 3.125 Mg Tablet) 6.25 mg PO BIDWM [facility] Stop: 12/07/24 07:59 Last Admin: 11/07/24 09:02 Dose: 6.25 mg Documented By: NIEVES Potassium Chloride (Kcl Ivpb) 10 meq in 100 mls @ 100 mls/hr IV Q1H [facility] Stop: 11/07/24 12:29 Last Admin: 11/07/24 13:06 Dose: 75 mls/hr Documented By: Infusion: 11/07/24 13:06 Dose: Infused Documented By: Admin: 11/07/24 11:11 Dose: 50 mls/hr Documented By: Infusion: 11/07/24 10:38 Dose: Infused Documented By: Infusion: 11/07/24 09:38 Dose: 50 mls/hr Documented By: Infusion: 11/07/24 09:15 Dose: 75 mls/hr Documented By: Admin: 11/07/24 09:02 Dose: 100 mls/hr Documented By: NIEVES Midodrine (Midodrine 5 Mg Tablet) 10 mg PO TID [facility] Stop: 12/06/24 23:29 Last Admin: 11/07/24 07:25 Dose: 10 mg Documented By: Admin: 11/06/24 23:37 Dose: 10 mg Documented By: NIEVES(2) Ondansetron HCl (Ondansetron Inj 2 Mg/Ml Inj 2 Ml) 4 mg IV Q6H PRN; Protocol PRN Reason: NAUSEA OR VOMITING Stop: 12/06/24 23:11 Potassium Chloride (Potassium Chloride 10% 20 Meq/15 Ml Udc) 40 meq PO X1 ONE Stop: 11/06/24 22:31 Last Admin: 11/06/24 22:41 Dose: 40 meq Documented By: STEF Potassium Chloride (Potassium Chloride 20 Meq Tabcr) 40 meq PO X1 ONE Stop: 11/07/24 08:08 Last Admin: 11/07/24 08:50 Dose: Not Given Documented By: NIEVES Non-Admin Reason: Per Dr. Lopez give IV not PO Scopolamine (Scopolamine 1 Mg Tdsy) 1 mg TOP X1 ONE Stop: 11/06/24 23:21 Last Admin: 11/06/24 23:36 Dose: 1 mg Documented By: NIEVES(2) Sennosides (Senna Tablet) 1 tab PO QDAY [facility]; Protocol Stop: 12/07/24 08:59 Last Admin: 11/07/24 08:58 Dose: 1 tab Documented By: NIEVES None Consultations Consultation(s) initiated? (list below): No Diagnosis Differential Diagnosis ED Complaint MDM: Acute respiratory failure hypoxia CHF pneumonia Most likely diagnosis given after review of the tests above:: Hypoxia Admission Indicated Admission indicated?: indicated Explain why admission is indicated or not indicated:: Quires further medical management Admission Request Was there a request for admission?: No Disposition Plan Disposition Plan: Admit Medical Decision Making Differential Diagnosis Differential Diagnosis: Acute respiratory failure hypoxia CHF pneumonia Lab Data 11/07/24 04:30 11/07/24 04:30 Labs: Lab Results 11/06/24 Range/Units 20:47 WBC 5.7 (3.8-10.6) Thou/mm3 RBC 4.09 L (4.50-5.90) Miln/mm3 Hgb 11.4 L (13.5-16.0) g/dL Hct 36.8 L (41.0-53.0) % MCV 90 (80-100) fL MCH 27.9 (25.0-35.0) pg MCHC 31.0 (31.0-37.0) g/dl RDW Std Deviation 61.1 H (35.1-43.9) fL Plt Count 166 (140-440) Thou/mm3 Neut % (Auto) 63 (37-80) % Lymph % (Auto) 19 (10-50) % [place] % (Auto) 14 H (0-12) % Eos % (Auto) 3 (0-10) % Baso % (Auto) 1 (0-2.5) % Neut # (Auto) 3.6 (1.8-7.7) Thou/mm3 Lymph # (Auto) 1.1 (1.0-4.8) Thou/mm3 [place] # (Auto) 0.8 (0.0-0.8) Thou/mm3 Eos # (Auto) 0.2 (0.0-0.5) Thou/mm3 Baso # (Auto) 0.0 (0.0-0.2) Thou/mm3 Immature Gran # (Auto) 0.01 H (0.00-0.00) Thou/mm3 Absolute Nucleated RBC 0.02 H (0.00-0.00) Thou/mm3 Immature Gran % 0 (0-0) % Nucleated RBC % 0 (0) /100 WBC PT 17.6 H (9.0-12.2) Seconds INR 1.7 H (0.9-1.3) APTT 39.6 H (22.0-36.0) Seconds Sodium 133 L (136-145) mMol/L Potassium 3.1 L (3.4-5.1) mMol/L Chloride 88 L (98-107) mMol/L Carbon Dioxide 35.8 H (20.0-31.0) mMol/L Anion Gap 9 (7-16) BUN 70 H (9-23) mg/dL Creatinine 2.3 H (0.6-1.3) mg/dL Estim Creat Clear Calc 29.5 L (>60) mL/min eGFR 28 L (60 - ) See Note BUN/Creatinine Ratio 30 H (12-20) Ratio Glucose 110 H (74-106) mg/dL Calculated Osmolality 287 (275-295) Calcium 9.7 (8.3-10.6) mg/dL Corrected Calcium 10.1 (8.5-10.1) mg/dL Magnesium 2.8 H (1.6-2.6) mg/dL Total Bilirubin 3.3 H (0.3-1.2) mg/dL AST 26 (0-34) U/L ALT 19 (10-49) U/L Alkaline Phosphatase 122 H (46-116) U/L Lactate Dehydrogenase 260 H (120-246) U/L Troponin I 0.037 (0.0-0.045) ng/mL B-Natriuretic Peptide 3128 H* (0-100) pg/mL Total Protein 6.1 (5.7-8.2) gm/dL Albumin 3.5 (3.4-4.8) gm/dL Globulin 2.6 (2.3-3.5) gm/dL Albumin/Globulin Ratio 1.3 (1.2-2.2) Discharge Plan Plan Patient Disposition: Admit Acute Care w/in Hospital Problem List Clinical Impression: Acute respiratory failure with hypoxia, CHF (congestive heart failure), Chest pain, Hypokalemia
--- NOTE | 2024-11-06 20:21 | EKG_ITS ---
[facility] (Formerly [facility]) Test Date: 2024-11-06 Pat Name: ANGELES JOHNSON Department: Room: - Gender: Male Pressure Tester: : 1945 Requested By: Jovanni Tenorio Order Number: [id number] Reading MD: Jovanni Tenorio Measurements Intervals [place] Rate: 72 P: AL: QRS: -62 QRSD: 145 T: 98 QT: 471 QTc: 517 Interpretive Statements ATRIAL FIBRILLATION WITH ABERRANT CONDUCTION OR VENTRICULAR PREMATURE COMPLEXES MARKED LEFT AXIS DEVIATION [QRS AXIS < -30] LEFT BUNDLE BRANCH BLOCK [120+ ms QRS DURATION, 80+ ms Q/S IN V1/V2, 85+ ms R IN I/aVL/V5/V6] Compared to ECG 10/11/2024 09:59:10 Ventricular premature complex(es) now present Aberrant conduction of supraventricular beat(s) now present /store/S0/[id number]/ecg/[id number].pdf
--- NOTE | 2024-11-06 20:21 | XR_ITS ---
Examination: AP chest single view Technique one AP portable upright chest single view Exam date and time: November 06, [id number] hrs. Comparison October 05, 2024 Indications: Onset chest pain today. Findings: Early heart failure Moderate enlargement cardiac contour Prominent vascular congestion Suspicious for early edema at the lung bases Cardiac lead satisfactory position Impression: Early heart failure
--- NOTE | 2024-11-06 20:33 | XR_ITS ---
Examination: CT chest, without intravenous contrast. CT abdomen, without intravenous contrast. CT pelvis, without intravenous contrast. 2-D sagittal and coronal reconstructions. 3-D reconstructions. Date and time of exam:November 06, [id number] hrs. Indications: Onset chest pain abdominal pain today CTDI vol (mgy) 15.3 DLP (MGycm)1225 Technique: Multiple CT images, 3.0 mm slice thickness, obtained chest, abdomen, pelvis, with the high-resolution 64 slice scanner.. Sagittal and coronal 2-D reconstructions are obtained. 3-D reconstructions Low dose protocols were performed. One or more of the following dose reduction techniques were used; automated exposure control, adjustment of the mA and/or KV according to patient size, use of iterative reconstruction technique. Findings: No thoracic aortic aneurysm dilatation Pulmonary artery segments are not enlarged No paratracheal tracheobronchial or bronchopulmonary adenopathy Mild pneumonia right base mild to moderate right pleural effusion minimal left pleural effusion Moderate enlargement cardiac contour no pulmonary edema Liver mildly irregular in contour no focal liver lesions No gallstones Spleen is not enlarged No pancreatic or adrenal mass Atrophic kidneys No renal or ureteral calculi Normal appendix Colonic diverticulosis Distended urinary bladder, transverse prostate dimension 4.2 cm Severe osteopenia Chronic osteoporotic compressions lumbar vertebral bodies, severe involving L2 moderate involving L4, L5, L1 Moderate narrowing hip joints Impression: Moderate enlargement cardiac contour Mild pneumonia right base Mild to moderate right pleural effusion Suspect primary hepatocellular disease Atrophic kidneys, no renal or ureteral calculi Normal appendix Colonic diverticulosis, no diverticulitis Distended urinary bladder although no significant prostatomegaly
[2024-11-06 21:07] LABS: Basophils % (Auto) 1 % (0-2.5); Eosinophils # (Auto) 0.2 Thou/mm3 (0.0-0.5); Eosinophils % (Auto) 3 % (0-10); Hematocrit 36.8 % (41.0-53.0); Hemoglobin 11.4 g/dL (13.5-16.0); Immature Granulocytes % (Auto) 0 % (0-0); Immature Granulocytes Auto 0.01 Thou/mm3 (0.00-0.00); Lymphocytes # (Auto) 1.1 Thou/mm3 (1.0-4.8); Lymphocytes % (Auto) 19 % (10-50); Mean Corpuscular Hemoglobin 27.9 pg (25.0-35.0); Mean Corpuscular Volume 90 fL (80-100); Monocytes # (Auto) 0.8 Thou/mm3 (0.0-0.8); Monocytes % (Auto) 14 % (0-12); Neutrophils # (Auto) 3.6 Thou/mm3 (1.8-7.7); Neutrophils % (Auto) 63 % (37-80); Nucleated Red Blood Cell # 0.02 Thou/mm3 (0.00-0.00); Nucleated Red Blood Cell % 0 /100 WBC (0); Platelet Count 166 Thou/mm3 (140-440); RDW Standard Deviation 61.1 fL (35.1-43.9); Red Blood Count 4.09 Miln/mm3 (4.50-5.90); White Blood Count 5.7 Thou/mm3 (3.8-10.6)
--- NOTE | 2024-11-06 21:16 | EDNOTE_ITS ---
ED Chest Pain RME/HPI General Chief Complaint: Chest Pain Stated Complaint: CHEST PAIN Time Seen by Provider: 11/06/24 20:20 Arrival date/time: 11/06/24 20:11 RME / HPI RME / HPI narrative: This section includes all my notes and documentations, including HPI, PE, and ED course. Mal Chaudhari MD HPI: 79-year-old male with PMH remarkable for HFrEF (35-40% on March 2024), s/p AICD, chronic Afib (rate controlled), DVT (on Eliquis), HTN, HLD and DM2 here with chest pain and shortness of breath and leg swelling. He is not the best historian. He is from local snf. ROS: All negative except as documented in HPI. Physical Exam: General: Alert and oriented. No acute distress when remaining still. Eyes: Conjunctivae and lids clear. ENT: No nasal congestion. Neck: Supple. Heart: RRR. Lungs: No respiratory distress. Moderately decreased air movement. No significant rhonchi, wheezing, rales. Chest: Palpation of the anterior chest reproduces his pain. Abdomen: Soft and equivocal tenderness, difficult to localize. Normal bowel sounds. No distension. No rebound or guarding. Back: No CVA tenderness. Skin: Warm and dry. Neuro: Alert and oriented X 3. I reviewed all diagnostic test results. My interpretation of the EKG is My interpretation of the chest x-ray is increased vascular congestion. My review of the CT report is pneumonia and pleural effusion. Blood tests remarkable for K3.1 and elevated BNP. At this point, diagnoses include acute respiratory failure with hypoxia, CHF, hypokalemia, and chest pain. Treatment here included two Tylenol #3 for possible musculoskeletal chest pain. Patient remained stable. I discussed the case with our hospitalist. About the presentation and exam and diagnostics and treatments here. And need of further care in the hospital. Will accept the patient. Based on my best medical judgment, made decision no further evaluation or treatment indicated at this time. Patient understands and agrees to the discharge instructions customized and printed, see below. Mal Chaudhari MD Related Data Home Medications ?Medication ?Instructions ?Recorded ?Confirmed carvedilol 12.5 mg tablet 12.5 mg PO Q12H 10/06/24 10/06/24 fluoxetine 20 mg capsule 20 mg PO QDAY 10/06/24 10/06/24 Previous Rx's ?Medication ?Instructions ?Recorded apixaban 5 mg tablet (Eliquis) 5 mg PO BID #46 tabs 09/06/24 midodrine 5 mg tablet 10 mg (2 x 5 mg) PO TID 30 days 10/20/24 #180 tabs sennosides 8.6 mg capsule (senna) 8.6 mg PO QDAY PRN constipation 10/20/24 #30 caps Allergies Allergy/AdvReac Type Severity Reaction Status Date / Time No Known Allergies Allergy Verified 11/06/24 21:49 Course Quality Measures none Orders Category Date Time Status Bedside COVID-19 Antigen Test NOW Care 11/06/24 20:32 Active Bedside Influenza A&B Antigen Test NOW Care 11/06/24 20:32 Completed COVID-19 Screening Questionnaire NOW Care 11/06/24 22:49 Active Decision to Admit X1 Care 11/06/24 22:49 Completed EKG (ED ONLY) *Do not use* NOW Care 11/06/24 20:21 Completed Saline [Insert IV] NOW Care 11/06/24 20:[address] chest abdomen pelvis wo Stat Exams 11/06/24 20:33 Completed EKG (ED Only) Stat Exams 11/06/24 20:21 Draft XR chest 1V Stat Exams 11/06/24 20:21 Completed B-Type Natriuretic Peptide Stat Lab 11/06/24 20:47 Completed CBC Stat Lab 11/06/24 20:47 Completed Comprehensive Metabolic Panel Stat Lab 11/06/24 20:47 Completed LDH (Lactate Dehydrogenase) Stat Lab 11/06/24 20:47 Completed Magnesium Stat Lab 11/06/24 20:47 Completed Partial Thromboplastin Time Stat Lab 11/06/24 20:47 Completed Prothrombin Time with INR Stat Lab 11/06/24 20:47 Completed Troponin I Stat Lab 11/06/24 20:47 Completed ACETAMINOPHEN w/COD 300-30 [Tylenol w/Cod #3] Med 11/06/24 21:37 Discontinued 2 tab PO X1 ONE KCL 10% Liq UDC 15 ML Med 11/06/24 22:30 Discontinued 40 meq PO X1 ONE Vital Signs Vital signs: Vital Signs Temperature 97.6 F 11/06/24 20:37 Pulse Rate 64 11/06/24 20:37 Respiratory Rate 18 11/06/24 20:37 Blood Pressure 95/67 11/06/24 20:37 Pulse Oximetry (%) 98 11/06/24 20:37 Oxygen Delivery Method Nasal Cannula 11/06/24 20:37 Oxygen Flow Rate 6 11/06/24 20:37 Chest Pain Patient data External records reviewed:: [facility] previous records Clinical information provided by:: patient and EMS Social determinants that could affect healthcare access:: none Patient has the following chronic illnesses:: See chart How is presenting disease/condition affected by chronic disease/condition?: exacerbated by Evaluation data The following diagnostics were reviewed and interpreted by me:: lab results, radiology exam(s) and EKG tracing(s) (My interpretation of the EKG is: Atrial fibrillation (72 bpm) with left BBB and PVCs. Mal Chaudhari MD) Lab and/or radiology exams considered but not ordered:: None Interpretation Summary: Pneumonia and CHF and respiratory failure Medications / Prescriptions Medications or Prescriptions considered but not ordered:: None Medication administrations:: Medication Administration History Acetaminophen (Acetaminophen 325 Mg Tablet) 650 mg PO Q6H PRN PRN Reason: Pain 1-3 and/or Fever >100.1 Stop: 12/06/24 23:11 Apixaban (Apixaban 2.5 Mg Tablet) 5 mg PO BID [facility] Stop: 12/07/24 08:59 Bumetanide (Bumetanide Inj 0.25 Mg/Ml Vial 4 Ml) 2 mg IVP BID [facility] Stop: 12/07/24 08:59 Carvedilol (Carvedilol 3.125 Mg Tablet) 6.25 mg PO BIDWM [facility] Stop: 12/07/24 07:59 Midodrine (Midodrine 5 Mg Tablet) 10 mg PO TID [facility] Stop: 12/06/24 23:29 Last Admin: 11/06/24 23:37 Dose: 10 mg Documented By: NIEVES Nitroglycerin (Nitroglycerin 0.4 Mg Subl Btl #25) 0.4 mg SL Q5MIN PRN PRN Reason: CHEST PAIN Sennosides (Senna Tablet) 1 tab PO QDAY [facility]; Protocol Stop: 12/07/24 08:59 Discontinued Medications Acetaminophen/Codeine Phosphate (Acetaminophen W/Cod 300-30 Tablet) 2 tab PO X1 ONE Stop: 11/06/24 21:38 Last Admin: 11/06/24 21:47 Dose: 2 tab Documented By: STEF Bumetanide (Bumetanide Inj 0.25 Mg/Ml Vial 4 Ml) 2 mg IVP BID [facility] Stop: 12/06/24 23:29 Last Admin: 11/07/24 00:57 Dose: Not Given Documented By: SETF Non-Admin Reason: Cancelled by Provider Bumetanide (Bumetanide Inj 0.25 Mg/Ml Vial 4 Ml) 2 mg IVP X1 ONE Stop: 11/07/24 00:53 Last Admin: 11/07/24 01:10 Dose: 2 mg Documented By: STEF Comments: Med not scanning Bumetanide (Bumetanide Inj 0.25 Mg/Ml Vial 10 Ml) Confirm Administered Dose 2.5 mg .ROUTE .STK-MED ONE Stop: 11/07/24 01:02 Last Admin: 11/07/24 01:10 Dose: Not Given Documented By: STEF Non-Admin Reason: Duplicate Medication on eMAR Ondansetron HCl (Ondansetron Inj 2 Mg/Ml Inj 2 Ml) 4 mg IV Q6H PRN; Protocol PRN Reason: NAUSEA OR VOMITING Stop: 12/06/24 23:11 Potassium Chloride (Potassium Chloride 10% 20 Meq/15 Ml Udc) 40 meq PO X1 ONE Stop: 11/06/24 22:31 Last Admin: 11/06/24 22:41 Dose: 40 meq Documented By: STEF Scopolamine (Scopolamine 1 Mg Tdsy) 1 mg TOP X1 ONE Stop: 11/06/24 23:21 Last Admin: 11/06/24 23:36 Dose: 1 mg Documented By: NIEVES See chart Consultations Consultation(s) initiated? (list below): No Diagnosis Chest Pain Differential Diagnosis: pneumothorax, stable angina, unstable angina pectoris, atypical chest pain, st elevation myocardial infarction and costochondritis Most likely diagnosis given after review of the tests above:: Pneumonia and CHF and respiratory failure Admission Indicated Admission indicated?: indicated Explain why admission is indicated or not indicated:: Acute respiratory failure with hypoxia Admission Request Was there a request for admission?: Yes Admission Attestation Admission request attestation: Discussed case with Hospitalist service regarding admission. Discussed patients ED course, exam findings, labs, and radiology results. The Hospitalist [agrees,declines] to accept the patient for admission. Disposition Plan Disposition Plan: Admit Discharge Plan Plan Patient Disposition: Admit Acute Care w/in Hospital Problem List Clinical Impression: Acute respiratory failure with hypoxia, CHF (congestive heart failure), Chest pain, Hypokalemia
[2024-11-06 21:29] LABS: INR 1.7 (0.9-1.3); Partial Thromboplastin Time 39.6 Seconds (22.0-36.0); Prothrombin Time 17.6 Seconds (9.0-12.2)
[2024-11-06 21:37] LABS: B-Type Natriuretic Peptide 3128 pg/mL (0-100)
[2024-11-06 21:46] LABS: Alanine Aminotransferase 19 U/L (10-49); Albumin, Serum 3.5 gm/dL (3.4-4.8); Albumin/Globulin Ratio 1.3 (1.2-2.2); Alkaline Phosphatase 122 U/L (46-116); Anion Gap 9 (7-16); Aspartate Amino Transferase 26 U/L (0-34); BUN/Creatinine Ratio 30 Ratio (12-20); Bilirubin,Total 3.3 mg/dL (0.3-1.2); Blood Urea Nitrogen 70 mg/dL (9-23); Calcium 9.7 mg/dL (8.3-10.6); Calcium (Corrected) 10.1 mg/dL (8.5-10.1); Carbon Dioxide 35.8 mMol/L (20.0-31.0); Chloride 88 mMol/L (98-107); Creatinine (Component) 2.3 mg/dL (0.6-1.3); Estimated Creatinine Clearance 29.5 mL/min (>60); Globulin 2.6 gm/dL (2.3-3.5); Glucose 110 mg/dL (74-106); Magnesium 2.8 mg/dL (1.6-2.6); Osmolality,Calculated 287 (275-295); Potassium 3.1 mMol/L (3.4-5.1); Sodium 133 mMol/L (136-145); Total Protein 6.1 gm/dL (5.7-8.2); Troponin I 0.037 ng/mL (0.0-0.045); eGFR 28 See Note
[2024-11-06] MEDS: ACETAMINOPHEN w/COD 300-30 TABLET 2 TAB PO (21:47)
[2024-11-06 21:57] LABS: LDH (Lactate Dehydrogenase) 260 U/L (120-246)
[2024-11-06] MEDS: POTASSIUM CHLORIDE 10% 20 MEQ/15 ML UDC 40 MEQ PO (22:41)
--- NOTE | 2024-11-06 23:23 | ESHP_ITS ---
Documentation for date of: 11/06/24 HPI History of Present Illness Chief complaint: Chest pain and shortness of breath History of present illness: 79-year-old male patient with significant medical history of HFrEF (35-40% on March 2024), s/p AICD, chronic Afib (rate controlled), DVT (on Eliquis), HTN, HLD and DM2 was broght to ED from SNF for chest pain/tightness and shortness of breath. He states it feels like somene is sitting on my chest and he cannot properly take deep breaths and also has some palpitations. He denies having any nausea/vomiting/diarrhea, hematuria, dysuria, hematemesis, hematochezia or melena. Patient was recently admitted to [facility] on 10/05/24 for aggressive diuresis with Bumex, metolazone and Diamox for CHF exacerbation and cardiorenal syndrome. Patient also had low blood pressure and was started on midodrine 10 mg 3 times daily. Patient also developed some right elbow swelling with erythema during hospitalization and was started on doxycycline and Rocephin with adequate response. He was discharged on 10/20/2024 to SNF; however, recently developed new chest pain/tightness along with acute shortness of breath requiring an increase in his oxygen requirements (patient usually uses 2 L). Patient's biological daughter is bedside; however, she states that she lives in [place] and does not manage her father's medical condition. She states that the patient's current significant other knows her medical history well but she is not available to a recent in the family. Medical Hx: HFrEF, Afib, DVT, HTN, HLD, DM2 Surgical Hx: s/p AICD, anal fistula, knee arthroscopies Allergies: NKDA Medications (need reconciliation): Eliquis, spironolactone, Bumix, Carvedilol, KCL, Lisinopril, Fluoxetine Family Hx: Noncontributory Social Hx: Former alcohol drinker, denied smoking or using other illicit drugs ROS: All 12 systems assessed and the patient denies unless otherwise stated in HPI In the ED, patient hypoxemic requiring 6 L nasal cannula but satting 98%, normotensive, regular heart rate, respiratory rate 18. Pertinent lab findings include hemoglobin 11.4 (MCV 90), platelet count 166, sodium 133, potassium 3.1, BUN 70, creatinine 2.3, magnesium 2.8, troponin 0.037, BNP 3128. EKG showed atrial fibrillation with marked left axis deviation with left bundle branch block previously seen. X-ray showed early heart failure with signs of moderate cardiac enlargement and prominent vascular congestion. CT scan of chest abdomen and pelvis showed moderate enlargement of the cardiac contour, mild pneumonia in the right base, mild to moderate right pleural effusion, primary hepatocellular disease, atrophic kidneys, distended urinary bladder without significant prostatomegaly, and colonic diverticulosis. Patient will be admitted for NSTEMI type II along with acute decompensated heart failure requiring IV diuretics and cardiology consult. Exam Vital Signs Temp Pulse Resp BP Pulse Ox O2 Del Method O2 Flow Rate 97.6 F 64 18 95/67 98 Nasal Cannula 6 11/06/24 20:37 11/06/24 20:37 11/06/24 20:37 11/06/24 20:37 11/06/24 20:37 11/06/24 20:37 11/06/24 20:37 Narrative Exam Physical Exam: GENERAL: Awake, answering questions appropriately but appears short of breath and somnolent HEENT: NC/AT. Moist mucosa. PERRLA/EOMI. CARDIO: Heart RRR, no obvious murmurs, no JVD. PULM: No coughing or visible SOB. Lungs CTA B/L. GI: Abdomen soft, tender to palpation diffusely, nondistended, no guarding or rigidity noted. Borborgymi apparent SKIN/MSK/EXT: +2 pitting edema up to bilateral thighs. No wounds/discoloration/rashes/amputations noted. +Pedal pulses present B/L. NEURO: Oriented x3, filling mixer strength 5/5, Moves extremities x4. Results: Labs 11/06/24 20:47 11/06/24 20:47 Labs: Short CBC 11/06/24 Range/Units 20:47 WBC 5.7 (3.8-10.6) Thou/mm3 Hgb 11.4 L (13.5-16.0) g/dL Hct 36.8 L (41.0-53.0) % Plt Count 166 (140-440) Thou/mm3 BMP 11/06/24 20:47 Sodium 133 L Potassium 3.1 L Chloride 88 L Carbon Dioxide 35.8 H BUN 70 H Creatinine 2.3 H Glucose 110 H Calcium 9.7 Cardiac Enzymes 11/06/24 Range/Units 20:47 Troponin I 0.037 (0.0-0.045) ng/mL Liver Function 11/06/24 Range/Units 20:47 Total Bilirubin 3.3 H (0.3-1.2) mg/dL AST 26 (0-34) U/L ALT 19 (10-49) U/L Alkaline Phosphatase 122 H (46-116) U/L Albumin 3.5 (3.4-4.8) gm/dL Quality Measures Quality Measures VTE prophylaxis Advance care planning discussed with:: patient Medications Home Medications and Allergies Home Medications ?Medication ?Instructions ?Recorded ?Confirmed ?Type carvedilol 12.5 mg tablet 12.5 mg PO Q12H 10/06/24 10/06/24 History fluoxetine 20 mg capsule 20 mg PO QDAY 10/06/24 10/06/24 History Allergies Allergy/AdvReac Type Severity Reaction Status Date / Time No Known Allergies Allergy Verified 11/06/24 21:49 Visit Medications Acetaminophen (Acetaminophen 325 Mg Tablet) 650 mg PO Q6H PRN PRN Reason: Pain 1-3 and/or Fever >100.1 Stop: 12/06/24 23:11 Apixaban (Apixaban 2.5 Mg Tablet) 5 mg PO BID [facility] Stop: 12/07/24 08:59 Bumetanide (Bumetanide Inj 0.25 Mg/Ml Vial 4 Ml) 2 mg IVP BID [facility] Stop: 12/06/24 23:29 Carvedilol (Carvedilol 3.125 Mg Tablet) 6.25 mg PO BIDWM [facility] Stop: 12/07/24 07:59 Midodrine (Midodrine 5 Mg Tablet) 10 mg PO TID [facility] Stop: 12/06/24 23:29 Nitroglycerin (Nitroglycerin 0.4 Mg Subl Btl #25) 0.4 mg SL Q5MIN PRN PRN Reason: CHEST PAIN Sennosides (Senna Tablet) 1 tab PO QDAY [facility]; Protocol Stop: 12/07/24 08:59 Discontinued Medications Acetaminophen/Codeine Phosphate (Acetaminophen W/Cod 300-30 Tablet) 2 tab PO X1 ONE Stop: 11/06/24 21:38 Last Admin: 11/06/24 21:47 Dose: 2 tab Ondansetron HCl (Ondansetron Inj 2 Mg/Ml Inj 2 Ml) 4 mg IV Q6H PRN; Protocol PRN Reason: NAUSEA OR VOMITING Stop: 12/06/24 23:11 Potassium Chloride (Potassium Chloride 10% 20 Meq/15 Ml Udc) 40 meq PO X1 ONE Stop: 11/06/24 22:31 Last Admin: 11/06/24 22:41 Dose: 40 meq Scopolamine (Scopolamine 1 Mg Tdsy) 1 mg TOP X1 ONE Stop: 11/06/24 23:21 Assessment & Plan Plan 79-year-old male patient with significant medical history of HFrEF (35-40% on March 2024), s/p AICD, chronic Afib (rate controlled), DVT (on Eliquis), HTN, HLD was broght to ED from SNF for chest pain/tightness and shortness of breath will be admitted for NSTEMI type II along with acute decompensated heart failure requiring IV diuretics and cardiology consult #Acute Respiratory Failure 2/ to #Acute decompensated heart failure #HFrEF, status post AICD placement #Cardiorenal syndrome #Right pleural effusion Patient has multiple admissions within the past year for acute decompensated heart failure requiring IV diuretics Recently had admission for CHF causing cardiorenal syndrome with elevated BUN/creatinine, new baseline creatinine > 2.0 Patient presenting from the SNF after he was discharged on 10/20/2024 due to chest tightness and acute shortness of breath requiring 6 L nasal cannula oxygenation Patient does use oxygen at the facility but usually its only 2 L On exam, patient has +2 pitting edema up to bilateral thighs and desats when oxygen requirements are removed Patient is on Bumex 2 mg twice daily, Coreg 6.25 twice daily, spironolactone 25 mg p.o. twice daily and midodrine 10 3 times daily for blood pressure support Patient follows Dr. Alexandra (cardiology) for greater than 25 years and was told to follow-up with him on last discharge; unsure if he did Plan: IV Bumex 2 mg twice daily Fluid restriction 1500 mL Strict I's and O's Daily weight Restarted Coreg and midodrine; will hold off on spironolactone at this time due to cardiorenal syndrome Cardiology, Dr. Alexandra, consulted appreciate recommendations Keep Mag >2.0 and K >4.0 TSH and Lipid panel ordered; A1c is 5.0 from 08/2024 #Chest pain #Likely NSTEMI type II versus type I #Mild pneumonia right base? Patient presenting to the ED with chest tightness which she describes as someone sitting on his chest Pain/tightness does not change in quality when he takes deep breaths and is present at all times; he rates it an 8 out of 10 Troponin initially 0.037 EKG does not show any concerning ST changes; there are left axis deviation and left bundle branch block previously seen on EKGs On CT chest abdomen pelvis there is possible right base pneumonia although the patient does not have any coughing/fever/elevated WBC Plan: Sublingual nitroglycerin Trending troponin #Chronic atrial fibrillation, rate controlled CHADS-VASc 4?points Stroke risk was 4.8% per year in >90,000 patient Patient is currently rate controlled on the above medications mentioned Plan: Continue Eliquis 5 mg p.o. twice daily Telemetry #Hypertension #Hyperlipidemia #History of DVT Chronic medical conditions Plan: Restart medications when appropriate #Abdominal pain #Diverticulosis On exam, patient is presenting with some diffuse abdominal tenderness Last bowel movement was 11/06 and the patient denies having any changes in bowel habits or melena/hematochezia Patient does have history of diverticulosis and CT abdomen pelvis does show presence Plan: Bowel regimen Scopolamine patch for nausea Monitor for changes in pain status #Atrophic kidneys #Primary hepatocellular disease As seen on CT chest abdomen pelvis, noncontributory or pertinent to current presentation Plan: Follow-up outpatient Hospital Management: Lines: PIV Diet: Cardiac Bowel: Senna GI prophylaxis: Not needed DVT prophylaxis: Eliquis 5 mg p.o. twice daily Dispo: IV diuretics and trending troponin for acute decompensated heart failure and likely NSTEMI type II; cardiology consulted appreciate recommendations Code: Full Patient seen and assessed with attending Dr. Manzo and senior resident Dr. Minda Traore, PGY-1
[2024-11-06] MEDS: SCOPOLAMINE 1 MG TDSY TOP (23:36)
[2024-11-06] MEDS: MIDODRINE 5 MG TABLET 10 MG PO (23:37)
[2024-11-07] VITALS (24 sets, daily range): BP systolic 93–127; BP diastolic 56–78; PULSE 57–103; RESP 5–22; TEMP 36–36.6; O2SAT 87–100
[2024-11-07] MEDS: BUMETANIDE INJ 0.25 MG/ML VIAL 4 ML 2 MG IVP ×3 (01:10→20:48)
[2024-11-07 03:00] LABS: Troponin I 0.034 ng/mL (0.0-0.045)
[2024-11-07 04:35] LABS: Basophils % (Auto) 1 % (0-2.5); Eosinophils # (Auto) 0.2 Thou/mm3 (0.0-0.5); Eosinophils % (Auto) 4 % (0-10); Hematocrit 35.4 % (41.0-53.0); Hemoglobin 10.9 g/dL (13.5-16.0); Immature Granulocytes % (Auto) 0 % (0-0); Immature Granulocytes Auto 0.01 Thou/mm3 (0.00-0.00); Lymphocytes # (Auto) 1.1 Thou/mm3 (1.0-4.8); Lymphocytes % (Auto) 22 % (10-50); Mean Corpuscular HGB Conc 30.8 g/dl (31.0-37.0); Mean Corpuscular Hemoglobin 27.9 pg (25.0-35.0); Mean Corpuscular Volume 91 fL (80-100); Monocytes # (Auto) 0.7 Thou/mm3 (0.0-0.8); Monocytes % (Auto) 14 % (0-12); Neutrophils # (Auto) 2.9 Thou/mm3 (1.8-7.7); Neutrophils % (Auto) 60 % (37-80); Nucleated Red Blood Cell % 0 /100 WBC (0); Platelet Count 147 Thou/mm3 (140-440); RDW Standard Deviation 61.6 fL (35.1-43.9); White Blood Count 4.9 Thou/mm3 (3.8-10.6)
[2024-11-07 04:49] LABS: INR 1.6 (0.9-1.3); Prothrombin Time 17.1 Seconds (9.0-12.2)
[2024-11-07 05:07] LABS: Alanine Aminotransferase 19 U/L (10-49); Albumin, Serum 3.4 gm/dL (3.4-4.8); Albumin/Globulin Ratio 1.3 (1.2-2.2); Alkaline Phosphatase 108 U/L (46-116); Anion Gap 7 (7-16); Aspartate Amino Transferase 25 U/L (0-34); BUN/Creatinine Ratio 30 Ratio (12-20); Bilirubin,Total 3.1 mg/dL (0.3-1.2); Blood Urea Nitrogen 76 mg/dL (9-23); Calcium 9.2 mg/dL (8.3-10.6); Calcium (Corrected) 9.7 mg/dL (8.5-10.1); Carbon Dioxide 37.2 mMol/L (20.0-31.0); Cardiac Risk Estimate 6.3 RATIO (4.0-6.7); Chloride 88 mMol/L (98-107); Cholesterol 114 mg/dL (132-200); Creatinine (Component) 2.5 mg/dL (0.6-1.3); Estimated Creatinine Clearance 27.1 mL/min (>60); Globulin 2.6 gm/dL (2.3-3.5); Glucose 86 mg/dL (74-106); HDL Cholesterol 18 mg/dL (40-60); LDL Cholesterol,Calculated 75 mg/dL (0-130); Magnesium 2.8 mg/dL (1.6-2.6); Osmolality,Calculated 286 (275-295); Potassium 3.4 mMol/L (3.4-5.1); Sodium 132 mMol/L (136-145); Thyroid Stimulating Hormone 10.26 uIU/mL (0.55-4.78); Triglycerides 106 mg/dL (30-150); eGFR 25 See Note
[2024-11-07] MEDS: MIDODRINE 5 MG TABLET 10 MG PO ×3 (07:25→21:05)
[2024-11-07] MEDS: APIXABAN 2.5 MG TABLET 5 MG PO ×2 (08:58→20:45)
[2024-11-07] MEDS: SENNA TABLET 1 TAB PO (08:58)
[2024-11-07] MEDS: carVEDILOL 3.125 MG TABLET 6.25 MG PO (09:02)
[2024-11-07] MEDS: POTASSIUM CHL 10 mEq IVPB 10 MEQ/100 ML BAG 100 MEQ IV (09:02)
--- NOTE | 2024-11-07 09:12 | ESPR_ITS ---
<Statement entered by Checo Lopez MD - 11/07/24 16:37> A 79-year-old male patient with past medical history of HFrEF ejection fraction of 35 to 40% on March 2024, AI CD, chronic A-fib, DVT on Eliquis, hypertension, hyperlipidemia came to the ED from SNF after he started to feel chest pain and tightness. Patient was admitted for evaluation of typical chest pain however patient was noticed to have acute CHF exacerbation. BNP was in the 3000's, troponin negative in 2 studies, EKG was negative for any ischemic changes. #Acute respiratory failure secondary to CHF exacerbation #HFrEF exacerbation #Labile blood pressure #Mild to moderate pleural effusion likely transudate from CHF #A-fib rate controlled #History of bilateral lower extremity DVT diagnosed in August 2024 #Skin petechia most likely secondary to blood thinners We consulted customer retention representative Dr. Alexandra, patient was started on Bumex 2 mg twice twice daily,, we resumed the patient's Coreg 6.125 mg twice daily we also started the patient on midodrine 10 mg 3 times daily Fluid restriction also on strict in and out was ordered. Echocardiogram was ordered to reevaluate the patient for possible optimizing his goal-directed medical therapy if needed. Patient is on Eliquis 5 mg p.o which may be the reason that the patient has petechiae as the patient does not have any other skin rash and no itching. #Chest pain #Pleural effusion Patient has pleural effusion and it seems that his chest pain is secondary to his pleural effusion. No need for drainage at this time we will only continue to diurese the patient at this time. #Right elbow erythema #Right elbow swelling This month patient has undergone multiple imaging to rule out if there is any septic arthritis which was inconclusive. Ultrasound of the elbow suggested that the patient has possible bursitis. Patient was started on doxycycline and ceftriaxone which resulted in significant improvement. For that reason we will resume the patient on same antibiotics and will order for the patient ESR and CRP just to rule out if there is any worsening of the infection. #Hyperbilirubinemia #Primary hepatobiliary disease Patient CT scan showed hepatobiliary disease, liver functions normal except bilirubin levels. He has consistently elevated bilirubin level. Plan Follow-up with the rail loader in outpatient settings at this time. - Patient's plan and care discussed with my attending, Dr. Magdy Lopez, MD Internal Medicine PGY-2 Documentation for date of: 11/07/24 Subjective Subjective Interval history: Pt examined at bedside today. No acute overnight events. Pt reports that he came to the hospital for shortness of breath but does not remember if he was having chest pain. Says that he has some shortness of breath right now but does not have any chest pain. Says that his elbow still hurts from previous admission. No other complaints at this time. Exam Vital Signs Temp Pulse Resp BP Pulse Ox O2 Del Method O2 Flow Rate 97.8 F 85 16 96/74 100 Nasal Cannula 2 11/07/24 06:14 11/07/24 07:25 11/07/24 06:14 11/07/24 07:25 11/07/24 06:14 11/07/24 06:14 11/07/24 06:14 Narrative Exam General: AAOx2, not oriented to time, obese male HEENT: Conjunctiva clear, EOMI, PERRLA, Cardiovascular: S1, S2, radial pulses +2 bilat, RRR, possible murmur heard on LIZBET border Pulmonary: Some crackles heard in LLL GI: No tenderness to light or deep palpitation, no guarding, rigidity, rebound tenderness or distension Extremities: +1 pitting edema in LE bilat, faint dorsalis pedis pulses, R elbow erythematous and a bit edematous MSK: reduced range of motion with flexion of R elbow Skin: Some purpura through UE bilat. Small petechiae present on upper R deltoid and part of chest bilat Neuro: AAOx2, pupillary reflex intact bilat Psych: Able to cooperate. Objective Labs 11/07/24 04:30 11/07/24 04:30 Labs: Laboratory Results - last 24 hr 11/06/24 11/07/24 11/07/24 20:47 02:29 04:30 WBC 5.7 4.9 RBC 4.09 L 3.90 L Hgb 11.4 L 10.9 L Hct 36.8 L 35.4 L MCV 90 91 MCH 27.9 27.9 MCHC 31.0 30.8 L RDW Std Deviation 61.1 H 61.6 H Plt Count 166 147 Neut % (Auto) 63 60 Lymph % (Auto) 19 22 Grimes % (Auto) 14 H 14 H Eos % (Auto) 3 4 Baso % (Auto) 1 1 Neut # (Auto) 3.6 2.9 Lymph # (Auto) 1.1 1.1 Grimes # (Auto) 0.8 0.7 Eos # (Auto) 0.2 0.2 Baso # (Auto) 0.0 0.0 Immature Gran # (Auto) 0.01 H 0.01 H Absolute Nucleated RBC 0.02 H 0.00 Immature Gran % 0 0 Nucleated RBC % 0 0 PT 17.6 H 17.1 H INR 1.7 H 1.6 H APTT 39.6 H Sodium 133 L 132 L Potassium 3.1 L 3.4 Chloride 88 L 88 L Carbon Dioxide 35.8 H 37.2 H Anion Gap 9 7 BUN 70 H 76 H Creatinine 2.3 H 2.5 H Estim Creat Clear Calc 29.5 L 27.1 L eGFR 28 L 25 L BUN/Creatinine Ratio 30 H 30 H Glucose 110 H 86 Calculated Osmolality 287 286 Calcium 9.7 9.2 Corrected Calcium 10.1 9.7 Phosphorus 5.0 Magnesium 2.8 H 2.8 H Total Bilirubin 3.3 H 3.1 H AST 26 25 ALT 19 19 Alkaline Phosphatase 122 H 108 Lactate Dehydrogenase 260 H Troponin I 0.037 0.034 B-Natriuretic Peptide 3128 H* Total Protein 6.1 6.0 Albumin 3.5 3.4 Globulin 2.6 2.6 Albumin/Globulin Ratio 1.3 1.3 Triglycerides 106 Cholesterol 114 L LDL Cholesterol, Calc 75 HDL Cholesterol 18 L Cholesterol/HDL Ratio 6.3 TSH 10.26 H Quality Measures Quality Measures none Advance care planning discussed with:: patient Assessment & Plan Assessment Current Active Medications: Generic Name Dose Route Start Last Admin Trade Name Freq PRN Reason Stop Dose Admin Acetaminophen 650 mg 11/06/24 23:12 Acetaminophen 325 Mg Tablet PO 12/06/24 23:11 Q6H PRN Pain 1-3 and/or Fever >100.1 Apixaban 5 mg 11/07/24 09:00 Apixaban 2.5 Mg Tablet PO 12/07/24 08:59 BID YASSINE Bumetanide 2 mg 11/07/24 09:00 Bumetanide Inj 0.25 Mg/Ml Vial 4 Ml IVP 12/07/24 08:59 BID YASSINE Carvedilol 6.25 mg 11/07/24 08:00 Carvedilol 3.125 Mg Tablet PO 12/07/24 07:59 BIDWM YASSINE Potassium Chloride 10 meq in 100 mls @ 100 mls/hr 11/07/24 08:30 Kcl Ivpb IV 11/07/24 12:29 Q1H YASSINE Midodrine 10 mg 11/06/24 23:30 11/07/24 07:25 Midodrine 5 Mg Tablet PO 12/06/24 23:29 10 mg TID YASSINE Administration Nitroglycerin 0.4 mg 11/06/24 23:20 Nitroglycerin 0.4 Mg Subl Btl #25 SL Q5MIN PRN CHEST PAIN Potassium Chloride 40 meq 11/07/24 14:00 Potassium Chloride 20 Meq Tabcr PO 11/07/24 14:01 X1 ONE Sennosides 1 tab 11/07/24 09:00 Senna Tablet PO 12/07/24 08:59 QDAY YASSINE Protocol Plan Plan 79-year-old male patient with significant medical history of HFrEF (35-40% on March 2024), s/p AICD, chronic Afib (rate controlled), DVT (on Eliquis), HTN, HLD was broght to ED from SNF for chest pain/tightness and shortness of breath will be admitted for NSTEMI type II along with acute decompensated heart failure requiring IV diuretics and cardiology consult #Acute Respiratory Failure 2/2 to #Acute decompensated heart failure #HFrEF, status post AICD placement #Cardiorenal syndrome #Right pleural effusion #Hypotension Patient has multiple admissions within the past year for acute decompensated heart failure requiring IV diuretics Recently had admission for CHF causing cardiorenal syndrome with elevated BUN/creatinine, new baseline creatinine > 2.0 Patient presenting from the SNF after he was discharged on 10/20/2024 due to chest tightness and acute shortness of breath requiring 6 L nasal cannula oxygenation Patient does use oxygen at the facility but usually its only 2 L Patient is on Bumex 2 mg twice daily, Coreg 6.25 twice daily, spironolactone 25 mg p.o. twice daily and midodrine 10 3 times daily for blood pressure support Patient follows Dr. Alexandra (cardiology) for greater than 25 years and was told to follow-up with him on last discharge; unsure if he did A1c 5.0 from 08/2024 Lipid Panel: Total cholesterol ~110, LDL 75 On admission, pt was pitting +2, and required 6L O2, currently is on 2L and is not pitting. Net: -1500 mL Hypotension likely related to HFrEF and diuresis Plan: Cardiology, Dr. Alexandra, consulted appreciate recommendations IV Bumex 2 mg twice daily w/ holding parameters SBP below 90 Coreg 6.125 BID, hold if below HR 70 Midodrine 10 mg TID, hold if SBP above 110 Fluid restriction 1500 mL Strict I's and O's Daily weight Cardiology, Dr. Alexandra, consulted appreciate recommendations Keep Mag >2.0 and K >4.0 *Echo #Chest pain, improved #Likely NSTEMI type II versus type I, resolved #CAP, R base Patient presenting to the ED with chest tightness which she describes as someone sitting on his chest Pain/tightness does not change in quality when he takes deep breaths and is present at all times; he rates it an 8 out of 10 EKG does not show any concerning ST changes; there are left axis deviation and left bundle branch block previously seen on EKGs On CT chest abdomen pelvis there is possible right base pneumonia although the patient does not have any coughing/fever/elevated WBC Pt is not having chest pain at this point, this could be pleuritic chest pain Will add abx Troponin negative x2 Plan: Holding Sublingual nitroglycerin as pt has hypotension Dilaudid 0.25 mg q4h as needed Continue with Rocephin #Right elbow swelling #Right elbow erythema DDx: [place] bursitis versus cellulitis versus abscess vs gout On physical exam tender to palpation, and is red Ultrasound on previous admission shows fluid in all draining bursa, 4.6 x 1.2 x 4.4, severe generalized edema, will olceranon bursitis versus abscess Patient had MRI done on previous admission however MRI reading affected by patient moving arm during MRI Considering patient's elbow looks worse from when last discharged on previous admission, will need to take a closer look and add antibiotic coverage Will hold on MRI at this point Plan: -Rocephin and Doxy (11/07?) ?*ESR, CRP #Primary hepatocellular disease #Elevated total bilirubin Chronically elevated in the ~3.0s Mostly related to hepatic congestion CT shows primary hepatocellular disease LFTs are normal Less concern for hemolysis We will keep an eye for further workup Plan: ? Monitor with CMP #Chronic atrial fibrillation, rate controlled CHADS-VASc 4?points Stroke risk was 4.8% per year in >90,000 patient Patient is currently rate controlled on the above medications mentioned Plan: Continue Eliquis 5 mg p.o. twice daily Telemetry #History of hypertension #Hyperlipidemia #History of DVT Chronic medical conditions Plan: Restart medications when appropriate #Abdominal pain #Diverticulosis On exam, patient is presenting with some diffuse abdominal tenderness Last bowel movement was 11/06 and the patient denies having any changes in bowel habits or melena/hematochezia Patient does have history of diverticulosis and CT abdomen pelvis does show presence Plan: Bowel regimen Scopolamine patch for nausea Monitor for changes in pain status #Atrophic kidneys #Primary hepatocellular disease As seen on CT chest abdomen pelvis, noncontributory or pertinent to current presentation Plan: Follow-up outpatient #Health Maintenance Disposition: Telemetry DVT prophylaxis: Eliquis 5 mg twice daily GI prophylaxis: Not indicated at this time Diet: Cardiac CODE STATUS: Full Patient seen and care discussed with my senior resident, Dr. Lopez , and my attending physician, Dr. Magdy Fay, PGY-1 Attending Provider Attestation/Addendum I have examined the patient, reviewed labs and imaging findings, discussed the case with the resident(s), and reviewed entered orders. I agree with the plan of care as outlined in this note, with these additional summaries/recommendations: Patient seen at bedside and resting comfortably. Patient's son at bedside. Patient admitted overnight for acute hypoxic respiratory failure secondary to CHF exacerbation. Previous echocardiogram showed ejection fraction of 35%. Repeat echocardiogram ordered. Patient already net -1.2 L. Continue fluid restriction and IV Bumex for preload reduction. Continue Coreg for neurohormonal blockade. Unfortunately unable to uptitrate goal-directed medical therapy at this time secondary to chronic hypotension. Continue home midodrine 10 mg p.o. 3 times daily. Cardiology consulted. Also concern for community- acquired pneumonia and right elbow cellulitis/bursitis. Continue IV antibiotics. Patient has previously underwent extensive workup of the right elbow with ultrasound and MRI which were relatively unrevealing. Patient is able to move his right upper extremity and we will monitor for now. Patient may need repeat imaging at a later date. Patient also endorsed chest pain on admission which seems more pleuritic in nature and troponin negative x 2 with no EKG changes indicative of acute ischemia. ERLIN on CKD present and possibly related to cardiorenal syndrome. We will continue diuresis and if no improvement, we will consult nephrology. Avoid nephrotoxic agents and renally dose medications. Contraction alkalosis present and we will monitor for now and give acetazolamide if needed. Hyperbilirubinemia present which is chronic in nature. No suspicion for hemolytic anemia at this time and most likely related to congestive hepatopathy. Patient and son updated on the plan and in agreement. Repeat hematology and chemistry panel in AM. Dr. Curran
[2024-11-07 10:11] LABS: Free T4 (Free Thyroxine) 1.43 ng/dL (0.89-1.76)
--- NOTE | 2024-11-07 10:21 | ECHO_ITS ---
Transthoracic Echo Report Ht (in): 70 Wt (lb): 204 Exam Location: [facility] Status: Inpatient Construction Management Instructor: Lauren Hinton Indications: Procedure Performed: BP: 90 / 62 HR: 65 Technical Quality: Fair MEASUREMENTS (Male / Female) Normal Values 2D ECHO LV Diastolic Diameter PLAX 6.4 cm 4.2 - 5.9 / 3.9 - 5.3 cm LV Systolic Diameter PLAX 6.2 cm IVS Diastolic Thickness 0.9 cm 0.6 - 1.0 / 0.6 - 0.9 cm LVPW Diastolic Thickness 0.9 cm 0.6 - 1.0 / 0.6 - 0.9 cm LV Relative Wall Thickness 0.3 LVOT Diameter 2.3 cm LA Volume Index 55.0 cm?/m? 16 - 28 cm?/m? Ascending Aorta Diameter 3.3 cm M-MODE Aortic Root Diameter MM 3.1 cm LA Systolic Diameter MM 5.0 cm LA Ao Ratio MM 1.6 MV E Point Septal Separation 1.9 cm AV Cusp Separation MM 2.2 cm DOPPLER AV Peak Velocity 76.0 cm/s AV Peak Gradient 2.3 mmHg AV Mean Gradient 1.0 mmHg AV Velocity Time Integral 12.4 cm LVOT Peak Velocity 63.5 cm/s LVOT Peak Gradient 1.6 mmHg LVOT Velocity Time Integral 9.7 cm LVOT Cardiac Index 1218.2 cm?/min?m? AV Area Cont Eq vti 3.3 cm? AV Area Cont Eq pk 3.5 cm? MV Peak Velocity 102.0 cm/s MV Peak Gradient 4.2 mmHg MV Mean Velocity 48.6 cm/s MV Mean Gradient 1.0 mmHg MV Area PHT 4.2 cm? MR Peak Velocity 380.0 cm/s MR Peak Gradient 57.8 mmHg Mitral E Point Velocity 71.8 cm/s Mitral A Point Velocity 3.9 cm/s Mitral E to A Ratio 18.5 LV E' Lateral Velocity 5.9 cm/s Mitral E to LV E' Lateral Ratio 12.2 LV E' Septal Velocity 5.9 cm/s Mitral E to LV E' Septal Ratio 12.2 TR Peak Velocity 268.7 cm/s TR Peak Gradient 28.9 mmHg FINDINGS Left Ventricle Dilated left ventricle. Severe systolic dysfunction. Akinesis apex, apical lateral and septal and p osterior. The ejection fraction is visually estimated at 10-15 %. Right Ventricle The right ventricle is mildly dilated. Low systolic dysfunction. The estimated right ventricular sys tolic pressure, 50mmHg. RAP 15 Pacing wire present. Left Atrium The left atrium is severely dilated. Right Atrium The right atrium is severely dilated. Atrial Septum The interatrial septum appears normal with no evidence of a shunt. Aorta The aorta is normal by two-dimensional, color flow and Doppler interrogation. Mitral Valve The mitral valve is normal by two-dimensional, color flow and Doppler interrogation. There is modera te mitral valve regurgitation with posterior eccentric jet. Aortic Valve The aortic valve is trileaflet and normal by two-dimensional, color flow and Doppler interrogation. There is trace aortic valve regurgitation. Tricuspid Valve The tricuspid valve is normal by two-dimensional, color flow and Doppler interrogation. There is mod erate tricuspid valve regurgitation. Pulmonic Valve There is mild pulmonic valve regurgitation. Vessels The pulmonary artery appears normal. The inferior vena cava pulmonary and hepatic veins appear sever [place] dilated. Pericardium The pericardium is normal by two-dimensional imaging. There is no significant pericardial effusion. CONCLUSIONS Dilated LV. Severe systolic dysfunction. Severe global hypokinesisl. Estimated EF 10-15% Dilated RV. Low RV function. Estimated RVSP 50mmHg, Pacing wire present. Severe biatrial dilatation Moderate MR with posterior eccentric jet. Modrate TR, Mild PI. Trace AI. Severe IVC dilatation. Farzana Lester (Electronically Signed) Final Date: 08 November 2024 17:21
[2024-11-07] MEDS: DOXYCYCLINE 100 MG TABLET PO ×2 (10:41→20:45)
[2024-11-07] MEDS: cefTRIAXone/D5w 1gm IV premix 50 ML IV (10:41)
[2024-11-07 10:45] LABS: Sed Rate (ESR) 19 mm/hr (0-20)
[2024-11-07] MEDS: POTASSIUM CHL 10 mEq IVPB 10 MEQ/100 ML BAG 50 MEQ IV (11:11)
[2024-11-07 11:12] LABS: C-Reactive Protein 1.6 mg/dL (0.0-0.9)
[2024-11-07] MEDS: POTASSIUM CHL 10 mEq IVPB 10 MEQ/100 ML BAG 75 MEQ IV ×2 (13:06→14:33)
[2024-11-07] MEDS: POTASSIUM CHLORIDE 20 mEq TABCR 40 MEQ PO (13:07)
--- NOTE | 2024-11-07 14:00 | ESCONSULT_ITS ---
<Statement entered by Zac Alexandra MD - 11/10/24 10:16> The patient is well-known to me evaluated by me as patient has a history of nonischemic cardiomyopathy chronic systolic heart failure ejection fraction of 25 to 30% range recurrent hospitalization with low output heart failure as well as decompensated heart failure evaluated the patient myself with PGY 2 Dr. Johnson patient is doing poorly overall but no acute decompensation will continue to monitor the patient we will repeat a cardiac echo for assessment ejection fraction agree with treatment plan recommendation as formulated by Dr. Johnson PGY2 HPI Data of Consult Requesting Physician: Terrie Manzo MD Admitting Provider: Terrie Manzo MD Attending Provider: Terrie Manzo MD Primary Care Provider: Physician No Primary/Family Consult Narrative History of present illness: 79-year-old male patient with significant medical history for HFrEF (35 to 40%, March 2024), SP AICD placement, chronic A-fib, DVT (on Eliquis), hypertension, hyperlipidemia, and DM2 was brought to ED from senior living facility with symptoms of shortness of breath and chest pain. In ED patient had described his chest pain as someone sitting on his chest. Patient denied nausea, vomiting, diarrhea, fever, chills, cough, dysuria or other associate symptoms. Patient was recently admitted at [facility] on 10/05/2024 for ERLIN secondary to aggressive diuresis at home. Eventually patient was discharged on 10/20/2024. Today patient states that he has been experiencing increased oxygen demand (usually uses 2 L). In ED patient was hypoxic and required 6 L nasal cannula. Labs were significant for Hgb 11.4, NA 133, K3.1, BUN 70, creatinine 2.3, BNP 3128, trops 0.037. EKG showed A-fib with left axis deviation and LBBB as previously seen. Chest x-ray showed early heart failure with moderate cardiac enlargement and prominent vascular congestion. Chest abdomen pelvis CT indicated mild pneumonia in the right base, mild to moderate right pleural effusion, hepatocellular disease, atrophic kidneys, distended bladder without significant prostamegaly and colonic diverticulosis. Cardiology was consulted regarding further management. Medical Hx: HFrEF, Afib, DVT, HTN, HLD, DM2 Surgical Hx: s/p AICD, anal fistula, knee arthroscopies Medications (need reconciliation): Eliquis, spironolactone, Bumix, Carvedilol, KCL, Lisinopril, Fluoxetine Social Hx: Former alcohol drinker, denied smoking or using other illicit drugs Allergies: NKDA Code Status: Full Code 11/07/2024: During examination today when questioned, patient states he does not know why he was brought to the hospital. He denies chest pain or chest pressure. Will recommend short trial of Bumex 2 mg twice daily after which she could be switched to only 2 mg daily. We also recommend continuing Coreg if tolerated by blood pressure. cc:: cc: Terrie Manzo MD Review of Systems Review of Systems Systems Reviewed: All systems reviewed, normal except as documented Exam Vital Signs Temp Pulse Resp BP Pulse Ox O2 Del Method O2 Flow Rate 96.9 F 82 18 93/62 98 Room Air 2 11/07/24 12:00 11/07/24 13:06 11/07/24 12:00 11/07/24 13:06 11/07/24 12:00 11/07/24 12:00 11/07/24 06:14 Narrative Exam Constitutional: well-developed, well-nourished, in no acute distress, lying in bed HEENT: NCAT, EOMI, reactive round pupils b/l, patent nares b/l, moist mucous membranes Lung: CTAB, no wheezing, no rhonchi, mild crackles of lower lobes R > L Heart: Regular S1S2, no murmurs, gallops, or rubs Abdomen: Soft, non-distended, non-tender, bowel sounds present throughout Extremities: No cyanosis, clubbing, trace edema of LE, LE pulses present b/l Neurologic: No focal sensory or motor deficits noted, AOx3, appropriate affect Skin: Warm, dry Results Labs 11/07/24 04:30 11/07/24 04:30 Labs: Short CBC 11/06/24 11/07/24 Range/Units 20:47 04:30 WBC 5.7 4.9 (3.8-10.6) Thou/mm3 Hgb 11.4 L 10.9 L (13.5-16.0) g/dL Hct 36.8 L 35.4 L (41.0-53.0) % Plt Count 166 147 (140-440) Thou/mm3 BMP 12/24/24 12/25/24 20:47 04:30 Sodium 133 L 132 L Potassium 3.1 L 3.4 Chloride 88 L 88 L Carbon Dioxide 35.8 H 37.2 H BUN 70 H 76 H Creatinine 2.3 H 2.5 H Glucose 110 H 86 Calcium 9.7 9.2 Cardiac Enzymes 11/06/24 11/07/24 Range/Units 20:47 02:29 Troponin I 0.037 0.034 (0.0-0.045) ng/mL Liver Function 11/06/24 11/07/24 Range/Units 20:47 04:30 Total Bilirubin 3.3 H 3.1 H (0.3-1.2) mg/dL AST 26 25 (0-34) U/L ALT 19 19 (10-49) U/L Alkaline Phosphatase 122 H 108 (46-116) U/L Albumin 3.5 3.4 (3.4-4.8) gm/dL Quality Measures Quality Measures none Advance care planning discussed with:: other Medications Home Medications and Allergies Home Medications ?Medication ?Instructions ?Recorded ?Confirmed ?Type carvedilol 12.5 mg tablet 12.5 mg PO Q12H 10/06/24 11/07/24 History fluoxetine 20 mg capsule 20 mg PO QDAY 10/06/24 11/07/24 History bisacodyl 10 mg rectal suppository 10 mg GA Q72H PRN Constipation 11/07/24 11/07/24 History (Dulcolax (bisacodyl)) levothyroxine 25 mcg tablet 25 mcg PO QDAY 11/07/24 11/07/24 History (Synthroid) magnesium hydroxide 400 mg/5 mL 30 ml PO Q72H PRN Constipation 11/07/24 11/07/24 History oral suspension (Milk of Magnesia) melatonin 3 mg tablet 6 mg PO HS 11/07/24 11/07/24 History sodium phosphates 19 gram-7 118 ml GA Q72H PRN Constipation 11/07/24 11/07/24 History gram/118 mL enema (Fleet Enema) Allergies Allergy/AdvReac Type Severity Reaction Status Date / Time No Known Allergies Allergy Verified 11/06/24 21:49 Visit Medications Acetaminophen (Acetaminophen 325 Mg Tablet) 650 mg PO Q6H PRN PRN Reason: Pain 1-3 and/or Fever >100.1 Stop: 12/06/24 23:11 Apixaban (Apixaban 2.5 Mg Tablet) 5 mg PO BID [facility] Stop: 12/07/24 08:59 Last Admin: 11/07/24 08:58 Dose: 5 mg Bumetanide (Bumetanide Inj 0.25 Mg/Ml Vial 4 Ml) 2 mg IVP BID [facility] Stop: 12/07/24 08:59 Carvedilol (Carvedilol 3.125 Mg Tablet) 6.25 mg PO BIDWM [facility] Stop: 12/07/24 07:59 Doxycycline Hyclate (Doxycycline 100 Mg Tablet) 100 mg PO BID [facility] Stop: 11/14/24 10:14 Last Admin: 11/07/24 10:41 Dose: 100 mg Hydromorphone HCl (Hydromorphone Inj 2 Mg/Ml Vial) 0.25 mg IVP Q4HR PRN PRN Reason: Pain 4-7 Stop: 11/12/24 10:19 Ceftriaxone Sodium/Dextrose (Rocephin/D5w 1gm Iv Premix) 50 mls @ 100 mls/hr IV QDAY [facility] Stop: 11/14/24 10:10 Last Admin: 11/07/24 10:41 Dose: 100 mls/hr Midodrine (Midodrine 5 Mg Tablet) 10 mg PO TID [facility] Stop: 12/06/24 23:29 Last Admin: 11/07/24 13:06 Dose: 10 mg Nitroglycerin (Nitroglycerin 0.4 Mg Subl Btl #25) 0.4 mg SL Q5MIN PRN PRN Reason: CHEST PAIN Potassium Chloride (Potassium Chloride 20 Meq Tabcr) 40 meq PO X1 ONE Stop: 11/07/24 14:01 Last Admin: 11/07/24 13:07 Dose: 40 meq Sennosides (Senna Tablet) 1 tab PO QDAY [facility]; Protocol Stop: 12/08/24 08:59 Discontinued Medications Acetaminophen/Codeine Phosphate (Acetaminophen W/Cod 300-30 Tablet) 2 tab PO X1 ONE Stop: 11/06/24 21:38 Last Admin: 11/06/24 21:47 Dose: 2 tab Bumetanide (Bumetanide Inj 0.25 Mg/Ml Vial 4 Ml) 2 mg IVP BID [facility] Stop: 12/06/24 23:29 Last Admin: 11/07/24 00:57 Dose: Not Given Bumetanide (Bumetanide Inj 0.25 Mg/Ml Vial 4 Ml) 2 mg IVP X1 ONE Stop: 11/07/24 00:53 Last Admin: 11/07/24 01:10 Dose: 2 mg Bumetanide (Bumetanide Inj 0.25 Mg/Ml Vial 4 Ml) 2 mg IVP BID [facility] Stop: 12/07/24 08:59 Last Admin: 11/07/24 09:04 Dose: 2 mg Carvedilol (Carvedilol 3.125 Mg Tablet) 6.25 mg PO BIDWM [facility] Stop: 12/07/24 07:59 Last Admin: 11/07/24 09:02 Dose: 6.25 mg Potassium Chloride (Kcl Ivpb) 10 meq in 100 mls @ 100 mls/hr IV Q1H [facility] Stop: 11/07/24 12:29 Last Admin: 11/07/24 13:06 Dose: 75 mls/hr Midodrine (Midodrine 5 Mg Tablet) 10 mg PO TID [facility] Stop: 12/06/24 23:29 Last Admin: 11/07/24 07:25 Dose: 10 mg Ondansetron HCl (Ondansetron Inj 2 Mg/Ml Inj 2 Ml) 4 mg IV Q6H PRN; Protocol PRN Reason: NAUSEA OR VOMITING Stop: 12/06/24 23:11 Potassium Chloride (Potassium Chloride 10% 20 Meq/15 Ml Udc) 40 meq PO X1 ONE Stop: 11/06/24 22:31 Last Admin: 11/06/24 22:41 Dose: 40 meq Potassium Chloride (Potassium Chloride 20 Meq Tabcr) 40 meq PO X1 ONE Stop: 11/07/24 08:08 Last Admin: 11/07/24 08:50 Dose: Not Given Scopolamine (Scopolamine 1 Mg Tdsy) 1 mg TOP X1 ONE Stop: 11/06/24 23:21 Last Admin: 11/06/24 23:36 Dose: 1 mg Sennosides (Senna Tablet) 1 tab PO QDAY [facility]; Protocol Stop: 12/07/24 08:59 Last Admin: 11/07/24 08:58 Dose: 1 tab Assessment & Plan Plan 79-year-old male patient with significant medical history for HFrEF (35 to 40%, March 2024), SP AICD placement, chronic A-fib, DVT (on Eliquis), hypertension, hyperlipidemia, and DM2 was brought to ED from senior living facility with symptoms of shortness of breath and chest pain. Patient admitted for CHF exacerbation and also consulted cardiology. #Acute on chronic HFrEF (35-40%) #s/p AICD #Right heart failure Plan: -Continue Bumex 2 mg IV BID ?Continue Coreg -Monitor intake and output -Keep K > 4 and Mg > 2 -Fluid restriction -Strict I & O's -Echocardiogram pending #Hx of b/l DVT #Afib rate controlled Patient recently admitted for b/l DVT on eliquis. Physical exam significant for mild edema of lower extremities. Plan: -Continue Eliquis p.o. 5 mg BID #Right elbow swelling #Right elbow erythema #Transaminitis #Elevated T bili #Diabetes mellitus type 2 -Management per primary team This patient care was discussed with my attending Dr. Ibrahima Sheth MD PGY-2 Disclaimer: Minor errors in set off blocker may be present since this note was dictated by speech recognition software.
[2024-11-07] MEDS: TAMSULOSIN HCL 0.4 MG CAPSULE PO (15:59)
[2024-11-08] VITALS (13 sets, daily range): BP systolic 81–96; BP diastolic 55–67; PULSE 65–98; RESP 16–21; TEMP 36–37.1; O2SAT 92–97; BMI 294.3; BMI 30.7
[2024-11-08] MEDS: MIDODRINE 5 MG TABLET 10 MG PO ×3 (05:14→21:03)
[2024-11-08] MEDS: ACETAMINOPHEN 325 MG TABLET 650 MG PO (05:17)
[2024-11-08 05:52] LABS: Basophils % (Auto) 0 % (0-2.5); Eosinophils # (Auto) 0.1 Thou/mm3 (0.0-0.5); Eosinophils % (Auto) 1 % (0-10); Hematocrit 40.3 % (41.0-53.0); Hemoglobin 12.3 g/dL (13.5-16.0); Immature Granulocytes % (Auto) 0 % (0-0); Immature Granulocytes Auto 0.02 Thou/mm3 (0.00-0.00); Lymphocytes % (Auto) 14 % (10-50); Mean Corpuscular HGB Conc 30.5 g/dl (31.0-37.0); Mean Corpuscular Hemoglobin 27.8 pg (25.0-35.0); Mean Corpuscular Volume 91 fL (80-100); Monocytes # (Auto) 0.8 Thou/mm3 (0.0-0.8); Monocytes % (Auto) 11 % (0-12); Neutrophils # (Auto) 5.4 Thou/mm3 (1.8-7.7); Neutrophils % (Auto) 74 % (37-80); Nucleated Red Blood Cell # 0.03 Thou/mm3 (0.00-0.00); Nucleated Red Blood Cell % 0 /100 WBC (0); Platelet Count 165 Thou/mm3 (140-440); RDW Standard Deviation 61.5 fL (35.1-43.9); Red Blood Count 4.43 Miln/mm3 (4.50-5.90); White Blood Count 7.3 Thou/mm3 (3.8-10.6)
[2024-11-08 06:58] LABS: Alanine Aminotransferase 21 U/L (10-49); Albumin, Serum 3.6 gm/dL (3.4-4.8); Albumin/Globulin Ratio 1.2 (1.2-2.2); Alkaline Phosphatase 107 U/L (46-116); Anion Gap 16 (7-16); Aspartate Amino Transferase 37 U/L (0-34); BUN/Creatinine Ratio 23 Ratio (12-20); Bilirubin,Total 3.6 mg/dL (0.3-1.2); Blood Urea Nitrogen 57 mg/dL (9-23); Calcium 9.6 mg/dL (8.3-10.6); Calcium (Corrected) 9.9 mg/dL (8.5-10.1); Chloride 90 mMol/L (98-107); Creatinine (Component) 2.5 mg/dL (0.6-1.3); Globulin 2.9 gm/dL (2.3-3.5); Glucose 80 mg/dL (74-106); Osmolality,Calculated 273 (275-295); Potassium 5.8 mMol/L (3.4-5.1); Sodium 129 mMol/L (136-145); Total Protein 6.5 gm/dL (5.7-8.2); eGFR 25 See Note
[2024-11-08] MEDS: carVEDILOL 3.125 MG TABLET 6.25 MG PO (08:15)
[2024-11-08] MEDS: TAMSULOSIN HCL 0.4 MG CAPSULE PO (08:15)
[2024-11-08] MEDS: DOXYCYCLINE 100 MG TABLET PO ×2 (08:15→21:03)
[2024-11-08] MEDS: SENNA TABLET 1 TAB PO (08:16)
[2024-11-08] MEDS: APIXABAN 2.5 MG TABLET 5 MG PO ×2 (08:16→21:03)
[2024-11-08] MEDS: cefTRIAXone/D5w 1gm IV premix 50 ML IV (08:16)
[2024-11-08 10:20] LABS: B-Type Natriuretic Peptide 2503 pg/mL (0-100)
[2024-11-08 10:50] LABS: Magnesium 2.7 mg/dL (1.6-2.6); Phosphorous 4.7 mg/dL (2.4-5.1)
--- NOTE | 2024-11-08 11:38 | PC.SS ---
SS met with pt to discuss d/c plan. Pt is alert but confused. Pt is from [facility]. Pt was able to name his son, Emil Rai as his emergency contact before falling asleep. SS spoke to patient's who provided correct phone number for patient's son, Emil. is agreeable for pt to return to [facility] if patient's health insurance provides authorization. SS spoke to Gwendolyn, Parts Picker from [facility] who explained pt will require new insurance authorization at d/c. Per Gwendolyn, pt is extensive assist and PT has been working with patient. Per Gwendolyn, at [facility] pt was able to set at the edge of bed but still weak when attempting to transfer from bed to wheelchair. Pt is followed by Dr. Chaney. DC Plan: Return to [facility] Next of Kin: Emil Lu, son, phone# [phone] PCP: Dr. Chaney
[2024-11-08 12:46] LABS: Anion Gap 11 (7-16); BUN/Creatinine Ratio 26 Ratio (12-20); Blood Urea Nitrogen 69 mg/dL (9-23); Carbon Dioxide 30.8 mMol/L (20.0-31.0); Chloride 89 mMol/L (98-107); Creatinine (Component) 2.7 mg/dL (0.6-1.3); Estimated Creatinine Clearance 130.6 mL/min (>60); Glucose 80 mg/dL (74-106); Potassium 5.2 mMol/L (3.4-5.1); Sodium 131 mMol/L (136-145); eGFR 23 See Note
[2024-11-08 12:47] LABS: Calcium 9.6 mg/dL (8.3-10.6); Osmolality,Calculated 281 (275-295)
[2024-11-08 12:50] LABS: Ammonia 22 uMol/L (11-32)
--- NOTE | 2024-11-08 13:09 | EKG_ITS ---
[facility] Test Date: 2024-11-08 Pat Name: ANGELES JOHNSON Department: Room: S356A Gender: Male Django Developer: TAMARA : 1945 Requested By: Nina Fay Order Number: [id number] Reading MD: Nina Fay Measurements Intervals [place] Rate: 89 P: [place]: QRS: -62 QRSD: 153 T: 121 QT: 430 QTc: 525 Interpretive Statements ATRIAL FIBRILLATION WITH ABERRANT CONDUCTION OR VENTRICULAR PREMATURE COMPLEXES INTRAVENTRICULAR CONDUCTION DELAY [130+ ms QRS DURATION] INFERIOR MYOCARDIAL INFARCTION , PROBABLY OLD [40+ ms Q WAVE AND/OR ST/T ABNORMALITY IN II/aVF] Compared to ECG 11/06/2024 21:05:29 Intraventricular conduction delay now present Myocardial infarct finding now present Left-axis deviation no longer present Left bundle-branch block no longer present /store/S0/[id number].pdf
--- NOTE | 2024-11-08 13:47 | ESCONSULT_ITS ---
Documented by User: Vidya Balderas MD 11/11/24 18:27 History of Present Illness Data of Consult Requesting Physician: Terrie Manzo MD Primary Care Provider: Physician No Primary/Family Consult Narrative Reason for consult: ERLIN History of present illness: Mr. Rai is a 79-year-old male patient with significant medical history of HFrEF (35-40% on March 2024), s/p AICD, chronic Afib (rate controlled), DVT (on Eliquis), HTN, HLD and DM2 was broght to ED on 11/06/24 from assisted facility for chest pain/tightness and shortness of breath. He states it feels like somene is sitting on my chest and he cannot properly take deep breaths and also has some palpitations. He denied having any nausea/vomiting/diarrhea, hematuria, dysuria, hematemesis, hematochezia or melena. Patient was recently admitte/d to [facility] on 10/05/24 for aggressive diuresis with Bumex, metolazone and Diamox for CHF exacerbation and cardiorenal syndrome. Patient also had low blood pressure and was started on midodrine 10 mg 3 times daily. Patient also developed some right elbow swelling with erythema during hospitalization and was started on doxycycline and Rocephin with adequate response. He was discharged on 10/20/2024 to SNF; however, recently developed new chest pain/tightness along with acute shortness of breath requiring an increase in his oxygen requirements (patient usually uses 2 L). Patient's biological daughter is bedside; however, she states that she lives in [place] and does not manage her father's medical condition. She states that the patient's current significant other knows her medical history well but she is not available to a recent in the family. cc:: cc: Terrie Manzo MD Meds Home Medications and Allergies Home Medications ?Medication ?Instructions ?Recorded ?Confirmed ?Type carvedilol 12.5 mg tablet 12.5 mg PO Q12H 10/06/24 11/07/24 History fluoxetine 20 mg capsule 20 mg PO QDAY 10/06/24 11/07/24 History bisacodyl 10 mg rectal suppository 10 mg NC Q72H PRN Constipation 11/07/24 11/07/24 History (Dulcolax (bisacodyl)) levothyroxine 25 mcg tablet 25 mcg PO QDAY 11/07/24 11/07/24 History (Synthroid) magnesium hydroxide 400 mg/5 mL 30 ml PO Q72H PRN Constipation 11/07/24 11/07/24 History oral suspension (Milk of Magnesia) melatonin 3 mg tablet 6 mg PO HS 11/07/24 11/07/24 History sodium phosphates 19 gram-7 118 ml NC Q72H PRN Constipation 11/07/24 11/07/24 History gram/118 mL enema (Fleet Enema) Allergies Allergy/AdvReac Type Severity Reaction Status Date / Time No Known Allergies Allergy Verified 11/06/24 21:49 Exam Vital Signs Temp Pulse Resp BP Pulse Ox O2 Del Method O2 Flow Rate 36.4 C 82 19 91/56 L 97 Nasal Cannula 2 11/08/24 12:00 11/08/24 15:06 11/08/24 12:00 11/08/24 15:06 11/08/24 12:00 11/08/24 12:00 11/08/24 12:00 Results Labs 11/11/24 04:08 11/11/24 04:08 Labs: Short CBC 11/08/24 Range/Units 05:33 WBC 7.3 D (3.8-10.6) Thou/mm3 Hgb 12.3 L (13.5-16.0) g/dL Hct 40.3 L (41.0-53.0) % Plt Count 165 (140-440) Thou/mm3 BMP 11/08/24 11/08/24 05:33 12:03 Sodium 129 L 131 L Potassium 5.8 H D 5.2 H D Chloride 90 L 89 L Carbon Dioxide 23.0 30.8 BUN 57 H 69 H Creatinine 2.5 H 2.7 H Glucose 80 80 Calcium 9.6 9.6 Liver Function 11/08/24 Range/Units 05:33 Total Bilirubin 3.6 H D (0.3-1.2) mg/dL AST 37 H (0-34) U/L ALT 21 (10-49) U/L Alkaline Phosphatase 107 (46-116) U/L Albumin 3.6 (3.4-4.8) gm/dL Assessment & Plan Additional Assessment & Plan Additional Plan: Summary: 79-year-old male patient with significant medical history of HFrEF (35- 40% on March 2024), s/p AICD, chronic Afib (rate controlled), DVT (on Eliquis), HTN, HLD was broght to ED from SNF for chest pain/tightness and shortness of breath will be admitted for NSTEMI type II along with acute decompensated heart failure requiring IV diuretics and cardiology consult #ERLIN on CKD #Cardiorenal syndrome #Hypotension #Atrophic kidneys On admission BUN 70 Cr 2.3 GFR 28, Baseline BUN 30 Cr 1.0 GFR >60 Patient has had multiple admission for CHF exacerbations recieved IV Diuretics. Discharged on oral diuretics. Patient is currently fluid overloaded. Plan: -Continue IV Diuresis -Monitor Renal function -Dose medications renally -Avoid nephrotoxic agents #Acute Respiratory Failure 2/ to #Acute decompensated heart failure #Right pleural effusion #HFrEF, with severe systolic dysfunction, EF 10-15% status post AICD placement #Right elbow swelling, improving #Right elbow erythema, improving #Chest pain, improved #Likely NSTEMI type II versus type I, resolved #CAP, R base #Glossitis #Abdominal pain #Primary hepatocellular disease #Elevated total bilirubin, worsening #Chronic atrial fibrillation, rate controlled #History of hypertension #Hyperlipidemia #History of DVT #Primary hepatocellular disease #Hyperkalemia, resolved Case discussed with Attending Dr. Balderas. Jordan Ahn PGY1 Patient seen and examined with resident physician Dr. Ahn. Note reviewed, agree with findings and recommendations. Patient with cardiorenal syndrome and ERLIN secondary to diuretics. Will hold the Bumex today. Documented by User: Jordan Ahn MD 11/09/24 15:18 History of Present Illness Data of Consult Patient: known to practice within the last 3 years Consult date: 11/08/24 Consult Narrative History of present illness: Mr. Rai is a 79-year-old male patient with significant medical history of HFrEF (35-40% on March 2024), s/p AICD, chronic Afib (rate controlled), DVT (on Eliquis), HTN, HLD and DM2 was broght to ED on 11/06/24 from assisted facility for chest pain/tightness and shortness of breath. He states it feels like somene is sitting on my chest and he cannot properly take deep breaths and also has some palpitations. He denied having any nausea/vomiting/diarrhea, hematuria, dysuria, hematemesis, hematochezia or melena. Patient was recently admitted to [facility] on 10/05/24 for aggressive diuresis with Bumex, metolazone and Diamox for CHF exacerbation and cardiorenal syndrome. Patient also had low blood pressure and was started on midodrine 10 mg 3 times daily. Patient also developed some right elbow swelling with erythema during hospitalization and was started on doxycycline and Rocephin with adequate response. He was discharged on 10/20/2024 to SNF; however, recently developed new chest pain/tightness along with acute shortness of breath requiring an increase in his oxygen requirements (patient usually uses 2 L). Patient's biological daughter is bedside; however, she states that she lives in [place] and does not manage her father's medical condition. She states that the patient's current significant other knows her medical history well but she is not available to a recent in the family. In the ED, patient hypoxemic requiring 6 L nasal cannula but satting 98%, normotensive, regular heart rate, respiratory rate 18. Pertinent lab findings include hemoglobin 11.4 (MCV 90), platelet count 166, sodium 133, potassium 3.1, BUN 70, creatinine 2.3, magnesium 2.8, troponin 0.037, BNP 3128. EKG showed atrial fibrillation with marked left axis deviation with left bundle branch block previously seen. X-ray showed early heart failure with signs of moderate cardiac enlargement and prominent vascular congestion. CT scan of chest abdomen and pelvis showed moderate enlargement of the cardiac contour, mild pneumonia in the right base, mild to moderate right pleural effusion, primary hepatocellular disease, atrophic kidneys, distended urinary bladder without significant prostatomegaly, and colonic diverticulosis. Patient will be admitted for NSTEMI type II along with acute decompensated heart failure requiring IV diuretics. Nephrology consulted for ERLIN on CKD. Review of Systems Review of Systems Systems Reviewed: All systems reviewed, normal except as documented Past Medical History Past Medical History NEUROLOGIC: Positive Neurological Disorders and Head Trauma ([facility] VISIT 2002); Negative Seizures CARDIAC: Positive Cardiac Disorders (chf), Atrial Fibrillation (FOR THIS PROC), Congestive Heart Failure and Hypertension (TAKES CARVEDILOL,LISINOPRIL); Negative Edema (SLIGHTLY SWOLLEN MERLIN FEET) or Cellulitis (RIGHT ELBOW,LEFT KNEE HAS BANDAGE STATED FELL 04/03/2020) RESPIRATORY: Positive Respiratory Disorders and Sleep Apnea (STOP USING CPAP - states broken and does not need.); Negative Chronic Obstructive Pulmonary Disease (COPD), Asthma, Pneumonia, Tuberculosis or Pulmonary Embolism GASTROINTESTINAL: Positive Obesity; Negative Gastrointestinal Disorders or Hepatitis GENITOURINARY: Negative Genitourinary Disorders or Renal Disease MUSCULOSKELETAL: Positive Musculoskeletal Disorders ENT: Positive Head Trauma ([facility] DR VISIT 2002) ENDOCRINE: Negative Endocrine Disorders, Diabetes Mellitus Type 1 or Diabetes Mellitus Type 2 HEMATOLOGIC: Negative Blood Disorders or Sickle Cell Disease OTHER HISTORY: Positive Hospitalization ([facility]), Shingles (1987), Chicken Pox, Measles and Mumps; Negative Autoimmune Disease, Falls (04/03/2020 HAS SCRAPES RIGHT ELBOW, LEFT KNEE NO ER VISIT), Blood Transfusions, Blood Transfusion Reaction, Anesthesia Reactions, Chemotherapy, Radiation Therapy, MRSA, VRSA, Vancomycin-Resistant Enterococci or Cancer Family History FAMILY HISTORY: Positive Family Psychiatric Problems (SISTER (DEPRESSION,ANXIETY)), Family Cardiac Disorders (MOTHER (ME),BROTHER,SISTER (HTN)) and Family Surgery (MOTHER,FATHER,BROTHER,SISTER); Negative Family Respiratory Disorders, Family Gastrointestinal Problems, Family Cancer or Family Anesthesia Reaction Surgical History SURGICAL: Positive Cardiac Surgery, Pacemaker (2020), Angiogram and Arthroscopy (bilateral) OTHER SURGICAL HX: Essential hypertension Chronic A-fib on Coumadin Social History SMOKING STATUS: Never smoker Meds Home Medications and Allergies Home Medications ?Medication ?Instructions ?Recorded ?Confirmed ?Type carvedilol 12.5 mg tablet 12.5 mg PO Q12H 10/06/24 11/07/24 History fluoxetine 20 mg capsule 20 mg PO QDAY 10/06/24 11/07/24 History bisacodyl 10 mg rectal suppository 10 mg NC Q72H PRN Constipation 11/07/24 11/07/24 History (Dulcolax (bisacodyl)) levothyroxine 25 mcg tablet 25 mcg PO QDAY 11/07/24 11/07/24 History (Synthroid) magnesium hydroxide 400 mg/5 mL 30 ml PO Q72H PRN Constipation 11/07/24 11/07/24 History oral suspension (Milk of Magnesia) melatonin 3 mg tablet 6 mg PO HS 11/07/24 11/07/24 History sodium phosphates 19 gram-7 118 ml NC Q72H PRN Constipation 11/07/24 11/07/24 History gram/118 mL enema (Fleet Enema) Allergies Allergy/AdvReac Type Severity Reaction Status Date / Time No Known Allergies Allergy Verified 11/06/24 21:49 Exam Narrative Exam General: AAOx2, not oriented to time, obese male HEENT: Conjunctiva clear, EOMI, PERRLA, tongue appears to have glossitis appearance Cardiovascular: S1, S2, radial pulses +2 bilat, RRR, possible murmur heard on LIZBET border Pulmonary: Some crackles heard in LLL GI: No tenderness to light or deep palpitation, no guarding, rigidity, rebound tenderness or distension Extremities: +1 pitting edema in LE bilat, faint dorsalis pedis pulses, R elbow erythematous and a bit edematous MSK: Reduced range of motion with flexion of R elbow Skin: Some purpura through UE bilat. Small petechiae present on upper R deltoid and part of chest bilat Neuro: AAOx2, pupillary reflex intact bilat Psych: Able to cooperate. Results Labs 11/11/24 04:08 11/11/24 04:08 Assessment & Plan Additional Assessment & Plan Additional Plan: Summary: 79-year-old male patient with significant medical history of HFrEF (35- 40% on March 2024), s/p AICD, chronic Afib (rate controlled), DVT (on Eliquis), HTN, HLD was broght to ED from SNF for chest pain/tightness and shortness of breath will be admitted for NSTEMI type II along with acute decompensated heart failure requiring IV diuretics and cardiology consult #ERLIN on CKD #Cardiorenal syndrome #Hypotension #Atrophic kidneys On admission BUN 70 Cr 2.3 GFR 28, Baseline BUN 30 Cr 1.0 GFR >60 Patient has had multiple admission for CHF exacerbations recieved IV Diuretics. Discharged on oral diuretics. Patient is currently fluid overloaded. Plan: -Continue IV Diuresis -Monitor Renal function -Dose medications renally -Avoid nephrotoxic agents #Acute Respiratory Failure 2/2 to #Acute decompensated heart failure #Right pleural effusion #HFrEF, with severe systolic dysfunction, EF 10-15% status post AICD placement #Right elbow swelling, improving #Right elbow erythema, improving #Chest pain, improved #Likely NSTEMI type II versus type I, resolved #CAP, R base #Glossitis #Abdominal pain #Primary hepatocellular disease #Elevated total bilirubin, worsening #Chronic atrial fibrillation, rate controlled #History of hypertension #Hyperlipidemia #History of DVT #Primary hepatocellular disease #Hyperkalemia, resolved Case discussed with Attending Dr. Balderas. Jordan Ahn PGY1
--- NOTE | 2024-11-08 14:37 | ESPR_ITS ---
<Statement entered by Checo Lopez MD - 11/08/24 17:20> Patient was seen and examined at bedside. Patient level of energy has been improving significantly, however he reported that he has difficulty swallowing and mild pain when he swallow. For that reason we examined the patient and he notes that he has glossitis that could be caused by nutritional deficiencies or caused by oral thrush even though there was no white membrane. For that reason we will start the patient on oral multivitamins and start the patient on swish and swallow nystatin. His blood pressure still on the soft side 91/56, overnight his blood pressure went down to 85/41 for that reason we will hold on the Cardizem at this time and continue with the Bumex 2 mg IV twice daily. And also continue with the midodrine 10 mg 3 times daily. His balance today is -600 for the past 24 hours. His serum creatinine is stable at this time at 2.5 same as yesterday. However his BUN went down from the 60s to the 50s. At this time we will continue to monitor. Patient was noticed to have hyperkalemia potassium was 5.8 we repeated potassium level it came back 5.2, no need for any intervention at this time we started the patient Kayexalate, and we did an EKG which was negative for any arrhythmias or QT prolongation. Regarding his elbow swelling has been improving significantly and the range of movement almost back to normal. Will continue antibiotics at this time his ESR came back normal and CRP 1.6 for that reason is less likely to be septic joint or osteomyelitis. Most likely a superficial infection involving over the skin or bursitis. 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 At this time his level of energy and level of consciousness has been improving steadily. 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 - Patient's plan and care discussed with my attending, Dr. Magdy Lopez MD Internal Medicine PGY-2 Documentation for date of: 11/08/24 Subjective Subjective Interval history: Pt examined at bedside today, was complaining of some midsternal chest pain, says it has been similar to the chest pain he experienced earlier during the admission. He does not experience any shortness of breath headache, nausea, vomiting, diarrhea. Says that his elbow pain has improved and he can move it more. No other complaints at this time. Exam Vital Signs Temp Pulse Resp BP Pulse Ox O2 Del Method O2 Flow Rate 97.5 F 82 19 96/55 L 97 Nasal Cannula 2 11/08/24 12:00 11/08/24 12:00 11/08/24 12:00 11/08/24 12:11/08/24 12:11/08/24 12:11/08/24 12:00 Narrative Exam General: AAOx2, not oriented to time, obese male HEENT: Conjunctiva clear, EOMI, PERRLA, Cardiovascular: S1, S2, radial pulses +2 bilat, RRR, possible murmur heard on LIZBET border Pulmonary: Some crackles heard in LLL GI: No tenderness to light or deep palpitation, no guarding, rigidity, rebound tenderness or distension Extremities: +1 pitting edema in LE bilat, faint dorsalis pedis pulses, R elbow erythematous and a bit edematous MSK: Reduced range of motion with flexion of R elbow Skin: Some purpura through UE bilat. Small petechiae present on upper R deltoid and part of chest bilat Neuro: AAOx2, pupillary reflex intact bilat Psych: Able to cooperate. Objective Labs 11/08/24 05:33 11/09/24 05:14 Labs: Laboratory Results - last 24 hr 11/08/24 11/08/24 11/08/24 05:33 09:30 12:03 WBC 7.3 D RBC 4.43 L Hgb 12.3 L Hct 40.3 L MCV 91 MCH 27.8 MCHC 30.5 L RDW Std Deviation 61.5 H Plt Count 165 Neut % (Auto) 74 Lymph % (Auto) 14 [place] % (Auto) 11 Eos % (Auto) 1 Baso % (Auto) 0 Neut # (Auto) 5.4 Lymph # (Auto) 1.0 [place] # (Auto) 0.8 Eos # (Auto) 0.1 Baso # (Auto) 0.0 Immature Gran # (Auto) 0.02 H Absolute Nucleated RBC 0.03 H Immature Gran % 0 Nucleated RBC % 0 Sodium 129 L 131 L Potassium 5.8 H D 5.2 H D Chloride 90 L 89 L Carbon Dioxide 23.0 30.8 Anion Gap 16 11 BUN 57 H 69 H Creatinine 2.5 H 2.7 H Estim Creat Clear Calc 141.0 130.6 eGFR 25 L 23 L BUN/Creatinine Ratio 23 H 26 H Glucose 80 80 Calculated Osmolality 273 L 281 Calcium 9.6 9.6 Corrected Calcium 9.9 Phosphorus 4.7 Magnesium 2.7 H Total Bilirubin 3.6 H D AST 37 H ALT 21 Alkaline Phosphatase 107 Ammonia 22 B-Natriuretic Peptide 2503 H* Total Protein 6.5 Albumin 3.6 Globulin 2.9 Albumin/Globulin Ratio 1.2 Quality Measures Quality Measures none Advance care planning discussed with:: patient Assessment & Plan Assessment Current Active Medications: Generic Name Dose Route Start Last Admin Trade Name Freq PRN Reason Stop Dose Admin Acetaminophen 650 mg 11/06/24 23:12 11/08/24 05:17 Acetaminophen 325 Mg Tablet PO 12/06/24 23:11 650 mg Q6H PRN Administration Pain 1-3 and/or Fever >100.1 Hydrocodone Bitart/Acetaminophen 1 tab 11/08/24 09:14 Hydrocodone/Apap 5/325 Tablet PO 11/13/24 09:13 Q6HR PRN Pain 4-7 Apixaban 5 mg 11/07/24 09:00 11/08/24 08:16 Apixaban 2.5 Mg Tablet PO 12/07/24 08:59 5 mg BID YASSINE Administration Bumetanide 2 mg 11/07/24 09:25 11/08/24 08:16 Bumetanide Inj 0.25 Mg/Ml Vial 4 Ml IVP 12/07/24 08:59 Not Given BID YASSINE Carvedilol 6.25 mg 11/07/24 09:25 11/08/24 08:15 Carvedilol 3.125 Mg Tablet PO 12/07/24 07:59 6.25 mg BIDWM YASSINE Administration Doxycycline Hyclate 100 mg 11/07/24 10:15 11/08/24 08:15 Doxycycline 100 Mg Tablet PO 11/14/24 10:14 100 mg BID YASSINE Administration Hydromorphone HCl 0.25 mg 11/08/24 09:15 Hydromorphone Inj 2 Mg/Ml Vial IVP 11/12/24 10:19 Q4HR PRN Pain 8-10 Ceftriaxone Sodium/Dextrose 50 mls @ 100 mls/hr 11/07/24 10:11 11/08/24 08:16 Rocephin/D5w 1gm Iv Premix IV 11/14/24 10:10 100 mls/hr QDAY YASSINE Administration Midodrine 10 mg 11/07/24 09:25 11/08/24 05:14 Midodrine 5 Mg Tablet PO 12/06/24 23:29 10 mg TID YASSINE Administration Nitroglycerin 0.4 mg 11/06/24 23:20 Nitroglycerin 0.4 Mg Subl Btl #25 SL Q5MIN PRN CHEST PAIN Sennosides 1 tab 11/08/24 09:00 11/08/24 08:16 Senna Tablet PO 12/08/24 08:59 1 tab QDAY YASSINE Administration Protocol Tamsulosin HCl 0.4 mg 11/07/24 14:30 11/08/24 08:15 Tamsulosin Hcl 0.4 Mg Capsule PO 12/07/24 14:29 0.4 mg QDAY YASSINE Administration Plan Plan 79-year-old male patient with significant medical history of HFrEF (35-40% on March 2024), s/p AICD, chronic Afib (rate controlled), DVT (on Eliquis), HTN, HLD was broght to ED from SNF for chest pain/tightness and shortness of breath will be admitted for NSTEMI type II along with acute decompensated heart failure requiring IV diuretics and cardiology consult #Acute Respiratory Failure 2/2 to #Acute decompensated heart failure #HFrEF, status post AICD placement #Cardiorenal syndrome #Right pleural effusion #Hypotension Patient has multiple admissions within the past year for acute decompensated heart failure requiring IV diuretics Recently had admission for CHF causing cardiorenal syndrome with elevated BUN/creatinine, new baseline creatinine > 2.0 Patient presenting from the SNF after he was discharged on 10/20/2024 due to chest tightness and acute shortness of breath requiring 6 L nasal cannula oxygenation Patient does use oxygen at the facility but usually its only 2 L Patient is on Bumex 2 mg twice daily, Coreg 6.25 twice daily, spironolactone 25 mg p.o. twice daily and midodrine 10 3 times daily for blood pressure support Patient follows Dr. Alexandra (cardiology) for greater than 25 years and was told to follow-up with him on last discharge; unsure if he did A1c 5.0 from 08/2024 Lipid Panel: Total cholesterol ~110, LDL 75 Net= -2k at this point, will continue with diuresis Will hold Coreg at this point due to hypotension Plan: Cardiology, Dr. Alexandra, consulted appreciate recommendations IV Bumex 2 mg twice daily w/ holding parameters SBP below 90 Holding Coreg Midodrine 10 mg TID, hold if SBP above 110 Fluid restriction 1500 mL Strict I's and O's Daily weight Cardiology, Dr. Alexandra, consulted appreciate recommendations Keep Mag >2.0 and K >4.0 Follow-up echo read Nephrology consult #Hyperkalemia Repeat BMP showed potassium 5.2, compared to 5.8 this morning Patient was repleted potassium yesterday, however there could be a kidney related issue to this as patient has ERLIN Plan: ?*EKG ?*Kayexalate 15 x 1 ?As above #Chest pain, improved #Likely NSTEMI type II versus type I, resolved #CAP, R base Patient presenting to the ED with chest tightness which she describes as someone sitting on his chest Pain/tightness does not change in quality when he takes deep breaths and is present at all times; he rates it an 8 out of 10 EKG does not show any concerning ST changes; there are left axis deviation and left bundle branch block previously seen on EKGs On CT chest abdomen pelvis there is possible right base pneumonia although the patient does not have any coughing/fever/elevated WBC Pt is not having chest pain at this point, this could be pleuritic chest pain Will add abx Troponin negative x2 Patient did complain of chest pain, most likely musculoskeletal at this time, due to it being reproducible and midsternal in nature Plan: Holding Sublingual nitroglycerin as pt has hypotension Dilaudid 0.25 mg q4h as needed 8-10 pain [place] 5 for 4-7 pain Continue with Rocephin #Right elbow swelling, improving #Right elbow erythema, improving DDx: [place] bursitis versus cellulitis versus abscess vs gout On physical exam tender to palpation, and is red Ultrasound on previous admission shows fluid in all draining bursa, 4.6 x 1.2 x 4.4, severe generalized edema, will olceranon bursitis versus abscess Patient had MRI done on previous admission however MRI reading affected by patient moving arm during MRI Considering patient's elbow looks worse from when last discharged on previous admission, will need to take a closer look and add antibiotic coverage Will hold on MRI at this point ESR unremarkable, CRP 1.6 Plan: -Rocephin and Doxy (11/07?) #Primary hepatocellular disease #Elevated total bilirubin Chronically elevated in the ~3.0s Mostly related to hepatic congestion CT shows primary hepatocellular disease LFTs are normal Less concern for hemolysis We will keep an eye for further workup Plan: ? Monitor with CMP #Chronic atrial fibrillation, rate controlled CHADS-VASc 4?points Stroke risk was 4.8% per year in >90,000 patient Patient is currently rate controlled on the above medications mentioned Plan: Continue Eliquis 5 mg p.o. twice daily Telemetry #History of hypertension #Hyperlipidemia #History of DVT Chronic medical conditions Plan: Restart medications when appropriate #Abdominal pain #Diverticulosis On exam, patient is presenting with some diffuse abdominal tenderness Last bowel movement was 11/06 and the patient denies having any changes in bowel habits or melena/hematochezia Patient does have history of diverticulosis and CT abdomen pelvis does show presence Plan: Bowel regimen Scopolamine patch for nausea Monitor for changes in pain status #Atrophic kidneys #Primary hepatocellular disease As seen on CT chest abdomen pelvis, noncontributory or pertinent to current presentation Plan: Follow-up outpatient #Health Maintenance Disposition: Telemetry DVT prophylaxis: Eliquis 5 mg twice daily GI prophylaxis: Not indicated at this time Diet: Cardiac CODE STATUS: Full Patient seen and care discussed with my senior resident, Dr. Lopez, and my attending physician, Dr. Magdy Fay, PGY-1 Attending Provider Attestation/Addendum I have examined the patient, reviewed labs and imaging findings, discussed the case with the resident(s), and reviewed entered orders. I agree with the plan of care as outlined in this note, with these additional summaries/recommendations: Patient seen at bedside and resting comfortably. Patient does not appear to have any acute complaints today but is a poor historian at baseline. Patient admitted for acute hypoxic respiratory failure secondary to CHF exacerbation. Previous echocardiogram showed ejection fraction of 35%. Repeat echocardiogram pending. Patient net negative 2L. Continue fluid restriction and IV Bumex for preload reduction. Discontinue Coreg today for soft blood pressure. Unfortunately unable to uptitrate goal-directed medical therapy at this time secondary to chronic hypotension. Continue home midodrine 10 mg p.o. 3 times daily. Cardiology following. Continue IV antibiotics for community-acquired pneumonia. Patient has previously underwent extensive workup of the right elbow with ultrasound and MRI which were relatively unrevealing. Patient is able to move his right upper extremity and we will monitor for now. Patient also endorsed chest pain on admission which seems more pleuritic in nature and troponin negative x 2 with no EKG changes indicative of acute ischemia. ERLIN on CKD present and possibly related to cardiorenal syndrome. Now with hyperkalemia and we will consult nephrology for additional recommendations. Repeat potassium 5.2 and will defer hyperK cocktail at this time. Avoid nephrotoxic agents and renally dose medications. Contraction alkalosis present and we will monitor for now. Hyperbilirubinemia present which is chronic in nature. No suspicion for hemolytic anemia at this time and most likely related to congestive hepatopathy. Repeat hematology and chemistry panel in AM. Dr. Curran
[2024-11-08] MEDS: SOD POLYSTYRENE SULFON SUSP 15 GM/60 ML BTL PO (15:07)
--- NOTE | 2024-11-08 15:31 | PC.DIETICIAN ---
1. If pt is able to swallow comfortably, consider Stevenson supplement BID to promote wound healing.
--- NOTE | 2024-11-08 18:55 | ESPR_ITS ---
<Statement entered by Zac Alexandra MD - 11/10/24 10:23> I personally evaluated the patient along with resident physician PGY 2 the patient is not doing that well has severe low output symptoms ejection fraction of 10 to 15% prognosis extremely poor we will continue diuretic therapy cautiously and care goal discussions to be performed patient may have a good candidate for hospice and comfort care. Treatment plan recommendations are reviewed agree with the treatment plan recommendation as formulated by Dr. Johnson PGY2 Documentation for date of: 11/08/24 Subjective Subjective Interval history: 79-year-old male patient with significant medical history for HFrEF (35 to 40%, March 2024), SP AICD placement, chronic A-fib, DVT (on Eliquis), hypertension, hyperlipidemia, and DM2 was brought to ED from senior care facility with symptoms of shortness of breath and chest pain. In ED patient had described his chest pain as someone sitting on his chest. Patient denied nausea, vomiting, diarrhea, fever, chills, cough, dysuria or other associate symptoms. Patient was recently admitted at [facility] on 10/05/2024 for ERLIN secondary to aggressive diuresis at home. Eventually patient was discharged on 10/20/2024. Today patient states that he has been experiencing increased oxygen demand (usually uses 2 L). In ED patient was hypoxic and required 6 L nasal cannula. Labs were significant for Hgb 11.4, NA 133, K3.1, BUN 70, creatinine 2.3, BNP 3128, trops 0.037. EKG showed A-fib with left axis deviation and LBBB as previously seen. Chest x-ray showed early heart failure with moderate cardiac enlargement and prominent vascular congestion. Chest abdomen pelvis CT indicated mild pneumonia in the right base, mild to moderate right pleural effusion, hepatocellular disease, atrophic kidneys, distended bladder without significant prostamegaly and colonic diverticulosis. Cardiology was consulted regarding further management. Medical Hx: HFrEF, Afib, DVT, HTN, HLD, DM2 Surgical Hx: s/p AICD, anal fistula, knee arthroscopies Medications (need reconciliation): Eliquis, spironolactone, Bumix, Carvedilol, KCL, Lisinopril, Fluoxetine Social Hx: Former alcohol drinker, denied smoking or using other illicit drugs Allergies: NKDA Code Status: Full Code 11/07/2024: During examination today when questioned, patient states he does not know why he was brought to the hospital. He denies chest pain or chest pressure. Will recommend short trial of Bumex 2 mg twice daily after which she could be switched to only 2 mg daily. We also recommend continuing Coreg if tolerated by blood pressure. 11/08/2024: No significant overnight events, patient had 1 L urine output with overall -454 cc net fluid balance. Echocardiogram results indicated:Dilated LV. Severe systolic dysfunction. Severe global hypokinesisl. Estimated EF 10-15% Dilated RV. Low RV function. Estimated RVSP 50mmHg, Pacing wire present. Severe biatrial dilatation. Moderate MR with posterior eccentric jet. Modrate TR, Mild PI. Trace AI. Severe IVC dilatation. Patient has declined cardiac function as his EF has downtrended from 35 to 40% in March 2024 to 10 to 15% currently. Cardiology team updated patient at bedside. Patient has very poor prognosis. Clinically patient looks better than what his echo indicates. Exam Vital Signs Temp Pulse Resp BP Pulse Ox O2 Del Method O2 Flow Rate 98.3 F 80 16 81/57 L 92 L Nasal Cannula 2 11/08/24 16:00 11/08/24 16:00 11/08/24 16:00 11/08/24 16:00 11/08/24 16:00 11/08/24 16:00 11/08/24 16:00 Narrative Exam Constitutional: well-developed, well-nourished, in no acute distress, lying in bed HEENT: NCAT, EOMI, reactive round pupils b/l, patent nares b/l, moist mucous membranes Lung: CTAB, no wheezing, no rhonchi, mild crackles of lower lobes R > L Heart: Regular S1S2, no murmurs, gallops, or rubs Abdomen: Soft, non-distended, non-tender, bowel sounds present throughout Extremities: No cyanosis, clubbing, trace edema of LE, LE pulses present b/l Neurologic: No focal sensory or motor deficits noted, AOx3, appropriate affect Skin: Warm, dry Objective Labs 11/08/24 05:33 11/08/24 18:30 Labs: Laboratory Results - last 24 hr 11/08/24 11/08/24 11/08/24 05:33 09:30 12:03 WBC 7.3 D RBC 4.43 L Hgb 12.3 L Hct 40.3 L MCV 91 MCH 27.8 MCHC 30.5 L RDW Std Deviation 61.5 H Plt Count 165 Neut % (Auto) 74 Lymph % (Auto) 14 [place] % (Auto) 11 Eos % (Auto) 1 Baso % (Auto) 0 Neut # (Auto) 5.4 Lymph # (Auto) 1.0 [place] # (Auto) 0.8 Eos # (Auto) 0.1 Baso # (Auto) 0.0 Immature Gran # (Auto) 0.02 H Absolute Nucleated RBC 0.03 H Immature Gran % 0 Nucleated RBC % 0 Sodium 129 L 131 L Potassium 5.8 H D 5.2 H D Chloride 90 L 89 L Carbon Dioxide 23.0 30.8 Anion Gap 16 11 BUN 57 H 69 H Creatinine 2.5 H 2.7 H Estim Creat Clear Calc 141.0 130.6 eGFR 25 L 23 L BUN/Creatinine Ratio 23 H 26 H Glucose 80 80 Calculated Osmolality 273 L 281 Calcium 9.6 9.6 Corrected Calcium 9.9 Phosphorus 4.7 Magnesium 2.7 H Total Bilirubin 3.6 H D AST 37 H ALT 21 Alkaline Phosphatase 107 Ammonia 22 B-Natriuretic Peptide 2503 H* Total Protein 6.5 Albumin 3.6 Globulin 2.9 Albumin/Globulin Ratio 1.2 Quality Measures Quality Measures none Advance care planning discussed with:: other Assessment & Plan Assessment Current Active Medications: Generic Name Dose Route Start Last Admin Trade Name Freq PRN Reason Stop Dose Admin Acetaminophen 650 mg 11/06/24 23:12 11/08/24 05:17 Acetaminophen 325 Mg Tablet PO 12/06/24 23:11 650 mg Q6H PRN Administration Pain 1-3 and/or Fever >100.1 Hydrocodone Bitart/Acetaminophen 1 tab 11/08/24 09:14 Hydrocodone/Apap 5/325 Tablet PO 11/13/24 09:13 Q6HR PRN Pain 4-7 Apixaban 5 mg 11/07/24 09:00 11/08/24 08:16 Apixaban 2.5 Mg Tablet PO 12/07/24 08:59 5 mg BID YASSINE Administration Bumetanide 2 mg 11/07/24 09:25 11/08/24 08:16 Bumetanide Inj 0.25 Mg/Ml Vial 4 Ml IVP 12/07/24 08:59 Not Given BID YASSINE Carvedilol 6.25 mg 11/07/24 09:25 11/08/24 08:15 Carvedilol 3.125 Mg Tablet PO 12/07/24 07:59 6.25 mg BIDWM YASSINE Administration Doxycycline Hyclate 100 mg 11/07/24 10:15 11/08/24 08:15 Doxycycline 100 Mg Tablet PO 11/14/24 10:14 100 mg BID YASSINE Administration Hydromorphone HCl 0.25 mg 11/08/24 09:15 Hydromorphone Inj 2 Mg/Ml Vial IVP 11/12/24 10:19 Q4HR PRN Pain 8-10 Ceftriaxone Sodium/Dextrose 50 mls @ 100 mls/hr 11/07/24 10:11 11/08/24 08:16 Rocephin/D5w 1gm Iv Premix IV 11/14/24 10:10 100 mls/hr QDAY YASSINE Administration Midodrine 10 mg 11/07/24 09:25 11/08/24 15:06 Midodrine 5 Mg Tablet PO 12/06/24 23:29 10 mg TID YASSINE Administration Multivitamins 1 tab 11/08/24 15:15 11/08/24 18:04 Multivitamins Tablet PO 12/08/24 15:14 Not Given QDAY YASSINE Nitroglycerin 0.4 mg 11/06/24 23:20 Nitroglycerin 0.4 Mg Subl Btl #25 SL Q5MIN PRN CHEST PAIN Nystatin 5 ml 11/08/24 17:00 11/08/24 18:04 Nystatin Susp 5 Ml Udc PO 11/15/24 16:59 Not Given QID YASSINE Sennosides 1 tab 11/08/24 09:00 11/08/24 08:16 Senna Tablet PO 12/08/24 08:59 1 tab QDAY [facility] Administration Protocol Tamsulosin HCl 0.4 mg 11/07/24 14:30 11/08/24 08:15 Tamsulosin Hcl 0.4 Mg Capsule PO 12/07/24 14:29 0.4 mg QDAY [facility] Administration Plan 79-year-old male patient with significant medical history for HFrEF (35 to 40%, March 2024), SP AICD placement, chronic A-fib, DVT (on Eliquis), hypertension, hyperlipidemia, and DM2 was brought to ED from senior care facility with symptoms of shortness of breath and chest pain. Patient admitted for CHF exacerbation and also consulted cardiology. #Acute on chronic HFrEF (10-15%) #s/p AICD #Right heart failure Echocardiogram results indicated:Dilated LV. Severe systolic dysfunction. Severe global hypokinesisl. Estimated EF 10-15% Dilated RV. Low RV function. Estimated RVSP 50mmHg, Pacing wire present. Severe biatrial dilatation. Moderate MR with posterior eccentric jet. Modrate TR, Mild PI. Trace AI. Severe IVC dilatation. Plan: -Continue Bumex 2 mg IV BID ?Continue Coreg -Monitor intake and output -Keep K > 4 and Mg > 2 -Fluid restriction -Strict I & O's -Echocardiogram pending #Hx of b/l DVT #Afib rate controlled Patient recently admitted for b/l DVT on eliquis. Physical exam significant for mild edema of lower extremities. Plan: -Continue Eliquis p.o. 5 mg BID #Right elbow swelling #Right elbow erythema #Transaminitis #Elevated T bili #Diabetes mellitus type 2 -Management per primary team This patient care was discussed with my attending Dr. Ibrahima Sheth MD PGY-2 Disclaimer: Minor errors in care consultant may be present since this note was dictated by speech recognition software.
[2024-11-08 19:24] LABS: Anion Gap 9 (7-16); BUN/Creatinine Ratio 26 Ratio (12-20); Blood Urea Nitrogen 72 mg/dL (9-23); Calcium 9.5 mg/dL (8.3-10.6); Carbon Dioxide 33.9 mMol/L (20.0-31.0); Chloride 90 mMol/L (98-107); Creatinine (Component) 2.8 mg/dL (0.6-1.3); Glucose 95 mg/dL (74-106); Osmolality,Calculated 287 (275-295); Potassium 4.8 mMol/L (3.4-5.1); Sodium 133 mMol/L (136-145); eGFR 22 See Note
[2024-11-08] MEDS: BUMETANIDE INJ 0.25 MG/ML VIAL 4 ML 2 MG IVP (21:04)
[2024-11-08] MEDS: NYSTATIN SUSP 5 ML UDC PO (21:04)
--- NOTE | 2024-11-08 22:08 | PC.NURSE ---
2044 Son reported pt having bleeding to forearm upon assessment skin tear was noted to right forearm. No skin flap unable to to approximate area cleansed with ns applied luli with adaptic and puracol abd pad wraped with Kerlix. Pt tolerated well.
[2024-11-09] VITALS (12 sets, daily range): BP systolic 93–105; BP diastolic 59–71; PULSE 71–78; RESP 14–20; TEMP 36–36.6; O2SAT 96–99
[2024-11-09] MEDS: NYSTATIN SUSP 5 ML UDC PO ×4 (05:16→21:19)
[2024-11-09] MEDS: MIDODRINE 5 MG TABLET 10 MG PO ×4 (05:16→21:19)
[2024-11-09 07:02] LABS: Alanine Aminotransferase 35 U/L (10-49); Albumin, Serum 3.3 gm/dL (3.4-4.8); Albumin/Globulin Ratio 1.2 (1.2-2.2); Alkaline Phosphatase 93 U/L (46-116); Anion Gap 10 (7-16); Aspartate Amino Transferase 57 U/L (0-34); BUN/Creatinine Ratio 25 Ratio (12-20); Bilirubin,Total 4.3 mg/dL (0.3-1.2); Blood Urea Nitrogen 68 mg/dL (9-23); Calcium 9.3 mg/dL (8.3-10.6); Calcium (Corrected) 9.9 mg/dL (8.5-10.1); Carbon Dioxide 33.8 mMol/L (20.0-31.0); Chloride 90 mMol/L (98-107); Creatinine (Component) 2.7 mg/dL (0.6-1.3); Estimated Creatinine Clearance 25.2 mL/min (>60); Globulin 2.7 gm/dL (2.3-3.5); Glucose 76 mg/dL (74-106); Magnesium 2.6 mg/dL (1.6-2.6); Osmolality,Calculated 286 (275-295); Phosphorous 4.7 mg/dL (2.4-5.1); Potassium 4.2 mMol/L (3.4-5.1); Sodium 134 mMol/L (136-145); eGFR 23 See Note
[2024-11-09 07:19] LABS: Basophils % (Auto) 1 % (0-2.5); Eosinophils # (Auto) 0.1 Thou/mm3 (0.0-0.5); Eosinophils % (Auto) 2 % (0-10); Hematocrit 35.8 % (41.0-53.0); Hemoglobin 10.8 g/dL (13.5-16.0); Immature Granulocytes % (Auto) 0 % (0-0); Immature Granulocytes Auto 0.02 Thou/mm3 (0.00-0.00); Lymphocytes % (Auto) 19 % (10-50); Mean Corpuscular HGB Conc 30.2 g/dl (31.0-37.0); Mean Corpuscular Hemoglobin 27.9 pg (25.0-35.0); Mean Corpuscular Volume 93 fL (80-100); Monocytes # (Auto) 0.7 Thou/mm3 (0.0-0.8); Monocytes % (Auto) 13 % (0-12); Neutrophils # (Auto) 3.5 Thou/mm3 (1.8-7.7); Neutrophils % (Auto) 66 % (37-80); Nucleated Red Blood Cell # 0.03 Thou/mm3 (0.00-0.00); Nucleated Red Blood Cell % 1 /100 WBC (0); Platelet Count 143 Thou/mm3 (140-440); RDW Standard Deviation 63.8 fL (35.1-43.9); Red Blood Count 3.87 Miln/mm3 (4.50-5.90); White Blood Count 5.4 Thou/mm3 (3.8-10.6)
--- NOTE | 2024-11-09 08:10 | ESPR_ITS ---
Documentation for date of: 11/09/24 Subjective Subjective Interval history: Mr. Rai is a 79-year-old male patient with significant medical history of HFrEF (35-40% on March 2024), s/p AICD, chronic Afib (rate controlled), DVT (on Eliquis), HTN, HLD and DM2 was broght to ED on 11/06/24 from half-way facility for chest pain/tightness and shortness of breath. He states it feels like somene is sitting on my chest and he cannot properly take deep breaths and also has some palpitations. He denied having any nausea/vomiting/diarrhea, hematuria, dysuria, hematemesis, hematochezia or melena. Patient was recently admitted to [facility] [place] on 10/05/24 for aggressive diuresis with Bumex, metolazone and Diamox for CHF exacerbation and cardiorenal syndrome. Patient also had low blood pressure and was started on midodrine 10 mg 3 times daily. Patient also developed some right elbow swelling with erythema during hospitalization and was started on doxycycline and Rocephin with adequate response. He was discharged on 10/20/2024 to SNF; however, recently developed new chest pain/tightness along with acute shortness of breath requiring an increase in his oxygen requirements (patient usually uses 2 L). Patient's biological daughter is bedside; however, she states that she lives in [place] and does not manage her father's medical condition. She states that the patient's current significant other knows her medical history well but she is not available to a recent in the family. In the ED, patient hypoxemic requiring 6 L nasal cannula but satting 98%, normotensive, regular heart rate, respiratory rate 18. Pertinent lab findings include hemoglobin 11.4 (MCV 90), platelet count 166, sodium 133, potassium 3.1, BUN 70, creatinine 2.3, magnesium 2.8, troponin 0.037, BNP 3128. EKG showed atrial fibrillation with marked left axis deviation with left bundle branch block previously seen. X-ray showed early heart failure with signs of moderate cardiac enlargement and prominent vascular congestion. CT scan of chest abdomen and pelvis showed moderate enlargement of the cardiac contour, mild pneumonia in the right base, mild to moderate right pleural effusion, primary hepatocellular disease, atrophic kidneys, distended urinary bladder without significant prostatomegaly, and colonic diverticulosis. Patient will be admitted for NSTEMI type II along with acute decompensated heart failure requiring IV diuretics. Nephrology consulted for ERLIN on CKD. 11/09/24: Patient seen and examined at bedside, edema has improved compared to yesterday, plan to hold IV Bumex, received AM dose. BUN 68, Cr 2.7, GFR 23 today. Discussed with patient about goals of care as he has had multiple hospitalizations for CHF, patient mentioned he wants to discuss with his before making any decision and she is out of town. Will continue to monitor renal function in AM. Exam Vital Signs Temp Pulse Resp BP Pulse Ox O2 Del Method O2 Flow Rate 98 F 75 20 102/69 96 Nasal Cannula 2 11/09/24 04:00 11/09/24 05:16 11/09/24 04:00 11/09/24 05:16 11/09/24 04:00 11/09/24 04:00 11/09/24 04:00 Narrative Exam General: AAOx2, not oriented to time, obese male HEENT: Conjunctiva clear, EOMI, PERRLA, tongue appears to have glossitis appearance Cardiovascular: S1, S2, radial pulses +2 bilat, RRR, possible murmur heard on LIZBET border Pulmonary: Some crackles heard in LLL GI: No tenderness to light or deep palpitation, no guarding, rigidity, rebound tenderness or distension Extremities: +1 pitting edema in LE bilat, faint dorsalis pedis pulses, R elbow erythematous and a bit edematous MSK: Reduced range of motion with flexion of R elbow Skin: Some purpura through UE bilat. Small petechiae present on upper R deltoid and part of chest bilat Neuro: AAOx2, pupillary reflex intact bilat Psych: Able to cooperate. Objective Labs 11/11/24 04:08 11/11/24 04:08 Labs: Laboratory Results - last 24 hr 11/08/24 11/08/24 11/08/24 09:30 12:03 18:30 WBC RBC Hgb Hct MCV MCH MCHC RDW Std Deviation Plt Count Neut % (Auto) Lymph % (Auto) Whiteside % (Auto) Eos % (Auto) Baso % (Auto) Neut # (Auto) Lymph # (Auto) Whiteside # (Auto) Eos # (Auto) Baso # (Auto) Immature Gran # (Auto) Absolute Nucleated RBC Immature Gran % Nucleated RBC % Sodium 131 L 133 L Potassium 5.2 H D 4.8 Chloride 89 L 90 L Carbon Dioxide 30.8 33.9 H Anion Gap 11 9 BUN 69 H 72 H Creatinine 2.7 H 2.8 H Estim Creat Clear Calc 130.6 25.0 L eGFR 23 L 22 L BUN/Creatinine Ratio 26 H 26 H Glucose 80 95 Calculated Osmolality 281 287 Calcium 9.6 9.5 Corrected Calcium Phosphorus 4.7 Magnesium 2.7 H Total Bilirubin AST ALT Alkaline Phosphatase Ammonia 22 B-Natriuretic Peptide 2503 H* Total Protein Albumin Globulin Albumin/Globulin Ratio 11/09/24 05:14 WBC 5.4 RBC 3.87 L Hgb 10.8 L Hct 35.8 L MCV 93 MCH 27.9 MCHC 30.2 L RDW Std Deviation 63.8 H Plt Count 143 Neut % (Auto) 66 Lymph % (Auto) 19 Whiteside % (Auto) 13 H Eos % (Auto) 2 Baso % (Auto) 1 Neut # (Auto) 3.5 Lymph # (Auto) 1.0 Whiteside # (Auto) 0.7 Eos # (Auto) 0.1 Baso # (Auto) 0.0 Immature Gran # (Auto) 0.02 H Absolute Nucleated RBC 0.03 H Immature Gran % 0 Nucleated RBC % 1 H Sodium 134 L Potassium 4.2 D Chloride 90 L Carbon Dioxide 33.8 H Anion Gap 10 BUN 68 H Creatinine 2.7 H Estim Creat Clear Calc 25.2 L eGFR 23 L BUN/Creatinine Ratio 25 H Glucose 76 Calculated Osmolality 286 Calcium 9.3 Corrected Calcium 9.9 Phosphorus 4.7 Magnesium 2.6 Total Bilirubin 4.3 H D AST 57 H ALT 35 Alkaline Phosphatase 93 Ammonia B-Natriuretic Peptide Total Protein 6.0 Albumin 3.3 L Globulin 2.7 Albumin/Globulin Ratio 1.2 Quality Measures Quality Measures none Advance care planning discussed with:: patient Assessment & Plan Assessment Current Active Medications: Generic Name Dose Route Start Last Admin Trade Name Freq PRN Reason Stop Dose Admin Acetaminophen 650 mg 11/06/24 23:12 11/08/24 05:17 Acetaminophen 325 Mg Tablet PO 12/06/24 23:11 650 mg Q6H PRN Administration Pain 1-3 and/or Fever >100.1 Hydrocodone Bitart/Acetaminophen 1 tab 11/08/24 09:14 Hydrocodone/Apap 5/325 Tablet PO 11/13/24 09:13 Q6HR PRN Pain 4-7 Apixaban 5 mg 11/07/24 09:00 11/08/24 21:03 Apixaban 2.5 Mg Tablet PO 12/07/24 08:59 5 mg BID YASSINE Administration Bumetanide 2 mg 11/07/24 09:25 11/08/24 21:04 Bumetanide Inj 0.25 Mg/Ml Vial 4 Ml IVP 12/07/24 08:59 2 mg BID YASSINE Administration Carvedilol 6.25 mg 11/07/24 09:25 11/08/24 08:15 Carvedilol 3.125 Mg Tablet PO 12/07/24 07:59 6.25 mg BIDWM YASSINE Administration Doxycycline Hyclate 100 mg 11/07/24 10:15 11/08/24 21:03 Doxycycline 100 Mg Tablet PO 11/14/24 10:14 100 mg BID YASSINE Administration Hydromorphone HCl 0.25 mg 11/08/24 09:15 Hydromorphone Inj 2 Mg/Ml Vial IVP 11/12/24 10:19 Q4HR PRN Pain 8-10 Ceftriaxone Sodium/Dextrose 50 mls @ 100 mls/hr 11/07/24 10:11 11/08/24 08:16 Rocephin/D5w 1gm Iv Premix IV 11/14/24 10:10 100 mls/hr QDAY YASSINE Administration Midodrine 10 mg 11/07/24 09:25 11/09/24 05:16 Midodrine 5 Mg Tablet PO 12/06/24 23:29 10 mg TID YASSINE Administration Multivitamins 1 tab 11/08/24 15:15 11/08/24 18:04 Multivitamins Tablet PO 12/08/24 15:14 Not Given QDAY YASSINE Nitroglycerin 0.4 mg 11/06/24 23:20 Nitroglycerin 0.4 Mg Subl Btl #25 SL Q5MIN PRN CHEST PAIN Nystatin 5 ml 11/08/24 17:00 11/09/24 05:16 Nystatin Susp 5 Ml Udc PO 11/15/24 16:59 5 ml QID YASSINE Administration Sennosides 1 tab 11/08/24 09:00 11/08/24 08:16 Senna Tablet PO 12/08/24 08:59 1 tab QDAY YASSINE Administration Protocol Tamsulosin HCl 0.4 mg 11/07/24 14:30 11/08/24 08:15 Tamsulosin Hcl 0.4 Mg Capsule PO 12/07/24 14:29 0.4 mg QDAY YASSINE Administration Plan Summary: 79-year-old male patient with significant medical history of HFrEF (35- 40% on March 2024), s/p AICD, chronic Afib (rate controlled), DVT (on Eliquis), HTN, HLD was broght to ED from SNF for chest pain/tightness and shortness of breath will be admitted for NSTEMI type II along with acute decompensated heart failure requiring IV diuretics and cardiology consult #ERLIN on CKD #Cardiorenal syndrome #Hypotension #Atrophic kidneys On admission BUN 70 Cr 2.3 GFR 28, Baseline BUN 30 Cr 1.0 GFR >60 Patient has had multiple admission for CHF exacerbations recieved IV Diuretics. Discharged on oral diuretics. Patient is currently fluid overloaded. Plan: -Hold Bumex -Monitor Renal function -Dose medications renally -Avoid nephrotoxic agents #Acute Respiratory Failure 2/2 to #Acute decompensated heart failure #Right pleural effusion #HFrEF, with severe systolic dysfunction, EF 10-15% status post AICD placement #Right elbow swelling, improving #Right elbow erythema, improving #Chest pain, improved #Likely NSTEMI type II versus type I, resolved #CAP, R base #Glossitis #Abdominal pain #Primary hepatocellular disease #Elevated total bilirubin, worsening #Chronic atrial fibrillation, rate controlled #History of hypertension #Hyperlipidemia #History of DVT #Primary hepatocellular disease #Hyperkalemia, resolved Case discussed with Attending Dr. Balderas. Jordan Ahn PGY1 Attending Provider Attestation/Addendum Patient seen and examined with resident physician Dr. Ahn. Note reviewed, agree with findings and recommendations. Patient with cardiorenal syndrome and ERLIN secondary to diuretics. Will hold the Bumex today. Creatinine slightly better today.
--- NOTE | 2024-11-09 08:59 | PC.SS ---
Follow up note: Pt is from [facility] and will return at d/c. Waiting for clinical improvement. Cardio recommendations pending.
[2024-11-09] MEDS: SENNA TABLET 1 TAB PO (09:19)
[2024-11-09] MEDS: MULTIVITAMINS TABLET 1 TAB PO (09:19)
[2024-11-09] MEDS: DOXYCYCLINE 100 MG TABLET PO ×2 (09:19→21:19)
[2024-11-09] MEDS: TAMSULOSIN HCL 0.4 MG CAPSULE PO (09:19)
[2024-11-09] MEDS: APIXABAN 2.5 MG TABLET 5 MG PO ×2 (09:19→21:19)
[2024-11-09] MEDS: BUMETANIDE INJ 0.25 MG/ML VIAL 4 ML 2 MG IVP (09:20)
[2024-11-09] MEDS: cefTRIAXone/D5w 1gm IV premix 50 ML IV (09:21)
--- NOTE | 2024-11-09 09:24 | PC.NURSE ---
Consulted Dr Lopez about Pt blood pressure of 89/51 with a retake blood pressure of 89/67 and 94/59 final blood pressure result, Nurse concerned with lowering Pt blood pressure even more with administering Bumex 2 mg IVP, Dr Lopez recommended administrating Bumex with a one time order of midodrine to stabalize Pt blood pressure. One time order of midodrine 10 mg PO seen and acknowledged.
--- NOTE | 2024-11-09 09:33 | PC.NURSE ---
dr. Balderas a bedside talking to pt.
--- NOTE | 2024-11-09 09:35 | PC.NURSE ---
Per Dr Balderas order, 2100 Bumex dose is to be held.
--- NOTE | 2024-11-09 10:02 | PCS.ST ---
Swallow Evaluation completed. See report for details. Recommend to continue current diet of Dysphagia 2 d/t lack of dentition and need for energy conservation.
--- NOTE | 2024-11-09 10:54 | XR_ITS ---
Examination: Abdomen sonogram, complete Date and time of exam: November 09, 2024 1348 hours INDICATIONS: Elevated total bilirubin, 4.3 on laboratory examination today. Technique: Multiple real-time grayscale transabdominal sonographic images of the abdomen have been obtained. Findings: No gallstones. Gallbladder wall at the gallbladder neck measures 1.2 cm Common bile duct 0.4 cm Pancreas is obscured by bowel gas Mid and distal aorta are not visualized not enlarged Liver 16.6 cm irregular contour fatty infiltration at least small right pleural effusion Normal hepatopedal portal venous flow Patent IVC Right kidney 11.1 x 5.0 x 4.6 cm cortex 1.8 cm Left kidney 10.5 x 5.5 x 4.4 cm cortex 1.8 cm Mild bilateral renal parenchymal scar formation No hydronephrosis Spleen 8.9 cm IMPRESSION: Suspicious for cholecystitis, consider HIDA scan follow-up No definite common bile duct stones
[2024-11-09] MEDS: DiphenhydrAMINE 25 MG CAPSULE PO (12:47)
--- NOTE | 2024-11-09 12:49 | ESPR_ITS ---
<Statement entered by Checo Lopez MD - 11/09/24 22:30> Patient was seen and examined at bedside. No overnight symptoms. Today the nurse noticed that his blood pressure was 85/45. For that reason we gave him extra dose x 1 of midodrine 10 mg p.o. And will continue diuresing the patient with Bumex same dose 2 mg p.o. daily. The reason for that is echocardiogram showed ejection fraction of 10-15 %, with severely congested inferior vena cava. Will continue to hold Coreg at this time and other goal-directed medical therapy due to the very low blood pressure. Will continue treating the patient for his community-acquired pneumonia with Rocephin. His serum creatinine still high at 2.7. Patient is still full code for that reason we will continue aggressive management. Patient right elbow has been improving significantly with almost normal range of motion. Because the patient has glossitis we will start the patient on nystatin swish and swallow and also started the patient on multivitamins. Goals of care discussion tomorrow we will try to reach out to the who is the primary caregiver and decision maker for the patient. - Patient's plan and care discussed with my attending, Dr. Magdy Lopez MD Internal Medicine PGY-2 Documentation for date of: 11/09/24 Subjective Subjective Interval history: Patient examined at bedside today. Says overnight that some skin on his right forearm had opened up, believes it is from the potassium. Son present at bedside, discussion of hospice and changing CODE STATUS was initiated, however they need more time to think about it. His is the decision maker for his medical decisions, but she is out of town currently dealing with a in the family at this time. No other complaints at this time Exam Vital Signs Temp Pulse Resp BP Pulse Ox O2 Del Method O2 Flow Rate 96.8 F 72 18 94/59 L 99 Nasal Cannula 2 11/09/24 08:00 11/09/24 09:20 11/09/24 08:00 11/09/24 09:20 11/09/24 08:00 11/09/24 08:00 11/09/24 08:00 Narrative Exam General: AAOx2, not oriented to time, obese male HEENT: Conjunctiva clear, EOMI, PERRLA, tongue appears to have glossitis appearance Cardiovascular: S1, S2, radial pulses +2 bilat, RRR, possible murmur heard on LIZBET border Pulmonary: Some crackles heard in LLL GI: No tenderness to light or deep palpitation, no guarding, rigidity, rebound tenderness or distension Extremities: +1 pitting edema in LE bilat, faint dorsalis pedis pulses, R elbow erythematous and a bit edematous MSK: Reduced range of motion with flexion of R elbow Skin: Some purpura through UE bilat. Small petechiae present on upper R deltoid and part of chest bilat Neuro: AAOx2, pupillary reflex intact bilat Psych: Able to cooperate. Objective Labs 11/10/24 05:28 11/10/24 05:28 Labs: Laboratory Results - last 24 hr 11/08/24 11/08/24 11/09/24 12:03 18:30 05:14 WBC 5.4 RBC 3.87 L Hgb 10.8 L Hct 35.8 L MCV 93 MCH 27.9 MCHC 30.2 L RDW Std Deviation 63.8 H Plt Count 143 Neut % (Auto) 66 Lymph % (Auto) 19 [place] % (Auto) 13 H Eos % (Auto) 2 Baso % (Auto) 1 Neut # (Auto) 3.5 Lymph # (Auto) 1.0 [place] # (Auto) 0.7 Eos # (Auto) 0.1 Baso # (Auto) 0.0 Immature Gran # (Auto) 0.02 H Absolute Nucleated RBC 0.03 H Immature Gran % 0 Nucleated RBC % 1 H Sodium 131 L 133 L 134 L Potassium 5.2 H D 4.8 4.2 D Chloride 89 L 90 L 90 L Carbon Dioxide 30.8 33.9 H 33.8 H Anion Gap 11 9 10 BUN 69 H 72 H 68 H Creatinine 2.7 H 2.8 H 2.7 H Estim Creat Clear Calc 130.6 25.0 L 25.2 L eGFR 23 L 22 L 23 L BUN/Creatinine Ratio 26 H 26 H 25 H Glucose 80 95 76 Calculated Osmolality 281 287 286 Calcium 9.6 9.5 9.3 Corrected Calcium 9.9 Phosphorus 4.7 Magnesium 2.6 Total Bilirubin 4.3 H D AST 57 H ALT 35 Alkaline Phosphatase 93 Ammonia 22 Total Protein 6.0 Albumin 3.3 L Globulin 2.7 Albumin/Globulin Ratio 1.2 Quality Measures Quality Measures none Advance care planning discussed with:: patient Assessment & Plan Assessment Current Active Medications: Generic Name Dose Route Start Last Admin Trade Name Freq PRN Reason Stop Dose Admin Acetaminophen 650 mg 11/06/24 23:12 11/08/24 05:17 Acetaminophen 325 Mg Tablet PO 12/06/24 23:11 650 mg Q6H PRN Administration Pain 1-3 and/or Fever >100.1 Hydrocodone Bitart/Acetaminophen 1 tab 11/08/24 09:14 Hydrocodone/Apap 5/325 Tablet PO 11/13/24 09:13 Q6HR PRN Pain 4-7 Apixaban 5 mg 11/07/24 09:00 11/09/24 09:19 Apixaban 2.5 Mg Tablet PO 12/07/24 08:59 5 mg BID YASSINE Administration Bumetanide 2 mg 11/07/24 09:25 11/09/24 09:20 Bumetanide Inj 0.25 Mg/Ml Vial 4 Ml IVP 12/07/24 08:59 2 mg BID YASSINE Administration Carvedilol 6.25 mg 11/07/24 09:25 11/08/24 08:15 Carvedilol 3.125 Mg Tablet PO 12/07/24 07:59 6.25 mg BIDWM YASSINE Administration Doxycycline Hyclate 100 mg 11/07/24 10:15 11/09/24 09:19 Doxycycline 100 Mg Tablet PO 11/14/24 10:14 100 mg BID YASSINE Administration Hydromorphone HCl 0.25 mg 11/08/24 09:15 Hydromorphone Inj 2 Mg/Ml Vial IVP 11/12/24 10:19 Q4HR PRN Pain 8-10 Ceftriaxone Sodium/Dextrose 50 mls @ 100 mls/hr 11/07/24 10:11 11/09/24 09:21 Rocephin/D5w 1gm Iv Premix IV 11/14/24 10:10 100 mls/hr QDAY YASSINE Administration Midodrine 10 mg 11/07/24 09:25 11/09/24 05:16 Midodrine 5 Mg Tablet PO 12/06/24 23:29 10 mg TID YASSINE Administration Multivitamins 1 tab 11/08/24 15:15 11/09/24 09:19 Multivitamins Tablet PO 12/08/24 15:14 1 tab QDAY YASSINE Administration Nitroglycerin 0.4 mg 11/06/24 23:20 Nitroglycerin 0.4 Mg Subl Btl #25 SL Q5MIN PRN CHEST PAIN Nystatin 5 ml 11/08/24 17:00 11/09/24 12:47 Nystatin Susp 5 Ml Udc PO 11/15/24 16:59 5 ml QID YASSINE Administration Sennosides 1 tab 11/08/24 09:00 11/09/24 09:19 Senna Tablet PO 12/08/24 08:59 1 tab QDAY YASSINE Administration Protocol Tamsulosin HCl 0.4 mg 11/07/24 14:30 11/09/24 09:19 Tamsulosin Hcl 0.4 Mg Capsule PO 12/07/24 14:29 0.4 mg QDAY YASSINE Administration Plan Plan 79-year-old male patient with significant medical history of HFrEF (35-40% on March 2024), s/p AICD, chronic Afib (rate controlled), DVT (on Eliquis), HTN, HLD was broght to ED from SNF for chest pain/tightness and shortness of breath will be admitted for NSTEMI type II along with acute decompensated heart failure requiring IV diuretics and cardiology consult #Acute Respiratory Failure 2/ to #Acute decompensated heart failure #HFrEF, with severe systolic dysfunction, EF 10-15% status post AICD placement #Cardiorenal syndrome #Right pleural effusion #Hypotension Patient has multiple admissions within the past year for acute decompensated heart failure requiring IV diuretics Recently had admission for CHF causing cardiorenal syndrome with elevated BUN/creatinine, new baseline creatinine > 2.0 Patient presenting from the SNF after he was discharged on 10/20/2024 due to chest tightness and acute shortness of breath requiring 6 L nasal cannula oxygenation Patient does use oxygen at the facility but usually its only 2 L Patient is on Bumex 2 mg twice daily, Coreg 6.25 twice daily, spironolactone 25 mg p.o. twice daily and midodrine 10 3 times daily for blood pressure support Patient follows Dr. Alexandra (cardiology) for greater than 25 years and was told to follow-up with him on last discharge; unsure if he did A1c 5.0 from 08/2024 Lipid Panel: Total cholesterol ~110, LDL 75 Net= -1.5k mL at this point 24 hrs -1150 out Will hold Coreg at this point due to hypotension Spoke with pt and his son, goals of care conversation was held, however, pt's decision maker, , is out of town currently and is dealing with a of a family member Patient will need more time to decide goals of care, and CODE STATUS Nephrology recommends comfort/hospice care for patient moving forward Patient's echo shows HFrEF with systolic dysfunction and EF of 10-15% Will try to optimize medical management with GDMT, however, pt's prognosis is poor at this time Added one additional dose of midodrine 10 b/c of hypotension today Plan: Cardiology, Dr. Alexandra, consulted appreciate recommendations IV Bumex 2 mg twice daily w/ holding parameters SBP below 90 Holding Coreg Midodrine 10 mg TID, hold if SBP above 110 Fluid restriction 1500 mL Strict I's and O's Daily weight Cardiology, Dr. Alexandra, consulted appreciate recommendations Keep Mag >2.0 and K >4.0 Follow-up echo read Nephrology consult #Chest pain, improved #Likely NSTEMI type II versus type I, resolved #CAP, R base Patient presenting to the ED with chest tightness which she describes as someone sitting on his chest Pain/tightness does not change in quality when he takes deep breaths and is present at all times; he rates it an 8 out of 10 EKG does not show any concerning ST changes; there are left axis deviation and left bundle branch block previously seen on EKGs On CT chest abdomen pelvis there is possible right base pneumonia although the patient does not have any coughing/fever/elevated WBC Pt is not having chest pain at this point, this could be pleuritic chest pain Will add abx Troponin negative x2 Patient did complain of chest pain, most likely musculoskeletal at this time, due to it being reproducible and midsternal in nature Plan: Dilaudid 0.25 mg q4h as needed 8-10 pain [place] 5 for 4-7 pain Continue with Rocephin #Right elbow swelling, improving #Right elbow erythema, improving DDx: [place] bursitis versus cellulitis versus abscess vs gout On physical exam tender to palpation, and is red Ultrasound on previous admission shows fluid in all draining bursa, 4.6 x 1.2 x 4.4, severe generalized edema, will olceranon bursitis versus abscess Patient had MRI done on previous admission however MRI reading affected by patient moving arm during MRI Considering patient's elbow looks worse from when last discharged on previous admission, will need to take a closer look and add antibiotic coverage Will hold on MRI at this point ESR unremarkable, CRP 1.6 Plan: -Rocephin and Doxy (11/07?) ?Wound care #Glossitis Does not appear to be infectious, however could be related to nutrients Plan: ?Nystatin with swish swallow ?B12, folate #Abdominal pain #Primary hepatocellular disease #Elevated total bilirubin, worsening T bili 4.3 today, usually in the mid 3s RUQ tenderness upon palpitation on physical exam today Hepatitis panel negative Will work up , however could be related due to hepatic congestion Plan: ?*Abdominal ultrasound ?*Direct bilirubin #Chronic atrial fibrillation, rate controlled CHADS-VASc 4?points Stroke risk was 4.8% per year in >90,000 patient Patient is currently rate controlled on the above medications mentioned Plan: Continue Eliquis 5 mg p.o. twice daily Telemetry #History of hypertension #Hyperlipidemia #History of DVT Chronic medical conditions Plan: As above #Atrophic kidneys #Primary hepatocellular disease As seen on CT chest abdomen pelvis, noncontributory or pertinent to current presentation Plan: Follow-up outpatient #Hyperkalemia, resolved K+ 4.8 today Plan: Stable #Health Maintenance Disposition: Telemetry DVT prophylaxis: Eliquis 5 mg twice daily GI prophylaxis: Not indicated at this time Diet: Cardiac CODE STATUS: Full Patient seen and care discussed with my senior resident, Dr. Lopez, and my attending physician, Dr. Magdy Fay, PGY-1 Attending Provider Attestation/Addendum I have examined the patient, reviewed labs and imaging findings, discussed the case with the resident(s), and reviewed entered orders. I agree with the plan of care as outlined in this note, with these additional summaries/recommendations: Patient and son seen at bedside. No acute overnight events. Patient appears more alert and interactive today. Patient admitted for acute hypoxic respiratory failure secondary to CHF exacerbation. Previous echocardiogram showed ejection fraction of 35%. Repeat echocardiogram unfortunately now shows EF 10-15% . Patient net negative over 2L for hospitalization. Continue fluid restriction preload reduction and place IV Bumex on hold today. Discontinue Coreg today for soft blood pressure. Unfortunately unable to uptitrate goal- directed medical therapy at this time secondary to chronic hypotension. Continue home midodrine 10 mg p.o. 3 times daily. Cardiology following. Continue IV antibiotics for community-acquired pneumonia. ERLIN on CKD present and possibly related to cardiorenal syndrome. Avoid nephrotoxic agents and renally dose medications. Contraction alkalosis present and we will monitor for now. 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 Patient's medical decision maker who is patient's Rosy is currently out of town attending a of a loved one. Given patient's severe heart failure, chronic hypotension requiring midodrine, chronic kidney disease, and limited functional status patient would benefit from additional goals of care conversations. But given that patient's medical decision maker is currently attending a we will hold off on this conversation and likely will need to take place outpatient with the PCP. Patient's son updated at bedside. Dr. Curran
[2024-11-09 14:08] LABS: Bilirubin,Direct 2.6 mg/dL (0.0-0.3)
[2024-11-09 15:05] LABS: Folate 11.49 ng/mL (>5.38); Vitamin B12 1379 pg/mL (211-911)
--- NOTE | 2024-11-09 15:05 | PC.SS ---
SS spoke to Liset at [facility] who states Medicare does not cover room and board under Hospice at SNF. Pt will require PT notes to return under skilled need. Dr. Curran has placed PT orders.
--- NOTE | 2024-11-09 19:09 | ESPR_ITS ---
<Statement entered by Zac Alexandra MD - 11/10/24 10:37> The patient is evaluated by me along with resident physician Dr. Johnson PGY2 not doing that well requiring midodrine for hypotension also some of the medications have not helped patient appears to have terminal heart failure class IV stage D ejection fraction only 10 to 15% comfort care and possible hospice care should be discussed with the family if the patient wishes we can trend the defibrillator after pacemaker only. Agree with the treatment plan recommendation as documented by Dr. Johnson Documentation for date of: 11/09/24 Subjective Subjective Interval history: 79-year-old male patient with significant medical history for HFrEF (35 to 40%, March 2024), SP AICD placement, chronic A-fib, DVT (on Eliquis), hypertension, hyperlipidemia, and DM2 [facility] from [facility] with symptoms of shortness of breath and chest pain. In ED patient had described his chest pain as someone sitting on his chest. Patient denied nausea, vomiting, diarrhea, fever, chills, cough, dysuria or other associate symptoms. Patient was recently admitted at [facility] on 10/05/2024 for ERLIN secondary to aggressive diuresis at home. Eventually patient was discharged on 10/20/2024. Today patient states that he has been experiencing increased oxygen demand (usually uses 2 L). In ED patient was hypoxic and required 6 L nasal cannula. Labs were significant for Hgb 11.4, NA 133, K3.1, BUN 70, creatinine 2.3, BNP 3128, trops 0.037. EKG showed A-fib with left axis deviation and LBBB as previously seen. Chest x-ray showed early heart failure with moderate cardiac enlargement and prominent vascular congestion. Chest abdomen pelvis CT indicated mild pneumonia in the right base, mild to moderate right pleural effusion, hepatocellular disease, atrophic kidneys, distended bladder without significant prostamegaly and colonic diverticulosis. Cardiology was consulted regarding further management. Medical Hx: HFrEF, Afib, DVT, HTN, HLD, DM2 Surgical Hx: s/p AICD, anal fistula, knee arthroscopies Medications (need reconciliation): Eliquis, spironolactone, Bumix, Carvedilol, KCL, Lisinopril, Fluoxetine Social Hx: Former alcohol drinker, denied smoking or using other illicit drugs Allergies: NKDA Code Status: Full Code 11/07/2024: During examination today when questioned, patient states he does not know why he was brought to the hospital. He denies chest pain or chest pressure. Will recommend short trial of Bumex 2 mg twice daily after which she could be switched to only 2 mg daily. We also recommend continuing Coreg if tolerated by blood pressure. 11/08/2024: No significant overnight events, patient had 1 L urine output with overall -454 cc net fluid balance. Echocardiogram results indicated:Dilated LV. Severe systolic dysfunction. Severe global hypokinesisl. Estimated EF 10-15% Dilated RV. Low RV function. Estimated RVSP 50mmHg, Pacing wire present. Severe biatrial dilatation. Moderate MR with posterior eccentric jet. Modrate TR, Mild PI. Trace AI. Severe IVC dilatation. Patient has declined cardiac function as his EF has downtrended from 35 to 40% in March 2024 to 10 to 15% currently. Cardiology team updated patient at bedside. Patient has very poor prognosis. Clinically patient looks better than what his echo indicates. 11/09/24: Patient had an episode of BP with MAP of less than 60 at which time extra dose of midodrine was given. Coreg has been held by primary team due to low BP. Patient had 1 L urine output with overall +450 cc net fluid balance. Given the decline nature of heart failure with low EF we are recommending goals of care discussion with family members. If MAP greater than 65 we recommend continuing GDMT despite low BP. Exam Vital Signs Temp Pulse Resp BP Pulse Ox O2 Del Method O2 Flow Rate 97.1 F 78 14 93/67 98 Nasal Cannula 2 11/09/24 16:00 11/09/24 16:46 11/09/24 16:00 11/09/24 16:00 11/09/24 16:00 11/09/24 16:00 11/09/24 16:00 Narrative Exam Constitutional: well-developed, well-nourished, in no acute distress, lying in bed HEENT: NCAT, EOMI, reactive round pupils b/l, patent nares b/l, moist mucous membranes Lung: CTAB, no wheezing, no rhonchi, mild crackles of lower lobes R > L Heart: Regular S1S2, no murmurs, gallops, or rubs Abdomen: Soft, non-distended, non-tender, bowel sounds present throughout Extremities: No cyanosis, clubbing, trace edema of LE, LE pulses present b/l Neurologic: No focal sensory or motor deficits noted, AOx3, appropriate affect Skin: Warm, dry Objective Labs 11/09/24 05:14 11/09/24 05:14 Labs: Laboratory Results - last 24 hr 11/08/24 11/09/24 18:30 05:14 WBC 5.4 RBC 3.87 L Hgb 10.8 L Hct 35.8 L MCV 93 MCH 27.9 MCHC 30.2 L RDW Std Deviation 63.8 H Plt Count 143 Neut % (Auto) 66 Lymph % (Auto) 19 [place] % (Auto) 13 H Eos % (Auto) 2 Baso % (Auto) 1 Neut # (Auto) 3.5 Lymph # (Auto) 1.0 [place] # (Auto) 0.7 Eos # (Auto) 0.1 Baso # (Auto) 0.0 Immature Gran # (Auto) 0.02 H Absolute Nucleated RBC 0.03 H Immature Gran % 0 Nucleated RBC % 1 H Sodium 133 L 134 L Potassium 4.8 4.2 D Chloride 90 L 90 L Carbon Dioxide 33.9 H 33.8 H Anion Gap 9 10 BUN 72 H 68 H Creatinine 2.8 H 2.7 H Estim Creat Clear Calc 25.0 L 25.2 L eGFR 22 L 23 L BUN/Creatinine Ratio 26 H 25 H Glucose 95 76 Calculated Osmolality 287 286 Calcium 9.5 9.3 Corrected Calcium 9.9 Phosphorus 4.7 Magnesium 2.6 Total Bilirubin 4.3 H D Direct Bilirubin 2.6 H AST 57 H ALT 35 Alkaline Phosphatase 93 Total Protein 6.0 Albumin 3.3 L Globulin 2.7 Albumin/Globulin Ratio 1.2 Vitamin B12 1379 H Folate 11.49 Quality Measures Quality Measures none Advance care planning discussed with:: other Assessment & Plan Assessment Current Active Medications: Generic Name Dose Route Start Last Admin Trade Name Freq PRN Reason Stop Dose Admin Acetaminophen 650 mg 11/06/24 23:12 11/08/24 05:17 Acetaminophen 325 Mg Tablet PO 12/06/24 23:11 650 mg Q6H PRN Administration Pain 1-3 and/or Fever >100.1 Hydrocodone Bitart/Acetaminophen 1 tab 11/08/24 09:14 Hydrocodone/Apap 5/325 Tablet PO 11/13/24 09:13 Q6HR PRN Pain 4-7 Apixaban 5 mg 11/07/24 09:00 11/09/24 09:19 Apixaban 2.5 Mg Tablet PO 12/07/24 08:59 5 mg BID YASSINE Administration Bumetanide 2 mg 11/07/24 09:25 11/09/24 09:20 Bumetanide Inj 0.25 Mg/Ml Vial 4 Ml IVP 12/07/24 08:59 2 mg BID YASSINE Administration Carvedilol 6.25 mg 11/07/24 09:25 11/08/24 08:15 Carvedilol 3.125 Mg Tablet PO 12/07/24 07:59 6.25 mg BIDWM YASSINE Administration Doxycycline Hyclate 100 mg 11/07/24 10:15 11/09/24 09:19 Doxycycline 100 Mg Tablet PO 11/14/24 10:14 100 mg BID YASSINE Administration Hydromorphone HCl 0.25 mg 11/08/24 09:15 Hydromorphone Inj 2 Mg/Ml Vial IVP 11/12/24 10:19 Q4HR PRN Pain 8-10 Ceftriaxone Sodium/Dextrose 50 mls @ 100 mls/hr 11/07/24 10:11 11/09/24 09:21 Rocephin/D5w 1gm Iv Premix IV 11/14/24 10:10 100 mls/hr QDAY YASSINE Administration Midodrine 10 mg 11/07/24 09:25 11/09/24 15:29 Midodrine 5 Mg Tablet PO 12/06/24 23:29 10 mg TID YASSINE Administration Multivitamins 1 tab 11/08/24 15:15 11/09/24 09:19 Multivitamins Tablet PO 12/08/24 15:14 1 tab QDAY YASSINE Administration Nitroglycerin 0.4 mg 11/06/24 23:20 Nitroglycerin 0.4 Mg Subl Btl #25 SL Q5MIN PRN CHEST PAIN Nystatin 5 ml 11/08/24 17:00 11/09/24 17:27 Nystatin Susp 5 Ml Udc PO 11/15/24 16:59 5 ml QID YASSINE Administration Sennosides 1 tab 11/08/24 09:00 11/09/24 09:19 Senna Tablet PO 01/25/25 08:59 1 tab QDAY YASSINE Administration Protocol Tamsulosin HCl 0.4 mg 11/07/24 14:30 11/09/24 09:19 Tamsulosin Hcl 0.4 Mg Capsule PO 12/07/24 14:29 0.4 mg QDAY YASSINE Administration Plan 79-year-old male patient with significant medical history for HFrEF (35 to 40%, March 2024), SP AICD placement, chronic A-fib, DVT (on Eliquis), hypertension, hyperlipidemia, and DM2 [facility] ED from [facility] with symptoms of shortness of breath and chest pain. Patient admitted for CHF exacerbation and also consulted cardiology. #Acute on chronic HFrEF (10-15%) #s/p AICD #Right heart failure Echocardiogram results indicated:Dilated LV. Severe systolic dysfunction. Severe global hypokinesisl. Estimated EF 10-15% Dilated RV. Low RV function. Estimated RVSP 50mmHg, Pacing wire present. Severe biatrial dilatation. Moderate MR with posterior eccentric jet. Modrate TR, Mild PI. Trace AI. Severe IVC dilatation. Plan: -Continue Bumex 2 mg IV BID ?Coreg on hold per primary team for low BP -Monitor intake and output -Keep K > 4 and Mg > 2 -Fluid restriction -Strict I & O's #Hx of b/l DVT #Afib rate controlled Patient recently admitted for b/l DVT on eliquis. Physical exam significant for mild edema of lower extremities. Plan: -Continue Eliquis p.o. 5 mg BID #Right elbow swelling #Right elbow erythema #Transaminitis #Elevated T bili #Diabetes mellitus type 2 -Management per primary team This patient care was discussed with my attending Dr. Ibrahima Sheth MD PGY-2 Disclaimer: Minor errors in bottle house quality control technician may be present since this note was dictated by speech recognition software.
[2024-11-10] VITALS (11 sets, daily range): BP systolic 83–109; BP diastolic 59–78; PULSE 74–99; RESP 17–24; TEMP 36–37; O2SAT 96–100; BMI 12.0
[2024-11-10] MEDS: NYSTATIN SUSP 5 ML UDC PO ×4 (05:46→21:22)
[2024-11-10] MEDS: MIDODRINE 5 MG TABLET 10 MG PO ×3 (05:47→21:22)
[2024-11-10 06:32] LABS: Basophils % (Auto) 1 % (0-2.5); Eosinophils # (Auto) 0.2 Thou/mm3 (0.0-0.5); Eosinophils % (Auto) 5 % (0-10); Hematocrit 33.6 % (41.0-53.0); Hemoglobin 10.2 g/dL (13.5-16.0); Immature Granulocytes % (Auto) 0 % (0-0); Immature Granulocytes Auto 0.01 Thou/mm3 (0.00-0.00); Lymphocytes # (Auto) 0.7 Thou/mm3 (1.0-4.8); Lymphocytes % (Auto) 15 % (10-50); Mean Corpuscular HGB Conc 30.4 g/dl (31.0-37.0); Mean Corpuscular Hemoglobin 27.8 pg (25.0-35.0); Mean Corpuscular Volume 92 fL (80-100); Monocytes # (Auto) 0.7 Thou/mm3 (0.0-0.8); Monocytes % (Auto) 14 % (0-12); Neutrophils # (Auto) 3.2 Thou/mm3 (1.8-7.7); Neutrophils % (Auto) 66 % (37-80); Nucleated Red Blood Cell % 0 /100 WBC (0); Platelet Count 132 Thou/mm3 (140-440); RDW Standard Deviation 63.2 fL (35.1-43.9); Red Blood Count 3.67 Miln/mm3 (4.50-5.90); White Blood Count 4.9 Thou/mm3 (3.8-10.6)
[2024-11-10 07:11] LABS: Alanine Aminotransferase 35 U/L (10-49); Albumin, Serum 3.2 gm/dL (3.4-4.8); Albumin/Globulin Ratio 1.4 (1.2-2.2); Alkaline Phosphatase 87 U/L (46-116); Anion Gap 6 (7-16); Aspartate Amino Transferase 71 U/L (0-34); BUN/Creatinine Ratio 28 Ratio (12-20); Bilirubin,Total 4.4 mg/dL (0.3-1.2); Blood Urea Nitrogen 59 mg/dL (9-23); Calcium 9.1 mg/dL (8.3-10.6); Calcium (Corrected) 9.7 mg/dL (8.5-10.1); Carbon Dioxide 38.3 mMol/L (20.0-31.0); Chloride 91 mMol/L (98-107); Creatinine (Component) 2.1 mg/dL (0.6-1.3); Estimated Creatinine Clearance 32.6 mL/min (>60); Globulin 2.3 gm/dL (2.3-3.5); Glucose 92 mg/dL (74-106); Magnesium 2.3 mg/dL (1.6-2.6); Osmolality,Calculated 286 (275-295); Phosphorous 3.5 mg/dL (2.4-5.1); Sodium 135 mMol/L (136-145); Total Protein 5.5 gm/dL (5.7-8.2); eGFR 31 See Note
--- NOTE | 2024-11-10 07:58 | PD.RESPRO ---
Documentation for date of: 11/10/24 Subjective Subjective Interval history: Mr. Rai is a 79-year-old male patient with significant medical history of HFrEF (35-40% on March 2024), s/p AICD, chronic Afib (rate controlled), DVT (on Eliquis), HTN, HLD and DM2 was broght to ED on 11/06/24 from care home facility for chest pain/tightness and shortness of breath. He states it feels like somene is sitting on my chest and he cannot properly take deep breaths and also has some palpitations. He denied having any nausea/vomiting/diarrhea, hematuria, dysuria, hematemesis, hematochezia or melena. Patient was recently admitted to [facility] on 10/05/24 for aggressive diuresis with Bumex, metolazone and Diamox for CHF exacerbation and cardiorenal syndrome. Patient also had low blood pressure and was started on midodrine 10 mg 3 times daily. Patient also developed some right elbow swelling with erythema during hospitalization and was started on doxycycline and Rocephin with adequate response. He was discharged on 10/20/2024 to SNF; however, recently developed new chest pain/tightness along with acute shortness of breath requiring an increase in his oxygen requirements (patient usually uses 2 L). Patient's biological daughter is bedside; however, she states that she lives in [place] and does not manage her father's medical condition. She states that the patient's current significant other knows her medical history well but she is not available to a recent in the family. In the ED, patient hypoxemic requiring 6 L nasal cannula but satting 98%, normotensive, regular heart rate, respiratory rate 18. Pertinent lab findings include hemoglobin 11.4 (MCV 90), platelet count 166, sodium 133, potassium 3.1, BUN 70, creatinine 2.3, magnesium 2.8, troponin 0.037, BNP 3128. EKG showed atrial fibrillation with marked left axis deviation with left bundle branch block previously seen. X-ray showed early heart failure with signs of moderate cardiac enlargement and prominent vascular congestion. CT scan of chest abdomen and pelvis showed moderate enlargement of the cardiac contour, mild pneumonia in the right base, mild to moderate right pleural effusion, primary hepatocellular disease, atrophic kidneys, distended urinary bladder without significant prostatomegaly, and colonic diverticulosis. Patient will be admitted for NSTEMI type II along with acute decompensated heart failure requiring IV diuretics. Nephrology consulted for ERLIN on CKD. 11/09/24: Patient seen and examined at bedside, edema has improved compared to yesterday, plan to hold IV Bumex, received AM dose. BUN 68, Cr 2.7, GFR 23 today. Discussed with patient about goals of care as he has had multiple hospitalizations for CHF, patient mentioned he wants to discuss with his before making any decision and she is out of town. Will continue to monitor renal function in AM. 11/10/24: Patient seen and examined at bedside, mild edema noted in bilateral lower extremities, patient did receive a.m. dose of Bumex yesterday, evening dose of Bumex was held patient's BUN 59, creatinine 2.1, GFR 31 today improved remarkably compared to yesterday. Recommend holding Bumex today as well. Patient had 1650 cc urine output yesterday and intake 1880 cc, net positive 270. Primary team to discuss goals of care with patient, patient's ejection fraction around 10 - 15%, with global hypokinesis noted. Will continue to monitor renal function in a.m. Exam Vital Signs Temp Pulse Resp BP Pulse Ox O2 Del Method O2 Flow Rate 98.6 F 78 21 H 109/78 96 Nasal Cannula 2 11/10/24 04:00 11/10/24 05:47 11/10/24 04:00 11/10/24 05:47 11/10/24 04:00 11/10/24 04:00 11/10/24 04:00 Narrative Exam General: AAOx2, obese male, tired, does not want to engage in conversation HEENT: Conjunctiva clear, EOMI, PERRLA Cardiovascular: S1, S2, radial pulses +2 bilat, RRR. Pulmonary: Mild crackles bilaterally GI: No tenderness to light or deep palpitation, no guarding, rigidity, rebound tenderness or distension Extremities: +1 pitting edema in LE bilat, faint dorsalis pedis pulses, R elbow erythematous and a bit edematous MSK: Reduced range of motion with flexion of R elbow Skin: Some purpura through UE bilat. Small petechiae present on upper R deltoid and part of chest bilat. significant dryness noted on bilateral feet. Neuro: AAOx2, pupillary reflex intact bilat Psych: Able to cooperate. Objective Labs 11/11/24 04:08 11/11/24 04:08 Labs: Laboratory Results - last 24 hr 11/09/24 11/10/24 05:14 05:28 WBC 4.9 RBC 3.67 L Hgb 10.2 L Hct 33.6 L MCV 92 MCH 27.8 MCHC 30.4 L RDW Std Deviation 63.2 H Plt Count 132 L Neut % (Auto) 66 Lymph % (Auto) 15 [place] % (Auto) 14 H Eos % (Auto) 5 Baso % (Auto) 1 Neut # (Auto) 3.2 Lymph # (Auto) 0.7 L [place] # (Auto) 0.7 Eos # (Auto) 0.2 Baso # (Auto) 0.0 Immature Gran # (Auto) 0.01 H Absolute Nucleated RBC 0.00 Immature Gran % 0 Nucleated RBC % 0 Sodium 135 L Potassium 3.0 L D Chloride 91 L Carbon Dioxide 38.3 H Anion Gap 6 L BUN 59 H Creatinine 2.1 H D Estim Creat Clear Calc 32.6 L eGFR 31 L BUN/Creatinine Ratio 28 H Glucose 92 Calculated Osmolality 286 Calcium 9.1 Corrected Calcium 9.7 Phosphorus 3.5 Magnesium 2.3 Total Bilirubin 4.4 H Direct Bilirubin 2.6 H AST 71 H ALT 35 Alkaline Phosphatase 87 Total Protein 5.5 L Albumin 3.2 L Globulin 2.3 Albumin/Globulin Ratio 1.4 Vitamin B12 1379 H Folate 11.49 Quality Measures Quality Measures none Advance care planning discussed with:: patient Assessment & Plan Assessment Current Active Medications: Generic Name Dose Route Start Last Admin Trade Name Matt PRN Reason Stop Dose Admin Acetaminophen 650 mg 11/06/24 23:12 11/08/24 05:17 Acetaminophen 325 Mg Tablet PO 12/06/24 23:11 650 mg Q6H PRN Administration Pain 1-3 and/or Fever >100.1 Hydrocodone Bitart/Acetaminophen 1 tab 11/08/24 09:14 Hydrocodone/Apap 5/325 Tablet PO 11/13/24 09:13 Q6HR PRN Pain 4-7 Apixaban 5 mg 11/07/24 09:00 11/09/24 21:19 Apixaban 2.5 Mg Tablet PO 12/07/24 08:59 5 mg BID YASSINE Administration Bumetanide 2 mg 11/07/24 09:25 11/09/24 09:20 Bumetanide Inj 0.25 Mg/Ml Vial 4 Ml IVP 12/07/24 08:59 2 mg BID YASSINE Administration Carvedilol 6.25 mg 11/07/24 09:25 11/08/24 08:15 Carvedilol 3.125 Mg Tablet PO 12/07/24 07:59 6.25 mg BIDWM YASSINE Administration Doxycycline Hyclate 100 mg 11/07/24 10:15 11/09/24 21:19 Doxycycline 100 Mg Tablet PO 11/14/24 10:14 100 mg BID YASSINE Administration Hydromorphone HCl 0.25 mg 11/08/24 09:15 Hydromorphone Inj 2 Mg/Ml Vial IVP 11/12/24 10:19 Q4HR PRN Pain 8-10 Ceftriaxone Sodium/Dextrose 50 mls @ 100 mls/hr 11/07/24 10:11 11/09/24 09:21 Rocephin/D5w 1gm Iv Premix IV 11/14/24 10:10 100 mls/hr QDAY YASSINE Administration Midodrine 10 mg 11/07/24 09:25 11/10/24 05:47 Midodrine 5 Mg Tablet PO 12/06/24 23:29 10 mg TID YASSINE Administration Multivitamins 1 tab 11/08/24 15:15 11/09/24 09:19 Multivitamins Tablet PO 12/08/24 15:14 1 tab QDAY YASSINE Administration Nitroglycerin 0.4 mg 11/06/24 23:20 Nitroglycerin 0.4 Mg Subl Btl #25 SL Q5MIN PRN CHEST PAIN Nystatin 5 ml 11/08/24 17:00 11/10/24 05:46 Nystatin Susp 5 Ml Udc PO 11/15/24 16:59 5 ml QID YASSINE Administration Sennosides 1 tab 11/08/24 09:00 11/09/24 09:19 Senna Tablet PO 12/08/24 08:59 1 tab QDAY YASSINE Administration Protocol Tamsulosin HCl 0.4 mg 11/07/24 14:30 11/09/24 09:19 Tamsulosin Hcl 0.4 Mg Capsule PO 12/07/24 14:29 0.4 mg QDAY YASSINE Administration Plan Summary: 79-year-old male patient with significant medical history of HFrEF (35-40% on March 2024), s/p AICD, chronic Afib (rate controlled), DVT (on Eliquis), HTN, HLD was broght to ED from SNF for chest pain/tightness and shortness of breath will be admitted for NSTEMI type II along with acute decompensated heart failure requiring IV diuretics and cardiology consult #ERLIN on CKD #Cardiorenal syndrome #Hypotension #Atrophic kidneys On admission BUN 70 Cr 2.3 GFR 28, Baseline BUN 30 Cr 1.0 GFR >60 Patient has had multiple admission for CHF exacerbations recieved IV Diuretics. Discharged on oral diuretics. 09/10-Renal function improved to creatinine 2.1, BUN 59, GFR 31 compared to yesterday, evening dose of Bumex was held. Patient currently is positive 270 cc in the last 24 hours, on 2 L nasal cannula, recommend holding Bumex today Plan: -Hold Bumex today -Monitor Renal function in a.m. -Dose medications renally -Avoid nephrotoxic agents #Acute Respiratory Failure 12/16 to #Acute decompensated heart failure #Right pleural effusion #HFrEF, with severe systolic dysfunction, EF 10-15% status post AICD placement #Right elbow swelling, improving #Right elbow erythema, improving #Chest pain, improved #Likely NSTEMI type II versus type I, resolved #CAP, R base #Glossitis #Abdominal pain #Primary hepatocellular disease #Elevated total bilirubin, worsening #Chronic atrial fibrillation, rate controlled #History of hypertension #Hyperlipidemia #History of DVT #Primary hepatocellular disease #Hyperkalemia, resolved Case discussed with Attending Dr. Balderas. Jordan Ahn PGY1 Attending Provider Attestation/Addendum Patient seen and examined with resident physician Dr. Ahn. Note reviewed, agree with findings and recommendations. Patient with cardiorenal syndrome and ERLIN secondary to diuretics. Will hold the Bumex today. Creatinine slightly better today.
[2024-11-10] MEDS: cefTRIAXone/D5w 1gm IV premix 50 ML IV (09:13)
[2024-11-10] MEDS: MULTIVITAMINS TABLET 1 TAB PO (09:13)
[2024-11-10] MEDS: POTASSIUM CHL 10 mEq IVPB 10 MEQ/100 ML BAG 100 MEQ IV ×4 (09:13→13:15)
[2024-11-10] MEDS: TAMSULOSIN HCL 0.4 MG CAPSULE PO (09:13)
[2024-11-10] MEDS: POTASSIUM CHLORIDE 20 mEq TABCR 40 MEQ PO (09:13)
[2024-11-10] MEDS: APIXABAN 2.5 MG TABLET 5 MG PO ×2 (09:14→21:22)
[2024-11-10] MEDS: DOXYCYCLINE 100 MG TABLET PO ×2 (09:14→21:22)
[2024-11-10] MEDS: SENNA TABLET 1 TAB PO (09:14)
--- NOTE | 2024-11-10 12:56 | EVENTNT_ITS ---
Documentation for date of: 11/10/24 Event Note Event Note: Patient was seen and examined at bedside. He mentioned that he had discussion with his son and the gas compressor turbine operator Dr. Alexandra about his CODE STATUS and he decided to change it from full code to DNR. Further discussion regarding the goals of care will be conducted with his Rosy later on today as per the patient request. - Patient's plan and care discussed with my attending, Dr. Magdy Lopez MD Internal Medicine PGY-2
--- NOTE | 2024-11-10 15:26 | PC.SS ---
SS follow up note; SS met with patient and Dr. Lopez at bedside. SS contacted patient's , Rosy about a goals of care meeting over the phone. Rosy said she's out of town for her daughters and at the time could not discuss furthermore about patient's care. SS informed her that SS would contact her at a later time. SS will stand by for further needs.
--- NOTE | 2024-11-10 16:12 | ESPR_ITS ---
Documentation for date of: 11/10/24 Subjective Subjective Interval history: Patient was seen and examined at bedside. Vitally blood pressure is at 95/72, on midodrine 3 times daily. O2 2 L saturating 96%. Last bowel movement was yesterday. Potassium was found to be 3 in which it was repleted with 40 IV and 40 p.o. Yesterday the nephrology team held the Bumex at the night time and they decided to continue to hold the Bumex due to increase in serum creatinine. After holding the Bumex his serum creatinine went down from 2.7-2.1, he is +230 mL. His urine output today 1500. His urine seems to be very concentrated. On questioning patient reported pain at the site of injection in which it was reviewed by the nurse. No other new symptoms. Regarding his elevated total bilirubin could be most likely secondary to congestive cirrhosis due to the chronic heart failure and congestion. Ultrasound was done showed possible cholecystitis however patient does not have any clinical symptoms and tolerating feedings well. Patient and his son reported that they had discussion with Dr. Alexandra and they decided to change his CODE STATUS to DNR. During the discussion of the goals of care with the patient and his son the patient requested a discussion to be held with his Rosy which she is in [place] because her daughter . Attempted to call the patient's with the outreach and education social worker Misty however the patient's she was overwhelmed because of her daughter she did not want to talk about the goals of care discussion at this time regarding her . For that reason, most likely the patient will be discharged back to SNF for treatment tomorrow if his vital stable. Exam Vital Signs Temp Pulse Resp BP Pulse Ox O2 Del Method O2 Flow Rate 96.8 F 98 17 83/59 L 98 Nasal Cannula 2 11/10/24 12:00 11/10/24 16:04 11/10/24 12:00 11/10/24 13:15 11/10/24 12:00 11/10/24 12:00 11/10/24 12:00 Narrative Exam General: AAOx3, obese male HEENT: Conjunctiva clear, EOMI, tongue appears to have glossitis appearance Cardiovascular: S1, S2, radial pulses +2 bilat, RRR, possible murmur heard on LIZBET border Pulmonary: crackles heard in LLL GI: No tenderness to light or deep palpitation, no guarding, rigidity, rebound tenderness or distension Extremities: No pitting edema in LE bilat, faint dorsalis pedis pulses, R elbow erythematous and a bit edematous MSK: Reduced range of motion with flexion of R elbow Skin: Some purpura through UE bilat. Small petechiae present on upper R deltoid and part of chest bilat Psych: Able to cooperate. Flat mood and affect. Objective Labs 11/11/24 04:08 11/11/24 04:08 Labs: Laboratory Results - last 24 hr 11/10/24 05:28 WBC 4.9 RBC 3.67 L Hgb 10.2 L Hct 33.6 L MCV 92 MCH 27.8 MCHC 30.4 L RDW Std Deviation 63.2 H Plt Count 132 L Neut % (Auto) 66 Lymph % (Auto) 15 [place] % (Auto) 14 H Eos % (Auto) 5 Baso % (Auto) 1 Neut # (Auto) 3.2 Lymph # (Auto) 0.7 L [place] # (Auto) 0.7 Eos # (Auto) 0.2 Baso # (Auto) 0.0 Immature Gran # (Auto) 0.01 H Absolute Nucleated RBC 0.00 Immature Gran % 0 Nucleated RBC % 0 Sodium 135 L Potassium 3.0 L D Chloride 91 L Carbon Dioxide 38.3 H Anion Gap 6 L BUN 59 H Creatinine 2.1 H D Estim Creat Clear Calc 32.6 L eGFR 31 L BUN/Creatinine Ratio 28 H Glucose 92 Calculated Osmolality 286 Calcium 9.1 Corrected Calcium 9.7 Phosphorus 3.5 Magnesium 2.3 Total Bilirubin 4.4 H AST 71 H ALT 35 Alkaline Phosphatase 87 Total Protein 5.5 L Albumin 3.2 L Globulin 2.3 Albumin/Globulin Ratio 1.4 Quality Measures Quality Measures none Advance care planning discussed with:: patient, spouse and child Assessment & Plan Assessment Current Active Medications: Generic Name Dose Route Start Last Admin Trade Name Freq PRN Reason Stop Dose Admin Acetaminophen 650 mg 11/06/24 23:12 11/08/24 05:17 Acetaminophen 325 Mg Tablet PO 12/06/24 23:11 650 mg Q6H PRN Administration Pain 1-3 and/or Fever >100.1 Hydrocodone Bitart/Acetaminophen 1 tab 11/08/24 09:14 Hydrocodone/Apap 5/325 Tablet PO 11/13/24 09:13 Q6HR PRN Pain 4-7 Apixaban 5 mg 11/07/24 09:00 11/10/24 09:14 Apixaban 2.5 Mg Tablet PO 12/07/24 08:59 5 mg BID YASSINE Administration Bumetanide 2 mg 11/07/24 09:25 11/09/24 09:20 Bumetanide Inj 0.25 Mg/Ml Vial 4 Ml IVP 12/07/24 08:59 2 mg BID YASSINE Administration Carvedilol 6.25 mg 11/07/24 09:25 11/08/24 08:15 Carvedilol 3.125 Mg Tablet PO 12/07/24 07:59 6.25 mg BIDWM YASSINE Administration Doxycycline Hyclate 100 mg 11/07/24 10:15 11/10/24 09:14 Doxycycline 100 Mg Tablet PO 11/14/24 10:14 100 mg BID YASSINE Administration Hydromorphone HCl 0.25 mg 11/08/24 09:15 Hydromorphone Inj 2 Mg/Ml Vial IVP 11/12/24 10:19 Q4HR PRN Pain 8-10 Ceftriaxone Sodium/Dextrose 50 mls @ 100 mls/hr 11/07/24 10:11 11/10/24 09:13 Rocephin/D5w 1gm Iv Premix IV 11/14/24 10:10 100 mls/hr QDAY YASSINE Administration Midodrine 10 mg 11/07/24 09:25 11/10/24 13:15 Midodrine 5 Mg Tablet PO 12/06/24 23:29 10 mg TID YASSINE Administration Multivitamins 1 tab 11/08/24 15:15 11/10/24 09:13 Multivitamins Tablet PO 12/08/24 15:14 1 tab QDAY YASSINE Administration Nitroglycerin 0.4 mg 11/06/24 23:20 Nitroglycerin 0.4 Mg Subl Btl #25 SL Q5MIN PRN CHEST PAIN Nystatin 5 ml 11/08/24 17:00 11/10/24 11:58 Nystatin Susp 5 Ml Udc PO 11/15/24 16:59 5 ml QID YASSINE Administration Sennosides 1 tab 11/08/24 09:00 11/10/24 09:14 Senna Tablet PO 12/08/24 08:59 1 tab QDAY YASSINE Administration Protocol Tamsulosin HCl 0.4 mg 11/07/24 14:30 11/10/24 09:13 Tamsulosin Hcl 0.4 Mg Capsule PO 12/07/24 14:29 0.4 mg QDAY [facility] Administration Plan Plan 79-year-old male patient with significant medical history of HFrEF (35-40% on March 2024), s/p AICD, chronic Afib (rate controlled), DVT (on Eliquis), HTN, HLD was broght to ED from SNF for chest pain/tightness and shortness of breath will be admitted for NSTEMI type II along with acute decompensated heart failure requiring IV diuretics and cardiology consult #Acute Respiratory Failure 12/16 to #Acute decompensated heart failure #HFrEF, with severe systolic dysfunction, EF 10-15% status post AICD placement #ERLIN prerenal versus cardiorenal #Cardiorenal syndrome #Right pleural effusion #Hypotension Recently had admission for CHF causing cardiorenal syndrome with elevated BUN/creatinine, new baseline creatinine > 2.0 Patient presenting from the SNF after he was discharged on 10/20/2024 due to chest tightness and acute shortness of breath requiring 6 L nasal cannula oxygenation Patient does use oxygen at the facility but usually its only 2 L Patient is on Bumex 2 mg twice daily, Coreg 6.25 twice daily, spironolactone 25 mg p.o. twice daily and midodrine 10 3 times daily for blood pressure support Patient follows Dr. Alexandra (cardiology) for greater than 25 years and was told to follow-up with him on last discharge; unsure if he did A1c 5.0 from 08/2024 Lipid Panel: Total cholesterol ~110, LDL 75 Net= -1.5k mL at this point 24 hrs -1150 out Will hold Coreg at this point due to hypotension Spoke with pt and his son, goals of care conversation was held, however, pt's decision maker, , is out of town currently and is dealing with a of a family member Patient will need more time to decide goals of care, and CODE STATUS Nephrology recommends comfort/hospice care for patient moving forward Patient's echo shows HFrEF with systolic dysfunction and EF of 10-15% Will try to optimize medical management with GDMT, however, pt's prognosis is poor at this time Plan: Cardiology, Dr. Alexandra, consulted appreciate recommendations IV Bumex 2 mg twice daily however it was held by the bander and cellophaner machine Dr. Balderas due to worsening kidney function Holding Coreg due to soft blood pressure. Midodrine 10 mg TID, hold if SBP above 110 Fluid restriction 1500 mL Strict I's and O's Daily weight Cardiology, Dr. Alexandra, consulted appreciate recommendations Keep Mag >2.0 and K >4.0 Nephrology consult, recommendation appreciated. #Chest pain, improved #Likely NSTEMI type II versus type I, resolved #CAP, R base Patient presenting to the ED with chest tightness which she describes as someone sitting on his chest Pain/tightness does not change in quality when he takes deep breaths and is present at all times; he rates it an 8 out of 10 EKG does not show any concerning ST changes; there are left axis deviation and left bundle branch block previously seen on EKGs On CT chest abdomen pelvis there is possible right base pneumonia although the patient does not have any coughing/fever/elevated WBC Pt is not having chest pain at this point, this could be pleuritic chest pain Will add abx Troponin negative x2 Patient did complain of chest pain, most likely musculoskeletal at this time, due to it being reproducible and midsternal in nature Plan: Dilaudid 0.25 mg q4h as needed 8-10 pain [place] 5 for 4-7 pain Continue with Rocephin #Right elbow swelling, improving #Right elbow erythema, improving DDx: [place] bursitis versus cellulitis versus abscess vs gout On physical exam tender to palpation, and is red Ultrasound on previous admission shows fluid in all draining bursa, 4.6 x 1.2 x 4.4, severe generalized edema, will olceranon bursitis versus abscess Patient had MRI done on previous admission however MRI reading affected by patient moving arm during MRI Considering patient's elbow looks worse from when last discharged on previous admission, will need to take a closer look and add antibiotic coverage Will hold on MRI at this point ESR unremarkable, CRP 1.6 Plan: -Rocephin and Doxy (11/07?) ?Wound care #Glossitis Does not appear to be infectious, however could be related to nutrients Plan: ?Nystatin with swish swallow ? Multivitamins p.o. daily. #Abdominal pain #Primary hepatocellular disease #Elevated total bilirubin, worsening T bili 4.3 today, usually in the mid 3s RUQ tenderness upon palpitation on physical exam today Hepatitis panel negative Will work up , however could be related due to hepatic congestion Plan: ?*Abdominal ultrasound ?*Direct bilirubin #Chronic atrial fibrillation, rate controlled CHADS-VASc 4?points Stroke risk was 4.8% per year in >90,000 patient Patient is currently rate controlled on the above medications mentioned Plan: Continue Eliquis 5 mg p.o. twice daily Continuous to the monitoring #History of hypertension #Hyperlipidemia #History of DVT History of bilateral lower extremity DVT in September this year. Plan: As above #Atrophic kidneys #Primary hepatocellular disease As seen on CT chest abdomen pelvis, noncontributory or pertinent to current presentation Plan: Follow-up outpatient #Hyperkalemia, resolved #Health Maintenance Disposition: Telemetry DVT prophylaxis: Eliquis 5 mg twice daily GI prophylaxis: Not indicated at this time Diet: Cardiac CODE STATUS DNR/DNI - Patient's plan and care discussed with my attending, Dr. Magdy Lopez MD Internal Medicine PGY-2 Attending Provider Attestation/Addendum I have examined the patient, reviewed labs and imaging findings, discussed the case with the resident(s), and reviewed entered orders. I agree with the plan of care as outlined in this note, with these additional summaries/recommendations: Patient and son seen at bedside. No acute overnight events. Patient admitted for acute hypoxic respiratory failure secondary to CHF exacerbation. Previous echocardiogram showed ejection fraction of 35%. Repeat echocardiogram unfortunately now shows EF 10-15% . Patient net negative for hospitalization. Continue fluid restriction preload reduction and IV Bumex on hold for now. Discontinue Coreg for soft blood pressure. Unfortunately unable to uptitrate goal-directed medical therapy at this time secondary to chronic hypotension. Continue home midodrine 10 mg p.o. 3 times daily. Cardiology following. Continue IV antibiotics for community-acquired pneumonia. ERLIN on CKD present and possibly related to cardiorenal syndrome. Avoid nephrotoxic agents and renally dose medications. Contraction alkalosis present and we will monitor for now. 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 Patient's Rosy who is the medical decision maker was contacted by medical team today. She is attending a out of town. We updated Rosy on patient's medical status and unfortunately poor prognosis. All treatment options including full code, full treatment, and hospice care were discussed and at this time she will defer decision until a later date. Advised her she is welcome to follow-up with her primary care doctor for further discussions. All questions answered to satisfaction. She was in agreement as well as patient to change CODE STATUS to DNR/DNI. Dr. Curran
--- NOTE | 2024-11-10 18:16 | ESPR_ITS ---
<Statement entered by Zac Alexandra MD - 11/11/24 15:49> I evaluated the patient along with PGY 2 Dr. Johnson agree with the treatment plan recommendations patient appears to have poor prognosis low ejection fraction care of goal as well as possible hospice treatment were discussed with the family members Documentation for date of: 11/10/24 Subjective Subjective Interval history: 79-year-old male patient with significant medical history for HFrEF (35 to 40%, March 2024), SP AICD placement, chronic A-fib, DVT (on Eliquis), hypertension, hyperlipidemia, and DM2 was brought to ED from senior living facility with symptoms of shortness of breath and chest pain. In ED patient had described his chest pain as someone sitting on his chest. Patient denied nausea, vomiting, diarrhea, fever, chills, cough, dysuria or other associate symptoms. Patient was recently admitted at [facility] on 10/05/2024 for ERLIN secondary to aggressive diuresis at home. Eventually patient was discharged on 10/20/2024. Today patient states that he has been experiencing increased oxygen demand (usually uses 2 L). In ED patient was hypoxic and required 6 L nasal cannula. Labs were significant for Hgb 11.4, NA 133, K3.1, BUN 70, creatinine 2.3, BNP 3128, trops 0.037. EKG showed A-fib with left axis deviation and LBBB as previously seen. Chest x-ray showed early heart failure with moderate cardiac enlargement and prominent vascular congestion. Chest abdomen pelvis CT indicated mild pneumonia in the right base, mild to moderate right pleural effusion, hepatocellular disease, atrophic kidneys, distended bladder without significant prostamegaly and colonic diverticulosis. Cardiology was consulted regarding further management. 11/07/2024: During examination today when questioned, patient states he does not know why he was brought to the hospital. He denies chest pain or chest pressure. Will recommend short trial of Bumex 2 mg twice daily after which she could be switched to only 2 mg daily. We also recommend continuing Coreg if tolerated by blood pressure. 11/08/2024: No significant overnight events, patient had 1 L urine output with overall -454 cc net fluid balance. Echocardiogram results indicated:Dilated LV. Severe systolic dysfunction. Severe global hypokinesisl. Estimated EF 10-15% Dilated RV. Low RV function. Estimated RVSP 50mmHg, Pacing wire present. Severe biatrial dilatation. Moderate MR with posterior eccentric jet. Modrate TR, Mild PI. Trace AI. Severe IVC dilatation. Patient has declined cardiac function as his EF has downtrended from 35 to 40% in March 2024 to 10 to 15% currently. Cardiology team updated patient at bedside. Patient has very poor prognosis. Clinically patient looks better than what his echo indicates. 11/09/24: Patient had an episode of BP with MAP of less than 60 at which time extra dose of midodrine was given. Coreg has been held by primary team due to low BP. Patient had 1 L urine output with overall +450 cc net fluid balance. Given the decline nature of heart failure with low EF we are recommending goals of care discussion with family members. If MAP greater than 65 we recommend continuing GDMT despite low BP. 11/09/24: Potassium low at 3, repleted by primary team. Renal function slightly improving with decrease in creatinine to 2.1. Patient had around 1.6 L urine output with overall +280 cc net fluid balance. Urine very concentrated, Bumex held at this point. Cardiology team spoke with son and patient regarding CODE STATUS, patient changed CODE STATUS to DNR. Patient is currently dealing with a in the family member, goals of care will be discussed with in a later time. Per primary team patient to be discharged to SNF within 24 to 48 hours if stable. Exam Vital Signs Temp Pulse Resp BP Pulse Ox O2 Del Method O2 Flow Rate 96.9 F 98 22 H 105/65 98 Nasal Cannula 2 11/10/24 16:00 11/10/24 16:04 11/10/24 16:11/10/24 16:11/10/24 16:00 11/10/24 16:11/10/24 16:00 Narrative Exam Constitutional: well-developed, well-nourished, in no acute distress, lying in bed HEENT: NCAT, EOMI, reactive round pupils b/l, patent nares b/l, moist mucous membranes Lung: CTAB, no wheezing, no rhonchi, mild crackles of lower lobes R > L Heart: Regular S1S2, no murmurs, gallops, or rubs Abdomen: Soft, non-distended, non-tender, bowel sounds present throughout Extremities: No cyanosis, clubbing, trace edema of LE, LE pulses present b/l Neurologic: No focal sensory or motor deficits noted, AOx3, appropriate affect Skin: Warm, dry Objective Labs 11/10/24 05:28 11/10/24 05:28 Labs: Laboratory Results - last 24 hr 11/10/24 05:28 WBC 4.9 RBC 3.67 L Hgb 10.2 L Hct 33.6 L MCV 92 MCH 27.8 MCHC 30.4 L RDW Std Deviation 63.2 H Plt Count 132 L Neut % (Auto) 66 Lymph % (Auto) 15 [place] % (Auto) 14 H Eos % (Auto) 5 Baso % (Auto) 1 Neut # (Auto) 3.2 Lymph # (Auto) 0.7 L [place] # (Auto) 0.7 Eos # (Auto) 0.2 Baso # (Auto) 0.0 Immature Gran # (Auto) 0.01 H Absolute Nucleated RBC 0.00 Immature Gran % 0 Nucleated RBC % 0 Sodium 135 L Potassium 3.0 L D Chloride 91 L Carbon Dioxide 38.3 H Anion Gap 6 L BUN 59 H Creatinine 2.1 H D Estim Creat Clear Calc 32.6 L eGFR 31 L BUN/Creatinine Ratio 28 H Glucose 92 Calculated Osmolality 286 Calcium 9.1 Corrected Calcium 9.7 Phosphorus 3.5 Magnesium 2.3 Total Bilirubin 4.4 H AST 71 H ALT 35 Alkaline Phosphatase 87 Total Protein 5.5 L Albumin 3.2 L Globulin 2.3 Albumin/Globulin Ratio 1.4 Quality Measures Quality Measures none Advance care planning discussed with:: patient and sibling Assessment & Plan Assessment Current Active Medications: Generic Name Dose Route Start Last Admin Trade Name Matt PRN Reason Stop Dose Admin Acetaminophen 650 mg 11/06/24 23:12 11/08/24 05:17 Acetaminophen 325 Mg Tablet PO 12/06/24 23:11 650 mg Q6H PRN Administration Pain 1-3 and/or Fever >100.1 Hydrocodone Bitart/Acetaminophen 1 tab 11/08/24 09:14 Hydrocodone/Apap 5/325 Tablet PO 11/13/24 09:13 Q6HR PRN Pain 4-7 Apixaban 5 mg 11/07/24 09:00 11/10/24 09:14 Apixaban 2.5 Mg Tablet PO 12/07/24 08:59 5 mg BID YASSINE Administration Bumetanide 2 mg 11/07/24 09:25 11/09/24 09:20 Bumetanide Inj 0.25 Mg/Ml Vial 4 Ml IVP 12/07/24 08:59 2 mg BID YASSINE Administration Carvedilol 6.25 mg 11/07/24 09:25 11/08/24 08:15 Carvedilol 3.125 Mg Tablet PO 12/07/24 07:59 6.25 mg BIDWM YASSINE Administration Doxycycline Hyclate 100 mg 11/07/24 10:15 11/10/24 09:14 Doxycycline 100 Mg Tablet PO 11/14/24 10:14 100 mg BID YASSINE Administration Hydromorphone HCl 0.25 mg 11/08/24 09:15 Hydromorphone Inj 2 Mg/Ml Vial IVP 11/12/24 10:19 Q4HR PRN Pain 8-10 Ceftriaxone Sodium/Dextrose 50 mls @ 100 mls/hr 11/07/24 10:11 11/10/24 09:13 Rocephin/D5w 1gm Iv Premix IV 11/14/24 10:10 100 mls/hr QDAY YASSINE Administration Midodrine 10 mg 11/07/24 09:25 11/10/24 13:15 Midodrine 5 Mg Tablet PO 12/06/24 23:29 10 mg TID YASSINE Administration Multivitamins 1 tab 11/08/24 15:15 11/10/24 09:13 Multivitamins Tablet PO 12/08/24 15:14 1 tab QDAY YASSINE Administration Nitroglycerin 0.4 mg 11/06/24 23:20 Nitroglycerin 0.4 Mg Subl Btl #25 SL Q5MIN PRN CHEST PAIN Nystatin 5 ml 11/08/24 17:00 11/10/24 16:48 Nystatin Susp 5 Ml Udc PO 11/15/24 16:59 5 ml QID YASSINE Administration Sennosides 1 tab 11/08/24 09:00 11/10/24 09:14 Senna Tablet PO 12/08/24 08:59 1 tab QDAY YASSINE Administration Protocol Tamsulosin HCl 0.4 mg 11/07/24 14:30 11/10/24 09:13 Tamsulosin Hcl 0.4 Mg Capsule PO 12/07/24 14:29 0.4 mg QDAY YASSINE Administration Plan 79-year-old male patient with significant medical history for HFrEF (35 to 40%, March 2024), SP AICD placement, chronic A-fib, DVT (on Eliquis), hypertension, hyperlipidemia, and DM2 was brought to ED from senior living facility with symptoms of shortness of breath and chest pain. Patient admitted for CHF exacerbation and also consulted cardiology. #Acute on chronic HFrEF (10-15%) #s/p AICD #Right heart failure Echocardiogram results indicated:Dilated LV. Severe systolic dysfunction. Severe global hypokinesisl. Estimated EF 10-15% Dilated RV. Low RV function. Estimated RVSP 50mmHg, Pacing wire present. Severe biatrial dilatation. Moderate MR with posterior eccentric jet. Modrate TR, Mild PI. Trace AI. Severe IVC dilatation. Plan: -Continue Bumex 2 mg IV BID ?Coreg on hold per primary team for low BP -Monitor intake and output -Keep K > 4 and Mg > 2 -Fluid restriction -Strict I & O's #Hx of b/l DVT #Afib rate controlled Patient recently admitted for b/l DVT on eliquis. Physical exam significant for mild edema of lower extremities. Plan: -Continue Eliquis p.o. 5 mg BID #Right elbow swelling #Right elbow erythema #Transaminitis #Elevated T bili #Diabetes mellitus type 2 -Management per primary team This patient care was discussed with my attending Dr. 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
[2024-11-10] MEDS: SCOPOLAMINE 1 MG TDSY TOP (22:58)
[2024-11-11] VITALS (11 sets, daily range): BP systolic 90–123; BP diastolic 54–76; PULSE 60–113; RESP 17–20; TEMP 36.2–36.6; O2SAT 96–100
[2024-11-11 05:11] LABS: Basophils % (Auto) 1 % (0-2.5); Eosinophils # (Auto) 0.2 Thou/mm3 (0.0-0.5); Eosinophils % (Auto) 3 % (0-10); Hemoglobin 10.7 g/dL (13.5-16.0); Immature Granulocytes % (Auto) 0 % (0-0); Immature Granulocytes Auto 0.02 Thou/mm3 (0.00-0.00); Lymphocytes # (Auto) 1.1 Thou/mm3 (1.0-4.8); Lymphocytes % (Auto) 22 % (10-50); Mean Corpuscular HGB Conc 29.7 g/dl (31.0-37.0); Mean Corpuscular Hemoglobin 27.3 pg (25.0-35.0); Mean Corpuscular Volume 92 fL (80-100); Monocytes # (Auto) 0.7 Thou/mm3 (0.0-0.8); Monocytes % (Auto) 13 % (0-12); Neutrophils # (Auto) 3.2 Thou/mm3 (1.8-7.7); Neutrophils % (Auto) 60 % (37-80); Nucleated Red Blood Cell % 0 /100 WBC (0); Platelet Count 145 Thou/mm3 (140-440); RDW Standard Deviation 63.2 fL (35.1-43.9); Red Blood Count 3.92 Miln/mm3 (4.50-5.90); White Blood Count 5.2 Thou/mm3 (3.8-10.6)
[2024-11-11] MEDS: MIDODRINE 5 MG TABLET 10 MG PO ×3 (05:23→21:03)
[2024-11-11] MEDS: NYSTATIN SUSP 5 ML UDC PO ×4 (05:23→20:41)
[2024-11-11 05:37] LABS: Alanine Aminotransferase 50 U/L (10-49); Albumin, Serum 3.3 gm/dL (3.4-4.8); Albumin/Globulin Ratio 1.3 (1.2-2.2); Alkaline Phosphatase 94 U/L (46-116); Anion Gap 7 (7-16); Aspartate Amino Transferase 92 U/L (0-34); BUN/Creatinine Ratio 24 Ratio (12-20); Bilirubin,Total 5.2 mg/dL (0.3-1.2); Blood Urea Nitrogen 47 mg/dL (9-23); Calcium 9.1 mg/dL (8.3-10.6); Calcium (Corrected) 9.7 mg/dL (8.5-10.1); Carbon Dioxide 33.7 mMol/L (20.0-31.0); Chloride 91 mMol/L (98-107); Estimated Creatinine Clearance 34.2 mL/min (>60); Globulin 2.6 gm/dL (2.3-3.5); Glucose 117 mg/dL (74-106); Magnesium 2.3 mg/dL (1.6-2.6); Osmolality,Calculated 277 (275-295); Phosphorous 2.6 mg/dL (2.4-5.1); Sodium 132 mMol/L (136-145); Total Protein 5.9 gm/dL (5.7-8.2); eGFR 33 See Note
[2024-11-11] MEDS: APIXABAN 2.5 MG TABLET 5 MG PO ×2 (09:34→20:41)
[2024-11-11] MEDS: SENNA TABLET 1 TAB PO (09:34)
[2024-11-11] MEDS: MULTIVITAMINS TABLET 1 TAB PO (09:34)
[2024-11-11] MEDS: cefTRIAXone/D5w 1gm IV premix 50 ML IV (09:34)
[2024-11-11] MEDS: TAMSULOSIN HCL 0.4 MG CAPSULE PO (09:34)
[2024-11-11] MEDS: DOXYCYCLINE 100 MG TABLET PO ×2 (09:34→20:41)
[2024-11-11] MEDS: BUMETANIDE 0.5 MG TABLET 2 MG PO (09:37)
--- NOTE | 2024-11-11 11:06 | PD.RESPRO ---
Documentation for date of: 11/11/24 Subjective Subjective Interval history: Mr. Rai is a 79-year-old male patient with significant medical history of HFrEF (35-40% on March 2024), s/p AICD, chronic Afib (rate controlled), DVT (on Eliquis), HTN, HLD and DM2 was broght to ED on 11/06/24 from [facility] for chest pain/tightness and shortness of breath. He states it feels like somene is sitting on my chest and he cannot properly take deep breaths and also has some palpitations. He denied having any nausea/vomiting/diarrhea, hematuria, dysuria, hematemesis, hematochezia or melena. Patient was recently admitted to [facility] on 10/05/24 for aggressive diuresis with Bumex, metolazone and Diamox for CHF exacerbation and cardiorenal syndrome. Patient also had low blood pressure and was started on midodrine 10 mg 3 times daily. Patient also developed some right elbow swelling with erythema during hospitalization and was started on doxycycline and Rocephin with adequate response. He was discharged on 10/20/2024 to SNF; however, recently developed new chest pain/tightness along with acute shortness of breath requiring an increase in his oxygen requirements (patient usually uses 2 L). Patient's biological daughter is bedside; however, she states that she lives in [place] and does not manage her father's medical condition. She states that the patient's current significant other knows her medical history well but she is not available to a recent in the family. In the ED, patient hypoxemic requiring 6 L nasal cannula but satting 98%, normotensive, regular heart rate, respiratory rate 18. Pertinent lab findings include hemoglobin 11.4 (MCV 90), platelet count 166, sodium 133, potassium 3.1, BUN 70, creatinine 2.3, magnesium 2.8, troponin 0.037, BNP 3128. EKG showed atrial fibrillation with marked left axis deviation with left bundle branch block previously seen. X-ray showed early heart failure with signs of moderate cardiac enlargement and prominent vascular congestion. CT scan of chest abdomen and pelvis showed moderate enlargement of the cardiac contour, mild pneumonia in the right base, mild to moderate right pleural effusion, primary hepatocellular disease, atrophic kidneys, distended urinary bladder without significant prostatomegaly, and colonic diverticulosis. Patient will be admitted for NSTEMI type II along with acute decompensated heart failure requiring IV diuretics. Nephrology consulted for ERLIN on CKD. 11/09/24: Patient seen and examined at bedside, edema has improved compared to yesterday, plan to hold IV Bumex, received AM dose. BUN 68, Cr 2.7, GFR 23 today. Discussed with patient about goals of care as he has had multiple hospitalizations for CHF, patient mentioned he wants to discuss with his before making any decision and she is out of town. Will continue to monitor renal function in AM. 11/10/24: Patient seen and examined at bedside, mild edema noted in bilateral lower extremities, patient did receive a.m. dose of Bumex yesterday, evening dose of Bumex was held patient's BUN 59, creatinine 2.1, GFR 31 today improved remarkably compared to yesterday. Recommend holding Bumex today as well. Patient had 1650 cc urine output yesterday and intake 1880 cc, net positive 270. Primary team to discuss goals of care with patient, patient's ejection fraction around 10 - 15%, with global hypokinesis noted. Will continue to monitor renal function in a.m. 11/11/24: Patient seen and examined at bedside. Patient denies feeling short of breath. Labs showed sodium 132, chloride 91, BUN 47, Creatinine 2.0, GFR improved 33. Will start him on Bumex 2 mg every other day. Urine output 1.9 L, + balance 0.5L. Will continue to monitor renal function in a.m. Exam Vital Signs Temp Pulse Resp BP Pulse Ox O2 Del Method O2 Flow Rate 97.7 F 71 17 98/65 99 Room Air 2 11/11/24 07:32 11/11/24 09:37 11/11/24 07:32 11/11/24 09:37 11/11/24 07:32 11/11/24 07:32 11/11/24 07:32 Narrative Exam General: AAOx2, obese male, conversational. HEENT: Conjunctiva clear, EOMI, PERRLA Cardiovascular: S1, S2, radial pulses +2 bilat, RRR. Pulmonary: Mild crackles bilaterally GI: No tenderness to light or deep palpitation, no guarding, rigidity, rebound tenderness or distension Extremities: +1 pitting edema in LE bilat, faint dorsalis pedis pulses, R elbow erythematous and a bit edematous MSK: Reduced range of motion with flexion of R elbow Skin: Some purpura through UE bilat. Small petechiae present on upper R deltoid and part of chest bilat. significant dryness noted on bilateral feet. Neuro: AAOx2, pupillary reflex intact bilat Psych: Able to cooperate. Objective Labs 11/11/24 04:08 11/11/24 04:08 Labs: Laboratory Results - last 24 hr 11/11/24 04:08 WBC 5.2 RBC 3.92 L Hgb 10.7 L Hct 36.0 L MCV 92 MCH 27.3 MCHC 29.7 L RDW Std Deviation 63.2 H Plt Count 145 Neut % (Auto) 60 Lymph % (Auto) 22 [place] % (Auto) 13 H Eos % (Auto) 3 Baso % (Auto) 1 Neut # (Auto) 3.2 Lymph # (Auto) 1.1 [place] # (Auto) 0.7 Eos # (Auto) 0.2 Baso # (Auto) 0.0 Immature Gran # (Auto) 0.02 H Absolute Nucleated RBC 0.00 Immature Gran % 0 Nucleated RBC % 0 Sodium 132 L Potassium 4.0 D Chloride 91 L Carbon Dioxide 33.7 H Anion Gap 7 BUN 47 H Creatinine 2.0 H Estim Creat Clear Calc 34.2 L eGFR 33 L BUN/Creatinine Ratio 24 H Glucose 117 H Calculated Osmolality 277 Calcium 9.1 Corrected Calcium 9.7 Phosphorus 2.6 Magnesium 2.3 Total Bilirubin 5.2 H D AST 92 H ALT 50 H Alkaline Phosphatase 94 Total Protein 5.9 Albumin 3.3 L Globulin 2.6 Albumin/Globulin Ratio 1.3 Quality Measures Quality Measures none Advance care planning discussed with:: other Assessment & Plan Assessment Current Active Medications: Generic Name Dose Route Start Last Admin Trade Name Freq PRN Reason Stop Dose Admin Acetaminophen 650 mg 11/06/24 23:12 11/08/24 05:17 Acetaminophen 325 Mg Tablet PO 12/06/24 23:11 650 mg Q6H PRN Administration Pain 1-3 and/or Fever >100.1 Hydrocodone Bitart/Acetaminophen 1 tab 11/08/24 09:14 Hydrocodone/Apap 5/325 Tablet PO 11/13/24 09:13 Q6HR PRN Pain 4-7 Apixaban 5 mg 11/07/24 09:00 11/11/24 09:34 Apixaban 2.5 Mg Tablet PO 12/07/24 08:59 5 mg BID YASSINE Administration Bumetanide 2 mg 11/12/24 09:00 Bumetanide 0.5 Mg Tablet PO 12/12/24 08:59 QDAY YASSINE Carvedilol 6.25 mg 11/07/24 09:25 11/08/24 08:15 Carvedilol 3.125 Mg Tablet PO 12/07/24 07:59 6.25 mg BIDWM YASSINE Administration Doxycycline Hyclate 100 mg 11/07/24 10:15 11/11/24 09:34 Doxycycline 100 Mg Tablet PO 11/14/24 10:14 100 mg BID YASSINE Administration Hydromorphone HCl 0.25 mg 11/08/24 09:15 Hydromorphone Inj 2 Mg/Ml Vial IVP 11/12/24 10:19 Q4HR PRN Pain 8-10 Ceftriaxone Sodium/Dextrose 50 mls @ 100 mls/hr 11/07/24 10:11 11/11/24 09:34 Rocephin/D5w 1gm Iv Premix IV 11/14/24 10:10 100 mls/hr QDAY YASSINE Administration Midodrine 10 mg 11/07/24 09:25 11/11/24 05:23 Midodrine 5 Mg Tablet PO 12/06/24 23:29 10 mg TID YASSINE Administration Multivitamins 1 tab 11/08/24 15:15 11/11/24 09:34 Multivitamins Tablet PO 12/08/24 15:14 1 tab QDAY YASSINE Administration Nitroglycerin 0.4 mg 11/06/24 23:20 Nitroglycerin 0.4 Mg Subl Btl #25 SL Q5MIN PRN CHEST PAIN Nystatin 5 ml 11/08/24 17:00 11/11/24 05:23 Nystatin Susp 5 Ml Udc PO 11/15/24 16:59 5 ml QID YASSINE Administration Sennosides 1 tab 11/08/24 09:00 11/11/24 09:34 Senna Tablet PO 12/08/24 08:59 1 tab QDAY YASSINE Administration Protocol Tamsulosin HCl 0.4 mg 11/07/24 14:30 11/11/24 09:34 Tamsulosin Hcl 0.4 Mg Capsule PO 12/07/24 14:29 0.4 mg QDAY YASSINE Administration Plan Summary: 79-year-old male patient with significant medical history of HFrEF (35-40% on March 2024), s/p AICD, chronic Afib (rate controlled), DVT (on Eliquis), HTN, HLD was broght to ED from SNF for chest pain/tightness and shortness of breath will be admitted for NSTEMI type II along with acute decompensated heart failure requiring IV diuretics and cardiology consult #ERLIN on CKD, improving #Cardiorenal syndrome, omproving #Hypotension #Atrophic kidneys On admission BUN 70 Cr 2.3 GFR 28, Baseline BUN 30 Cr 1.0 GFR >60 Patient has had multiple admission for CHF exacerbations recieved IV Diuretics. Discharged on oral diuretics. 09/10-Renal function improved to creatinine 2.1, BUN 59, GFR 31 compared to yesterday, evening dose of Bumex was held. 11/11/24: Labs showed sodium 132, chloride 91, BUN 47, Creatinine 2.0, GFR improved 33. Plan: - Bumex 2 mg every other day -Monitor Renal function in a.m. -Dose medications renally -Avoid nephrotoxic agents #Acute Respiratory Failure 2/ to #Acute decompensated heart failure #Right pleural effusion #HFrEF, with severe systolic dysfunction, EF 10-15% status post AICD placement #Right elbow swelling, improving #Right elbow erythema, improving #Chest pain, improved #Likely NSTEMI type II versus type I, resolved #CAP, R base #Glossitis #Abdominal pain #Primary hepatocellular disease #Elevated total bilirubin, worsening #Chronic atrial fibrillation, rate controlled #History of hypertension #Hyperlipidemia #History of DVT #Primary hepatocellular disease #Hyperkalemia, resolved Plan of care discussed with attending Dr. Balderas. Dora Monsivais MD, PGY 1. Attending Provider Attestation/Addendum Patient seen and examined with resident physician Dr. Ahn. Note reviewed, agree with findings and recommendations. Patient with cardiorenal syndrome and ERLIN secondary to diuretics. Resume Bumex every other day. creatinine slightly better today.
--- NOTE | 2024-11-11 12:37 | PC.SS ---
Addendum entered by Akbar Carrasquillo 11/11/24 12:48: CARLY spoke with Liset, nurse, provided update about insurance authorization needed before discharge Original Note: SS uploaded PT evaluation via [facility] SS spoke with Liset, [facility], confirmed pt will need insurance auth before discharging back to [facility]
[2024-11-11] MEDS: SIMETHICONE 80 MG CHEW PO (13:00)
--- NOTE | 2024-11-11 15:56 | ESPR_ITS ---
<Statement entered by Checo Lopez MD - 11/11/24 16:39> Patient was seen and examined at bedside. No overnight incidents. Last bowel movement was yesterday. His serum creatinine continue to improve. We agreed with the nephrology team to resume Bumex 2 mg p.o. daily as the patient started to feel short of breath. Patient pending insurance authorization for discharge back to SNF and also pending repeat PT evaluation to be accepted at the facility. - Patient's plan and care discussed with my attending, Dr. Magdy Lopez MD Internal Medicine PGY-2 Documentation for date of: 11/11/24 Subjective Subjective Interval history: Patient examined at bedside today. No acute overnight events. Says that he is a bit short of breath at this time, but is doing well. Says that his right elbow does not hurt him anymore. Family present at bedside. No other complaints at this time Exam Vital Signs Temp Pulse Resp BP Pulse Ox O2 Del Method O2 Flow Rate 97.2 F 113 H 18 99/54 L 98 Nasal Cannula 2 11/11/24 12:00 11/11/24 13:00 11/11/24 12:00 11/11/24 13:00 11/11/24 12:00 11/11/24 12:00 11/11/24 12:00 Narrative Exam General: AAOx2, not oriented to time, obese male HEENT: Conjunctiva clear, EOMI, PERRLA, tongue appears to have glossitis appearance Cardiovascular: S1, S2, radial pulses +2 bilat, RRR, possible murmur heard on LIZBET border Pulmonary: Some crackles heard in LLL GI: No tenderness to light or deep palpitation, no guarding, rigidity, rebound tenderness or distension Extremities: +1 pitting edema in LE bilat, faint dorsalis pedis pulses, R elbow erythematous and a bit edematous MSK: Reduced range of motion with flexion of R elbow Skin: Some purpura through UE bilat. Small petechiae present on upper R deltoid and part of chest bilat Neuro: AAOx2, pupillary reflex intact bilat Psych: Able to cooperate. Objective Labs 11/12/24 05:06 11/12/24 05:06 Labs: Laboratory Results - last 24 hr 11/11/24 04:08 WBC 5.2 RBC 3.92 L Hgb 10.7 L Hct 36.0 L MCV 92 MCH 27.3 MCHC 29.7 L RDW Std Deviation 63.2 H Plt Count 145 Neut % (Auto) 60 Lymph % (Auto) 22 [place] % (Auto) 13 H Eos % (Auto) 3 Baso % (Auto) 1 Neut # (Auto) 3.2 Lymph # (Auto) 1.1 [place] # (Auto) 0.7 Eos # (Auto) 0.2 Baso # (Auto) 0.0 Immature Gran # (Auto) 0.02 H Absolute Nucleated RBC 0.00 Immature Gran % 0 Nucleated RBC % 0 Sodium 132 L Potassium 4.0 D Chloride 91 L Carbon Dioxide 33.7 H Anion Gap 7 BUN 47 H Creatinine 2.0 H Estim Creat Clear Calc 34.2 L eGFR 33 L BUN/Creatinine Ratio 24 H Glucose 117 H Calculated Osmolality 277 Calcium 9.1 Corrected Calcium 9.7 Phosphorus 2.6 Magnesium 2.3 Total Bilirubin 5.2 H D AST 92 H ALT 50 H Alkaline Phosphatase 94 Total Protein 5.9 Albumin 3.3 L Globulin 2.6 Albumin/Globulin Ratio 1.3 Quality Measures Quality Measures none Advance care planning discussed with:: patient Assessment & Plan Assessment Current Active Medications: Generic Name Dose Route Start Last Admin Trade Name Freq PRN Reason Stop Dose Admin Acetaminophen 650 mg 11/06/24 23:12 11/08/24 05:17 Acetaminophen 325 Mg Tablet PO 12/06/24 23:11 650 mg Q6H PRN Administration Pain 1-3 and/or Fever >100.1 Hydrocodone Bitart/Acetaminophen 1 tab 11/08/24 09:14 Hydrocodone/Apap 5/325 Tablet PO 11/13/24 09:13 Q6HR PRN Pain 4-7 Apixaban 5 mg 11/07/24 09:00 11/11/24 09:34 Apixaban 2.5 Mg Tablet PO 12/07/24 08:59 5 mg BID YASSINE Administration Bumetanide 2 mg 11/12/24 09:00 Bumetanide 0.5 Mg Tablet PO 12/12/24 08:59 QDAY YASSINE Carvedilol 6.25 mg 11/07/24 09:25 11/08/24 08:15 Carvedilol 3.125 Mg Tablet PO 12/07/24 07:59 6.25 mg BIDWM YASSINE Administration Doxycycline Hyclate 100 mg 11/07/24 10:15 11/11/24 09:34 Doxycycline 100 Mg Tablet PO 11/14/24 10:14 100 mg BID YASSINE Administration Hydromorphone HCl 0.25 mg 11/08/24 09:15 Hydromorphone Inj 2 Mg/Ml Vial IVP 11/12/24 10:19 Q4HR PRN Pain 8-10 Ceftriaxone Sodium/Dextrose 50 mls @ 100 mls/hr 11/07/24 10:11 11/11/24 09:34 Rocephin/D5w 1gm Iv Premix IV 11/14/24 10:10 100 mls/hr QDAY YASSINE Administration Midodrine 10 mg 11/07/24 09:25 11/11/24 13:00 Midodrine 5 Mg Tablet PO 12/06/24 23:29 10 mg TID YASSINE Administration Multivitamins 1 tab 11/08/24 15:15 11/11/24 09:34 Multivitamins Tablet PO 12/08/24 15:14 1 tab QDAY YASSINE Administration Nitroglycerin 0.4 mg 11/06/24 23:20 Nitroglycerin 0.4 Mg Subl Btl #25 SL Q5MIN PRN CHEST PAIN Nystatin 5 ml 11/08/24 17:00 11/11/24 13:00 Nystatin Susp 5 Ml Udc PO 11/15/24 16:59 5 ml QID YASSINE Administration Sennosides 1 tab 11/08/24 09:00 11/11/24 09:34 Senna Tablet PO 12/08/24 08:59 1 tab QDAY YASSINE Administration Protocol Simethicone 80 mg 11/11/24 12:48 11/11/24 13:00 Simethicone 80 Mg Chew PO 12/11/24 12:47 80 mg QID PRN Administration GAS Tamsulosin HCl 0.4 mg 11/07/24 14:30 11/11/24 09:34 Tamsulosin Hcl 0.4 Mg Capsule PO 12/07/24 14:29 0.4 mg QDAY [facility] Administration Plan Plan 79-year-old male patient with significant medical history of HFrEF (35-40% on March 2024), s/p AICD, chronic Afib (rate controlled), DVT (on Eliquis), HTN, HLD was broght to ED from SNF for chest pain/tightness and shortness of breath will be admitted for NSTEMI type II along with acute decompensated heart failure requiring IV diuretics and cardiology consult #Acute Respiratory Failure 2/2 to #Acute decompensated heart failure #HFrEF, with severe systolic dysfunction, EF 10-15% status post AICD placement #ERLIN prerenal versus cardiorenal #Cardiorenal syndrome #Right pleural effusion #Hypotension Pt currently is net neutral at this time Patient's echo shows HFrEF with systolic dysfunction and EF of 10-15% Will try to optimize medical management with GDMT, however, pt's prognosis is poor at this time Pt's code status recently changed to DNR, will continue to talk with family in regards to possible hospice care, however, of patient cannot discuss this at this time and would like to discuss this at some other time Pt is feeling some short of breath, and pt is pitting a bit, will continue with daily diuresis rather than every other day as nephrology recommends Sodium and Cr today 132 and 2.0 respectively Plan: Cardiology, Dr. Alexandra, consulted appreciate recommendations Bumex 2 mg qday Holding Coreg due to soft blood pressure. Midodrine 10 mg TID, hold if SBP above 110 Fluid restriction 1500 mL Strict I's and O's Daily weight Cardiology, Dr. Alexandra, consulted appreciate recommendations Keep Mag >2.0 and K >4.0 Nephrology consult, recommendation appreciated. #Chest pain, improved #Likely NSTEMI type II versus type I, resolved #CAP, R base Patient presenting to the ED with chest tightness which she describes as someone sitting on his chest Pain/tightness does not change in quality when he takes deep breaths and is present at all times; he rates it an 8 out of 10 EKG does not show any concerning ST changes; there are left axis deviation and left bundle branch block previously seen on EKGs On CT chest abdomen pelvis there is possible right base pneumonia although the patient does not have any coughing/fever/elevated WBC Pt is not having chest pain at this point, this could be pleuritic chest pain Will add abx Troponin negative x2 Patient did complain of chest pain, most likely musculoskeletal at this time, due to it being reproducible and midsternal in nature Plan: Dilaudid 0.25 mg q4h as needed 8-10 pain Griffin 5 for 4-7 pain Continue with Rocephin #Right elbow swelling, improving #Right elbow erythema, improving DDx: Olcreanon bursitis versus cellulitis versus abscess vs gout On physical exam tender to palpation, and is red Ultrasound on previous admission shows fluid in all draining bursa, 4.6 x 1.2 x 4.4, severe generalized edema, will olceranon bursitis versus abscess Patient had MRI done on previous admission however MRI reading affected by patient moving arm during MRI Considering patient's elbow looks worse from when last discharged on previous admission, will need to take a closer look and add antibiotic coverage Will hold on MRI at this point ESR unremarkable, CRP 1.6 Plan: -Rocephin and Doxy (11/07?) ?Wound care #Glossitis Does not appear to be infectious, however could be related to nutrients Plan: ?Nystatin with swish swallow ?Multivitamins p.o. daily. #Abdominal pain #Primary hepatocellular disease #Elevated total bilirubin, worsening T bili 4.3 today, usually in the mid 3s RUQ tenderness upon palpitation on physical exam today Hepatitis panel negative Will work up , however could be related due to hepatic congestion US shows no stones Direct bilirubin 2.6 Most likely due to hepatic congestion Plan: Continue to monitor #Chronic atrial fibrillation, rate controlled CHADS-VASc 4?points Stroke risk was 4.8% per year in >90,000 patient Patient is currently rate controlled on the above medications mentioned Plan: Continue Eliquis 5 mg p.o. twice daily Continuous to the monitoring #History of hypertension #Hyperlipidemia #History of DVT History of bilateral lower extremity DVT in September this year. Plan: As above #Atrophic kidneys #Primary hepatocellular disease As seen on CT chest abdomen pelvis, noncontributory or pertinent to current presentation Plan: Follow-up outpatient #Hyperkalemia, resolved #Health Maintenance Disposition: MedTele DVT prophylaxis: Eliquis 5 mg twice daily GI prophylaxis: None at this time Diet: Cardiac CODE STATUS: DNR Patient seen and care discussed with my senior resident, Dr. Lopez, and my attending physician, Dr. Magdy Fay, PGY-1 Attending Provider Attestation/Addendum I have examined the patient, reviewed labs and imaging findings, discussed the case with the resident(s), and reviewed entered orders. I agree with the plan of care as outlined in this note, with these additional summaries/recommendations: Patient and family seen at bedside. No acute overnight events. Today patient reports increased shortness of breath. Patient admitted for acute hypoxic respiratory failure secondary to CHF exacerbation. Previous echocardiogram showed ejection fraction of 35%. Repeat echocardiogram unfortunately now shows EF 10-15% . Continue fluid restriction preload reduction and resume Bumex. Discontinue Coreg for soft blood pressure. Unfortunately unable to uptitrate goal-directed medical therapy at this time secondary to chronic hypotension. Continue home midodrine 10 mg p.o. 3 times daily. Cardiology following. Continue IV antibiotics for community-acquired pneumonia. ERLIN on CKD present and significantly improved. Avoid nephrotoxic agents and renally dose medications. 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 Patient's Rosy who is the medical decision maker was contacted by medical team. She is attending a out of town. We updated Rosy on patient's medical status and unfortunately poor prognosis. All treatment options including full code, full treatment, and hospice care were discussed and at this time she will defer decision until a later date. Advised her she is welcome to follow-up with her primary care doctor for further discussions. All questions answered to satisfaction. She was in agreement as well as patient to change CODE STATUS to DNR/DNI. Dr. Curran
[2024-11-12] VITALS (12 sets, daily range): BP systolic 91–105; BP diastolic 59–70; PULSE 65–97; RESP 14–26; TEMP 35.7–36.8; O2SAT 94–99; BMI 29.2
[2024-11-12] MEDS: NYSTATIN SUSP 5 ML UDC PO ×4 (05:24→21:20)
[2024-11-12] MEDS: MIDODRINE 5 MG TABLET 10 MG PO ×3 (05:24→21:20)
[2024-11-12 06:11] LABS: Basophils % (Auto) 0 % (0-2.5); Eosinophils % (Auto) 1 % (0-10); Hematocrit 36.5 % (41.0-53.0); Hemoglobin 11.4 g/dL (13.5-16.0); Immature Granulocytes % (Auto) 1 % (0-0); Immature Granulocytes Auto 0.03 Thou/mm3 (0.00-0.00); Lymphocytes # (Auto) 1.3 Thou/mm3 (1.0-4.8); Lymphocytes % (Auto) 22 % (10-50); Mean Corpuscular HGB Conc 31.2 g/dl (31.0-37.0); Mean Corpuscular Hemoglobin 28.1 pg (25.0-35.0); Mean Corpuscular Volume 90 fL (80-100); Monocytes # (Auto) 0.9 Thou/mm3 (0.0-0.8); Monocytes % (Auto) 15 % (0-12); Neutrophils # (Auto) 3.6 Thou/mm3 (1.8-7.7); Neutrophils % (Auto) 62 % (37-80); Nucleated Red Blood Cell # 0.03 Thou/mm3 (0.00-0.00); Nucleated Red Blood Cell % 1 /100 WBC (0); Platelet Count 136 Thou/mm3 (140-440); RDW Standard Deviation 61.8 fL (35.1-43.9); Red Blood Count 4.05 Miln/mm3 (4.50-5.90); White Blood Count 5.8 Thou/mm3 (3.8-10.6)
[2024-11-12 06:42] LABS: Alanine Aminotransferase 57 U/L (10-49); Albumin, Serum 3.4 gm/dL (3.4-4.8); Albumin/Globulin Ratio 1.2 (1.2-2.2); Alkaline Phosphatase 95 U/L (46-116); Anion Gap 12 (7-16); Aspartate Amino Transferase 100 U/L (0-34); BUN/Creatinine Ratio 20 Ratio (12-20); Bilirubin,Total 6.5 mg/dL (0.3-1.2); Blood Urea Nitrogen 49 mg/dL (9-23); Calcium 10.2 mg/dL (8.3-10.6); Calcium (Corrected) 10.7 mg/dL (8.5-10.1); Carbon Dioxide 27.9 mMol/L (20.0-31.0); Chloride 90 mMol/L (98-107); Creatinine (Component) 2.5 mg/dL (0.6-1.3); Estimated Creatinine Clearance 27.4 mL/min (>60); Globulin 2.8 gm/dL (2.3-3.5); Glucose 71 mg/dL (74-106); Magnesium 2.3 mg/dL (1.6-2.6); Osmolality,Calculated 271 (275-295); Phosphorous 3.5 mg/dL (2.4-5.1); Sodium 130 mMol/L (136-145); Total Protein 6.2 gm/dL (5.7-8.2); eGFR 25 See Note
[2024-11-12] MEDS: INSULIN HUM REGULAR 1 UNIT/0.01 ML (PER UNIT) 5 UNIT IV (08:38)
[2024-11-12] MEDS: DEXTROSE 50%-WATER INJ 50 ML SYRINGE IV (08:39)
[2024-11-12] MEDS: ALBUTEROL RT 2.5 MG/0.5 ML NEBU 10 MG INH (08:43)
--- NOTE | 2024-11-12 08:54 | PC.SS ---
Addendum entered by CECI Candelaria 11/12/24 09:32: Spoke with Vee at [facility], informs that he will give authorization for the patient to return to [facility] today. Original Note: SS follow up: contacted Vee at [facility], to notify her of need for authorization for patient to return back to [facility]. Vee informed they will review patient's clinicals/PT notes and contact if patient has been authorized to return back to SNF.
--- NOTE | 2024-11-12 09:01 | PC.NURSE ---
pt drowsy and unable to drink Kayexalate at this time, Dr. Velez made aware.
[2024-11-12] MEDS: cefTRIAXone/D5w 1gm IV premix 50 ML IV (09:07)
[2024-11-12 09:38] LABS: Base Excess 10 (-3-3); HCO3 34 mEq/L (20-26); Inspired Oxygen, FIO2 21 %; O2 Saturation 92 % (91-98); PCO2 42 mmHg (32.0-48.0); pH, Arterial 7.51 (7.35-7.45)
[2024-11-12 09:41] LABS: Allen Test Performed/OK; PO2 59 mmHg (83-108); Puncture Site Left Radial
[2024-11-12] MEDS: BUMETANIDE 0.5 MG TABLET 2 MG PO (10:06)
[2024-11-12] MEDS: APIXABAN 2.5 MG TABLET 5 MG PO ×2 (10:07→21:20)
[2024-11-12] MEDS: DOXYCYCLINE 100 MG TABLET PO ×2 (10:07→21:20)
[2024-11-12] MEDS: SENNA TABLET 1 TAB PO (10:07)
[2024-11-12] MEDS: TAMSULOSIN HCL 0.4 MG CAPSULE PO (10:07)
[2024-11-12] MEDS: MULTIVITAMINS TABLET 1 TAB PO (10:07)
[2024-11-12 12:11] LABS: Potassium 4.4 mMol/L (3.4-5.1)
--- NOTE | 2024-11-12 12:17 | PD.RESPRO ---
Documentation for date of: 11/12/24 Subjective Subjective Interval history: Patient seen and examined at bedside. Patient is responsive to sternal rub, otherwise is not conversational. Suspicion of hospital-acquired delirium. Goals of care discussion was held with yesterday, patient's CODE STATUS was changed to DNR/DNI. Patient's potassium elevated 6.0 this morning, patient was given albuterol, Kayexalate x 1 and 5 units of IV insulin Patient's potassium improved to 4.4 BUN 49, creatinine 2.5, GFR 25, ABG shows pH 7.51, bicarb 34 metabolic alkalosis possibly in setting of diuretic use. Patient is currently on Bumex 2 mg p.o. daily Will continue to monitor patient. Exam Vital Signs Temp Pulse Resp BP Pulse Ox O2 Del Method O2 Flow Rate 97.0 F 82 20 99/70 99 Room Air 2 11/12/24 08:00 11/12/24 10:06 11/12/24 08:56 11/12/24 10:06 11/12/24 08:56 11/12/24 08:00 11/12/24 08:56 Narrative Exam General: AAOx0, delirious, obese male HEENT: Conjunctiva clear, EOMI, PERRLA, tongue appears to have glossitis appearance Cardiovascular: S1, S2, radial pulses +2 bilat, RRR, possible murmur heard on LIZBET border Pulmonary: Some crackles heard in LLL GI: No tenderness to light or deep palpitation, no guarding, rigidity, rebound tenderness or distension Extremities: no pitting edema in LE bilat, faint dorsalis pedis pulses, R elbow erythematous and a bit edematous MSK: Reduced range of motion with flexion of R elbow Skin: Some purpura through UE bilat. Small petechiae present on upper R deltoid and part of chest bilat Neuro: AAOx0, pupillary reflex intact bilat Psych: Able to cooperate. Objective Labs 11/12/24 05:06 11/12/24 11:41 Labs: Laboratory Results - last 24 hr 11/12/24 11/12/24 11/12/24 05:06 09:30 11:41 WBC 5.8 RBC 4.05 L Hgb 11.4 L Hct 36.5 L MCV 90 MCH 28.1 MCHC 31.2 RDW Std Deviation 61.8 H Plt Count 136 L Neut % (Auto) 62 Lymph % (Auto) 22 [place] % (Auto) 15 H Eos % (Auto) 1 Baso % (Auto) 0 Neut # (Auto) 3.6 Lymph # (Auto) 1.3 [place] # (Auto) 0.9 H Eos # (Auto) 0.0 Baso # (Auto) 0.0 Immature Gran # (Auto) 0.03 H Absolute Nucleated RBC 0.03 H Immature Gran % 1 H Nucleated RBC % 1 H Puncture Site Left Radial ABG pH 7.51 H ABG pCO2 42 ABG pO2 59 L* ABG HCO3 34 H ABG O2 Saturation 92 ABG Base Excess 10 H FiO2 21 Sodium 130 L Potassium 6.0 H D 4.4 D Chloride 90 L Carbon Dioxide 27.9 Anion Gap 12 BUN 49 H Creatinine 2.5 H D Estim Creat Clear Calc 27.4 L eGFR 25 L BUN/Creatinine Ratio 20 Glucose 71 L Calculated Osmolality 271 L Calcium 10.2 Corrected Calcium 10.7 H Phosphorus 3.5 Magnesium 2.3 Total Bilirubin 6.5 H D AST 100 H ALT 57 H Alkaline Phosphatase 95 Total Protein 6.2 Albumin 3.4 Globulin 2.8 Albumin/Globulin Ratio 1.2 ABG Interpretation ABG results: 11/12/24 09:30 ABG pH 7.51 H ABG pCO2 42 ABG pO2 59 L* ABG HCO3 34 H ABG O2 Saturation 92 ABG Base Excess 10 H Quality Measures Quality Measures none Advance care planning discussed with:: patient Assessment & Plan Assessment Current Active Medications: Generic Name Dose Route Start Last Admin Trade Name Freq PRN Reason Stop Dose Admin Acetaminophen 650 mg 11/06/24 23:12 11/08/24 05:17 Acetaminophen 325 Mg Tablet PO 12/06/24 23:11 650 mg Q6H PRN Administration Pain 1-3 and/or Fever >100.1 Hydrocodone Bitart/Acetaminophen 1 tab 11/08/24 09:14 Hydrocodone/Apap 5/325 Tablet PO 11/13/24 09:13 Q6HR PRN Pain 4-7 Apixaban 5 mg 11/07/24 09:00 11/12/24 10:07 Apixaban 2.5 Mg Tablet PO 12/07/24 08:59 5 mg BID YASSINE Administration Bumetanide 2 mg 11/12/24 09:00 11/12/24 10:06 Bumetanide 0.5 Mg Tablet PO 12/12/24 08:59 2 mg QDAY YASSINE Administration Carvedilol 6.25 mg 11/07/24 09:25 11/08/24 08:15 Carvedilol 3.125 Mg Tablet PO 12/07/24 07:59 6.25 mg BIDWM YASSINE Administration Dextrose 25 ml 11/12/24 07:59 Dextrose 50%-Water Inj 50 Ml Syringe IV 12/12/24 07:58 Q15MIN PRN BG 50-70 responsive npo pt Dextrose 50 ml 11/12/24 07:59 Dextrose 50%-Water Inj 50 Ml Syringe IV 12/12/24 07:58 Q15MIN PRN BG <50 OR BG <70 & pt unresponsive Doxycycline Hyclate 100 mg 11/07/24 10:15 11/12/24 10:07 Doxycycline 100 Mg Tablet PO 11/14/24 10:14 100 mg BID YASSINE Administration Glucagon 1 mg 11/12/24 07:59 Glucagon Inj 1 Mg Vial IM Q15MIN PRN BG <70, and no IV access Ceftriaxone Sodium/Dextrose 50 mls @ 100 mls/hr 11/07/24 10:11 11/12/24 09:07 Rocephin/D5w 1gm Iv Premix IV 11/14/24 10:10 100 mls/hr QDAY YASSINE Administration Midodrine 10 mg 11/07/24 09:25 11/12/24 05:24 Midodrine 5 Mg Tablet PO 12/06/24 23:29 10 mg TID YASSINE Administration Multivitamins 1 tab 11/08/24 15:15 11/12/24 10:07 Multivitamins Tablet PO 12/08/24 15:14 1 tab QDAY YASSINE Administration Nitroglycerin 0.4 mg 11/06/24 23:20 Nitroglycerin 0.4 Mg Subl Btl #25 SL Q5MIN PRN CHEST PAIN Nystatin 5 ml 11/08/24 17:00 11/12/24 05:24 Nystatin Susp 5 Ml Udc PO 11/15/24 16:59 5 ml QID YASSINE Administration Sennosides 1 tab 11/08/24 09:00 11/12/24 10:07 Senna Tablet PO 12/08/24 08:59 1 tab QDAY YASSINE Administration Protocol Simethicone 80 mg 11/11/24 12:48 11/11/24 13:00 Simethicone 80 Mg Chew PO 12/11/24 12:47 80 mg QID PRN Administration GAS Tamsulosin HCl 0.4 mg 11/07/24 14:30 11/12/24 10:07 Tamsulosin Hcl 0.4 Mg Capsule PO 12/07/24 14:29 0.4 mg QDAY YASSINE Administration Plan Plan 79-year-old male patient with significant medical history of HFrEF (35-40% on March 2024), s/p AICD, chronic Afib (rate controlled), DVT (on Eliquis), HTN, HLD was broght to ED from SNF for chest pain/tightness and shortness of breath will be admitted for NSTEMI type II along with acute decompensated heart failure requiring IV diuretics and cardiology consult #Acute Respiratory Failure 12/16 to #Acute decompensated heart failure #HFrEF, with severe systolic dysfunction, EF 10-15% status post AICD placement #ERLIN prerenal versus cardiorenal #Cardiorenal syndrome #Right pleural effusion #Hypotension Pt currently is net neutral at this time Patient's echo shows HFrEF with systolic dysfunction and EF of 10-15% Will try to optimize medical management with GDMT, however, pt's prognosis is poor at this time Pt's code status recently changed to DNR, will continue to talk with family in regards to possible hospice care, however, of patient cannot discuss this at this time and would like to discuss this at some other time Pt is feeling some short of breath, and pt is pitting a bit, will continue with daily diuresis rather than every other day as nephrology recommends Sodium and Cr today 132 and 2.0 respectively Plan: Cardiology, Dr. Alexandra, consulted appreciate recommendations Bumex 2 mg qday Holding Coreg due to soft blood pressure. Midodrine 10 mg TID, hold if SBP above 110 Fluid restriction 1500 mL Strict I's and O's Daily weight Cardiology, Dr. Alexandra, consulted appreciate recommendations Keep Mag >2.0 and K >4.0 Nephrology consult, recommendation appreciated. #Hospital Acquired Delirium Patient responsive to sternal rub otherwise is not conversational. Suspicion of hospital-acquired delirium. -Reorient frequently -Hold [place] #Chest pain, improved #Likely NSTEMI type II versus type I, resolved #CAP, R base Patient presenting to the ED with chest tightness which she describes as someone sitting on his chest Pain/tightness does not change in quality when he takes deep breaths and is present at all times; he rates it an 8 out of 10 EKG does not show any concerning ST changes; there are left axis deviation and left bundle branch block previously seen on EKGs On CT chest abdomen pelvis there is possible right base pneumonia although the patient does not have any coughing/fever/elevated WBC Pt is not having chest pain at this point, this could be pleuritic chest pain Will add abx Troponin negative x2 Patient did complain of chest pain, most likely musculoskeletal at this time, due to it being reproducible and midsternal in nature Plan: Continue with Rocephin and Doxy (11/07?) Tylenol PRN for pain #Right elbow swelling, improving #Right elbow erythema, improving DDx: Olcreanon bursitis versus cellulitis versus abscess vs gout On physical exam tender to palpation, and is red Ultrasound on previous admission shows fluid in all draining bursa, 4.6 x 1.2 x 4.4, severe generalized edema, will olceranon bursitis versus abscess Patient had MRI done on previous admission however MRI reading affected by patient moving arm during MRI Considering patient's elbow looks worse from when last discharged on previous admission, will need to take a closer look and add antibiotic coverage Will hold on MRI at this point ESR unremarkable, CRP 1.6 Plan: -Rocephin and Doxy (11/07?) ?Wound care #Glossitis Does not appear to be infectious, however could be related to nutrients Plan: ?Nystatin with swish swallow ?Multivitamins p.o. daily. #Abdominal pain #Primary hepatocellular disease #Elevated total bilirubin, worsening T bili 4.3 today, usually in the mid 3s RUQ tenderness upon palpitation on physical exam today Hepatitis panel negative Will work up , however could be related due to hepatic congestion US shows no stones Direct bilirubin 2.6 Most likely due to hepatic congestion Plan: Continue to monitor #Chronic atrial fibrillation, rate controlled CHADS-VASc 4?points Stroke risk was 4.8% per year in >90,000 patient Patient is currently rate controlled on the above medications mentioned Plan: Continue Eliquis 5 mg p.o. twice daily Continuous to the monitoring #History of hypertension #Hyperlipidemia #History of DVT History of bilateral lower extremity DVT in September this year. Plan: As above #Atrophic kidneys #Primary hepatocellular disease As seen on CT chest abdomen pelvis, noncontributory or pertinent to current presentation Plan: Follow-up outpatient #Hyperkalemia - Patient's potassium elevated 6.0 this morning, patient was given albuterol, Kayexalate x 1 and 5 units of IV insulin -Patient's potassium improved to 4.4 #Health Maintenance Disposition: MedTele DVT prophylaxis: Eliquis 5 mg twice daily GI prophylaxis: None at this time Diet: Cardiac CODE STATUS: DNR Case discussed with Attending Dr. Curran. Jordan Ahn PGY1 Attending Provider Attestation/Addendum I have examined the patient, reviewed labs and imaging findings, discussed the case with the resident(s), and reviewed entered orders. I agree with the plan of care as outlined in this note, with these additional summaries/recommendations: Patient and family seen at bedside. No acute overnight events. Today at bedside patient is noted to have delirium. Start non-pharm measures to prevent worsening delirium. Bright light during daytime and limit lights/noise at bedtime with frequent reorientation. Patient admitted for acute hypoxic respiratory failure secondary to CHF exacerbation. Previous echocardiogram showed ejection fraction of 35%. Repeat echocardiogram unfortunately now shows EF 10-15% . Continue fluid restriction preload reduction and resume Bumex. Discontinue Coreg for soft blood pressure. Unfortunately unable to uptitrate goal-directed medical therapy at this time secondary to chronic hypotension. Continue home midodrine 10 mg p.o. 3 times daily. Cardiology following. Continue IV antibiotics for community-acquired pneumonia. ERLIN on CKD present and significantly improved. Avoid nephrotoxic agents and renally dose medications. 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 Continue Eliquis for chronic atrial fibrillation. Goals of care has been attempted with patient's medical decision maker who is his Rosy. Unfortunately she is attending a and unable to provide an answer at this time. Patient will likely need to follow-up outpatient for further goals of care discussions. Patient is DNR/DNI. Prognosis guarded. Dr. Curran
--- NOTE | 2024-11-12 14:38 | PC.SS ---
Rounding note: patient to remain one more night, anticipate d/c tomorrow 11/13.
--- NOTE | 2024-11-12 15:57 | ESPR_ITS ---
Documentation for date of: 11/12/24 Subjective Subjective Interval history: Mr. Rai is a 79-year-old male patient with significant medical history of HFrEF (35-40% on March 2024), s/p AICD, chronic Afib (rate controlled), DVT (on Eliquis), HTN, HLD and DM2 was broght to ED on 11/06/24 from senior living facility for chest pain/tightness and shortness of breath. He states it feels like somene is sitting on my chest and he cannot properly take deep breaths and also has some palpitations. He denied having any nausea/vomiting/diarrhea, hematuria, dysuria, hematemesis, hematochezia or melena. Patient was recently admitted to [facility] on 10/05/24 for aggressive diuresis with Bumex, metolazone and Diamox for CHF exacerbation and cardiorenal syndrome. Patient also had low blood pressure and was started on midodrine 10 mg 3 times daily. Patient also developed some right elbow swelling with erythema during hospitalization and was started on doxycycline and Rocephin with adequate response. He was discharged on 10/20/2024 to SNF; however, recently developed new chest pain/tightness along with acute shortness of breath requiring an increase in his oxygen requirements (patient usually uses 2 L). Patient's biological daughter is bedside; however, she states that she lives in [place] and does not manage her father's medical condition. She states that the patient's current significant other knows her medical history well but she is not available to a recent in the family. In the ED, patient hypoxemic requiring 6 L nasal cannula but satting 98%, normotensive, regular heart rate, respiratory rate 18. Pertinent lab findings include hemoglobin 11.4 (MCV 90), platelet count 166, sodium 133, potassium 3.1, BUN 70, creatinine 2.3, magnesium 2.8, troponin 0.037, BNP 3128. EKG showed atrial fibrillation with marked left axis deviation with left bundle branch block previously seen. X-ray showed early heart failure with signs of moderate cardiac enlargement and prominent vascular congestion. CT scan of chest abdomen and pelvis showed moderate enlargement of the cardiac contour, mild pneumonia in the right base, mild to moderate right pleural effusion, primary hepatocellular disease, atrophic kidneys, distended urinary bladder without significant prostatomegaly, and colonic diverticulosis. Patient will be admitted for NSTEMI type II along with acute decompensated heart failure requiring IV diuretics. Nephrology consulted for ERLIN on CKD. 11/12/2024 patient currently seen in medical floor.Urine output decreasing. Added Bumex yesterday. Per RN patient has decreased p.o. intake. Hemoglobin 11.4. WBC 5.8, platelets 136. Sodium 130, potassium 6.0, BUN 49, creatinine 2.5, calcium 10.7, total bilirubin 6.5, AST 100, ALT 57, albumin 3.4 abdominal ultrasound showed no gallstones mild liver cirrhosis echocardiogram showed ejection fraction 10 to 15%. Patient still on midodrine. Prognosis guarded. Noted DNR status per family. Review of Systems Review of Systems Narrative Review of Systems: Limited due to his mentation. Patient very sleepy. Exam Vital Signs Temp Pulse Resp BP Pulse Ox O2 Del Method O2 Flow Rate 36.2 C 78 26 H 92/59 L 98 Room Air 2 11/12/24 12:00 11/12/24 12:11/12/24 12:00 11/12/24 12:00 11/12/24 12:00 11/12/24 12:00 11/12/24 12:00 Narrative Exam General: Patient resting comfortably HEENT: Conjunctiva clear, EOMI, PERRLA Cardiovascular: S1, S2, radial pulses +2 bilat, RRR. Pulmonary: Mild crackles bilaterally GI: No tenderness to light or deep palpitation, no guarding, rigidity, rebound tenderness or distension Extremities: +1 pitting edema in LE bilat, faint dorsalis pedis pulses, R elbow erythematous and a bit edematous MSK: In bed Skin: Some purpura through UE bilat. Small petechiae present on upper R deltoid and part of chest bilat. significant dryness noted on bilateral feet. Neuro: Very sleepy Objective Labs 11/13/24 05:19 11/13/24 05:19 Labs: Laboratory Results - last 24 hr 11/12/24 11/12/24 11/12/24 05:06 09:30 11:41 WBC 5.8 RBC 4.05 L Hgb 11.4 L Hct 36.5 L MCV 90 MCH 28.1 MCHC 31.2 RDW Std Deviation 61.8 H Plt Count 136 L Neut % (Auto) 62 Lymph % (Auto) 22 [place] % (Auto) 15 H Eos % (Auto) 1 Baso % (Auto) 0 Neut # (Auto) 3.6 Lymph # (Auto) 1.3 [place] # (Auto) 0.9 H Eos # (Auto) 0.0 Baso # (Auto) 0.0 Immature Gran # (Auto) 0.03 H Absolute Nucleated RBC 0.03 H Immature Gran % 1 H Nucleated RBC % 1 H Puncture Site Left Radial ABG pH 7.51 H ABG pCO2 42 ABG pO2 59 L* ABG HCO3 34 H ABG O2 Saturation 92 ABG Base Excess 10 H FiO2 21 Sodium 130 L Potassium 6.0 H D 4.4 D Chloride 90 L Carbon Dioxide 27.9 Anion Gap 12 BUN 49 H Creatinine 2.5 H D Estim Creat Clear Calc 27.4 L eGFR 25 L BUN/Creatinine Ratio 20 Glucose 71 L Calculated Osmolality 271 L Calcium 10.2 Corrected Calcium 10.7 H Phosphorus 3.5 Magnesium 2.3 Total Bilirubin 6.5 H D AST 100 H ALT 57 H Alkaline Phosphatase 95 Total Protein 6.2 Albumin 3.4 Globulin 2.8 Albumin/Globulin Ratio 1.2 ABG Interpretation ABG results: 11/12/24 09:30 ABG pH 7.51 H ABG pCO2 42 ABG pO2 59 L* ABG HCO3 34 H ABG O2 Saturation 92 ABG Base Excess 10 H Assessment & Plan Additional Assessment & Plan Additional Plan: Summary: 79-year-old male patient with significant medical history of HFrEF (35- 40% on March 2024), s/p AICD, chronic Afib (rate controlled), DVT (on Eliquis), HTN, HLD was broght to ED from SNF for chest pain/tightness and shortness of breath will be admitted for NSTEMI type II along with acute decompensated heart failure requiring IV diuretics and cardiology consult #ERLIN on CKD #Cardiorenal syndrome #Hypotension #Atrophic kidneys On admission BUN 70 Cr 2.3 GFR 28, Baseline BUN 30 Cr 1.0 GFR >60 Patient has had multiple admission for CHF exacerbations recieved IV Diuretics. Discharged on oral diuretics. Patient is currently seems dehydrated. Will hold off on Bumex Noted hyperkalemia-Kayexalate was given by primary team. Will monitor closely. Patient with a cardiorenal syndrome and multiple hospitalizations. Comfort care seems to be appropriate although patient not ready. #Acute Respiratory Failure 2/2 to #Acute decompensated heart failure #Right pleural effusion #HFrEF, with severe systolic dysfunction, EF 10-15% status post AICD placement #Right elbow swelling, improving #Right elbow erythema, improving #Chest pain, improved #Likely NSTEMI type II versus type I, resolved #CAP, R base #Glossitis #Abdominal pain #Primary hepatocellular disease--significant elevation in LFTs noted #Elevated total bilirubin, worsening #Chronic atrial fibrillation, rate controlled #History of hypertension #Hyperlipidemia #History of DVT #Primary hepatocellular disease #Hyperkalemia, resolved
[2024-11-13] VITALS (11 sets, daily range): BP systolic 93–130; BP diastolic 51–96; PULSE 68–110; RESP 15–21; TEMP 36.1–36.8; O2SAT 94–99; BMI 29.2
--- NOTE | 2024-11-13 01:09 | ESPR_ITS ---
RE: ANGELES RAI : 1945 DATE OF SERVICE: 11/12/2024 Angeles Rai seen for cardiovascular assessment. Has a history of multiple medical issues, nonischemic cardiomyopathy, chronic systolic heart failure. Presented to the hospital with congestive heart failure symptoms. Doing fairly well. Has no chest pain or shortness of breath. His ejection fraction is 10% to 15%. Recommended the patient and possibly hospice care. Clinically doing otherwise the same. Not having any chest pain or shortness of breath today. Still somewhat lethargic. PHYSICAL EXAMINATION: Vital Signs: Blood pressure 97/64, pulse of 97. Neck: Supple. No JVD. Lungs: Decreased breath sounds at the bases. Heart: Heart sounds S1, S2 irregular. Atrial fibrillation. Abdomen: SOFT_ . Extremities: Mild edema. LABORATORY DATA: Reviewed and it shows that there is evidence of renal insufficiency. Creatinine has been stable at 2.5. BUN is 49. The potassium level went up to 6, repeated at 4.4 after correction. IMPRESSION: 1. Acute on chronic systolic heart _FAILURE_ cardiomyopathy, ejection fraction of 15%. 2. Hyperkalemia, resolved. RECOMMENDATIONS: The patient will continue on present medications. Because of renal insufficiency, possible developing hyperkalemia. We will continue the lower dose of Bumex 2 mg daily for now for maintenance. No spironolactone was given because of hyperkalemia. DT: 22:59:29 TT: 23:21:00 Ref: [id number] - TID: [id number] MTDD
[2024-11-13] MEDS: MIDODRINE 5 MG TABLET 10 MG PO ×3 (05:14→21:10)
[2024-11-13] MEDS: NYSTATIN SUSP 5 ML UDC PO ×4 (05:14→21:10)
[2024-11-13 06:03] LABS: Basophils % (Auto) 0 % (0-2.5); Eosinophils % (Auto) 0 % (0-10); Hematocrit 34.8 % (41.0-53.0); Hemoglobin 10.9 g/dL (13.5-16.0); Immature Granulocytes % (Auto) 1 % (0-0); Immature Granulocytes Auto 0.04 Thou/mm3 (0.00-0.00); Lymphocytes # (Auto) 1.1 Thou/mm3 (1.0-4.8); Lymphocytes % (Auto) 17 % (10-50); Mean Corpuscular HGB Conc 31.3 g/dl (31.0-37.0); Mean Corpuscular Hemoglobin 27.9 pg (25.0-35.0); Mean Corpuscular Volume 89 fL (80-100); Monocytes # (Auto) 0.8 Thou/mm3 (0.0-0.8); Monocytes % (Auto) 12 % (0-12); Neutrophils # (Auto) 4.5 Thou/mm3 (1.8-7.7); Neutrophils % (Auto) 70 % (37-80); Nucleated Red Blood Cell # 0.03 Thou/mm3 (0.00-0.00); Nucleated Red Blood Cell % 1 /100 WBC (0); Platelet Count 127 Thou/mm3 (140-440); RDW Standard Deviation 62.4 fL (35.1-43.9); White Blood Count 6.3 Thou/mm3 (3.8-10.6)
[2024-11-13 07:05] LABS: Alanine Aminotransferase 63 U/L (10-49); Albumin, Serum 3.3 gm/dL (3.4-4.8); Albumin/Globulin Ratio 1.2 (1.2-2.2); Alkaline Phosphatase 112 U/L (46-116); Anion Gap 13 (7-16); Aspartate Amino Transferase 96 U/L (0-34); BUN/Creatinine Ratio 22 Ratio (12-20); Bilirubin,Total 8.6 mg/dL (0.3-1.2); Blood Urea Nitrogen 62 mg/dL (9-23); Calcium 9.6 mg/dL (8.3-10.6); Calcium (Corrected) 10.2 mg/dL (8.5-10.1); Carbon Dioxide 30.4 mMol/L (20.0-31.0); Chloride 90 mMol/L (98-107); Creatinine (Component) 2.8 mg/dL (0.6-1.3); Estimated Creatinine Clearance 24.5 mL/min (>60); Globulin 2.7 gm/dL (2.3-3.5); Glucose 86 mg/dL (74-106); Magnesium 2.2 mg/dL (1.6-2.6); Osmolality,Calculated 282 (275-295); Phosphorous 3.8 mg/dL (2.4-5.1); Potassium 4.9 mMol/L (3.4-5.1); Sodium 133 mMol/L (136-145); eGFR 22 See Note
--- NOTE | 2024-11-13 09:31 | ESPR_ITS ---
<Statement entered by Gigi Brooks MD - 11/19/24 07:09> I reviewed above note and agree with findings and plans. I have also personally examined the patient with medicine team and went over assessment and plan with medical team including photography intern and resident physician. Documentation for date of: 11/13/24 Subjective Subjective Interval history: Patient seen and examined at bedside. Patient is oriented to self mentation has improved compared to yesterday Goals of care discussion was held with previously, patient's CODE STATUS was changed to DNR/DNI. Goals of care discussion with family today at 3 PM as patient's prognosis is poor. Patient progressing towards multiple organ failure. BUN 62, creatinine 2.8, GFR 22, worsened compared to yesterday Will hold Bumex. Will continue to monitor patient. Exam Vital Signs Temp Pulse Resp BP Pulse Ox O2 Del Method O2 Flow Rate 97.0 F 68 20 98/60 98 Nasal Cannula 2 11/13/24 08:00 11/13/24 08:00 11/13/24 08:00 11/13/24 08:00 11/13/24 08:00 11/13/24 08:00 11/13/24 08:00 Narrative Exam General: AAOx1, non-conversational, obese male HEENT: Conjunctiva clear, EOMI, PERRLA, tongue appears to have glossitis appearance Cardiovascular: S1, S2, radial pulses +2 bilat, RRR, possible murmur heard on LIZBET border Pulmonary: Some crackles heard B/L GI: No tenderness to light or deep palpitation, no guarding, rigidity, rebound tenderness or distension Extremities: no pitting edema in LE bilat, faint dorsalis pedis pulses, R elbow erythematous and a bit edematous MSK: Reduced range of motion with flexion of R elbow Skin: Some purpura through UE bilat. Small petechiae present on upper R deltoid and part of chest bilat Neuro: AAOx1, pupillary reflex intact bilat Psych: Able to cooperate. Objective Labs 11/13/24 05:19 11/13/24 05:19 Labs: Laboratory Results - last 24 hr 11/12/24 11/12/24 11/13/24 09:30 11:41 05:19 WBC 6.3 RBC 3.90 L Hgb 10.9 L Hct 34.8 L MCV 89 MCH 27.9 MCHC 31.3 RDW Std Deviation 62.4 H Plt Count 127 L Neut % (Auto) 70 Lymph % (Auto) 17 [place] % (Auto) 12 Eos % (Auto) 0 Baso % (Auto) 0 Neut # (Auto) 4.5 Lymph # (Auto) 1.1 [place] # (Auto) 0.8 Eos # (Auto) 0.0 Baso # (Auto) 0.0 Immature Gran # (Auto) 0.04 H Absolute Nucleated RBC 0.03 H Immature Gran % 1 H Nucleated RBC % 1 H Puncture Site Left Radial ABG pH 7.51 H ABG pCO2 42 ABG pO2 59 L* ABG HCO3 34 H ABG O2 Saturation 92 ABG Base Excess 10 H FiO2 21 Sodium 133 L Potassium 4.4 D 4.9 D Chloride 90 L Carbon Dioxide 30.4 Anion Gap 13 BUN 62 H Creatinine 2.8 H Estim Creat Clear Calc 24.5 L eGFR 22 L BUN/Creatinine Ratio 22 H Glucose 86 Calculated Osmolality 282 Calcium 9.6 Corrected Calcium 10.2 H Phosphorus 3.8 Magnesium 2.2 Total Bilirubin 8.6 H D AST 96 H ALT 63 H Alkaline Phosphatase 112 Total Protein 6.0 Albumin 3.3 L Globulin 2.7 Albumin/Globulin Ratio 1.2 ABG Interpretation ABG results: 11/12/24 09:30 ABG pH 7.51 H ABG pCO2 42 ABG pO2 59 L* ABG HCO3 34 H ABG O2 Saturation 92 ABG Base Excess 10 H Quality Measures Quality Measures none Advance care planning discussed with:: patient Assessment & Plan Assessment Current Active Medications: Generic Name Dose Route Start Last Admin Trade Name Freq PRN Reason Stop Dose Admin Acetaminophen 650 mg 11/06/24 23:12 11/08/24 05:17 Acetaminophen 325 Mg Tablet PO 12/06/24 23:11 650 mg Q6H PRN Administration Pain 1-3 and/or Fever >100.1 Apixaban 5 mg 11/07/24 09:00 11/12/24 21:20 Apixaban 2.5 Mg Tablet PO 12/07/24 08:59 5 mg BID YASSINE Administration Bumetanide 2 mg 11/12/24 09:00 11/12/24 10:06 Bumetanide 0.5 Mg Tablet PO 12/12/24 08:59 2 mg QDAY YASSINE Administration Carvedilol 6.25 mg 11/07/24 09:25 11/08/24 08:15 Carvedilol 3.125 Mg Tablet PO 12/07/24 07:59 6.25 mg BIDWM YASSINE Administration Dextrose 25 ml 11/12/24 07:59 Dextrose 50%-Water Inj 50 Ml Syringe IV 12/12/24 07:58 Q15MIN PRN BG 50-70 responsive npo pt Dextrose 50 ml 11/12/24 07:59 Dextrose 50%-Water Inj 50 Ml Syringe IV 12/12/24 07:58 Q15MIN PRN BG <50 OR BG <70 & pt unresponsive Doxycycline Hyclate 100 mg 11/07/24 10:15 11/12/24 21:20 Doxycycline 100 Mg Tablet PO 11/14/24 10:14 100 mg BID YASSINE Administration Glucagon 1 mg 11/12/24 07:59 Glucagon Inj 1 Mg Vial IM Q15MIN PRN BG <70, and no IV access Ceftriaxone Sodium/Dextrose 50 mls @ 100 mls/hr 11/07/24 10:11 11/12/24 09:07 Rocephin/D5w 1gm Iv Premix IV 11/14/24 10:10 100 mls/hr QDAY YASSINE Administration Sodium Chloride 500 mls @ 70 mls/hr 11/13/24 09:29 Ns IV 11/13/24 16:37 .Q7H9M YASSINE Midodrine 10 mg 11/07/24 09:25 11/13/24 05:14 Midodrine 5 Mg Tablet PO 12/06/24 23:29 10 mg TID YASSINE Administration Multivitamins 1 tab 11/08/24 15:15 11/12/24 10:07 Multivitamins Tablet PO 12/08/24 15:14 1 tab QDAY YASSINE Administration Nitroglycerin 0.4 mg 11/06/24 23:20 Nitroglycerin 0.4 Mg Subl Btl #25 SL Q5MIN PRN CHEST PAIN Nystatin 5 ml 11/08/24 17:00 11/13/24 05:14 Nystatin Susp 5 Ml Udc PO 11/15/24 16:59 5 ml QID YASSINE Administration Sennosides 1 tab 11/08/24 09:00 11/12/24 10:07 Senna Tablet PO 12/08/24 08:59 1 tab QDAY YASSINE Administration Protocol Simethicone 80 mg 11/11/24 12:48 11/11/24 13:00 Simethicone 80 Mg Chew PO 12/11/24 12:47 80 mg QID PRN Administration GAS Tamsulosin HCl 0.4 mg 11/07/24 14:30 11/12/24 10:07 Tamsulosin Hcl 0.4 Mg Capsule PO 12/07/24 14:29 0.4 mg QDAY YASSINE Administration Plan Plan 79-year-old male patient with significant medical history of HFrEF (35-40% on March 2024), s/p AICD, chronic Afib (rate controlled), DVT (on Eliquis), HTN, HLD was broght to ED from SNF for chest pain/tightness and shortness of breath will be admitted for NSTEMI type II along with acute decompensated heart failure requiring IV diuretics and cardiology consult. #Acute Respiratory Failure 2/2 to #Acute decompensated heart failure #HFrEF, with severe systolic dysfunction, EF 10-15% status post AICD placement #ERLIN prerenal versus cardiorenal #Cardiorenal syndrome #Right pleural effusion #Hypotension Pt currently is net neutral at this time Patient's echo shows HFrEF with systolic dysfunction and EF of 10-15% Will try to optimize medical management with GDMT, however, pt's prognosis is poor at this time Pt's code status recently changed to DNR, will continue to talk with family in regards to possible hospice care, however, of patient cannot discuss this at this time and would like to discuss this at some other time Patient's ejection fraction was 10 to 15%, renal function is worsening, progressing towards multiple organ failure. Goals of care discussion to be held with family today. Plan: Cardiology, Dr. Alexandra, consulted appreciate recommendations Hold Bumex Holding Coreg due to soft blood pressure. Midodrine 10 mg TID, hold if SBP above 110 Fluid restriction 1500 mL Strict I's and O's Daily weight Cardiology, Dr. Alexandra, consulted appreciate recommendations Keep Mag >2.0 and K >4.0 Nephrology consult, recommendation appreciated. #Hospital Acquired Delirium Patient responsive to sternal rub otherwise is not conversational. Suspicion of hospital-acquired delirium. -Reorient frequently -Hold [place] #Chest pain, improved #Likely NSTEMI type II versus type I, resolved #CAP, R base Patient presenting to the ED with chest tightness which she describes as someone sitting on his chest Pain/tightness does not change in quality when he takes deep breaths and is present at all times; he rates it an 8 out of 10 EKG does not show any concerning ST changes; there are left axis deviation and left bundle branch block previously seen on EKGs On CT chest abdomen pelvis there is possible right base pneumonia although the patient does not have any coughing/fever/elevated WBC Pt is not having chest pain at this point, this could be pleuritic chest pain Will add abx Troponin negative x2 Patient did complain of chest pain, most likely musculoskeletal at this time, due to it being reproducible and midsternal in nature Plan: Continue with Rocephin and Doxy (11/07?) Tylenol PRN for pain #Right elbow swelling, improving #Right elbow erythema, improving DDx: [place] bursitis versus cellulitis versus abscess vs gout On physical exam tender to palpation, and is red Ultrasound on previous admission shows fluid in all draining bursa, 4.6 x 1.2 x 4.4, severe generalized edema, will olceranon bursitis versus abscess Patient had MRI done on previous admission however MRI reading affected by patient moving arm during MRI Considering patient's elbow looks worse from when last discharged on previous admission, will need to take a closer look and add antibiotic coverage Will hold on MRI at this point ESR unremarkable, CRP 1.6 Plan: -Rocephin and Doxy (11/07?) ?Wound care #Glossitis Does not appear to be infectious, however could be related to nutrients Plan: ?Nystatin with swish swallow ?Multivitamins p.o. daily. #Abdominal pain #Primary hepatocellular disease #Elevated total bilirubin, worsening T bili 4.3 today, usually in the mid 3s RUQ tenderness upon palpitation on physical exam today Hepatitis panel negative Will work up , however could be related due to hepatic congestion US shows no stones Direct bilirubin 2.6 Most likely due to hepatic congestion Plan: Continue to monitor #Chronic atrial fibrillation, rate controlled CHADS-VASc 4?points Stroke risk was 4.8% per year in >90,000 patient Patient is currently rate controlled on the above medications mentioned Plan: Continue Eliquis 5 mg p.o. twice daily Continuous to the monitoring #History of hypertension #Hyperlipidemia #History of DVT History of bilateral lower extremity DVT in September this year. Plan: As above #Atrophic kidneys #Primary hepatocellular disease As seen on CT chest abdomen pelvis, noncontributory or pertinent to current presentation Plan: Follow-up outpatient #Hyperkalemia - Patient's potassium elevated 6.0 this morning, patient was given albuterol, Kayexalate x 1 and 5 units of IV insulin -Patient's potassium improved to 4.4 #Health Maintenance Disposition: [facility] DVT prophylaxis: Eliquis 5 mg twice daily GI prophylaxis: None at this time Diet: Cardiac CODE STATUS: DNR Case discussed with Attending Dr. Brooks. Jordan Ahn PGY1
[2024-11-13] MEDS: DOXYCYCLINE 100 MG TABLET PO ×2 (09:42→21:10)
[2024-11-13] MEDS: MULTIVITAMINS TABLET 1 TAB PO (09:43)
[2024-11-13] MEDS: TAMSULOSIN HCL 0.4 MG CAPSULE PO (09:43)
[2024-11-13] MEDS: SENNA TABLET 1 TAB PO (09:43)
[2024-11-13] MEDS: cefTRIAXone/D5w 1gm IV premix 50 ML IV (09:43)
[2024-11-13] MEDS: SODIUM CHLORIDE 0.9% 500 ML 500 ML 70 ML IV (09:45)
--- NOTE | 2024-11-13 11:46 | ESPR_ITS ---
Documentation for date of: 11/13/24 Subjective Subjective Interval history: Mr. Rai is a 79-year-old male patient with significant medical history of HFrEF (35-40% on March 2024), s/p AICD, chronic Afib (rate controlled), DVT (on Eliquis), HTN, HLD and DM2 was broght to ED on 11/06/24 from [facility] for chest pain/tightness and shortness of breath. He states it feels like somene is sitting on my chest and he cannot properly take deep breaths and also has some palpitations. He denied having any nausea/vomiting/diarrhea, hematuria, dysuria, hematemesis, hematochezia or melena. Patient was recently admitted to [facility] on 10/05/24 for aggressive diuresis with Bumex, metolazone and Diamox for CHF exacerbation and cardiorenal syndrome. Patient also had low blood pressure and was started on midodrine 10 mg 3 times daily. Patient also developed some right elbow swelling with erythema during hospitalization and was started on doxycycline and Rocephin with adequate response. He was discharged on 10/20/2024 to SNF; however, recently developed new chest pain/tightness along with acute shortness of breath requiring an increase in his oxygen requirements (patient usually uses 2 L). Patient's biological daughter is bedside; however, she states that she lives in [place] and does not manage her father's medical condition. She states that the patient's current significant other knows her medical history well but she is not available to a recent in the family. In the ED, patient hypoxemic requiring 6 L nasal cannula but satting 98%, normotensive, regular heart rate, respiratory rate 18. Pertinent lab findings include hemoglobin 11.4 (MCV 90), platelet count 166, sodium 133, potassium 3.1, BUN 70, creatinine 2.3, magnesium 2.8, troponin 0.037, BNP 3128. EKG showed atrial fibrillation with marked left axis deviation with left bundle branch block previously seen. X-ray showed early heart failure with signs of moderate cardiac enlargement and prominent vascular congestion. CT scan of chest abdomen and pelvis showed moderate enlargement of the cardiac contour, mild pneumonia in the right base, mild to moderate right pleural effusion, primary hepatocellular disease, atrophic kidneys, distended urinary bladder without significant prostatomegaly, and colonic diverticulosis. Patient will be admitted for NSTEMI type II along with acute decompensated heart failure requiring IV diuretics. Nephrology consulted for ERLIN on CKD. 11/12/2024 patient currently seen in medical floor.Urine output decreasing. Added Bumex yesterday. Per RN patient has decreased p.o. intake. Hemoglobin 11.4. WBC 5.8, platelets 136. Sodium 130, potassium 6.0, BUN 49, creatinine 2.5, calcium 10.7, total bilirubin 6.5, AST 100, ALT 57, albumin 3.4 abdominal ultrasound showed no gallstones mild liver cirrhosis echocardiogram showed ejection fraction 10 to 15%. Patient still on midodrine. Prognosis guarded. Noted DNR status per family. 11/13/2024 patient currently seen in medical floor. Today he seems to be more and more sleepy. Liver enzymes significantly elevated. Noted some jaundice as bilirubin is elevated. Abdominal ultrasound showed liver cirrhosis. His son is at bedside and I did discuss goals of care. He wanted patient's to make the decision. He is not ready for comfort care or hospice at this point. Diuretics held due to elevation in the BUN and creatinine. Patient has decreased p.o. intake. Review of Systems Review of Systems Narrative Review of Systems: Limited due to his mentation. Seems to be more sleepy today. Barely arousable. Exam Vital Signs Temp Pulse Resp BP Pulse Ox O2 Del Method O2 Flow Rate 36.1 C 68 20 98/60 98 Nasal Cannula 2 11/13/24 08:00 11/13/24 08:00 11/13/24 08:00 11/13/24 08:00 11/13/24 08:00 11/13/24 08:00 11/13/24 08:00 Narrative Exam General: Patient sleepy HEENT: Jaundice noted Cardiovascular: Regular Pulmonary: Clear to auscultation GI: No tenderness to light or deep palpitation, no guarding, rigidity, rebound tenderness or distension Extremities: No edema, R elbow erythematous and a bit edematous MSK: In bed Skin: Some purpura through UE bilat. Small petechiae present on upper R deltoid and part of chest bilat. significant dryness noted on bilateral feet. Neuro: Very sleepy Objective Labs 11/14/24 04:33 11/14/24 04:33 Labs: Laboratory Results - last 24 hr 11/12/24 11/13/24 11:41 05:19 WBC 6.3 RBC 3.90 L Hgb 10.9 L Hct 34.8 L MCV 89 MCH 27.9 MCHC 31.3 RDW Std Deviation 62.4 H Plt Count 127 L Neut % (Auto) 70 Lymph % (Auto) 17 [place] % (Auto) 12 Eos % (Auto) 0 Baso % (Auto) 0 Neut # (Auto) 4.5 Lymph # (Auto) 1.1 [place] # (Auto) 0.8 Eos # (Auto) 0.0 Baso # (Auto) 0.0 Immature Gran # (Auto) 0.04 H Absolute Nucleated RBC 0.03 H Immature Gran % 1 H Nucleated RBC % 1 H Sodium 133 L Potassium 4.4 D 4.9 D Chloride 90 L Carbon Dioxide 30.4 Anion Gap 13 BUN 62 H Creatinine 2.8 H Estim Creat Clear Calc 24.5 L eGFR 22 L BUN/Creatinine Ratio 22 H Glucose 86 Calculated Osmolality 282 Calcium 9.6 Corrected Calcium 10.2 H Phosphorus 3.8 Magnesium 2.2 Total Bilirubin 8.6 H D AST 96 H ALT 63 H Alkaline Phosphatase 112 Total Protein 6.0 Albumin 3.3 L Globulin 2.7 Albumin/Globulin Ratio 1.2 ABG Interpretation ABG results: 11/12/24 09:30 ABG pH 7.51 H ABG pCO2 42 ABG pO2 59 L* ABG HCO3 34 H ABG O2 Saturation 92 ABG Base Excess 10 H Assessment & Plan Additional Assessment & Plan Additional Plan: Summary: 79-year-old male patient with significant medical history of HFrEF (35- 40% on March 2024), s/p AICD, chronic Afib (rate controlled), DVT (on Eliquis), HTN, HLD was broght to ED from SNF for chest pain/tightness and shortness of breath will be admitted for NSTEMI type II along with acute decompensated heart failure requiring IV diuretics and cardiology consult #ERLIN on CKD #Cardiorenal syndrome #Hypotension #Atrophic kidneys On admission BUN 70 Cr 2.3 GFR 28, Baseline BUN 30 Cr 1.0 GFR >60 Patient has had multiple admission for CHF exacerbations recieved IV Diuretics. Discharged on oral diuretics. Patient is currently seems dehydrated. Will hold off on Bumex Noted hyperkalemia-Kayexalate was given by primary team. Will monitor closely. Patient with a cardiorenal syndrome and multiple hospitalizations. Comfort care seems to be appropriate although patient not ready. Spoke to son and that he wants to turf the decision to patient's . #Acute Respiratory Failure 2/2 to #Acute decompensated heart failure #Right pleural effusion #HFrEF, with severe systolic dysfunction, EF 10-15% status post AICD placement #Right elbow swelling, improving #Right elbow erythema, improving #Chest pain, improved #Likely NSTEMI type II versus type I, resolved #CAP, R base #Glossitis #Abdominal pain #Primary hepatocellular disease--significant elevation in LFTs noted #Elevated total bilirubin, worsening #Chronic atrial fibrillation, rate controlled #History of hypertension #Hyperlipidemia #History of DVT #Primary hepatocellular disease #Hyperkalemia, resolved
--- NOTE | 2024-11-13 12:28 | PC.SS ---
Addendum entered by CECI Candelaria 11/13/24 15:20: Goals of care discussion held with patient's , Rosy. Dr. Velez provided Rosy with a medical update on how the patient is doing. Hospice services were discussed. Informed Rosy about patient's insurance not covering hospice services at [facility] and home hospice was discussed as an option. Rosy informed she would return from [place] later this week on to discuss the patient's discharge plan if able to return home with hospice services. Addendum entered by CECI Candelaria 11/13/24 12:49: Contacted patient's , Rosy @[phone]. Informed her the medical team wants to have a Goals of Care discussion with her today. Rosy informed she is out of state in [place] for her daughter's and is only available via phone. Goals of Care scheduled for this afternoon at 3pm via phone call. Medical team updated. Original Note: SS follow up: spoke with patient's son, who was at bed side. Discussed with him about hospice services and the discharge plan for the patient. informed that the patient's , Rosy is the medical decision maker and reports Rosy is currently out of state for a family . informs patient's son, Jack could be contacted if patient's , Rosy is not available. Jack contact is [phone].
--- NOTE | 2024-11-13 20:04 | ESPR_ITS ---
RE: ANGELES JOHNSON : 1945 DATE OF SERVICE: 11/13/2024 Room 356. SUBJECTIVE : The patient is a 79-year-old male with a history of ischemic cardiomyopathy, chronic systolic heart failure, stage IV__ heart failure with recurrent hospitalization and heart failure symptoms. Ejection fraction 10-15%. Also has azotemia secondary to cardiorenal syndrome with low cardiac output and her prerenal function slightly worsened. Creatinine is 2.8, BUN 55 Creatinine clearance is 22. The patient is made DNR/DNI according to the family as well, which is appropriate. OBJECTIVE: General: Clinically, about the same, much more awake and alert, but still not doing that well. Vital Signs: Blood pressure 120/70, pulse rate is 81. Neck: Supple. No JVD. Lungs: Decreased breath sound. No rhonchi. Heart: S1, S2 irregular. Abdomen: Thin and soft. Extremities: Mild edema. ASSESSMENT: 1. Acute on chronic systolic heart failure. 2. Prerenal azotemia. 3. Low_ cardiac output. 4. End stage stage D heart failure with recurrent hospitalization. 5. Atrial fibrillation, chronic. 6. s/pImplantable cardioverter-defibrillator implantation ___ RECOMMENDATIONS: Continue diuretic therapy bumetanide 2mg_ daily. Continue Eliquis as well for atrial fibrillation as well as deep vein thrombosis. DT: 17:01:43 TT: 19:44:00 Ref: [id number] - TID: [id number] [facility]
--- NOTE | 2024-11-13 20:15 | PC.NURSE ---
dr uriarte notified of pt having 1 run of PVC, no new orders at this time
[2024-11-13] MEDS: APIXABAN 2.5 MG TABLET 5 MG PO (21:10)
[2024-11-14] VITALS (13 sets, daily range): BP systolic 91–101; BP diastolic 60–67; PULSE 81–90; RESP 15–19; TEMP 36.1–36.6; O2SAT 96–98; BMI 29.1
[2024-11-14 05:00] LABS: Basophils % (Auto) 1 % (0-2.5); Eosinophils # (Auto) 0.1 Thou/mm3 (0.0-0.5); Eosinophils % (Auto) 2 % (0-10); Hematocrit 34.1 % (41.0-53.0); Hemoglobin 10.6 g/dL (13.5-16.0); Immature Granulocytes % (Auto) 1 % (0-0); Immature Granulocytes Auto 0.03 Thou/mm3 (0.00-0.00); Lymphocytes % (Auto) 17 % (10-50); Mean Corpuscular HGB Conc 31.1 g/dl (31.0-37.0); Mean Corpuscular Hemoglobin 27.7 pg (25.0-35.0); Mean Corpuscular Volume 89 fL (80-100); Monocytes # (Auto) 0.7 Thou/mm3 (0.0-0.8); Monocytes % (Auto) 11 % (0-12); Neutrophils # (Auto) 4.3 Thou/mm3 (1.8-7.7); Neutrophils % (Auto) 69 % (37-80); Nucleated Red Blood Cell # 0.03 Thou/mm3 (0.00-0.00); Nucleated Red Blood Cell % 1 /100 WBC (0); Platelet Count 119 Thou/mm3 (140-440); RDW Standard Deviation 64.6 fL (35.1-43.9); Red Blood Count 3.83 Miln/mm3 (4.50-5.90); White Blood Count 6.1 Thou/mm3 (3.8-10.6)
[2024-11-14] MEDS: MIDODRINE 5 MG TABLET 10 MG PO ×3 (05:18→21:35)
[2024-11-14] MEDS: NYSTATIN SUSP 5 ML UDC PO ×4 (05:18→21:42)
[2024-11-14 05:39] LABS: Alanine Aminotransferase 68 U/L (10-49); Albumin, Serum 3.2 gm/dL (3.4-4.8); Albumin/Globulin Ratio 1.3 (1.2-2.2); Alkaline Phosphatase 104 U/L (46-116); Anion Gap 9 (7-16); Aspartate Amino Transferase 102 U/L (0-34); BUN/Creatinine Ratio 24 Ratio (12-20); Blood Urea Nitrogen 65 mg/dL (9-23); Calcium 9.2 mg/dL (8.3-10.6); Calcium (Corrected) 9.8 mg/dL (8.5-10.1); Carbon Dioxide 31.4 mMol/L (20.0-31.0); Chloride 94 mMol/L (98-107); Creatinine (Component) 2.7 mg/dL (0.6-1.3); Estimated Creatinine Clearance 25.4 mL/min (>60); Globulin 2.5 gm/dL (2.3-3.5); Glucose 96 mg/dL (74-106); Magnesium 2.3 mg/dL (1.6-2.6); Osmolality,Calculated 286 (275-295); Phosphorous 3.9 mg/dL (2.4-5.1); Potassium 4.1 mMol/L (3.4-5.1); Sodium 134 mMol/L (136-145); Total Protein 5.7 gm/dL (5.7-8.2); eGFR 23 See Note
[2024-11-14] MEDS: APIXABAN 2.5 MG TABLET 5 MG PO ×2 (09:10→21:35)
[2024-11-14] MEDS: TAMSULOSIN HCL 0.4 MG CAPSULE PO (09:10)
[2024-11-14] MEDS: SENNA TABLET 1 TAB PO (09:10)
[2024-11-14] MEDS: DOXYCYCLINE 100 MG TABLET PO (09:10)
[2024-11-14] MEDS: MULTIVITAMINS TABLET 1 TAB PO (09:10)
[2024-11-14] MEDS: cefTRIAXone/D5w 1gm IV premix 50 ML IV (09:10)
--- NOTE | 2024-11-14 11:09 | ESPR_ITS ---
<Statement entered by Gigi Brooks MD - 11/20/24 14:15> I reviewed above note and agree with findings and plans. I have also personally examined the patient with medicine team and went over assessment and plan with medical team including internal medicine nurse and resident physician. Documentation for date of: 11/14/24 Subjective Subjective Interval history: Patient seen and examined at bedside. Patient is oriented to self mentation has improved compared to yesterday, patient eating breakfast. Goals of care discussion held with patient's , she wants to continue with current management, continue DNR/DNI. Patient's AST 102, ALT 68, T. bili 8.0 BUN 65, creatinine 2.7, GFR 23, mild improvement noted Will continue to hold Bumex. Will continue to monitor patient. Exam Vital Signs Temp Pulse Resp BP Pulse Ox O2 Del Method O2 Flow Rate 97 F 86 17 101/67 98 Nasal Cannula 2 11/14/24 08:00 11/14/24 08:00 11/14/24 08:00 11/14/24 08:00 11/14/24 08:00 11/14/24 08:00 11/14/24 08:00 Narrative Exam General: AAOx1, non-conversational, obese male HEENT: Conjunctiva clear, EOMI, PERRLA, tongue appears to have glossitis appearance Cardiovascular: S1, S2, radial pulses +2 bilat, RRR, possible murmur heard on LIZBET border Pulmonary: Some crackles heard B/L GI: No tenderness to light or deep palpitation, no guarding, rigidity, rebound tenderness or distension Extremities: no pitting edema in LE bilat, faint dorsalis pedis pulses, R elbow erythematous and a bit edematous MSK: Reduced range of motion with flexion of R elbow Skin: Some purpura through UE bilat. Small petechiae present on upper R deltoid and part of chest bilat Neuro: AAOx1, pupillary reflex intact bilat Psych: Able to cooperate. Objective Labs 11/14/24 04:33 11/14/24 04:33 Labs: Laboratory Results - last 24 hr 11/14/24 04:33 WBC 6.1 RBC 3.83 L Hgb 10.6 L Hct 34.1 L MCV 89 MCH 27.7 MCHC 31.1 RDW Std Deviation 64.6 H Plt Count 119 L Neut % (Auto) 69 Lymph % (Auto) 17 [place] % (Auto) 11 Eos % (Auto) 2 Baso % (Auto) 1 Neut # (Auto) 4.3 Lymph # (Auto) 1.0 [place] # (Auto) 0.7 Eos # (Auto) 0.1 Baso # (Auto) 0.0 Immature Gran # (Auto) 0.03 H Absolute Nucleated RBC 0.03 H Immature Gran % 1 H Nucleated RBC % 1 H Sodium 134 L Potassium 4.1 D Chloride 94 L Carbon Dioxide 31.4 H Anion Gap 9 BUN 65 H Creatinine 2.7 H Estim Creat Clear Calc 25.4 L eGFR 23 L BUN/Creatinine Ratio 24 H Glucose 96 Calculated Osmolality 286 Calcium 9.2 Corrected Calcium 9.8 Phosphorus 3.9 Magnesium 2.3 Total Bilirubin 8.0 H D AST 102 H ALT 68 H Alkaline Phosphatase 104 Total Protein 5.7 Albumin 3.2 L Globulin 2.5 Albumin/Globulin Ratio 1.3 ABG Interpretation ABG results: 11/12/24 09:30 ABG pH 7.51 H ABG pCO2 42 ABG pO2 59 L* ABG HCO3 34 H ABG O2 Saturation 92 ABG Base Excess 10 H Quality Measures Quality Measures none Advance care planning discussed with:: patient Assessment & Plan Assessment Current Active Medications: Generic Name Dose Route Start Last Admin Trade Name Freq PRN Reason Stop Dose Admin Acetaminophen 650 mg 11/06/24 23:12 11/08/24 05:17 Acetaminophen 325 Mg Tablet PO 12/06/24 23:11 650 mg Q6H PRN Administration Pain 1-3 and/or Fever >100.1 Apixaban 5 mg 11/07/24 09:00 11/14/24 09:10 Apixaban 2.5 Mg Tablet PO 12/07/24 08:59 5 mg BID YASSINE Administration Bumetanide 2 mg 11/12/24 09:00 11/12/24 10:06 Bumetanide 0.5 Mg Tablet PO 12/12/24 08:59 2 mg QDAY YASSINE Administration Carvedilol 6.25 mg 11/07/24 09:25 11/08/24 08:15 Carvedilol 3.125 Mg Tablet PO 12/07/24 07:59 6.25 mg BIDWM YASSINE Administration Dextrose 25 ml 11/12/24 07:59 Dextrose 50%-Water Inj 50 Ml Syringe IV 12/12/24 07:58 Q15MIN PRN BG 50-70 responsive npo pt Dextrose 50 ml 11/12/24 07:59 Dextrose 50%-Water Inj 50 Ml Syringe IV 12/12/24 07:58 Q15MIN PRN BG <50 OR BG <70 & pt unresponsive Glucagon 1 mg 11/12/24 07:59 Glucagon Inj 1 Mg Vial IM Q15MIN PRN BG <70, and no IV access Midodrine 10 mg 11/07/24 09:25 11/14/24 05:18 Midodrine 5 Mg Tablet PO 12/06/24 23:29 10 mg TID YASSINE Administration Multivitamins 1 tab 11/08/24 15:15 11/14/24 09:10 Multivitamins Tablet PO 12/08/24 15:14 1 tab QDAY YASSINE Administration Nitroglycerin 0.4 mg 11/06/24 23:20 Nitroglycerin 0.4 Mg Subl Btl #25 SL Q5MIN PRN CHEST PAIN Nystatin 5 ml 11/08/24 17:00 11/14/24 05:18 Nystatin Susp 5 Ml Udc PO 11/15/24 16:59 5 ml QID YASSINE Administration Sennosides 1 tab 11/08/24 09:00 11/14/24 09:10 Senna Tablet PO 12/08/24 08:59 1 tab QDAY YASSINE Administration Protocol Simethicone 80 mg 11/11/24 12:48 11/11/24 13:00 Simethicone 80 Mg Chew PO 12/11/24 12:47 80 mg QID PRN Administration GAS Tamsulosin HCl 0.4 mg 11/07/24 14:30 11/14/24 09:10 Tamsulosin Hcl 0.4 Mg Capsule PO 12/07/24 14:29 0.4 mg QDAY YASSINE Administration Plan Plan 79-year-old male patient with significant medical history of HFrEF (35-40% on March 2024), s/p AICD, chronic Afib (rate controlled), DVT (on Eliquis), HTN, HLD was broght to ED from SNF for chest pain/tightness and shortness of breath will be admitted for NSTEMI type II along with acute decompensated heart failure requiring IV diuretics and cardiology consult. #Acute Respiratory Failure 2/2 to #Acute decompensated heart failure #HFrEF, with severe systolic dysfunction, EF 10-15% status post AICD placement #ERLIN prerenal versus cardiorenal #Cardiorenal syndrome #Right pleural effusion #Hypotension Pt currently is net neutral at this time Patient's echo shows HFrEF with systolic dysfunction and EF of 10-15% Will try to optimize medical management with GDMT, however, pt's prognosis is poor at this time Pt's code status recently changed to DNR, will continue to talk with family in regards to possible hospice care, however, of patient cannot discuss this at this time and would like to discuss this at some other time Patient's ejection fraction was 10 to 15%, renal function is worsening, progressing towards multiple organ failure. Goals of care discussion to be held with family today. Plan: Cardiology, Dr. Alexandra, consulted appreciate recommendations Hold Bumex Holding Coreg due to soft blood pressure. Midodrine 10 mg TID, hold if SBP above 110 Fluid restriction 1500 mL Strict I's and O's Daily weight Cardiology, Dr. Alexandra, consulted appreciate recommendations Keep Mag >2.0 and K >4.0 Nephrology consult, recommendation appreciated. #Abdominal pain, resolved #Primary hepatocellular disease #Elevated total bilirubin, worsening T bili 8.0 today, usually in the mid 3s RUQ tenderness upon palpitation on physical exam today Hepatitis panel negative US shows no stones Total bilirubin 8.0 Most likely due to hepatic congestion, suspicion of patient progressing towards cardiac cirrhosis. Plan: Continue to monitor #Chest pain, improved #NSTEMI type II #CAP, R base Patient presenting to the ED with chest tightness which she describes as someone sitting on his chest Pain/tightness does not change in quality when he takes deep breaths and is present at all times; he rates it an 8 out of 10 EKG does not show any concerning ST changes; there are left axis deviation and left bundle branch block previously seen on EKGs On CT chest abdomen pelvis there is possible right base pneumonia although the patient does not have any coughing/fever/elevated WBC Pt is not having chest pain at this point, this could be pleuritic chest pain Will add abx Troponin negative x2 Patient did complain of chest pain, most likely musculoskeletal at this time, due to it being reproducible and midsternal in nature Completed treatment with Rocephin and Doxy (11/07?11/14/24) Tylenol PRN for pain #Hospital Acquired Delirium, improving Patient responsive to sternal rub otherwise is not conversational. Suspicion of hospital-acquired delirium. -Reorient frequently -Hold [place] #Right elbow swelling, improving #Right elbow erythema, improving DDx: [place] bursitis versus cellulitis versus abscess vs gout On physical exam tender to palpation, and is red Ultrasound on previous admission shows fluid in all draining bursa, 4.6 x 1.2 x 4.4, severe generalized edema, will olceranon bursitis versus abscess Patient had MRI done on previous admission however MRI reading affected by patient moving arm during MRI Considering patient's elbow looks worse from when last discharged on previous admission, will need to take a closer look and add antibiotic coverage Will hold on MRI at this point ESR unremarkable, CRP 1.6 Plan: -Rocephin and Doxy (11/07?) ?Wound care #Glossitis Does not appear to be infectious, however could be related to nutrients Plan: ?Nystatin with swish swallow ?Multivitamins p.o. daily. #Chronic atrial fibrillation, rate controlled CHADS-VASc 4?points Stroke risk was 4.8% per year in >90,000 patient Patient is currently rate controlled on the above medications mentioned Plan: Continue Eliquis 5 mg p.o. twice daily Continuous to the monitoring #History of hypertension #Hyperlipidemia #History of DVT History of bilateral lower extremity DVT in September this year. Plan: As above #Atrophic kidneys #Primary hepatocellular disease As seen on CT chest abdomen pelvis, noncontributory or pertinent to current presentation Plan: Follow-up outpatient #Hyperkalemia, resolved - Patient's potassium elevated 6.0 this morning, patient was given albuterol, Kayexalate x 1 and 5 units of IV insulin -Patient's potassium improved to 4.1 #Health Maintenance Disposition: [facility] DVT prophylaxis: Eliquis 5 mg twice daily GI prophylaxis: None at this time Diet: Cardiac CODE STATUS: DNR Case discussed with Attending Dr. Obad. Jordan Ahn PGY1
--- NOTE | 2024-11-14 14:51 | PC.SS ---
Rounding: Kidney function not improving, no DC
--- NOTE | 2024-11-14 17:27 | ESPR_ITS ---
Documentation for date of: 11/14/24 Subjective Subjective Interval history: Mr. Rai is a 79-year-old male patient with significant medical history of HFrEF (35-40% on March 2024), s/p AICD, chronic Afib (rate controlled), DVT (on Eliquis), HTN, HLD and DM2 was broght to ED on 11/06/24 from alf facility for chest pain/tightness and shortness of breath. He states it feels like somene is sitting on my chest and he cannot properly take deep breaths and also has some palpitations. He denied having any nausea/vomiting/diarrhea, hematuria, dysuria, hematemesis, hematochezia or melena. Patient was recently admitted to [facility] on 10/05/24 for aggressive diuresis with Bumex, metolazone and Diamox for CHF exacerbation and cardiorenal syndrome. Patient also had low blood pressure and was started on midodrine 10 mg 3 times daily. Patient also developed some right elbow swelling with erythema during hospitalization and was started on doxycycline and Rocephin with adequate response. He was discharged on 10/20/2024 to SNF; however, recently developed new chest pain/tightness along with acute shortness of breath requiring an increase in his oxygen requirements (patient usually uses 2 L). Patient's biological daughter is bedside; however, she states that she lives in [place] and does not manage her father's medical condition. She states that the patient's current significant other knows her medical history well but she is not available to a recent in the family. In the ED, patient hypoxemic requiring 6 L nasal cannula but satting 98%, normotensive, regular heart rate, respiratory rate 18. Pertinent lab findings include hemoglobin 11.4 (MCV 90), platelet count 166, sodium 133, potassium 3.1, BUN 70, creatinine 2.3, magnesium 2.8, troponin 0.037, BNP 3128. EKG showed atrial fibrillation with marked left axis deviation with left bundle branch block previously seen. X-ray showed early heart failure with signs of moderate cardiac enlargement and prominent vascular congestion. CT scan of chest abdomen and pelvis showed moderate enlargement of the cardiac contour, mild pneumonia in the right base, mild to moderate right pleural effusion, primary hepatocellular disease, atrophic kidneys, distended urinary bladder without significant prostatomegaly, and colonic diverticulosis. Patient will be admitted for NSTEMI type II along with acute decompensated heart failure requiring IV diuretics. Nephrology consulted for ERLIN on CKD. 11/12/2024 patient currently seen in medical floor.Urine output decreasing. Added Bumex yesterday. Per RN patient has decreased p.o. intake. Hemoglobin 11.4. WBC 5.8, platelets 136. Sodium 130, potassium 6.0, BUN 49, creatinine 2.5, calcium 10.7, total bilirubin 6.5, AST 100, ALT 57, albumin 3.4 abdominal ultrasound showed no gallstones mild liver cirrhosis echocardiogram showed ejection fraction 10 to 15%. Patient still on midodrine. Prognosis guarded. Noted DNR status per family. 11/14/2023 patient currently seen in medical floor. Today he seems to be more sleepy. Patient denies any chest pain, shortness of breath. Liver enzymes significantly elevated. Noted jaundice as bilirubin is elevated. Abdominal ultrasound showed liver cirrhosis. His son is at bedside and I did discuss goals of care. Noted not ready for hospice at this point. Diuretics held due to elevation in the BUN and creatinine. Patient has decreased p.o. intake. Review of Systems Review of Systems Narrative Review of Systems: Limited due to his mentation. Patient more sleepy today. Exam Vital Signs Temp Pulse Resp BP Pulse Ox O2 Del Method O2 Flow Rate 36.4 C 82 17 95/60 96 Nasal Cannula 2 11/14/24 12:00 11/14/24 17:06 11/14/24 12:00 11/14/24 14:42 11/14/24 12:00 11/14/24 12:00 11/14/24 12:00 Narrative Exam General: Patient sleepy HEENT: Jaundice noted Cardiovascular: Regular Pulmonary: Clear to auscultation GI: No tenderness to light or deep palpitation, no guarding, rigidity, rebound tenderness or distension Extremities: No edema, R elbow erythematous and a bit edematous MSK: In bed Skin: Some purpura through UE bilat. Small petechiae present on upper R deltoid and part of chest bilat. significant dryness noted on bilateral feet. Neuro: Very sleepy Objective Labs 11/15/24 04:40 11/15/24 04:43 Labs: Laboratory Results - last 24 hr 11/14/24 04:33 WBC 6.1 RBC 3.83 L Hgb 10.6 L Hct 34.1 L MCV 89 MCH 27.7 MCHC 31.1 RDW Std Deviation 64.6 H Plt Count 119 L Neut % (Auto) 69 Lymph % (Auto) 17 [place] % (Auto) 11 Eos % (Auto) 2 Baso % (Auto) 1 Neut # (Auto) 4.3 Lymph # (Auto) 1.0 [place] # (Auto) 0.7 Eos # (Auto) 0.1 Baso # (Auto) 0.0 Immature Gran # (Auto) 0.03 H Absolute Nucleated RBC 0.03 H Immature Gran % 1 H Nucleated RBC % 1 H Sodium 134 L Potassium 4.1 D Chloride 94 L Carbon Dioxide 31.4 H Anion Gap 9 BUN 65 H Creatinine 2.7 H Estim Creat Clear Calc 25.4 L eGFR 23 L BUN/Creatinine Ratio 24 H Glucose 96 Calculated Osmolality 286 Calcium 9.2 Corrected Calcium 9.8 Phosphorus 3.9 Magnesium 2.3 Total Bilirubin 8.0 H D AST 102 H ALT 68 H Alkaline Phosphatase 104 Total Protein 5.7 Albumin 3.2 L Globulin 2.5 Albumin/Globulin Ratio 1.3 ABG Interpretation ABG results: 11/12/24 09:30 ABG pH 7.51 H ABG pCO2 42 ABG pO2 59 L* ABG HCO3 34 H ABG O2 Saturation 92 ABG Base Excess 10 H Assessment & Plan Additional Assessment & Plan Additional Plan: Summary: 79-year-old male patient with significant medical history of HFrEF (35- 40% on March 2024), s/p AICD, chronic Afib (rate controlled), DVT (on Eliquis), HTN, HLD was broght to ED from SNF for chest pain/tightness and shortness of breath will be admitted for NSTEMI type II along with acute decompensated heart failure requiring IV diuretics and cardiology consult #ERLIN on CKD #Cardiorenal syndrome #Hypotension #Atrophic kidneys On admission BUN 70 Cr 2.3 GFR 28, Baseline BUN 30 Cr 1.0 GFR >60 Patient has had multiple admission for CHF exacerbations recieved IV Diuretics. Discharged on oral diuretics. Patient is currently seems dehydrated. Will hold off on Bumex Hyperkalemia, creatinine better. Patient with a cardiorenal syndrome and multiple hospitalizations. Comfort care seems to be appropriate although patient// not ready. Patient remains a DNR status. Encourage p.o. fluid intake. #Acute Respiratory Failure 2/2 to #Acute decompensated heart failure #Right pleural effusion #HFrEF, with severe systolic dysfunction, EF 10-15% status post AICD placement #Right elbow swelling, improving #Right elbow erythema, improving #Chest pain, improved #Likely NSTEMI type II versus type I, resolved #CAP, R base #Glossitis #Abdominal pain #Primary hepatocellular disease--significant elevation in LFTs noted #Elevated total bilirubin, worsening #Chronic atrial fibrillation, rate controlled #History of hypertension #Hyperlipidemia #History of DVT #Primary hepatocellular disease #Hyperkalemia, resolved
--- NOTE | 2024-11-14 21:34 | PC.NURSE ---
Dr. Duran okayed to give eliquis with platelet of 119.
[2024-11-15] VITALS (14 sets, daily range): BP systolic 90–97; BP diastolic 55–73; PULSE 73–100; RESP 15–21; TEMP 36.2–36.8; O2SAT 95–99; BMI 29.3; BMI 12.0
--- NOTE | 2024-11-15 01:03 | ESPR_ITS ---
RE: ANGELES JOHNSON : 1945 DATE OF SERVICE: 11/14/2024 SUBJECTIVE: The patient is not doing that well today, still having a lot of weakness, shortness of breath, no chest pain. Renal function continued to be slightly worsened. BUN is 65, creatinine 2.7, diuretics have been held for now, but not retaining any fluid. OBJECTIVE: Vital Signs: Exam shows blood pressure 96/56_, pulse 82. Neck: Supple. No JVD. Chest: Symmetrical. Lung: Decreased breath sounds. No rales. Heart: S1, S2 regular. Abdomen: Thin and soft. Extremities: Mild edema. IMPRESSION: 1. Acute on chronic systolic heart failure. 2. Prerenal azotemia elevated_ BUN and creatinine. RECOMMENDATIONS: Continue to hold the Bumex for now, but his ejection fraction is quite low. He may continue to worse despite stopping diuretics because of prerenal azotemia and low cardiac output as well as systemic congestion. DT: 23:12:19 TT: 00:27:00 Ref: [id number] - TID: [id number] MTDD
[2024-11-15] MEDS: MIDODRINE 5 MG TABLET 10 MG PO ×3 (05:29→21:10)
[2024-11-15] MEDS: NYSTATIN SUSP 5 ML UDC PO ×2 (05:29→12:21)
[2024-11-15 05:30] LABS: Basophils % (Auto) 0 % (0-2.5); Eosinophils # (Auto) 0.2 Thou/mm3 (0.0-0.5); Eosinophils % (Auto) 3 % (0-10); Hematocrit 33.5 % (41.0-53.0); Hemoglobin 10.4 g/dL (13.5-16.0); Immature Granulocytes % (Auto) 0 % (0-0); Immature Granulocytes Auto 0.01 Thou/mm3 (0.00-0.00); Lymphocytes # (Auto) 0.9 Thou/mm3 (1.0-4.8); Lymphocytes % (Auto) 17 % (10-50); Mean Corpuscular Hemoglobin 27.6 pg (25.0-35.0); Mean Corpuscular Volume 89 fL (80-100); Monocytes # (Auto) 0.6 Thou/mm3 (0.0-0.8); Monocytes % (Auto) 12 % (0-12); Neutrophils # (Auto) 3.5 Thou/mm3 (1.8-7.7); Neutrophils % (Auto) 67 % (37-80); Nucleated Red Blood Cell # 0.07 Thou/mm3 (0.00-0.00); Nucleated Red Blood Cell % 1 /100 WBC (0); Platelet Count 130 Thou/mm3 (140-440); Red Blood Count 3.77 Miln/mm3 (4.50-5.90); White Blood Count 5.2 Thou/mm3 (3.8-10.6)
[2024-11-15 07:09] LABS: Alanine Aminotransferase 71 U/L (10-49); Albumin/Globulin Ratio 1.1 (1.2-2.2); Alkaline Phosphatase 98 U/L (46-116); Anion Gap 8 (7-16); Aspartate Amino Transferase 104 U/L (0-34); BUN/Creatinine Ratio 25 Ratio (12-20); Bilirubin,Total 8.7 mg/dL (0.3-1.2); Blood Urea Nitrogen 62 mg/dL (9-23); Calcium 9.3 mg/dL (8.3-10.6); Calcium (Corrected) 10.1 mg/dL (8.5-10.1); Carbon Dioxide 33.4 mMol/L (20.0-31.0); Chloride 93 mMol/L (98-107); Creatinine (Component) 2.5 mg/dL (0.6-1.3); Estimated Creatinine Clearance 27.4 mL/min (>60); Globulin 2.7 gm/dL (2.3-3.5); Glucose 114 mg/dL (74-106); Magnesium 2.3 mg/dL (1.6-2.6); Osmolality,Calculated 286 (275-295); Phosphorous 3.2 mg/dL (2.4-5.1); Potassium 3.7 mMol/L (3.4-5.1); Sodium 134 mMol/L (136-145); Total Protein 5.7 gm/dL (5.7-8.2); eGFR 25 See Note
[2024-11-15] MEDS: MULTIVITAMINS TABLET 1 TAB PO (08:38)
[2024-11-15] MEDS: SENNA TABLET 1 TAB PO (08:38)
[2024-11-15] MEDS: TAMSULOSIN HCL 0.4 MG CAPSULE PO (08:38)
[2024-11-15] MEDS: APIXABAN 2.5 MG TABLET 5 MG PO ×2 (08:38→21:11)
--- NOTE | 2024-11-15 08:50 | PC.SS ---
Addendum entered by CECI Candelaria 11/15/24 15:07: SS follow up: patient's , Rosy informs she will be returning to town tomorrow to discuss the patient's discharge plan, possible home hospice services, pending discussion with patient's children. Addendum entered by CECI Candelaria 11/15/24 12:01: Updated Dr. Ahn. Informs that the patient is chronic and if discharged back to SNF without hospice services he would be a re-admit. Addendum entered by CECI Candelaria 11/15/24 08:56: SS follow up: contacted Liset at [facility]. She informs patient is able to return to SNF without hospice services as patient's insurance would not cover. Original Note: SS follow up: contacted patient's , Rosy to discuss the discharge plan. Rosy informed she would not be in town until possible tomorrow 11/16/24. Provided education to her about hospice services and explained to her that patient's insurance would not cover hospice at the SNF if that is what she decides. Also informed Rosy that the patient could return back to [facility] without hospice if that is what she decides. Presented options to her and Rosy informed she would consider her options.
--- NOTE | 2024-11-15 09:17 | ESPR_ITS ---
RE: ANGELES JOHNSON : 1945 DATE OF SERVICE: 11/11/2024 SUBJECTIVE: Angeles is a 79-year-old male admitted to the hospital with multiple medical problems including shortness of breath and congestive heart failure symptoms. The patient has severe LV dysfunction, nonischemic cardiomyopathy. Clinically, he is little better now, but still feeling very weak and tired , but sometimes wants to go home. His creatinine and BUN remains stable at 47 and 2.0. OBJECTIVE: Vital Signs: Blood pressure 99/54, pulse rate 100, respirations 18, temperature normal. Neck: Supple. Lungs: Decreased breath sounds at the bases. Heart: S1, S2 regular. No gallops. Abdomen: Thin and soft. Extremities: Mild edema. Genital and Rectal: Not performed. Central Nervous System: Normal. A: 1. Acute on chronic systolic heart failure, [place] [employer] functional class IV, borderline hypotension. 2. Chronic systolic heart failure, ejection fraction 10% to 15%, nonischemic cardiomyopathy. 3. Status post ICD implantation. P: We are going to continue diuretic therapy 2 mg Bumex daily along with his apixaban for recurrent DVT. Continue his rest of medications including midodrine to keep the blood pressure 90 systolic Bumex and spironolactone optimal guideline medical management. Short-term and long-term prognosis poor as the discussion of possible hospice care and it should be considered at the time of discharge. DT: 15:13:23 TT: 17:10:00 Ref: [id number] - TID: [id number]
--- NOTE | 2024-11-15 12:24 | ESPR_ITS ---
<Statement entered by Gigi Brooks MD - 11/20/24 14:15> I reviewed above note and agree with findings and plans. I have also personally examined the patient with medicine team and went over assessment and plan with medical team including network intern and resident physician. Documentation for date of: 11/15/24 Subjective Subjective Interval history: Patient seen and examined at bedside. Patient is oriented to self mentation has improved, engages in conversation, patient eating breakfast. Goals of care discussion held with patient's , she wants to continue with current management, continue DNR/DNI. Patient's will be visiting in a.m., plan to have goals of care discussion again due to poor prognosis outpatient with worsening liver and kidney function. Patient's AST 104, ALT 71, T. bili 8.7, uptrending. BUN 62, creatinine 2.5, GFR 25, mild improvement noted, diuretics are being held. Will continue to monitor patient. Exam Vital Signs Temp Pulse Resp BP Pulse Ox O2 Del Method O2 Flow Rate 98.3 F 95 17 94/55 L 98 Nasal Cannula 2 11/15/24 12:00 11/15/24 12:00 11/15/24 12:00 11/15/24 12:00 11/15/24 12:00 11/15/24 12:11/15/24 12:00 Narrative Exam General: AAOx2, non-conversational, obese male HEENT: Scleral icterus noted, PERRLA, tongue appears to have glossitis appearance Cardiovascular: S1, S2, radial pulses +2 bilat, RRR, possible murmur heard on LIZ[place] border Pulmonary: Some crackles heard B/L GI: No tenderness to light or deep palpitation, no guarding, rigidity, rebound tenderness or distension Extremities: 1+ pitting edema in LE bilat, faint dorsalis pedis pulses, R elbow erythematous and a bit edematous MSK: Reduced range of motion with flexion of R elbow Skin: Some purpura through UE bilat. Small petechiae present on upper R deltoid and part of chest bilat Neuro: AAOx2, pupillary reflex intact bilat Psych: Able to cooperate. Objective Labs 11/15/24 04:40 11/15/24 04:43 Labs: Laboratory Results - last 24 hr 11/15/24 11/15/24 04:40 04:43 WBC 5.2 RBC 3.77 L Hgb 10.4 L Hct 33.5 L MCV 89 MCH 27.6 MCHC 31.0 RDW Std Deviation 63.0 H Plt Count 130 L Neut % (Auto) 67 Lymph % (Auto) 17 [place] % (Auto) 12 Eos % (Auto) 3 Baso % (Auto) 0 Neut # (Auto) 3.5 Lymph # (Auto) 0.9 L [place] # (Auto) 0.6 Eos # (Auto) 0.2 Baso # (Auto) 0.0 Immature Gran # (Auto) 0.01 H Absolute Nucleated RBC 0.07 H Immature Gran % 0 Nucleated RBC % 1 H Sodium 134 L Potassium 3.7 Chloride 93 L Carbon Dioxide 33.4 H Anion Gap 8 BUN 62 H Creatinine 2.5 H Estim Creat Clear Calc 27.4 L eGFR 25 L BUN/Creatinine Ratio 25 H Glucose 114 H Calculated Osmolality 286 Calcium 9.3 Corrected Calcium 10.1 Phosphorus 3.2 Magnesium 2.3 Total Bilirubin 8.7 H D AST 104 H ALT 71 H Alkaline Phosphatase 98 Total Protein 5.7 Albumin 3.0 L Globulin 2.7 Albumin/Globulin Ratio 1.1 L ABG Interpretation ABG results: 11/12/24 09:30 ABG pH 7.51 H ABG pCO2 42 ABG pO2 59 L* ABG HCO3 34 H ABG O2 Saturation 92 ABG Base Excess 10 H Quality Measures Quality Measures none Advance care planning discussed with:: patient Assessment & Plan Assessment Current Active Medications: Generic Name Dose Route Start Last Admin Trade Name Freq PRN Reason Stop Dose Admin Acetaminophen 650 mg 11/06/24 23:12 11/08/24 05:17 Acetaminophen 325 Mg Tablet PO 12/06/24 23:11 650 mg Q6H PRN Administration Pain 1-3 and/or Fever >100.1 Apixaban 5 mg 11/07/24 09:00 11/15/24 08:38 Apixaban 2.5 Mg Tablet PO 12/07/24 08:59 5 mg BID YASSINE Administration Dextrose 25 ml 11/12/24 07:59 Dextrose 50%-Water Inj 50 Ml Syringe IV 12/12/24 07:58 Q15MIN PRN BG 50-70 responsive npo pt Dextrose 50 ml 11/12/24 07:59 Dextrose 50%-Water Inj 50 Ml Syringe IV 12/12/24 07:58 Q15MIN PRN BG <50 OR BG <70 & pt unresponsive Glucagon 1 mg 11/12/24 07:59 Glucagon Inj 1 Mg Vial IM Q15MIN PRN BG <70, and no IV access Midodrine 10 mg 11/07/24 09:25 11/15/24 05:29 Midodrine 5 Mg Tablet PO 12/06/24 23:29 10 mg TID YASSINE Administration Multivitamins 1 tab 11/08/24 15:15 11/15/24 08:38 Multivitamins Tablet PO 12/08/24 15:14 1 tab QDAY YASSINE Administration Nystatin 5 ml 11/08/24 17:00 11/15/24 12:21 Nystatin Susp 5 Ml Udc PO 11/15/24 16:59 5 ml QID YASSINE Administration Sennosides 1 tab 11/08/24 09:00 11/15/24 08:38 Senna Tablet PO 12/08/24 08:59 1 tab QDAY YASSINE Administration Protocol Simethicone 80 mg 11/11/24 12:48 11/11/24 13:00 Simethicone 80 Mg Chew PO 12/11/24 12:47 80 mg QID PRN Administration GAS Tamsulosin HCl 0.4 mg 11/07/24 14:30 11/15/24 08:38 Tamsulosin Hcl 0.4 Mg Capsule PO 12/07/24 14:29 0.4 mg QDAY YASSINE Administration Plan Plan 79-year-old male patient with significant medical history of HFrEF (35-40% on March 2024), s/p AICD, chronic Afib (rate controlled), DVT (on Eliquis), HTN, HLD was broght to ED from SNF for chest pain/tightness and shortness of breath will be admitted for NSTEMI type II along with acute decompensated heart failure requiring IV diuretics and cardiology consult. #Acute Respiratory Failure 2/2 to #Acute decompensated heart failure #HFrEF, with severe systolic dysfunction, EF 10-15% status post AICD placement #ERLIN prerenal versus cardiorenal #Cardiorenal syndrome #Right pleural effusion #Hypotension Pt currently is net neutral at this time Patient's echo shows HFrEF with systolic dysfunction and EF of 10-15% Will try to optimize medical management with GDMT, however, pt's prognosis is poor at this time Pt's code status recently changed to DNR, will continue to talk with family in regards to possible hospice care, however, of patient cannot discuss this at this time and would like to discuss this at some other time Patient's ejection fraction was 10 to 15%, renal function is worsening, progressing towards multiple organ failure. Patient is oriented to self mentation has improved, engages in conversation, patient eating breakfast. Goals of care discussion held with patient's , she wants to continue with current management, continue DNR/DNI. Patient's will be visiting in a.m., plan to have goals of care discussion again due to poor prognosis outpatient with worsening liver and kidney function. Plan: Goals of care discussion to be held with tomorrow Cardiology, Dr. Alexandra, consulted appreciate recommendations Hold Bumex Holding Coreg due to soft blood pressure. Midodrine 10 mg TID, hold if SBP above 110 Fluid restriction 1500 mL Strict I's and O's Daily weight Cardiology, Dr. Alexandra, consulted appreciate recommendations Keep Mag >2.0 and K >4.0 Nephrology consult, recommendation appreciated. #Abdominal pain, resolved #Primary hepatocellular disease #Elevated total bilirubin, worsening T bili 8.7 today, usually in the mid 3s No right upper quadrant tenderness noted. Hepatitis panel negative US shows no stones Total bilirubin 8.0 Most likely due to hepatic congestion, suspicion of patient progressing towards cardiac cirrhosis. Plan: Continue to monitor #Chest pain, improved #NSTEMI type II #CAP, R base Patient presenting to the ED with chest tightness which she describes as someone sitting on his chest Pain/tightness does not change in quality when he takes deep breaths and is present at all times; he rates it an 8 out of 10 EKG does not show any concerning ST changes; there are left axis deviation and left bundle branch block previously seen on EKGs On CT chest abdomen pelvis there is possible right base pneumonia although the patient does not have any coughing/fever/elevated WBC Pt is not having chest pain at this point, this could be pleuritic chest pain Will add abx Troponin negative x2 Patient did complain of chest pain, most likely musculoskeletal at this time, due to it being reproducible and midsternal in nature Completed treatment with Rocephin and Doxy (11/07?11/14/24) Tylenol PRN for pain #Hospital Acquired Delirium, improving Patient responsive to sternal rub otherwise is not conversational. Suspicion of hospital-acquired delirium. -Reorient frequently -Hold [place] #Right elbow swelling, improving #Right elbow erythema, improving DDx: [place] bursitis versus cellulitis versus abscess vs gout On physical exam tender to palpation, and is red Ultrasound on previous admission shows fluid in all draining bursa, 4.6 x 1.2 x 4.4, severe generalized edema, will olceranon bursitis versus abscess Patient had MRI done on previous admission however MRI reading affected by patient moving arm during MRI Considering patient's elbow looks worse from when last discharged on previous admission, will need to take a closer look and add antibiotic coverage Will hold on MRI at this point ESR unremarkable, CRP 1.6 Plan: -Rocephin and Doxy (11/07?) ?Wound care #Glossitis Does not appear to be infectious, however could be related to nutrients Plan: ?Nystatin with swish swallow ?Multivitamins p.o. daily. #Chronic atrial fibrillation, rate controlled CHADS-VASc 4?points Stroke risk was 4.8% per year in >90,000 patient Patient is currently rate controlled on the above medications mentioned Plan: Continue Eliquis 5 mg p.o. twice daily Continuous telemetry monitoring #History of hypertension #Hyperlipidemia #History of DVT History of bilateral lower extremity DVT in September this year. Plan: As above #Atrophic kidneys #Primary hepatocellular disease As seen on CT chest abdomen pelvis, noncontributory or pertinent to current presentation Plan: Follow-up outpatient #Hyperkalemia, resolved #Health Maintenance Disposition: [facility] DVT prophylaxis: Eliquis 5 mg twice daily GI prophylaxis: None at this time Diet: Cardiac CODE STATUS: DNR/DNI Overall patient has poor prognosis, congestive heart failure with ejection fraction 10 to 15%, worsening renal and liver function, patient progressing towards multiple organ dysfunction syndrome, goals of care discussion held with patient's , wants to continue current management however patient's prognosis continues to remain poor. Case discussed with Attending Dr. Obad. Jordan Ahn PGY1
--- NOTE | 2024-11-15 19:56 | PD.NEPHPROG ---
Documentation for date of: 11/15/24 Subjective Subjective Interval history: Mr. Rai is a 79-year-old male patient with significant medical history of HFrEF (35-40% on March 2024), s/p AICD, chronic Afib (rate controlled), DVT (on Eliquis), HTN, HLD and DM2 was broght to ED on 11/06/24 from nursing home facility for chest pain/tightness and shortness of breath. He states it feels like somene is sitting on my chest and he cannot properly take deep breaths and also has some palpitations. He denied having any nausea/vomiting/diarrhea, hematuria, dysuria, hematemesis, hematochezia or melena. Patient was recently admitted to [facility] on 10/05/24 for aggressive diuresis with Bumex, metolazone and Diamox for CHF exacerbation and cardiorenal syndrome. Patient also had low blood pressure and was started on midodrine 10 mg 3 times daily. Patient also developed some right elbow swelling with erythema during hospitalization and was started on doxycycline and Rocephin with adequate response. He was discharged on 10/20/2024 to SNF; however, recently developed new chest pain/tightness along with acute shortness of breath requiring an increase in his oxygen requirements (patient usually uses 2 L). Patient's biological daughter is bedside; however, she states that she lives in [place] and does not manage her father's medical condition. She states that the patient's current significant other knows her medical history well but she is not available to a recent in the family. In the ED, patient hypoxemic requiring 6 L nasal cannula but satting 98%, normotensive, regular heart rate, respiratory rate 18. Pertinent lab findings include hemoglobin 11.4 (MCV 90), platelet count 166, sodium 133, potassium 3.1, BUN 70, creatinine 2.3, magnesium 2.8, troponin 0.037, BNP 3128. EKG showed atrial fibrillation with marked left axis deviation with left bundle branch block previously seen. X-ray showed early heart failure with signs of moderate cardiac enlargement and prominent vascular congestion. CT scan of chest abdomen and pelvis showed moderate enlargement of the cardiac contour, mild pneumonia in the right base, mild to moderate right pleural effusion, primary hepatocellular disease, atrophic kidneys, distended urinary bladder without significant prostatomegaly, and colonic diverticulosis. Patient will be admitted for NSTEMI type II along with acute decompensated heart failure requiring IV diuretics. Nephrology consulted for ERLIN on CKD. 11/12/2024 patient currently seen in medical floor.Urine output decreasing. Added Bumex yesterday. Per RN patient has decreased p.o. intake. Hemoglobin 11.4. WBC 5.8, platelets 136. Sodium 130, potassium 6.0, BUN 49, creatinine 2.5, calcium 10.7, total bilirubin 6.5, AST 100, ALT 57, albumin 3.4 abdominal ultrasound showed no gallstones mild liver cirrhosis echocardiogram showed ejection fraction 10 to 15%. Patient still on midodrine. Prognosis guarded. Noted DNR status per family. 11/15/2023 patient currently seen in medical floor. Today he seems to be more and more sleepy. Liver enzymes significantly elevated. Noted jaundice as bilirubin is elevated. Abdominal ultrasound showed liver cirrhosis. Noted not ready for comfort care or hospice at this point. Diuretics held due to elevation in the BUN and creatinine. Patient has decreased p.o. intake.WBC 5.2, hemoglobin 10.4, platelets 130. Sodium 134, potassium 3.7, BUN 62, creatinine 2.5. Total bilirubin 8.7, AST 104, ALT 71 Review of Systems Review of Systems Narrative Review of Systems: Limited due to his mentation. Patient seems to be sleepy for me today. Exam Vital Signs Temp Pulse Resp BP Pulse Ox O2 Del Method O2 Flow Rate 36.2 C 82 21 H 90/56 L 95 Nasal Cannula 22 11/15/24 16:00 11/15/24 17:53 11/15/24 16:00 11/15/24 16:00 11/15/24 16:00 11/15/24 16:11/15/24 16:00 Narrative Exam General: Patient sleepy HEENT: Jaundice noted Cardiovascular: Regular Pulmonary: Clear to auscultation GI: No tenderness to light or deep palpitation, no guarding, rigidity, rebound tenderness or distension Extremities: No edema, R elbow erythematous and a bit edematous MSK: In bed Skin: Some purpura through UE bilat. Small petechiae present on upper R deltoid and part of chest bilat. significant dryness noted on bilateral feet. Neuro: Very sleepy Objective Labs 11/15/24 04:40 11/15/24 04:43 Labs: Laboratory Results - last 24 hr 11/15/24 11/15/24 04:40 04:43 WBC 5.2 RBC 3.77 L Hgb 10.4 L Hct 33.5 L MCV 89 MCH 27.6 MCHC 31.0 RDW Std Deviation 63.0 H Plt Count 130 L Neut % (Auto) 67 Lymph % (Auto) 17 [place] % (Auto) 12 Eos % (Auto) 3 Baso % (Auto) 0 Neut # (Auto) 3.5 Lymph # (Auto) 0.9 L [place] # (Auto) 0.6 Eos # (Auto) 0.2 Baso # (Auto) 0.0 Immature Gran # (Auto) 0.01 H Absolute Nucleated RBC 0.07 H Immature Gran % 0 Nucleated RBC % 1 H Sodium 134 L Potassium 3.7 Chloride 93 L Carbon Dioxide 33.4 H Anion Gap 8 BUN 62 H Creatinine 2.5 H Estim Creat Clear Calc 27.4 L eGFR 25 L BUN/Creatinine Ratio 25 H Glucose 114 H Calculated Osmolality 286 Calcium 9.3 Corrected Calcium 10.1 Phosphorus 3.2 Magnesium 2.3 Total Bilirubin 8.7 H D AST 104 H ALT 71 H Alkaline Phosphatase 98 Total Protein 5.7 Albumin 3.0 L Globulin 2.7 Albumin/Globulin Ratio 1.1 L ABG Interpretation ABG results: 11/12/24 09:30 ABG pH 7.51 H ABG pCO2 42 ABG pO2 59 L* ABG HCO3 34 H ABG O2 Saturation 92 ABG Base Excess 10 H Assessment & Plan Additional Assessment & Plan Additional Plan: Summary: 79-year-old male patient with significant medical history of HFrEF (35-40% on March 2024), s/p AICD, chronic Afib (rate controlled), DVT (on Eliquis), HTN, HLD was broght to ED from SNF for chest pain/tightness and shortness of breath will be admitted for NSTEMI type II along with acute decompensated heart failure requiring IV diuretics and cardiology consult #ERLIN on CKD #Cardiorenal syndrome #Hypotension #Atrophic kidneys On admission BUN 70 Cr 2.3 GFR 28, Baseline BUN 30 Cr 1.0 GFR >60 Patient has had multiple admission for CHF exacerbations recieved IV Diuretics. Discharged on oral diuretics. Patient is currently seems dehydrated. Will hold off on Bumex Patient with a cardiorenal syndrome and multiple hospitalizations. Comfort care seems to be appropriate although not ready. Currently on DNR status. Noted significant elevation in LFTs--suspect hepatic congestion. Check ammonia level. #Acute Respiratory Failure 2/2 to #Acute decompensated heart failure #Right pleural effusion #HFrEF, with severe systolic dysfunction, EF 10-15% status post AICD placement #Right elbow swelling, improving #Right elbow erythema, improving #Chest pain, improved #Likely NSTEMI type II versus type I, resolved #CAP, R base #Glossitis #Abdominal pain #Primary hepatocellular disease--significant elevation in LFTs noted #Elevated total bilirubin, worsening #Chronic atrial fibrillation, rate controlled #History of hypertension #Hyperlipidemia #History of DVT #Primary hepatocellular disease #Hyperkalemia, resolved
[2024-11-16] VITALS (10 sets, daily range): BP systolic 90–97; BP diastolic 54–71; PULSE 69–146; RESP 15–20; TEMP 36.1–36.4; O2SAT 95–100; BMI 29.9
--- NOTE | 2024-11-16 01:00 | PC.NURSE ---
Addendum entered by Lawrence Turcios RN 11/16/24 01:02: Dr. Duran made aware. No new orders. Original Note: MT called RN stating that pt is having frequent PVC's and trigeminy. RN will notify hospitalists.
[2024-11-16] MEDS: MIDODRINE 5 MG TABLET 10 MG PO ×3 (05:14→21:05)
[2024-11-16 08:10] LABS: Basophils % (Auto) 1 % (0-2.5); Eosinophils # (Auto) 0.2 Thou/mm3 (0.0-0.5); Eosinophils % (Auto) 6 % (0-10); Hematocrit 33.2 % (41.0-53.0); Hemoglobin 10.3 g/dL (13.5-16.0); Immature Granulocytes % (Auto) 0 % (0-0); Immature Granulocytes Auto 0.01 Thou/mm3 (0.00-0.00); Lymphocytes # (Auto) 0.8 Thou/mm3 (1.0-4.8); Lymphocytes % (Auto) 19 % (10-50); Mean Corpuscular Hemoglobin 27.8 pg (25.0-35.0); Mean Corpuscular Volume 90 fL (80-100); Monocytes # (Auto) 0.4 Thou/mm3 (0.0-0.8); Monocytes % (Auto) 11 % (0-12); Neutrophils # (Auto) 2.5 Thou/mm3 (1.8-7.7); Neutrophils % (Auto) 63 % (37-80); Nucleated Red Blood Cell # 0.04 Thou/mm3 (0.00-0.00); Nucleated Red Blood Cell % 1 /100 WBC (0); Platelet Count 100 Thou/mm3 (140-440); RDW Standard Deviation 63.7 fL (35.1-43.9); Red Blood Count 3.71 Miln/mm3 (4.50-5.90)
[2024-11-16] MEDS: TAMSULOSIN HCL 0.4 MG CAPSULE PO (08:22)
[2024-11-16] MEDS: SENNA TABLET 1 TAB PO (08:22)
[2024-11-16] MEDS: MULTIVITAMINS TABLET 1 TAB PO (08:22)
[2024-11-16] MEDS: APIXABAN 2.5 MG TABLET 5 MG PO ×2 (08:23→20:53)
[2024-11-16 08:32] LABS: Alanine Aminotransferase 73 U/L (10-49); Albumin, Serum 2.9 gm/dL (3.4-4.8); Albumin/Globulin Ratio 1.2 (1.2-2.2); Alkaline Phosphatase 90 U/L (46-116); Ammonia < 10 uMol/L (11-32); Anion Gap 8 (7-16); Aspartate Amino Transferase 104 U/L (0-34); BUN/Creatinine Ratio 25 Ratio (12-20); Bilirubin,Total 9.6 mg/dL (0.3-1.2); Blood Urea Nitrogen 50 mg/dL (9-23); Calcium 8.9 mg/dL (8.3-10.6); Calcium (Corrected) 9.8 mg/dL (8.5-10.1); Carbon Dioxide 33.5 mMol/L (20.0-31.0); Chloride 93 mMol/L (98-107); Estimated Creatinine Clearance 34.7 mL/min (>60); Globulin 2.4 gm/dL (2.3-3.5); Glucose 95 mg/dL (74-106); Osmolality,Calculated 281 (275-295); Potassium 3.2 mMol/L (3.4-5.1); Sodium 134 mMol/L (136-145); Total Protein 5.3 gm/dL (5.7-8.2); eGFR 33 See Note
[2024-11-16] MEDS: POTASSIUM CHLORIDE 20 mEq TABCR 40 MEQ PO (09:31)
--- NOTE | 2024-11-16 09:56 | PC.SS ---
Addendum entered by CECI Candelaria 11/16/24 10:17: Updated Dr. Aguilar. Original Note: SS follow up: patient's Rosy informed she could be present at 1pm this afternoon for a goal of care discussion regarding hospice. Patient's children were also informed of goals of care discussion.
--- NOTE | 2024-11-16 12:43 | PD.RESPRO ---
Documentation for date of: 11/16/24 Subjective Subjective Interval history: Emil Rai is a 79-year-old male patient with significant medical history of HFrEF (35-40% on March 2024), s/p AICD, chronic Afib (rate controlled), DVT (on Eliquis), HTN, HLD and T2DM who presented to the ED on 11/06/2024 from SNF for chest pain/tightness and shortness of breath. Stated it felt like somene is sitting on my chest and cannot properly take deep breaths and also has some palpitations. Denied N/V/D, hematuria, dsyuria, hematemesis, hematochezia, or melena. Recently admitted to [facility] on 10/05/24 for aggressive diuresis with Bumex, metolazone and Diamox for CHF exacerbation and cardiorenal syndrome. Also had low blood pressure and was started on midodrine 10 mg 3 times daily. Developed right elbow swelling with erythema during hospitalization and started on doxycycline and Rocephin with adequate response. Then was discharged on 10/20/2024 to SNF; however, recently developed new chest pain/tightness along with acute shortness of breath with increased oxygen requirements (2 L at baseline). Biological daughter is bedside; however, she states that she lives in [place] and does not manage her father's medical condition. She states that patient's current significant other knows medical history well but is not available due to a recent in the family. In ED, patient was hypoxemic requiring 6 L NC but satting 98% and normotensive. Pertinent lab findings include hemoglobin 11.4 (MCV 90), platelet count 166, Na 133, K 3.1, BUN 70, Cr 2.3, Mg 2.8, troponin 0.037, BNP 3128. EKG showed atrial fibrillation with marked left axis deviation with LBBB previously seen. CXR showed early heart failure with signs of moderate cardiac enlargement and prominent vascular congestion. CT C/A/P showed moderate enlargement of cardiac contour, mild pneumonia in right base, mild to moderate right pleural effusion, primary hepatocellular disease, atrophic kidneys, distended urinary bladder without significant prostatomegaly, and colonic diverticulosis. Admitted for NSTEMI type II along with acute decompensated heart failure requiring IV diuretics. Nephrology consulted for ERLIN on CKD. 11/12: Patient currently seen in medical floor. Urine output decreasing. Added Bumex yesterday. Per RN patient has decreased p.o. intake. Hemoglobin 11.4. WBC 5.8, platelets 136. Sodium 130, potassium 6.0, BUN 49, creatinine 2.5, calcium 10.7, total bilirubin 6.5, AST 100, ALT 57, albumin 3.4. Abdominal ultrasound showed no gallstones, mild liver cirrhosis. Echo showed EF 10 to 15%. Patient still on midodrine. Prognosis guarded. Noted DNR status per family. 11/15: Patient currently seen in medical floor. Today he seems to be more sleepy. Liver enzymes significantly elevated. Noted jaundice as bilirubin is elevated. Abdominal ultrasound showed liver cirrhosis. Noted not ready for comfort care or hospice at this point. Diuretics held due to elevation in the BUN and creatinine. Patient has decreased p.o. intake. WBC 5.2, hemoglobin 10.4, platelets 130. Sodium 134, potassium 3.7, BUN 62, creatinine 2.5. Total bilirubin 8.7, AST 104, ALT 71. 11/16: Patient currently seen in medical floor. Appears to be mildly confused and jaundice again noted. Urine appears concentrated, and will continue to hold diuretics. WBC 4.0, hemoglobin 10.3, platelets 100. Na 134, K 3.2, BUN 50, Cr 2.0. Total bilirubin 9.6, AST 104, ALT 73. Exam Vital Signs Temp Pulse Resp BP Pulse Ox O2 Del Method O2 Flow Rate 96.9 F 116 H 20 90/57 L 99 Nasal Cannula 2 11/16/24 08:00 11/16/24 08:00 11/16/24 08:00 11/16/24 08:00 11/16/24 08:00 11/16/24 08:00 11/16/24 08:00 Narrative Exam General: no acute distress, mildly confused HEENT: NC/AT, mucous membranes moist Cardiovascular: regular rate and rhythm, S1/S2 present, no murmurs appreciated Pulmonary: clear to auscultation bilaterally, no rales/rhonchi/wheezes Abdominal: soft, non-tender, non-distended, no rebound/guarding, normal bowel sounds present Skin: jaundiced, petechiae present in upper extremities, warm and dry, intact Objective Labs 11/17/24 04:52 11/17/24 04:52 Labs: Laboratory Results - last 24 hr 11/16/24 07:58 WBC 4.0 RBC 3.71 L Hgb 10.3 L Hct 33.2 L MCV 90 MCH 27.8 MCHC 31.0 RDW Std Deviation 63.7 H Plt Count 100 L D Neut % (Auto) 63 Lymph % (Auto) 19 [place] % (Auto) 11 Eos % (Auto) 6 Baso % (Auto) 1 Neut # (Auto) 2.5 Lymph # (Auto) 0.8 L [place] # (Auto) 0.4 Eos # (Auto) 0.2 Baso # (Auto) 0.0 Immature Gran # (Auto) 0.01 H Absolute Nucleated RBC 0.04 H Immature Gran % 0 Nucleated RBC % 1 H Sodium 134 L Potassium 3.2 L D Chloride 93 L Carbon Dioxide 33.5 H Anion Gap 8 BUN 50 H Creatinine 2.0 H D Estim Creat Clear Calc 34.7 L eGFR 33 L BUN/Creatinine Ratio 25 H Glucose 95 Calculated Osmolality 281 Calcium 8.9 Corrected Calcium 9.8 Total Bilirubin 9.6 H D AST 104 H ALT 73 H Alkaline Phosphatase 90 Ammonia < 10 L Total Protein 5.3 L Albumin 2.9 L Globulin 2.4 Albumin/Globulin Ratio 1.2 ABG Interpretation ABG results: 11/12/24 09:30 ABG pH 7.51 H ABG pCO2 42 ABG pO2 59 L* ABG HCO3 34 H ABG O2 Saturation 92 ABG Base Excess 10 H Quality Measures Quality Measures none Advance care planning discussed with:: patient Assessment & Plan Assessment Current Active Medications: Generic Name Dose Route Start Last Admin Trade Name Matt PRN Reason Stop Dose Admin Acetaminophen 650 mg 11/06/24 23:12 11/08/24 05:17 Acetaminophen 325 Mg Tablet PO 12/06/24 23:11 650 mg Q6H PRN Administration Pain 1-3 and/or Fever >100.1 Apixaban 5 mg 11/07/24 09:00 11/16/24 08:23 Apixaban 2.5 Mg Tablet PO 12/07/24 08:59 5 mg BID YASSINE Administration Dextrose 25 ml 11/12/24 07:59 Dextrose 50%-Water Inj 50 Ml Syringe IV 12/12/24 07:58 Q15MIN PRN BG 50-70 responsive npo pt Dextrose 50 ml 11/12/24 07:59 Dextrose 50%-Water Inj 50 Ml Syringe IV 12/12/24 07:58 Q15MIN PRN BG <50 OR BG <70 & pt unresponsive Glucagon 1 mg 11/12/24 07:59 Glucagon Inj 1 Mg Vial IM Q15MIN PRN BG <70, and no IV access Midodrine 10 mg 11/07/24 09:25 11/16/24 05:14 Midodrine 5 Mg Tablet PO 12/06/24 23:29 10 mg TID YASSINE Administration Multivitamins 1 tab 11/08/24 15:15 11/16/24 08:22 Multivitamins Tablet PO 12/08/24 15:14 1 tab QDAY YASSINE Administration Sennosides 1 tab 11/08/24 09:00 11/16/24 08:22 Senna Tablet PO 12/08/24 08:59 1 tab QDAY YASSINE Administration Protocol Simethicone 80 mg 11/11/24 12:48 11/11/24 13:00 Simethicone 80 Mg Chew PO 12/11/24 12:47 80 mg QID PRN Administration GAS Tamsulosin HCl 0.4 mg 11/07/24 14:30 11/16/24 08:22 Tamsulosin Hcl 0.4 Mg Capsule PO 12/07/24 14:29 0.4 mg QDAY YASSINE Administration Plan Emil Rai is a 79-year-old male patient with significant medical history of HFrEF (35-40% on March 2024), s/p AICD, chronic Afib (rate controlled), DVT (on Eliquis), HTN, HLD and T2DM who presented to the ED on 11/06/2024 from SNF for chest pain/tightness and shortness of breath and was admitted for NSTEMI type II, acute decompensated heart failure requiring IV diuretics. Nephrology was consulted for ERLIN on CKD. #ERLIN on CKD #Cardiorenal syndrome #Hypotension #Atrophic kidneys #Hyperkalemia, resolved On admission BUN 70, Cr 2.3 GFR 28 -> baseline BUN 30, Cr 1.0, GFR >60 Patient with cardiorenal syndrome and multiple hospitalizations for CHF exacerbations requiring IV diuretics Comfort care seems to be appropriate although not ready, currently DNR status Noted significant elevation in LFTs, suspect hepatic congestion, ammonia noted to be wnl ? Currently seems dehydrated so we will continue to hold off diuretics #Acute hypoxic respiratory failure, secondary to #Acute decompensated heart failure #Likely NSTEMI type II versus type I, resolved #HFrEF (EF 10-15%), severe systolic dysfunction status post AICD placement #CAP, right base #Right pleural effusion #Right elbow swelling, improving #Right elbow erythema, improving #Glossitis #Primary hepatocellular disease, significant elevation in LFTs noted #Elevated total bilirubin, worsening #Chronic atrial fibrillation, rate controlled #History of hypertension #Hyperlipidemia #History of DVT ----- Plan discussed with attending physician Dr. Andrey Durham MD PGY-1 Internal Medicine Attending Provider Attestation/Addendum Patient seen and examined with resident physician Dr. Cassidy. Note reviewed, agree with findings and recommendations.
--- NOTE | 2024-11-16 12:49 | ESPR_ITS ---
<Statement entered by Zac Alexandra MD - 11/17/24 14:59> The patient clinically examined by me along with resident physician patient end- stage heart disease NYHA functional class IV stage D multiorgan failure continues to deteriorate clinically though he is not in acute distress patient's prognosis poor agree with the treatment plan recommendation hospice care appropriate reviewed all the notes and findings and all essential components agree with treatment plan recommendation as documented by Dr. Alexander Montes, PGY 2 Documentation for date of: 11/16/24 Subjective Subjective Interval history: Patient seen and assessed at bedside along with and family members. Patient very ill-appearing and jaundiced and family discussed goals of care options and overall prognosis. Family members appear to be leaning towards hospice at SNF as cannot take care of her as she lives alone and is fragile as well. She would like to speak with her sons before making a final decision. Primary team made aware of discussion. Exam Vital Signs Temp Pulse Resp BP Pulse Ox O2 Del Method O2 Flow Rate 96.9 F 116 H 20 90/57 L 99 Nasal Cannula 2 11/16/24 08:00 11/16/24 08:00 11/16/24 08:00 11/16/24 08:00 11/16/24 08:00 11/16/24 08:00 11/16/24 08:00 Narrative Exam General: AAOx2, jaundiced and frail appearing elderly male. Cardiovascular: Irregularly irregular rhythm. With distant heart sounds. Pulmonary: Rhonchi/crackles on auscultation with distant breath sounds. GI: No tenderness to light or deep palpitation, no guarding, rigidity, rebound tenderness or distension Extremities: 2++ pitting edema in LE bilat. Skin: Multiple ecchymosis throughout arms and lower extremities. Jaundiced. Objective Labs 11/16/24 07:58 11/16/24 07:58 Labs: Laboratory Results - last 24 hr 11/16/24 07:58 WBC 4.0 RBC 3.71 L Hgb 10.3 L Hct 33.2 L MCV 90 MCH 27.8 MCHC 31.0 RDW Std Deviation 63.7 H Plt Count 100 L D Neut % (Auto) 63 Lymph % (Auto) 19 [place] % (Auto) 11 Eos % (Auto) 6 Baso % (Auto) 1 Neut # (Auto) 2.5 Lymph # (Auto) 0.8 L [place] # (Auto) 0.4 Eos # (Auto) 0.2 Baso # (Auto) 0.0 Immature Gran # (Auto) 0.01 H Absolute Nucleated RBC 0.04 H Immature Gran % 0 Nucleated RBC % 1 H Sodium 134 L Potassium 3.2 L D Chloride 93 L Carbon Dioxide 33.5 H Anion Gap 8 BUN 50 H Creatinine 2.0 H D Estim Creat Clear Calc 34.7 L eGFR 33 L BUN/Creatinine Ratio 25 H Glucose 95 Calculated Osmolality 281 Calcium 8.9 Corrected Calcium 9.8 Total Bilirubin 9.6 H D AST 104 H ALT 73 H Alkaline Phosphatase 90 Ammonia < 10 L Total Protein 5.3 L Albumin 2.9 L Globulin 2.4 Albumin/Globulin Ratio 1.2 ABG Interpretation ABG results: 11/12/24 09:30 ABG pH 7.51 H ABG pCO2 42 ABG pO2 59 L* ABG HCO3 34 H ABG O2 Saturation 92 ABG Base Excess 10 H Quality Measures Quality Measures none Advance care planning discussed with:: patient, spouse and sibling Assessment & Plan Assessment Current Active Medications: Generic Name Dose Route Start Last Admin Trade Name Freq PRN Reason Stop Dose Admin Acetaminophen 650 mg 11/06/24 23:12 11/08/24 05:17 Acetaminophen 325 Mg Tablet PO 12/06/24 23:11 650 mg Q6H PRN Administration Pain 1-3 and/or Fever >100.1 Apixaban 5 mg 11/07/24 09:00 11/16/24 08:23 Apixaban 2.5 Mg Tablet PO 12/07/24 08:59 5 mg BID YASSINE Administration Dextrose 25 ml 11/12/24 07:59 Dextrose 50%-Water Inj 50 Ml Syringe IV 12/12/24 07:58 Q15MIN PRN BG 50-70 responsive npo pt Dextrose 50 ml 11/12/24 07:59 Dextrose 50%-Water Inj 50 Ml Syringe IV 12/12/24 07:58 Q15MIN PRN BG <50 OR BG <70 & pt unresponsive Glucagon 1 mg 11/12/24 07:59 Glucagon Inj 1 Mg Vial IM Q15MIN PRN BG <70, and no IV access Midodrine 10 mg 11/07/24 09:25 11/16/24 05:14 Midodrine 5 Mg Tablet PO 12/06/24 23:29 10 mg TID YASSINE Administration Multivitamins 1 tab 11/08/24 15:15 11/16/24 08:22 Multivitamins Tablet PO 12/08/24 15:14 1 tab QDAY YASSINE Administration Sennosides 1 tab 11/08/24 09:00 11/16/24 08:22 Senna Tablet PO 12/08/24 08:59 1 tab QDAY YASSINE Administration Protocol Simethicone 80 mg 11/11/24 12:48 11/11/24 13:00 Simethicone 80 Mg Chew PO 12/11/24 12:47 80 mg QID PRN Administration GAS Tamsulosin HCl 0.4 mg 11/07/24 14:30 11/16/24 08:22 Tamsulosin Hcl 0.4 Mg Capsule PO 12/07/24 14:29 0.4 mg QDAY YASSINE Administration Plan 79-year-old male patient with significant medical history of HFrEF (35-40% on March 2024), s/p AICD, chronic Afib (rate controlled), DVT (on Eliquis), HTN, HLD was broght to ED from SNF for chest pain/tightness and shortness of breath admitted for NSTEMI type II along with acute decompensated heart failure requiring IV diuretics. Cardiology consulted for HFrEF and NSTEMI management. # History of atrial fibrillation #HFrEF, with severe systolic dysfunction, EF 10-15% status post AICD placement ?CHADS-VASc 4?points Stroke risk was 4.8% per year in >90,000 patient ?Continue patient on Eliquis ?Patient on midodrine for hypotension, unable to tolerate Coreg at this time ?Given hypotension, patient will most likely only tolerate amiodarone if symptomatic A-fib. ?Keep potassium above 4 and magnesium above 2 ?Monitor for any signs of active bleeding ?Patient has worsening EF compared to previous echo ?Spoke with family regarding hospice, which they are amenable to SNF with hospice once children are made aware. #Acute Respiratory Failure 2/2 to #Acute decompensated heart failure #ERLIN prerenal versus cardiorenal #Cardiorenal syndrome #Right pleural effusion #Hypotension #Abdominal pain, resolved #Primary hepatocellular disease #Elevated total bilirubin #Chest pain, improved #NSTEMI type II #CAP, R base #Hospital Acquired Delirium #Right elbow swelling, improving #Right elbow erythema, improving #History of hypertension #Hyperlipidemia #History of DVT #Atrophic kidneys #Primary hepatocellular disease Continue management per primary team Case discussed with attending medical imaging technician Dr. Ibrahima Montes MD PGY3.
--- NOTE | 2024-11-16 13:43 | ESPR_ITS ---
<Statement entered by Gigi Brooks MD - 11/20/24 14:17> I reviewed above note and agree with findings and plans. I have also personally examined the patient with medicine team and went over assessment and plan with medical team including director internal control and resident physician. Documentation for date of: 11/16/24 Subjective Subjective Interval history: Patient was seen at bedside today. He appears to be more awake and alert stating that he is extremely tired and does not want to continue. Goals of care discussion had with family at 1 PM which was attended by his ict support and test engineers, his , and his 2 sisters. Due to patient's poor prognosis primary team recommended that patient would benefit from hospice to improve quality of life. Family agreed to hospice but stated that they would like in facility hospice due to the fact that the would be unable to care for the patient without additional support. Awaiting hospice recommendations Exam Vital Signs Temp Pulse Resp BP Pulse Ox O2 Del Method O2 Flow Rate 97 F 69 15 91/63 100 Nasal Cannula 1 11/16/24 12:00 11/16/24 12:11/16/24 12:11/16/24 12:11/16/24 12:11/16/24 12:11/16/24 12:00 Narrative Exam General: AAOx2, non-conversational, obese male HEENT: Scleral icterus noted, PERRLA, tongue appears to have glossitis appearance Cardiovascular: S1, S2, radial pulses +2 bilat, RRR, possible murmur heard on LIZBET border Pulmonary: Some crackles heard B/L GI: No tenderness to light or deep palpitation, no guarding, rigidity, rebound tenderness or distension Extremities: 1+ pitting edema in LE bilat, faint dorsalis pedis pulses, R elbow erythematous and a bit edematous MSK: Reduced range of motion with flexion of R elbow Skin: Some purpura through UE bilat. Small petechiae present on upper R deltoid and part of chest bilat Neuro: AAOx2, pupillary reflex intact bilat Psych: Able to cooperate. Objective Labs 11/16/24 07:58 11/16/24 07:58 Labs: Laboratory Results - last 24 hr 11/16/24 07:58 WBC 4.0 RBC 3.71 L Hgb 10.3 L Hct 33.2 L MCV 90 MCH 27.8 MCHC 31.0 RDW Std Deviation 63.7 H Plt Count 100 L D Neut % (Auto) 63 Lymph % (Auto) 19 [place] % (Auto) 11 Eos % (Auto) 6 Baso % (Auto) 1 Neut # (Auto) 2.5 Lymph # (Auto) 0.8 L [place] # (Auto) 0.4 Eos # (Auto) 0.2 Baso # (Auto) 0.0 Immature Gran # (Auto) 0.01 H Absolute Nucleated RBC 0.04 H Immature Gran % 0 Nucleated RBC % 1 H Sodium 134 L Potassium 3.2 L D Chloride 93 L Carbon Dioxide 33.5 H Anion Gap 8 BUN 50 H Creatinine 2.0 H D Estim Creat Clear Calc 34.7 L eGFR 33 L BUN/Creatinine Ratio 25 H Glucose 95 Calculated Osmolality 281 Calcium 8.9 Corrected Calcium 9.8 Total Bilirubin 9.6 H D AST 104 H ALT 73 H Alkaline Phosphatase 90 Ammonia < 10 L Total Protein 5.3 L Albumin 2.9 L Globulin 2.4 Albumin/Globulin Ratio 1.2 ABG Interpretation ABG results: 11/12/24 09:30 ABG pH 7.51 H ABG pCO2 42 ABG pO2 59 L* ABG HCO3 34 H ABG O2 Saturation 92 ABG Base Excess 10 H Quality Measures Quality Measures none Advance care planning discussed with:: patient Assessment & Plan Assessment Current Active Medications: Generic Name Dose Route Start Last Admin Trade Name Freq PRN Reason Stop Dose Admin Acetaminophen 650 mg 11/06/24 23:12 11/08/24 05:17 Acetaminophen 325 Mg Tablet PO 12/06/24 23:11 650 mg Q6H PRN Administration Pain 1-3 and/or Fever >100.1 Apixaban 5 mg 11/07/24 09:00 11/16/24 08:23 Apixaban 2.5 Mg Tablet PO 12/07/24 08:59 5 mg BID YASSINE Administration Dextrose 25 ml 11/12/24 07:59 Dextrose 50%-Water Inj 50 Ml Syringe IV 12/12/24 07:58 Q15MIN PRN BG 50-70 responsive npo pt Dextrose 50 ml 11/12/24 07:59 Dextrose 50%-Water Inj 50 Ml Syringe IV 12/12/24 07:58 Q15MIN PRN BG <50 OR BG <70 & pt unresponsive Glucagon 1 mg 11/12/24 07:59 Glucagon Inj 1 Mg Vial IM Q15MIN PRN BG <70, and no IV access Midodrine 10 mg 11/07/24 09:25 11/16/24 05:14 Midodrine 5 Mg Tablet PO 12/06/24 23:29 10 mg TID YASSINE Administration Multivitamins 1 tab 11/08/24 15:15 11/16/24 08:22 Multivitamins Tablet PO 12/08/24 15:14 1 tab QDAY YASSINE Administration Sennosides 1 tab 11/08/24 09:00 11/16/24 08:22 Senna Tablet PO 12/08/24 08:59 1 tab QDAY YASSINE Administration Protocol Simethicone 80 mg 11/11/24 12:48 11/11/24 13:00 Simethicone 80 Mg Chew PO 12/11/24 12:47 80 mg QID PRN Administration GAS Tamsulosin HCl 0.4 mg 11/07/24 14:30 11/16/24 08:22 Tamsulosin Hcl 0.4 Mg Capsule PO 12/07/24 14:29 0.4 mg QDAY YASSINE Administration Plan Plan 79-year-old male patient with significant medical history of HFrEF (35-40% on March 2024), s/p AICD, chronic Afib (rate controlled), DVT (on Eliquis), HTN, HLD was broght to ED from SNF for chest pain/tightness and shortness of breath will be admitted for NSTEMI type II along with acute decompensated heart failure requiring IV diuretics and cardiology consult. #Acute Respiratory Failure 2/2 to #Acute decompensated heart failure #HFrEF, with severe systolic dysfunction, EF 10-15% status post AICD placement #ERLIN prerenal versus cardiorenal #Cardiorenal syndrome #Right pleural effusion #Hypotension Pt currently is net neutral at this time Patient's echo shows HFrEF with systolic dysfunction and EF of 10-15% Will try to optimize medical management with GDMT, however, pt's prognosis is poor at this time Pt's code status recently changed to DNR, will continue to talk with family in regards to possible hospice care, however, of patient cannot discuss this at this time and would like to discuss this at some other time Patient's ejection fraction was 10 to 15%, renal function is worsening, progressing towards multiple organ failure. Patient is oriented to self mentation has improved, engages in conversation, patient eating breakfast. Goals of care discussion held with patient's , she wants to continue with current management, continue DNR/DNI. Patient's will be visiting in a.m., plan to have goals of care discussion again due to poor prognosis outpatient with worsening liver and kidney function. Plan: Goals of care discussion had with family at bedside. Attended by his , his 2 sisters, and their ict support and test engineers. Patient's family was updated upon his poor prognosis and poor quality of life. They agreed to hospice care but stated that they would like in facility hospice. They will discuss with the family if they are able to afford this option. We will continue with treatment until decision is made by family. Cardiology, Dr. Alexandra, consulted appreciate recommendations Hold Bumex Holding Coreg due to soft blood pressure. Midodrine 10 mg TID, hold if SBP above 110 Fluid restriction 1500 mL Strict I's and O's Daily weight Cardiology, Dr. Alexandra, consulted appreciate recommendations Keep Mag >2.0 and K >4.0 Nephrology consult, recommendation appreciated. #Abdominal pain, resolved #Primary hepatocellular disease #Elevated total bilirubin, worsening No right upper quadrant tenderness noted. 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 Plan: Continue to monitor #Chest pain, improved #NSTEMI type II #CAP, R base Patient presenting to the ED with chest tightness which she describes as someone sitting on his chest Pain/tightness does not change in quality when he takes deep breaths and is present at all times; he rates it an 8 out of 10 EKG does not show any concerning ST changes; there are left axis deviation and left bundle branch block previously seen on EKGs On CT chest abdomen pelvis there is possible right base pneumonia although the patient does not have any coughing/fever/elevated WBC Pt is not having chest pain at this point, this could be pleuritic chest pain Will add abx Troponin negative x2 Patient did complain of chest pain, most likely musculoskeletal at this time, due to it being reproducible and midsternal in nature Completed treatment with Rocephin and Doxy (11/07?11/14/24) Tylenol PRN for pain #Hospital Acquired Delirium, improving Patient responsive to sternal rub otherwise is not conversational. Suspicion of hospital-acquired delirium. -Reorient frequently -Hold [place] #Right elbow swelling, improving #Right elbow erythema, improving DDx: [place] bursitis versus cellulitis versus abscess vs gout On physical exam tender to palpation, and is red Ultrasound on previous admission shows fluid in all draining bursa, 4.6 x 1.2 x 4.4, severe generalized edema, will olceranon bursitis versus abscess Patient had MRI done on previous admission however MRI reading affected by patient moving arm during MRI Considering patient's elbow looks worse from when last discharged on previous admission, will need to take a closer look and add antibiotic coverage Will hold on MRI at this point ESR unremarkable, CRP 1.6 Plan: -Rocephin and Doxy (11/07?) ?Wound care #Glossitis?resolved Does not appear to be infectious, however could be related to nutrients Plan: ?Nystatin with swish swallow ?Multivitamins p.o. daily. #Chronic atrial fibrillation, rate controlled CHADS-VASc 4?points Stroke risk was 4.8% per year in >90,000 patient Patient is currently rate controlled on the above medications mentioned Plan: Continue Eliquis 5 mg p.o. twice daily Continuous telemetry monitoring #History of hypertension #Hyperlipidemia #History of DVT History of bilateral lower extremity DVT in September this year. Plan: As above #Atrophic kidneys #Primary hepatocellular disease As seen on CT chest abdomen pelvis, noncontributory or pertinent to current presentation Plan: Follow-up outpatient #Hyperkalemia, resolved Case discussed with my senior Dr. Flynn and my attending Dr. Brooks. Daniel Olivas MD PGY-1 Health Maintenance Disposition: [facility] DVT prophylaxis: Eliquis 5 mg twice daily GI prophylaxis: None at this time Diet: Cardiac CODE STATUS: DNR/DNI Overall patient has poor prognosis, congestive heart failure with ejection fraction 10 to 15%, worsening renal and liver function, patient progressing towards multiple organ dysfunction syndrome, goals of care discussion held with patient's , wants to continue current management however patient's prognosis continues to remain poor.
--- NOTE | 2024-11-16 14:54 | PC.SS ---
Addendum entered by CECI Candelaria 11/16/24 16:06: SS update: Hospice referral sent to [facility] via [employer]. Contacted Samantha with [facility] to make aware of referral and plan to discharge the patient tomorrow to [facility] with services. Liset at [facility] is also aware of discharge plan. Original Note: SS update: contacted Liset at [facility]. Liset checked the patient's insurance and informs patient has active medi-deejay and can return to SNF with hospice services. Updated medical team and patient's Rosy. Provided Rosy with hospice brochures to selected preferred agency. Plan is for the patient to discharge to SNF with hospice services. Updated bed side nurse on the discharge plan.
[2024-11-17] VITALS: BP 92/56; PULSE 81; PULSE 88; RESP 20; TEMP 36.3; O2SAT 96
[2024-11-17] MEDS: MELATONIN 3 MG TABLET PO (01:41)
[2024-11-17] MEDS: ACETAMINOPHEN 325 MG TABLET 650 MG PO (03:50)
[2024-11-17 04:00] VITALS: BP 93/63; PULSE 66; PULSE 89; RESP 20; TEMP 36.3; O2SAT 96
[2024-11-17 05:19] VITALS: BP 93/63; PULSE 66
[2024-11-17] MEDS: MIDODRINE 5 MG TABLET 10 MG PO (05:19)
[2024-11-17 06:13] LABS: Basophils % (Auto) 0 % (0-2.5); Eosinophils # (Auto) 0.2 Thou/mm3 (0.0-0.5); Eosinophils % (Auto) 3 % (0-10); Hematocrit 34.6 % (41.0-53.0); Hemoglobin 10.8 g/dL (13.5-16.0); Immature Granulocytes % (Auto) 1 % (0-0); Immature Granulocytes Auto 0.03 Thou/mm3 (0.00-0.00); Lymphocytes # (Auto) 1.2 Thou/mm3 (1.0-4.8); Lymphocytes % (Auto) 23 % (10-50); Mean Corpuscular HGB Conc 31.2 g/dl (31.0-37.0); Mean Corpuscular Hemoglobin 27.8 pg (25.0-35.0); Mean Corpuscular Volume 89 fL (80-100); Monocytes # (Auto) 0.6 Thou/mm3 (0.0-0.8); Monocytes % (Auto) 12 % (0-12); Neutrophils # (Auto) 3.3 Thou/mm3 (1.8-7.7); Neutrophils % (Auto) 61 % (37-80); Nucleated Red Blood Cell # 0.08 Thou/mm3 (0.00-0.00); Nucleated Red Blood Cell % 2 /100 WBC (0); Platelet Count 99 Thou/mm3 (140-440); RDW Standard Deviation 64.4 fL (35.1-43.9); Red Blood Count 3.89 Miln/mm3 (4.50-5.90); White Blood Count 5.3 Thou/mm3 (3.8-10.6)
[2024-11-17 06:43] LABS: Alanine Aminotransferase 80 U/L (10-49); Albumin, Serum 3.1 gm/dL (3.4-4.8); Albumin/Globulin Ratio 1.1 (1.2-2.2); Alkaline Phosphatase 100 U/L (46-116); Anion Gap 10 (7-16); Aspartate Amino Transferase 111 U/L (0-34); BUN/Creatinine Ratio 25 Ratio (12-20); Bilirubin,Total 11.9 mg/dL (0.3-1.2); Blood Urea Nitrogen 53 mg/dL (9-23); Calcium 9.1 mg/dL (8.3-10.6); Calcium (Corrected) 9.8 mg/dL (8.5-10.1); Carbon Dioxide 31.4 mMol/L (20.0-31.0); Chloride 91 mMol/L (98-107); Creatinine (Component) 2.1 mg/dL (0.6-1.3); Estimated Creatinine Clearance 33.1 mL/min (>60); Globulin 2.7 gm/dL (2.3-3.5); Glucose 97 mg/dL (74-106); Magnesium 2.2 mg/dL (1.6-2.6); Osmolality,Calculated 278 (275-295); Potassium 4.3 mMol/L (3.4-5.1); Sodium 132 mMol/L (136-145); Total Protein 5.8 gm/dL (5.7-8.2); eGFR 31 See Note
[2024-11-17 06:51] VITALS: PULSE 83; RESP 19; O2SAT 97
[2024-11-17 08:00] VITALS: BP 96/60; PULSE 85; PULSE 86; RESP 19; TEMP 36.1; O2SAT 100
[2024-11-17] MEDS: TAMSULOSIN HCL 0.4 MG CAPSULE PO (08:17)
[2024-11-17] MEDS: SENNA TABLET 1 TAB PO (08:17)
[2024-11-17] MEDS: MULTIVITAMINS TABLET 1 TAB PO (08:17)
[2024-11-17] MEDS: APIXABAN 2.5 MG TABLET 5 MG PO (08:17)
--- NOTE | 2024-11-17 10:27 | ESPR_ITS ---
Documentation for date of: 11/17/24 Subjective Subjective Interval history: Mr. Rai is a 79-year-old male patient with significant medical history of HFrEF (35-40% on March 2024), s/p AICD, chronic Afib (rate controlled), DVT (on Eliquis), HTN, HLD and DM2 was broght to ED on 11/06/24 from snf facility for chest pain/tightness and shortness of breath. He states it feels like somene is sitting on my chest and he cannot properly take deep breaths and also has some palpitations. He denied having any nausea/vomiting/diarrhea, hematuria, dysuria, hematemesis, hematochezia or melena. Patient was recently admitted to [facility] on 10/05/24 for aggressive diuresis with Bumex, metolazone and Diamox for CHF exacerbation and cardiorenal syndrome. Patient also had low blood pressure and was started on midodrine 10 mg 3 times daily. Patient also developed some right elbow swelling with erythema during hospitalization and was started on doxycycline and Rocephin with adequate response. He was discharged on 10/20/2024 to SNF; however, recently developed new chest pain/tightness along with acute shortness of breath requiring an increase in his oxygen requirements (patient usually uses 2 L). Patient's biological daughter is bedside; however, she states that she lives in [place] and does not manage her father's medical condition. She states that the patient's current significant other knows her medical history well but she is not available to a recent in the family. In the ED, patient hypoxemic requiring 6 L nasal cannula but satting 98%, normotensive, regular heart rate, respiratory rate 18. Pertinent lab findings include hemoglobin 11.4 (MCV 90), platelet count 166, sodium 133, potassium 3.1, BUN 70, creatinine 2.3, magnesium 2.8, troponin 0.037, BNP 3128. EKG showed atrial fibrillation with marked left axis deviation with left bundle branch block previously seen. X-ray showed early heart failure with signs of moderate cardiac enlargement and prominent vascular congestion. CT scan of chest abdomen and pelvis showed moderate enlargement of the cardiac contour, mild pneumonia in the right base, mild to moderate right pleural effusion, primary hepatocellular disease, atrophic kidneys, distended urinary bladder without significant prostatomegaly, and colonic diverticulosis. Patient will be admitted for NSTEMI type II along with acute decompensated heart failure requiring IV diuretics. Nephrology consulted for ERLIN on CKD. 11/12/2024 patient currently seen in medical floor.Urine output decreasing. Added Bumex yesterday. Per RN patient has decreased p.o. intake. Hemoglobin 11.4. WBC 5.8, platelets 136. Sodium 130, potassium 6.0, BUN 49, creatinine 2.5, calcium 10.7, total bilirubin 6.5, AST 100, ALT 57, albumin 3.4 abdominal ultrasound showed no gallstones mild liver cirrhosis echocardiogram showed ejection fraction 10 to 15%. Patient still on midodrine. Prognosis guarded. Noted DNR status per family. 11/15/2023 patient currently seen in medical floor. Today he seems to be more and more sleepy. Liver enzymes significantly elevated. Noted jaundice as bilirubin is elevated. Abdominal ultrasound showed liver cirrhosis. Noted not ready for comfort care or hospice at this point. Diuretics held due to elevation in the BUN and creatinine. Patient has decreased p.o. intake.WBC 5.2, hemoglobin 10.4, platelets 130. Sodium 134, potassium 3.7, BUN 62, creatinine 2.5. Total bilirubin 8.7, AST 104, ALT 71 11/17/2023 patient currently seen in medical floor. More sleepy. Liver enzymes still significantly elevated. Patient will be going to rehab with hospice. Review of Systems Review of Systems Narrative Review of Systems: Limited due to his mentation Exam Vital Signs Temp Pulse Resp BP Pulse Ox O2 Del Method O2 Flow Rate 36.1 C 86 19 96/60 100 Nasal Cannula 1 11/17/24 08:00 11/17/24 08:00 11/17/24 08:00 11/17/24 08:00 11/17/24 08:00 11/17/24 08:00 11/17/24 08:00 Narrative Exam General: Patient sleepy HEENT: Jaundice noted Cardiovascular: Regular Pulmonary: Clear to auscultation GI: No tenderness to light or deep palpitation, no guarding, rigidity, rebound tenderness or distension Extremities: No edema, R elbow erythematous and a bit edematous MSK: In bed Skin: Some purpura through UE bilat. Small petechiae present on upper R deltoid and part of chest bilat. significant dryness noted on bilateral feet. Neuro: Very sleepy Objective Labs 11/17/24 04:52 11/17/24 04:52 Labs: Laboratory Results - last 24 hr 11/17/24 04:52 WBC 5.3 RBC 3.89 L Hgb 10.8 L Hct 34.6 L MCV 89 MCH 27.8 MCHC 31.2 RDW Std Deviation 64.4 H Plt Count 99 L Neut % (Auto) 61 Lymph % (Auto) 23 [place] % (Auto) 12 Eos % (Auto) 3 Baso % (Auto) 0 Neut # (Auto) 3.3 Lymph # (Auto) 1.2 [place] # (Auto) 0.6 Eos # (Auto) 0.2 Baso # (Auto) 0.0 Immature Gran # (Auto) 0.03 H Absolute Nucleated RBC 0.08 H Immature Gran % 1 H Nucleated RBC % 2 H Sodium 132 L Potassium 4.3 D Chloride 91 L Carbon Dioxide 31.4 H Anion Gap 10 BUN 53 H Creatinine 2.1 H Estim Creat Clear Calc 33.1 L eGFR 31 L BUN/Creatinine Ratio 25 H Glucose 97 Calculated Osmolality 278 Calcium 9.1 Corrected Calcium 9.8 Magnesium 2.2 Total Bilirubin 11.9 H D AST 111 H ALT 80 H Alkaline Phosphatase 100 Total Protein 5.8 Albumin 3.1 L Globulin 2.7 Albumin/Globulin Ratio 1.1 L ABG Interpretation ABG results: 11/12/24 09:30 ABG pH 7.51 H ABG pCO2 42 ABG pO2 59 L* ABG HCO3 34 H ABG O2 Saturation 92 ABG Base Excess 10 H Assessment & Plan Additional Assessment & Plan Additional Plan: Summary: 79-year-old male patient with significant medical history of HFrEF (35- 40% on March 2024), s/p AICD, chronic Afib (rate controlled), DVT (on Eliquis), HTN, HLD was broght to ED from SNF for chest pain/tightness and shortness of breath will be admitted for NSTEMI type II along with acute decompensated heart failure requiring IV diuretics and cardiology consult #ERLIN on CKD #Cardiorenal syndrome #Hypotension #Atrophic kidneys On admission BUN 70 Cr 2.3 GFR 28, Baseline BUN 30 Cr 1.0 GFR >60 Patient has had multiple admission for CHF exacerbations recieved IV Diuretics. Discharged on oral diuretics. Patient is currently seems dehydrated. Will hold off on Bumex Patient with a cardiorenal syndrome and multiple hospitalizations. Comfort care seems to be appropriate . Currently on DNR status. Noted significant elevation in LFTs--suspect hepatic congestion. Noted family agreed for hospice at rehab. Prognosis very poor. #Acute Respiratory Failure 2/2 to #Acute decompensated heart failure #Right pleural effusion #HFrEF, with severe systolic dysfunction, EF 10-15% status post AICD placement #Right elbow swelling, improving #Right elbow erythema, improving #Chest pain, improved #Likely NSTEMI type II versus type I, resolved #CAP, R base #Glossitis #Abdominal pain #Primary hepatocellular disease--significant elevation in LFTs noted #Elevated total bilirubin, worsening #Chronic atrial fibrillation, rate controlled #History of hypertension #Hyperlipidemia #History of DVT #Primary hepatocellular disease #Hyperkalemia, resolved
--- NOTE | 2024-11-17 10:39 | ESPR_ITS ---
<Statement entered by Zac Alexandra MD - 11/17/24 14:59> The patient clinically examined by me along with resident physician patient end- stage heart disease NYHA functional class IV stage D multiorgan failure continues to deteriorate clinically though he is not in acute distress patient's prognosis poor agree with the treatment plan recommendation hospice care appropriate reviewed all the notes and findings and all essential components agree with treatment plan recommendation as documented by Dr. Alexander Montes, PGY 2 I had a detailed conversation with patient's family and siblings and they are agreement that [facility] with [facility] care I also discussed about turning of the ICD function but patient did not want to change at this point Documentation for date of: 11/17/24 Subjective Subjective Interval history: Patient seen and assessed at bedside this morning. Patient very ill-appearing but is able to answer questions appropriately and follow commands. Family at bedside wishes to take patient to SNF with hospice. Exam Vital Signs Temp Pulse Resp BP Pulse Ox O2 Del Method O2 Flow Rate 97.0 F 86 19 96/60 100 Nasal Cannula 1 11/17/24 08:00 11/17/24 08:00 11/17/24 08:00 11/17/24 08:00 11/17/24 08:00 11/17/24 08:00 11/17/24 08:00 Narrative Exam General: AAOx2, jaundiced and frail appearing elderly male. Cardiovascular: Irregularly irregular rhythm. With distant heart sounds. Pulmonary: Rhonchi/crackles on auscultation with distant breath sounds. GI: No tenderness to light or deep palpitation, no guarding, rigidity, rebound tenderness or distension Extremities: 2++ pitting edema in LE bilat. Skin: Multiple ecchymosis throughout arms and lower extremities. Jaundiced. Objective Labs 11/17/24 04:52 11/17/24 04:52 Labs: Laboratory Results - last 24 hr 11/17/24 04:52 WBC 5.3 RBC 3.89 L Hgb 10.8 L Hct 34.6 L MCV 89 MCH 27.8 MCHC 31.2 RDW Std Deviation 64.4 H Plt Count 99 L Neut % (Auto) 61 Lymph % (Auto) 23 [place] % (Auto) 12 Eos % (Auto) 3 Baso % (Auto) 0 Neut # (Auto) 3.3 Lymph # (Auto) 1.2 [place] # (Auto) 0.6 Eos # (Auto) 0.2 Baso # (Auto) 0.0 Immature Gran # (Auto) 0.03 H Absolute Nucleated RBC 0.08 H Immature Gran % 1 H Nucleated RBC % 2 H Sodium 132 L Potassium 4.3 D Chloride 91 L Carbon Dioxide 31.4 H Anion Gap 10 BUN 53 H Creatinine 2.1 H Estim Creat Clear Calc 33.1 L eGFR 31 L BUN/Creatinine Ratio 25 H Glucose 97 Calculated Osmolality 278 Calcium 9.1 Corrected Calcium 9.8 Magnesium 2.2 Total Bilirubin 11.9 H D AST 111 H ALT 80 H Alkaline Phosphatase 100 Total Protein 5.8 Albumin 3.1 L Globulin 2.7 Albumin/Globulin Ratio 1.1 L ABG Interpretation ABG results: 11/12/24 09:30 ABG pH 7.51 H ABG pCO2 42 ABG pO2 59 L* ABG HCO3 34 H ABG O2 Saturation 92 ABG Base Excess 10 H Quality Measures Quality Measures none Advance care planning discussed with:: patient, spouse and sibling Assessment & Plan Assessment Current Active Medications: Generic Name Dose Route Start Last Admin Trade Name Freq PRN Reason Stop Dose Admin Acetaminophen 650 mg 11/06/24 23:12 11/17/24 03:50 Acetaminophen 325 Mg Tablet PO 12/06/24 23:11 650 mg Q6H PRN Administration Pain 1-3 and/or Fever >100.1 Apixaban 5 mg 11/07/24 09:00 11/17/24 08:17 Apixaban 2.5 Mg Tablet PO 12/07/24 08:59 5 mg BID YASSINE Administration Dextrose 25 ml 11/12/24 07:59 Dextrose 50%-Water Inj 50 Ml Syringe IV 12/12/24 07:58 Q15MIN PRN BG 50-70 responsive npo pt Dextrose 50 ml 11/12/24 07:59 Dextrose 50%-Water Inj 50 Ml Syringe IV 12/12/24 07:58 Q15MIN PRN BG <50 OR BG <70 & pt unresponsive Glucagon 1 mg 11/12/24 07:59 Glucagon Inj 1 Mg Vial IM Q15MIN PRN BG <70, and no IV access Midodrine 10 mg 11/07/24 09:25 11/17/24 05:19 Midodrine 5 Mg Tablet PO 12/06/24 23:29 10 mg TID YASSINE Administration Multivitamins 1 tab 11/08/24 15:15 11/17/24 08:17 Multivitamins Tablet PO 12/08/24 15:14 1 tab QDAY YASSINE Administration Sennosides 1 tab 11/08/24 09:00 11/17/24 08:17 Senna Tablet PO 12/08/24 08:59 1 tab QDAY YASSINE Administration Protocol Simethicone 80 mg 11/11/24 12:48 11/11/24 13:00 Simethicone 80 Mg Chew PO 12/11/24 12:47 80 mg QID PRN Administration GAS Tamsulosin HCl 0.4 mg 11/07/24 14:30 11/17/24 08:17 Tamsulosin Hcl 0.4 Mg Capsule PO 12/07/24 14:29 0.4 mg QDAY YASSINE Administration Plan 79-year-old male patient with significant medical history of HFrEF (35-40% on March 2024), s/p AICD, chronic Afib (rate controlled), DVT (on Eliquis), HTN, HLD was broght to ED from SNF for chest pain/tightness and shortness of breath admitted for NSTEMI type II along with acute decompensated heart failure requiring IV diuretics. Cardiology consulted for HFrEF and NSTEMI management. # History of atrial fibrillation #HFrEF, with severe systolic dysfunction, EF 10-15% status post AICD placement ?CHADS-VASc 4?points Stroke risk was 4.8% per year in >90,000 patient ?Continue patient on Eliquis ?Patient on midodrine for hypotension, unable to tolerate Coreg at this time ?Given hypotension, patient will most likely only tolerate amiodarone if symptomatic A-fib. ?Keep potassium above 4 and magnesium above 2 ?Monitor for any signs of active bleeding ?Patient has worsening EF compared to previous echo ? Family in agreement for hospice. #Acute Respiratory Failure 2/2 to #Acute decompensated heart failure #ERLIN prerenal versus cardiorenal #Cardiorenal syndrome #Right pleural effusion #Hypotension #Abdominal pain, resolved #Primary hepatocellular disease #Elevated total bilirubin #Chest pain, improved #NSTEMI type II #CAP, R base #Hospital Acquired Delirium #Right elbow swelling, improving #Right elbow erythema, improving #History of hypertension #Hyperlipidemia #History of DVT #Atrophic kidneys #Primary hepatocellular disease Continue management per primary team Case discussed with attending ship rigger apprentice Dr. Ibrahima Montes MD PGY3.
--- NOTE | 2024-11-17 11:24 | PC.SS ---
Plastic Process Technician (ISAAC) Slime informed by Dr. Brooks that patient was cleared for discharge. ISAAC reviewed discharge plan; patient will return to [facility] with [facility]. Plastic Process Technician (ISAAC) Slime contacted [facility] and spoke to Septic Tank Setter, Brina ([phone]) who reported that DME was delivered on 11/16/2024. ISAAC contacted patient's , Rosy and discussed discharge plan. Rosy is in agreement. ISAAC completed Transfer Form and scheduled EMS transportation for 1400. ISAAC updated [facility]-Admission CoordinatorLiset and [facility]-Brina.
[2024-11-17 12:00] VITALS: BP 90/70; PULSE 78; PULSE 79; RESP 20; TEMP 36.2; O2SAT 99
--- NOTE | 2024-11-17 13:11 | ESDS_ITS ---
<Statement entered by Gigi Brooks MD - 12/02/24 08:45> I reviewed above note and agree with findings and plans. I have also personally examined the patient with medicine team and went over assessment and plan with medical team including internal audit director and resident physician. Planned Discharge Date 11/17/24 DS: Providers Provider Date of admission: 11/06/24 23:12 Primary care physician: Physician No Primary/Family Admitting Provider: Terrie Manzo MD Attending Provider on Admission: Gigi Brooks MD Consults: 11/06/24 23:17 Consult to Cardiology Routine Comment: Consulting Provider: Zac Alexandra Instructions: CHF exacerbation, chest pain w/ no elevated troponin 11/06/24 23:22 Referral Physical Therapy Routine Comment: Physician Instructions: 11/07/24 10:03 Referral Respiratory Therapy Routine Comment: 11/08/24 07:03 Referral Registered Dietitian Routine Comment: diabetic, chronic wound on arm 11/08/24 12:57 Consult to Nephrology Routine Comment: Consulting Provider: Vidya Balderas 11/09/24 14:52 Referral Physical Therapy Routine Comment: Physician Instructions: 11/16/24 13:25 Referral Hospice Stat Comment: Attending Provider on DC: Gigi Brooks MD Discharging Provider: Daniel Olivas MD Anticipated date of discharge: 11/17/24 DS: Diagnosis Problem List Completed Was Problem List Reviewed/Reconciled?: Yes Hospital Course Hospital Course Hospital course: 79-year-old male patient with significant medical history of HFrEF (30-40%), s/p AICD, chronic Afib (rate controlled), DVT (on Eliquis), HTN, HLD and DM2 was broght to ED from SNF for chest pain/tightness and shortness of breath. Patient was admitted for NSTEMI type II along with acute decompensated heart failure. During hospital stay patients Acute hypoxic respiratory failure with likely etiology being acute decompensated heart failure with reduced ejection fraction was managed with aggressive diuresis, strict intake and output, fluid restriction. Patient was also found with right pleural effusion which was also managed with diuresis. Cardiology was consulted and patient had echocardiogram done and was found to have EF of 10-15%. Patient blood pressure was consistently low and patients midodrine was resumed as taken at home. Patient also had Acute kidney injury likely in the setting of cardiorenal syndrome which improved with diuresis. Atrial fibrillation was rate controlled and patients eliquis was resumed. Patient also had community aquired pneumonia requiring IV antibiotic therapy which was completed prior to discharge. Patient had elevated bilirubin and hepatic enzymes likely in the setting of hepatic congestion due to the patients poor heart function. Despite aggressive therapy patients condition and prognosis remained poor. Goals of care discussion had with the family as patient was also stating that he was tired of aggressive treatment. Explained to son and patient that patient will likely be requiring recurrent hospitalizations due to the patients poor heart function. Goals of care discussion had with family at bedside. Attended by his , his 2 sisters, and their home security alarm installer. Patient's family was updated upon his poor prognosis and poor quality of life. They agreed to hospice care and decided in facility hospice. At this time patient is medically stable for discharge. Patient is to be discharged with hospice care to a assisted facility. Transition of care towards comfort focused treatment. Recommend morphine for pain, lorazepam for anxiety, and continuation of antiarrhythmics along with DOAC to protect from CVA. Further management as determined by hospice team Problem List: #Acute Respiratory Failure 2/2 to #Acute decompensated heart failure #HFrEF, with severe systolic dysfunction, EF 10-15% status post AICD placement #ERLIN prerenal versus cardiorenal #Cardiorenal syndrome #Right pleural effusion #Hypotension #Abdominal pain, resolved #Chest pain, improved #NSTEMI type II #CAP #Hospital Acquired Delirium, improving #Right elbow swelling, improving #Right elbow erythema, improving #Glossitis?resolved #Chronic atrial fibrillation, rate controlled #History of hypertension #Hyperlipidemia #History of DVT #Atrophic kidneys #Hyperbilirubinemia #Hyperkalemia, resolved Case discussed with my attending Dr. Cecilia Olivas MD PGY-1 Status at Discharge Functional status at discharge: bed bound Overall status at discharge: patient is back to baseline Time Spent with Patient Time attestation: Total time spent providing and/or coordinating discharge services: Time spent: Greater than 30 minutes Exam Vital Signs Temp Pulse Resp BP Pulse Ox O2 Del Method O2 Flow Rate 97.1 F 79 20 90/70 99 Nasal Cannula 1 11/17/24 12:11/17/24 12:11/17/24 12:11/17/24 12:11/17/24 12:00 11/17/24 12:00 11/17/24 12:00 Narrative Exam Physical Exam: General: AAOx3, non-conversational, obese male HEENT: Scleral icterus noted, PERRLA Cardiovascular: S1, S2, radial pulses +2 bilat, irregularly irregular, possible murmur heard on LIZBET border Pulmonary: Some crackles heard B/L GI: No tenderness to light or deep palpitation, no guarding, rigidity, rebound tenderness or distension Extremities: 1+ pitting edema in LE bilat, faint dorsalis pedis pulses Skin: Some purpura through UE bilat. Small petechiae present on upper R deltoid and part of chest bilat Neuro: AAOx3 Discharge Plan Plan Patient Disposition: Xfer Skilled Nsg Fac (SNF) Disposition Comment: With [facility] Care Plan Goals: Patient is to be discharged with hospice care to a assisted facility Transition of care towards comfort focused treatment Recommend morphine for pain, lorazepam for anxiety, and continuation of antiarrhythmics along with DOAC to protect from CVA Further management as determined by hospice team Prescriptions/Referrals Prescriptions/Med Rec: Continued Eliquis 5 mg tablet 5 mg PO BID Qty: 46 0RF Rx Instructions: Give 1 tablet by mouth two times a day for Afib carvedilol 12.5 mg tablet 12.5 mg PO Q12H Rx Instructions: must administer with a meal or food Give 1 tablet by mouth every 12 hours for CHF hold if SBO<100 or Dbp<60 hr<60 midodrine 5 mg Tablet 10 mg PO TID 30 Days Qty: 180 0RF senna 8.6 mg capsule 8.6 mg PO QDAY PRN (Reason: constipation) Qty: 30 0RF Rx Instructions: give 1 tablet by mout in the morning for constipation Hold for loose stools melatonin 3 mg Tablet 6 mg PO HS Rx Instructions: give 2 ablet by mout at bedtime for supplement magnesium hydroxide [Milk of Magnesia] 400 mg/5 mL Suspension 30 ml PO Q72H PRN (Reason: Constipation) Rx Instructions: Give if no BM for three consecutive days bisacodyl [Dulcolax (bisacodyl)] 10 mg Suppository 10 mg TX Q72H PRN (Reason: Constipation) Rx Instructions: as needed for constipation if MOM ineffective Fleet Enema 19-7 gram/118 mL Enema 118 ml TX Q72H PRN (Reason: Constipation) Rx Instructions: give if MOM/Dulcolax Suppository ineffective Discontinued fluoxetine 20 mg capsule 20 mg PO QDAY Patient Comments: TAKE 1 CAPSULE BY MOUTH ONCE DAILY Rx Instructions: Give 1 tablet by mout in the morning for depression AEB uncontrolled tremors levothyroxine [Synthroid] 25 mcg Tablet 25 mcg PO QDAY Referrals: No Primary/Family,Physician [Primary Care Provider] - Patient/Caregiver Discharge Instructions Print Language: [place] Stand Alone Forms: Valeria Award Info., Patient Portal Info Letter Discharge Order Discharge Orders: Discharge (Routine); Ordered 11/17/24 Ordered By: Charlene Aguilar Quality Discharge Quality Measures VTE prophylaxis
== END 2024-11-17 14:20 | disposition skilled nursing facility (03) | DRG 280 ==
LOC: SERX 22:50 → SERHOLD 23:52 → S3NX 11-07 08:24
PROVIDERS: Internal Medicine; Registered Nurse General Practice; Student in an Organized Health Care Education/Training Program; Admitting Provider Student in an Organized Health Care Education/Training Program; Emergency Provider Emergency Medicine; Visit Provider Internal Medicine
DX: I13.0 Hypertensive heart and chronic kidney disease with heart failure and stage 1 through stage 4 chronic kidney disease, or unspecified chronic kidney disease (principal); I50.23 Acute on chronic systolic (congestive) heart failure; I21.A1 Myocardial infarction type 2; J96.01 Acute respiratory failure with hypoxia; J18.9 Pneumonia, unspecified organism; I48.20 Chronic atrial fibrillation, unspecified; E87.3 Alkalosis; F05 Delirium due to known physiological condition; N17.9 Acute kidney failure, unspecified; E11.22 Type 2 diabetes mellitus with diabetic chronic kidney disease; N18.9 Chronic kidney disease, unspecified; I44.7 Left bundle-branch block, unspecified; K57.30 Diverticulosis of large intestine without perforation or abscess without bleeding; N26.1 Atrophy of kidney (terminal); E78.5 Hyperlipidemia, unspecified; I50.84 End stage heart failure; K83.9 Disease of biliary tract, unspecified; K14.0 Glossitis; K74.60 Unspecified cirrhosis of liver; I95.89 Other hypotension; M25.421 Effusion, right elbow; E87.6 Hypokalemia; E86.0 Dehydration; E87.5 Hyperkalemia; Z66 Do not resuscitate; Z95.810 Presence of automatic (implantable) cardiac defibrillator; Z86.718 Personal history of other venous thrombosis and embolism; Z79.01 Long term (current) use of anticoagulants; Z79.899 Other long term (current) drug therapy; Z51.5 Encounter for palliative care
CPT/HCPCS: 36415; 36600; 71045; 71250; 74176; 76700; 80048; 80053; 80061; 80307; 81001; 82140; 82248; 82607; 82746; 82803; 83615; 83735; 83880; 84100; 84132; 84439; 84443; 84484; 85025; 85610; 85652; 85730; 86140; 87081; 87400; 87811; 92610; 93005; 93306; 94640; 94644; 94664; 96374; 97161; 99285; J0696; J1815; J3480; J3490; J7040; A9270